=== PATIENT | male | born 1960 | race Caucasian/White ===

== ENCOUNTER 2022-11-27 08:23 | Outpatient (OUT) | payer OTHER, SELFPAY ==
[2022-11-27 08:39] LABS: Basophils Absolute Auto 0.1 10^3/uL (0.0-0.1); Basophils Percent Auto 0.8 % (0.2-2.0); Hematocrit 45.8 % (42.0-54.0); Hemoglobin 15.7 g/dL (14.0-18.0); Immature Granulocytes Abs Auto 0.02 10^3/uL (0.00-0.03); Immature Granulocytes Pct Auto 0.3 % (0.0-0.5); Lymphocytes Absolute Auto 1.7 10^3/uL (1.2-3.8); Lymphocytes Percent Auto 24.5 % (20.5-60.0); Mean Corpuscular HGB Conc 34.3 g/dL (29.9-35.2); Mean Corpuscular Hemoglobin 32.7 pg (25.9-34.0); Mean Corpuscular Volume 95.4 fL (80.0-94.0); Mean Platelet Volume 9.8 fL (9.5-13.5); Monocytes Absolute Auto 0.6 10^3/uL (0.3-0.8); Monocytes Percent Auto 7.8 % (1.7-12.0); Neutrophils Absolute Auto 4.7 10^3/uL (1.4-6.5); Neutrophils Percent Auto 66.6 % (43.0-75.0); Platelet Count 189 10^3/uL (150-450); Red Cell Distribution Width 12.7 % (11.0-15.0); White Blood Count 7.1 10^3/uL (4.0-11.0)
[2022-11-27 08:56] LABS: Estimated Average Glucose 154 mg/dL
[2022-11-27 09:06] LABS: Microalbumin Urine Random 10.5 mg/dL (<=30.0)
[2022-11-27 09:09] LABS: Alanine Aminotransferase 100 U/L (16-63); Albumin Globulin Ratio 0.9; Albumin Level 3.8 g/dL (3.4-5.0); Alkaline Phosphatase 100 U/L (46-116); Anion Gap 14.7; Aspartate Amino Transferase 65 U/L (15-37); Bilirubin Total 0.6 mg/dL (0.2-1.0); Calcium 9.5 mg/dL (8.5-10.1); Carbon Dioxide 29.3 mmol/L (21.0-32.0); Chloride 97 mmol/L (98-107); Cholesterol 202 mg/dL (<=200); Estimated GFR (African America >60 (>=60); Estimated GFR (Non-African Ame >60 (>=60); Globulin 4.2 g/dL; Glucose 151 mg/dL (74-106); HDL Cholesterol 51 mg/dL (40-60); Sodium 137 mmol/L (136-145); Triglycerides 181 mg/dL (<=150); VLDL CHOLESTEROL 36.2 mg/dL
[2022-11-27 14:04] LABS: Prostate Specific Antigen Scrn 0.62 ng/mL (<=4.00)
== END 2022-11-27 08:24 | disposition home or self-care (01) ==
LOC: LAB 08:23
PROVIDERS: PCP Internal Medicine; Visit Provider Internal Medicine
DX: Z00.00 Encounter for general adult medical examination without abnormal findings (principal); Z12.5 Encounter for screening for malignant neoplasm of prostate
CPT/HCPCS: 36415; 80053; 80061; 82043; 83036; 85025; G0103

== ENCOUNTER 2023-01-28 12:29 | Emergency (ER) | payer OTHER, SELFPAY ==
[2023-01-28 12:33] VITALS: BP 128/100; PULSE 102; RESP 18; TEMP 37; O2SAT 96; BMI 30.2
--- NOTE | 2023-01-28 13:00 | XR_ITS ---
The [address] [address] Patient Name: VINNY CERON MRN: [id number] date: 1960 Sex: M Assigned Patient Location: ER Current Patient Location: ED.MAIN Accession/Order Number: [id number] Exam Date: 01/28/2023 13:07 Report Date: 01/28/2023 13:53 At the request of: JEREMY LUIS Procedure: XR hip LT 2V w/ pelvis PROCEDURE: XR hip LT 2V w/ pelvis HISTORY: pain COMPARISON: None. FINDINGS: BONES:No fracture, acute abnormality, or significant arthropathy. SOFT TISSUES:No visible soft tissue swelling. EFFUSION:None visible. OTHER: Negative. XR/XR hip LT 2V w/ pelvis IMPRESSION: 1. Minimal degenerative changes. 2. No acute bone abnormality. Electronically authenticated by: LOI COREA Date: 01/28/2023 13:53
--- NOTE | 2023-01-28 13:01 | XR_ITS ---
The [address] [address] Patient Name: VINNY CERON MRN: [id number] date: 1960 Sex: M Assigned Patient Location: ER Current Patient Location: ER Accession/Order Number: [id number] Exam Date: 01/28/2023 13:07 Report Date: 01/28/2023 13:55 At the request of: JEREMY LUIS Procedure: XR lumbar spine 2-3V EXAMINATION: XR lumbar spine 2-3V HISTORY: pain COMPARISON: No relevant comparison available. FINDINGS: BONES: Minimal left convex curvature lumbar spine. No fracture or spondylolisthesis. Moderate degenerative facet arthropathy L4-5, L5-S1. DISC SPACES: No significant disc space narrowing. PARASPINOUS: Negative. No paraspinous abnormality is seen. OTHER: Negative. XR/XR lumbar spine 2-3V IMPRESSION: 1. No appreciable acute abnormality. 2. Moderate degenerative facet arthropathy of lower lumbar spine. Electronically authenticated by: LOI COREA Date: 01/28/2023 13:55
--- NOTE | 2023-01-28 13:41 | ED.BACK1 ---
HPI - Back Pain/Injury General Chief Complaint: Extremity Injury, Lower Stated Complaint: LOWER EXTREMITY PAIN Time Seen by Provider: 01/28/23 12:40 Source: patient Mode of arrival: walk-in History of Present Illness HPI Narrative: this patient's here complaining of low back pain left hip pain. He says the radiate the pain radiates through his buttock down the sciatic area below his knee all the way into his foot. He has bilateral peripheral neuropathy due to diabetes but he says his pain is getting the point where it's excruciating. He's had it for three weeks. He scheduled to see his primary care doctor tomorrow. He's not had CT/MRI or previous x-rays of his back. He's not had surgery. He does not have a bowel or bladder incontinence or dysfunction. He is not running a fever. There is not been a trauma or injury. He says when he goes to work at the end of the shift he is actually feeling a little bit better. Today says the pain is a fifteen he said he just couldn't even get out of bed. He has no ALLERGIES to medication is not on any NSAIDs or analgesics at this time. He has no history of kidney stones. He has no flank pain. Related Data Allergies Allergy/AdvReac Type Severity Reaction Status Date / Time No Known Drug Allergies Allergy Verified 01/28/23 12:33 [facility] Social History Smoking status: Current every day smoker Exam Narrative Exam Narrative: await lying on his back has discomfort when he moves about. He is very stoic. Vital signs are noted. In prone position deep tendon reflexes were checked and they're symmetrical at his patella and Achilles. He has strong strength bilateral extensor hallucis longus. He has positive ipsilateral straight leg raising test on the left negative contralateral findings. Neurovascular examination lower extremity is normal with no evidence of vascular insufficiency. There is no evidence of deep vein thrombosis or phlebitis or edema. Breast examination chest had upper torso or all normal. Constitutional Vital Signs, click to edit/add: Last Vital Signs Temp 98.6 F 01/28/23 12:33 Pulse 102 H 01/28/23 12:33 Resp 18 01/28/23 12:33 BP 128/100 H 01/28/23 12:33 Pulse Ox 96 01/28/23 12:33 O2 Del Method Room Air 01/28/23 12:33 Course Vital Signs Vital signs: Vital Signs Temperature 98.6 F 01/28/23 12:33 Pulse Rate 102 H 01/28/23 12:33 Respiratory Rate 18 01/28/23 12:33 Blood Pressure 128/100 H 01/28/23 12:33 Pulse Oximetry 96 01/28/23 12:33 Oxygen Delivery Method Room Air 01/28/23 12:33 Temperature 98.6 F 01/28/23 12:33 Pulse Rate 102 H 01/28/23 12:33 Respiratory Rate 18 01/28/23 12:33 Blood Pressure 128/100 H 01/28/23 12:33 Pulse Oximetry 96 01/28/23 12:33 Oxygen Delivery Method Room Air 01/28/23 12:33 MDM - Back Pain/Injury MDM Narrative Medical decision making narrative: conventional x-rays been done LS-spine and left hip are essentially negative for any acute abnormality or fracture. His symptoms are highly suggestive of lumbar radiculopathy with no cauda equinus syndrome. I spoke with his primary care doctor who will see him tomorrow. We'll administer analgesics and start him on steroids. Discharge Plan Discharge Chief Complaint: Extremity Injury, Lower Clinical Impression: Acute left lumbar radiculopathy Patient Disposition: Home, Self-Care Time of Disposition Decision: 13:44 Additional Instructions: Robaxin/Percocet/prednisone Stand Alone Forms: Portal Instructions Referrals: Samuel Zhao DO [Primary Care Provider] - 1 week
[2023-01-28] MEDS: HYDROMORPHONE HCL 2 MG/ML VIAL IM (13:50)
[2023-01-28] MEDS: ORPHENADRINE 60 MG/ 2 ML VIAL IM (13:51)
[2023-01-28 14:19] VITALS: BP 118/79; PULSE 100; RESP 14; O2SAT 94
== END 2023-01-28 14:21 | disposition home or self-care (01) ==
PROVIDERS: Emergency Provider Emergency Medicine Emergency Medical Services; PCP Internal Medicine
DX: M54.16 Radiculopathy, lumbar region (principal); F17.210 Nicotine dependence, cigarettes, uncomplicated
CPT/HCPCS: 72100; 73502; 96372; 99284; J1170

== ENCOUNTER 2023-02-06 08:43 | Outpatient (OUT) | payer OTHER, SELFPAY ==
--- NOTE | 2023-02-06 08:46 | MR_ITS ---
[address] [address] Patient Name: VINNY CERON MRN: [id number] date: 1960 Sex: M Assigned Patient Location: MRI Current Patient Location: ED.MAIN Accession/Order Number: [id number] Exam Date: 02/06/2023 08:58 Report Date: 02/06/2023 11:09 At the request of: NESHA VALDEZ Procedure: MR lumbar spine wo con EXAM: MR lumbar spine wo con CLINICAL INDICATION: Acute Left Sided Low Back Pain With Left Sided Sciatica COMPARISON: Lumbar spine radiographs 01/28/2023. MRI lumbar spine 03/21/2022. TECHNIQUE/PROTOCOL: Noncontrast lumbar spine MR protocol (Sagittal T1, T2, STIR and axial T1, T2 sequences). FINDINGS: Segmentation: Normal. Conus: Terminates at L1. Spinal Cord and Cauda Equina: Normal. Pedicles: Congenitally shortened. Alignment: Normal. Marrow Signal: Focal hyperintense STIR marrow edema in the left L4 and L5 pedicles with trace surrounding soft tissue edema. Vertebral Body Heights: Maintained. Sacroiliac Joints: Grossly normal given only partially visualized. Paraspinal Soft Tissues: Normal. Retroperitoneal Soft Tissues: No acute abnormalities. Spondylotic Changes: Multilevel spondylotic changes include varying degrees of disc desiccation, osteophytic ridging, and facet/ligamentum flavum hypertrophy. These have not substantially progressed since 03/21/2022. T12-L1: No disc bulge or herniation. No high-grade spinal canal or foraminal narrowing. L1-L2: No disc bulge or herniation. No high-grade spinal canal or foraminal narrowing. L2-L3: Slight disc bulge minimally indents the ventral thecal sac. No high-grade spinal canal or foraminal narrowing. Mild bilateral facet/ligamentum flavum hypertrophy. L3-L4: Disc bulge indents the ventral thecal sac. This in conjunction with the congenitally shortened pedicles and mild bilateral facet/ligamentum flavum hypertrophy overall results in mild spinal canal narrowing. Mild bilateral foraminal narrowing. L4-L5: Disc bulge indents the ventral thecal sac. This in conjunction with the congenitally shortened pedicles and moderate bilateral facet/ligamentum flavum hypertrophy overall results in moderate spinal canal narrowing. Mild bilateral foraminal narrowing. L5-S1: Slight disc bulge does not indent the ventral thecal sac. Circumferential epidural lipomatosis contributes to moderate spinal canal narrowing. Mild bilateral foraminal narrowing. Mild bilateral facet/ligamentum flavum hypertrophy. Small right facet joint effusion. MR/MR lumbar spine wo con IMPRESSION: 1. Focal marrow edema in the left L4 and L5 pedicles. Trace surrounding soft tissue edema. This could reflect active arthritis/arthropathy and can be a pain generator. 2. Multilevel spondylotic changes are superimposed on congenitally shortened pedicles. No high-grade spinal canal or foraminal narrowing at any lumbar level. 3. Spinal canal narrowing is at most moderate at L4-L5 and L5-S1. At L5-S1, this is primarily contributed to by epidural lipomatosis. Report was submitted to the clinical operation support team for expedited review by the provider. Electronically authenticated by: LUCIE WOODWARD Date: 02/06/2023 11:09
== END 2023-02-06 08:44 | disposition home or self-care (01) ==
LOC: MRI 08:43
PROVIDERS: PCP Internal Medicine; Visit Provider Internal Medicine
DX: M54.42 Lumbago with sciatica, left side (principal)
CPT/HCPCS: 72148

== ENCOUNTER 2023-03-26 12:29 | Outpatient (OUT) | payer OTHER, SELFPAY ==
--- OUTSIDE RECORDS SUMMARY | 2023-03-26 12:34 | XMS_ITS | CCD ---
Author Name Unknown Address [address] [place] [address] Organization [facility] Care Team Providers Care Antenna Engineer Name Role Phone Samuel Zhao Unavailable PAVEL, DR JEFFRIES Primary Care Unavailable REAL, CAPRICE Mendez Admitting Unavailable REAL, CAPRICE Mendez Attending Unavailable REAL, CAPRICE Mendez Consulting Unavailable NEFCY, CAPRICE Consulting Unavailable PAVEL, DR JEFFRIES Primary Care Unavailable BALL, DR JEFFRIES Admitting Unavailable BALL, DR JEFFRIES Attending Unavailable BALL, DR JEFFRIES Consulting Unavailable MINESH, DR VINNY Gonzalez Consulting Unavailable BALL, DR JEFFRIES Primary Care Unavailable BALL, DR JEFFRIES Admitting Unavailable BALL, DR JEFFRIES Attending Unavailable BALL, DR JEFFRIES Consulting Unavailable MISC, DR HEALY Admitting Unavailable MISC, DR HEALY Attending Unavailable WEST, DR VINNY Gonzalez Consulting Unavailable BALL, DR JEFFRIES Primary Care Unavailable MISC, DR HEALY Consulting Unavailable BALL, DR JEFFRIES Admitting Unavailable BALL, DR JEFFRIES Attending Unavailable BALL, DR JEFFRIES Consulting Unavailable BALL, DR JEFFRIES Primary Care Unavailable BALL, DR JEFFRIES Primary Care Unavailable BALL, DR JEFFRIES Admitting Unavailable BALL, DR JEFFRIES Attending Unavailable BALL, DR JEFFRIES Consulting Unavailable WEST, DR VINNY Gonzalez Consulting Unavailable BALL, DR JEFFRIES Admitting Unavailable BALL, DR JEFFRIES Attending Unavailable BALL, DR JEFFRIES Consulting Unavailable BALL, DR JEFFRIES Primary Care Unavailable Allergies Allergy Classification Reported Allergen(s) Allergy Type Date of Onset Reaction(s) Facility (20 sources) met[facility] Drug Allergy diarrhea [email or web address] Other Medications Current Medications Medication Drug Class(es) Dates Sig (Normalized) Sig (Original) acetaminophen 325 mg / oxyCODONE hydrochloride 5 mg oral tablet (20 sources) Opioid Agonist Start: 03-11-2023 take 1 tablet by mouth every six hours oxyCODONE-Acetami nophen 5-325 MG 1 tablet as needed Orally every 6 hrs for 7 days p/u 03/11, start 03/12Mar, Active Start: 01-31-2023 take 1 tablet by alphonso th every six hours oxyCODONE-Acetaminophen 5-325 MG 1 table t as needed Orally every 6 hrs for 7 days Mar, Active [id number] actuat albuterol 0.09 mg/actuat metered dose inhaler (20 sources) beta2-Adrenergic Agonist take 2 puff(s) by inhalation every four hours as needed for cough Albuterol Sulfate HFA 108 (90 Base) MCG/ACT 2 puffs Inhalation every 4 hrs as needed for cough, SOB Active take 2 puff(s) by in halation every four hours as needed for cough Albuterol Sulfate HFA 108 (90 Base) MCG/ACT 2 puffs Inhalation every 4 hrs as needed for cough, SOB Active take 2 puff(s) by in halation every four hours as needed for cough Albuterol Sulfate HFA 108 (90 Base) MCG/ACT 2 puffs Inhalation every 4 hrs as needed for cough, SOB Active take 1 puff(s) by in halation every four hours as needed Albuterol Sulfate HFA 108 (90 Base) MCG/ACT 1 puff as needed Inhalation every 4 hrs Active amLODIPine 5 mg oral tablet (20 sources) Dihydropyridine Calcium Channel Tony Start: 03-21-2022 take 1 tablet by mouth every twenty-four hours amLODIPine Besylate 5 MG 1 tablet Orally Once a day Mar, Active atorvastatin 10 mg oral tablet (20 sources) HMG-CoA Reductase Inhibitor take 1 tablet by mouth every twenty-four hours Atorvastatin Calcium 10 MG 1 tablet Orally Once a day Active bisoprolol fumarate 5 mg / hydroCHLOROthiazide 6.25 mg oral tablet (16 sources) Thiazide Diuretic, beta-Adrenergic Tony Start: 06-26-2022 take 1 tablet by mouth every twenty-four hours Bisoprolol-hydro CHLOROthiazide 5-6.25 MG 1 tablet Orally Once a day for 30 days Jun, Active glimepiride 2 mg oral tablet (20 sources) Sulfonylurea take 1 tablet by mouth once daily Glimepiride 2 mg 1 tablet Orally Once a day, taken 30 minutes prior to bkfsts Active losartan potassium 50 mg oral tablet (20 sources) Angiotensin 2 Receptor Tony take 1 tablet by mouth every twenty-four hours Losartan Potassium 50 MG 1 tablet Orally Once a day Active nabumetone 750 mg oral tablet (8 sources) Nonsteroidal Anti-inflammatory Drug take 750 mg by mouth three times daily Nabumetone 750 MG as directed Orally three times a day Active omeprazole 20 mg delayed release oral capsule (20 sources) Proton Pump Inhibitor Start: 03-21-2022 take 1 capsule by mouth once daily Omeprazole 20 MG 1 Capsule Orally Once a day, taken on empty stomach 30 minutes prior to bkfst Mar, Active predniSONE 20 mg oral tablet (9 sources) predniSONE 20 MG 1 tablets Orally three times a day for 3 days, two times a day for 3 days, 1 a day for 3 days for 9 days Active SITagliptin 50 mg oral tablet (20 sources) Dipeptidyl Peptidase 4 Inhibitor take 1 tablet by mouth every twenty-four hours Januvia 50 MG 1 tablet Orally Once a day Active tiZANidine 4 mg oral tablet (7 sources) Central alpha-2 Adrenergic Agonist Start: 02-05-2023 tiZANidine HCl 4 MG 1/2 - 1 Orally Three times a day as needed for back pain Feb, Active triamcinolone acetonide 0.001 mg/mg topical ointment (16 sources) Corticosteroid Triamcinolone Acetonide 0.1 % 1 application Externally Twice a day for 30 days Active 30 actuat umeclidinium 0.0625 mg/actuat / vilanterol 0.025 mg/actuat dry powder inhaler (20 sources) Anticholinergic, beta2-Adrenergic Agonist take 1 puff(s) by inhalation once daily Anoro Ellipta 62.5-25 MCG/ACT 1 puff Inhalation Once a day Active take 1 puff(s) by inhalation onc e daily Anoro Ellipta 62.5-25 MCG/ACT 1 puff Inhalation Once a day Active Completed/Discontinued Medications Medication Drug Class(es) Dates Sig (Normalized) Sig (Original) amoxicillin 875 mg oral tablet (20 sources) Penicillin-class Antibacterial Start: 07-15-2014 take 1 tablet by mouth every twelve hours Amoxicillin 875 MG 1 tablet Orally Twice a day July, Not-Taking/PRN benazepril hydrochloride 5 mg / hydroCHLOROthiazide 6.25 mg oral tablet (20 sources) Thiazide Diuretic, Angiotensin Converting Enzyme Inhibitor take 1 tablet by mouth every twenty-four hours Benazepril-hydro CHLOROthiazide 5-6.25 MG 1 tablet Orally Once a day Not-Taking/PRN take 1 tablet by alphonso th once daily Benazepril-hydroCHLOROthiazide 5-6.25 MG 1 tablet Orally Once a day Not-Taking Problems Active Problems Problem Classification Problem Date Documented Date Episodic/Chronic Chronic obstructive pulmonary disease and bronchiectasis (20 sources) Simple chronic bronchitis; Translations: [Simple chronic bronchitis] Chronic Diabetes mellitus with complications (20 sources) Polyneuropathy due to type 2 diabetes mellitus; Translations: [Type 2 diabetes mellitus with diabetic polyneuropathy] Onset: 08-09-2021 Chronic Disorders of lipid metabolism (20 sources) Pure hypercholesterolemia; Translations: [Familial hypercholesterolemia] Chronic Esophageal disorders (11 sources) Gastro-esophageal reflux disease with esophagitis; Translations: [Gastroesophageal reflux disease with esophagitis without hemorrhage] Chronic Essential hypertension (20 sources) Essential hypertension; Translations: [Essential (primary) hypertension] Onset: 03-21-2022 Chronic Gout and other crystal arthropathies (20 sources) Primary gout; Translations: [Idiopathic gout, right ankle and foot] Chronic Hyperplasia of prostate (20 sources) Lower urinary tract symptoms due to benign prostatic hypertrophy; Translations: [Benign prostatic hyperplasia with lower urinary tract symptoms] Chronic Other and unspecified benign neoplasm (20 sources) Benign neoplasm of colon; Translations: [Benign neoplasm of transverse colon] Episodic Other connective tissue disease (8 sources) Plantar fasciitis of right foot; Translations: [Plantar fascial fibromatosis] Episodic Other connective tissue disease (5 sources) Pain in right foot; Translations: [PAIN IN RIGHT FOOT] Onset: 06-27-2022 Episodic Other liver diseases (10 sources) Steatosis of liver; Translations: [Fatty (change of) liver, not elsewhere classified] Chronic Other liver diseases (1 source) Fatty (change of) liver, not elsewhere classified Chronic Other nervous system disorders (20 sources) Common peroneal nerve lesion; Translations: [Lesion of lateral popliteal nerve, right lower limb] Chronic Other nutritional; endocrine; and metabolic disorders (20 sources) Overweight; Translations: [Overweight] Episodic Other nutritional; endocrine; and metabolic disorders (1 source) Overweight Episodic Other screening for suspected conditions (not mental disorders or infectious disease) (20 sources) Prostate specific antigen measurement; Translations: [Encounter for screening for malignant neoplasm of prostate] Onset: 12-04-2021 Episodic Other skin disorders (8 sources) Mass of neck; Translations: [Localized swelling, mass and lump, neck] Episodic Other skin disorders (1 source) Localized swelling, mass and lump, right lower limb Episodic Other skin disorders (1 source) Dyshidrosis [pompholyx] Episodic Residual codes; unclassified (8 sources) Immunization not carried out because of patient refusal; Translations: [Vaccination declined] Episodic Spondylosis; intervertebral disc disorders; other back problems (20 sources) Cervical spondylosis; Translations: [Spondylosis without myelopathy or radiculopathy, cervical region] Onset: 03-22-2022 Chronic Spondylosis; intervertebral disc disorders; other back problems (20 sources) Neck pain; Translations: [Cervicalgia] Episodic Substance-related disorders (20 sources) Tobacco user; Translations: [Nicotine dependence, cigarettes, uncomplicated] Onset: 12-01-2021 Chronic Past or Other Problems Problem Classification Problem Date Documented Da te Episodic/Chronic Esophageal disorders (17 sources) Esophageal disorders; Translations: [Gastroesophageal reflux disease with esophagitis without hemorrhage] Other nervous system disorders (1 source) Paresthesia of skin; Translations: [PARESTHESIA OF SKIN] Onset: 03-22-2022 Episodic Unclassified (20 sources) Elevated transaminase level; Translations: [Elevated transaminase level] Unclassified (1 source) Elevated transaminase level R74.01 Results Test Name Value Interpretation Reference Range Facility XR ANKLE RT MIN 3 VIEWSon XR ANKLE RT MIN 3 VIEWS EXAM: XR ANKLE RT MIN 3 VIEWS HISTORY: Pain of right ankle joint COMPARISON: 06/27/2022 TECHNIQUE: 3 views of the right ankle were obtained. FINDINGS: There is no evidence of an acute fracture or dislocation. A small remote chip fracture seen along the posterior aspect of the distal tibia. The mortise is intact. No osteochondral injury is identified. The subtalar joints are unremarkable. Mild soft tissue swelling medially is noted. IMPRESSION: No acute fracture or dislocation. The joint spaces are intact. A small remote chip fracture is noted posterior to the distal tibia. The osseous structures are unchanged. Mild soft tissue swelling medially is noted. Electronically authenticated by: CAPRICE SHORE Date: 2022-07-18 18:48 Normal [facility] GLYCOHEMOGLOBIN A1Con 2022 ADA RECOMMENDATION SEE BELOW Normal [facility] Comment on above: Result Comment: ADA RECOMMENDED LIMIT 4.0 - 6.0 ADA THERAPEUTIC TARGET < 7.0 ACTION SUGGESTED > 7.0 Performed By: #### C MP, LIPID, TSH #### [facility] [address] [address] [address] Gerardo Larose Glucose [Mass/Vol] 143 mg/dL Normal [facility] Comment on above: Performed By: #### C MP, LIPID, TSH #### [facility] [address] [place], [place] [address] Dr. Gerardo Larose HbA1c (Bld) [Mass fraction] 6.6 % Critically high 4.5-6.2 [facility] Comment on above: Performed By: #### C MP, LIPID, TSH #### [facility] [address] [address] [address] Gerardo Larose MRI LSPINE WO CONon 03-21-19 MRI LSPINE WO CON EXAMINATION: MRI LSPINE WO CON HISTORY: Paresthesia COMPARISON: No relevant comparison available. TECHNIQUE: A variety of imaging planes and parameters were utilized for visualization of suspected pathology. FINDINGS: For the purposes of numbering, sagittal T2 image # 8 extends from the T11 vertebral body superiorly to the S3 level inferiorly. PARASPINAL AREA: Normal with no visible mass. BONES: Normal alignment with no acute fracture or spondylolisthesis. No bone edema. Mild heterogeneous marrow signal is likely age-related change. CORD/CAUDA EQUINA: Normal caliber, contour, and signal intensity. DISC LEVELS: 12-L1: No significant disc/facet abnormality, spinal stenosis, or foraminal stenosis. L1-L2: No significant disc/facet abnormality, spinal stenosis, or foraminal stenosis. L2-L3: Early degenerative disc disease is present without focal protrusion or neural impingement. L3-L4: Early degenerative disc disease is present without focal protrusion or neural impingement. L4-L5: Early degenerative disc disease is present without focal protrusion or neural impingement. L5-S1: No significant disc/facet abnormality, spinal stenosis, or foraminal stenosis. IMPRESSION: Mild discogenic changes. No significant disc bulge or herniation. No central or foraminal stenosis Electronically authenticated by: VINNY EDGE Date: 2022-03-21 16:49 Normal [facility] CT LUNG CANCER SCREENINGon 1 CT LUNG CANCER SCREENING EXAMINATION: CT LUNG CANCER SCREENING HISTORY: Tobacco dependence caused by cigarettes COMPARISON: 11/30/2020 TECHNIQUE: Axial, Coronal, and Sagittal images were created without the administration of IV contrast material. Dose reduction techniques were achieved by using automated exposure control and/or adjustment of mA and/or kV according to patient size and/or use of iterative reconstruction technique. FINDINGS: LUNGS: Calcified tracheobronchial tree. Mild peribronchial thickening. Scattered bilateral punctate solid calcified and noncalcified pulmonary nodules the largest noncalcified nodule measures up to 3 mm. PLEURA: No mass, effusion, or pneumothorax. VASCULATURE: No abnormality. FELICIA: No mass or pathologic adenopathy. MEDIASTINUM: No mass or pathologic adenopathy. CARDIAC: No enlargement or pericardial effusion. Mild coronary atherosclerosis AORTA: No aortic aneurysm. Moderate atherosclerosis CHEST WALL: No mass or axillary adenopathy BONES: No bone lesion or fracture. Mild to moderate degenerative change LIMITED ABDOMEN: No suspicious findings. Limited images of the upper abdomen. OTHER: Negative. IMPRESSION: LUNG SCREENING: Lung-RADS Category 2- Benign Appearance or Behavior. Nodules with a very low likelihood of becoming a clinically active cancer due to size or lack of growth. 2. Continue annual screening with LDCT in 12 months. Electronically authenticated by: VINNY EDGE Date: 2021-12-04 07:24 Normal [facility] CBC AUTO DIFFon 12-01-2021 BASO # 0.1 103/ul Normal 0.0-0.1 [facility] Comment on above: Performed By: #### C MP, LIPID, TSH #### [facility] [address] [place] [address] Dr. Gerardo Larose Basophils/100 WBC (Bld) 0.9 % Normal 0.2-2.0 [facility] Comment on above: Performed By: #### C MP, LIPID, TSH #### [facility] [address] [address] [address] Gerardo Larose EO # 0.2 103/ul Normal 0.0-0.7 [facility] Comment on above: Performed By: #### C MP, LIPID, TSH #### [facility] [address] [address] [address] Gerardo Larose Eosinophils/100 WBC (Bld) 2.5 % Normal 0.9-7.0 [facility] Comment on above: Performed By: #### C MP, LIPID, TSH #### [facility] [address] [place] [address] Dr. Gerardo Larose Erythrocyte distribution width (RBC) [Ratio] 13.7 % Normal 11.0-15.0 [facility] Comment on above: Performed By: #### C MP, LIPID, TSH #### [facility] [address] [place] [address] Dr. Gerardo Larose Hematocrit (Bld) [Volume fraction] 46.3 % Normal 42.0-54.0 [facility] Comment on above: Performed By: #### C MP, LIPID, TSH #### [facility] [address] [place] [address] Dr. Gerardo Larose Hemoglobin (Bld) [Mass/Vol] 15.7 g/dL Normal 14.0-18.0 [facility] Comment on above: Performed By: #### C MP, LIPID, TSH #### [facility] [address] [place] [address] Dr. Gerardo Larose IG # 0.03 10e3/ul Normal 0.00-0.03 [facility] Comment on above: Performed By: #### C MP, LIPID, TSH #### [facility] [address] [place] [address] Dr. Gerardo Larose IG % 0.4 % Normal 0.0-0.5 [facility] Comment on above: Performed By: #### C MP, LIPID, TSH #### [facility] [address] [place] [address] Dr. Gerardo Larose LYMPH # 2.1 103/ul Normal 1.2-3.8 [facility] Comment on above: Performed By: #### C MP, LIPID, TSH #### [facility] [address] [place] [address] Dr. Gerardo Larose Lymphocytes/100 WBC (Bld) 31.2 % Normal 20.5-60.0 [facility] Comment on above: Performed By: #### C MP, LIPID, TSH #### [facility] [address] [place] [address] Dr. Gerardo Larose MANUAL DIFF REQ NO Normal [facility] Comment on above: Performed By: #### C MP, LIPID, TSH #### [facility] [address] [place] [address] Dr. Gerardo Larose MCH (RBC) [Entitic mass] 31.3 pg Normal 25.9-34.0 [facility] Comment on above: Performed By: #### C MP, LIPID, TSH #### [facility] [address] [place] [address] Dr. Gerardo Larose MCHC (RBC) [Mass/Vol] 33.9 g/dL Normal 29.9-35.2 [facility] Comment on above: Performed By: #### C MP, LIPID, TSH #### [facility] [address] [place] [address] Dr. Gerarod Larose MCV (RBC) [Entitic vol] 92.4 fL Normal 80.0-94.0 [facility] Comment on above: Performed By: #### C MP, LIPID, TSH #### [facility] [address] [place] [address] Dr. Gerardo Larose MONO # 0.5 103/ul Normal 0.3-0.8 [facility] Comment on above: Performed By: #### C MP, LIPID, TSH #### [facility] [address] [place] [address] Dr. Gerardo Larose Monocytes/100 WBC (Bld) 7.8 % Normal 1.7-12.0 [facility] Comment on above: Performed By: #### C MP, LIPID, TSH #### [facility] [address] [place] [address] Dr. Gerardo Larose NEUT # 3.8 103/ul Normal 1.4-6.5 [facility] Comment on above: Performed By: #### C MP, LIPID, TSH #### [facility] [address] [place] [address] Dr. Gerardo Larose Neutrophils/100 WBC (Bld) 57.2 % Normal 43.0-75.0 [facility] Comment on above: Performed By: #### C MP, LIPID, TSH #### [facility] [address] [address] [address] Gerardo Larose Platelet mean volume (Bld) [Entitic vol] 10.2 fL Normal 9.5-13.5 [facility] Comment on above: Performed By: #### C MP, LIPID, TSH #### [facility] [address] [address] [address] Gerardo Larose PLT 190 103/ul Normal 150-450 [facility] Comment on above: Performed By: #### C MP, LIPID, TSH #### [facility] [address] [address] [address] Gerardo Larose RBC 5.01 106/ul Normal 4.70-6.10 [facility] Comment on above: Performed By: #### C MP, LIPID, TSH #### [facility] [address] [place] [address] Dr. Gerardo Larose WBC 6.7 103/ul Normal 4.0-11.0 [facility] Comment on above: Performed By: #### C MP, LIPID, TSH #### [facility] [address] [place] [address] Dr. Gerardo Larose GLYCOHEMOGLOBIN A1Con 2021 ADA RECOMMENDATION SEE BELOW Normal [facility] Comment on above: Result Comment: ADA RECOMMENDED LIMIT 4.0 - 6.0 ADA THERAPEUTIC TARGET < 7.0 ACTION SUGGESTED > 7.0 Performed By: #### C MP, LIPID, TSH #### [facility] [address] [place] [address] Dr. Gerardo Larose Glucose [Mass/Vol] 140 mg/dL Normal [facility] Comment on above: Performed By: #### C MP, LIPID, TSH #### [facility] [address] [place] [address] Dr. Gerardo Larose HbA1c (Bld) [Mass fraction] 6.5 % Critically high 4.5-6.2 [facility] Comment on above: Performed By: #### C MP, LIPID, TSH #### [facility] [address] [place] [address] Dr. Gerardo Larose LIPID PROFILEon 12-01-2021 CHOL-HDL RATIO NORM SEE BELOW Normal [facility] Comment on above: Result Comment: 3.3 - 4.4 LOW RISK 4.4 - 7.1 AVERAGE RISK 7.1 - 11.0 MODERATE RISK >11.0 HIGH RISK Performed By: #### C MP, LIPID, TSH #### [facility] [address] [address] [address] Gerardo Larose Cholesterol [Mass/Vol] 202 mg/dL Critically high <=200 [facility] Comment on above: Performed By: #### C MP, LIPID, TSH #### [facility] [address] [address] [address] Gerardo Larose Cholesterol in HDL [Mass/Vol] 58 mg/dL Normal 40-60 [facility] Comment on above: Performed By: #### C MP, LIPID, TSH #### [facility] [address] [address] [address] Gerardo Larose Cholesterol in LDL [Mass/Vol] 104.2 mg/dL Normal [facility] Comment on above: Performed By: #### C MP, LIPID, TSH #### [facility] [address] [address] [address] Gerardo Larose Cholesterol.total/Cho lesterol in HDL [Mass ratio] 3.5 {ratio} Normal [facility] Comment on above: Performed By: #### C MP, LIPID, TSH #### [facility] [address] [address] [address] Gerardo Larose HDL NORMAL > or = 60 mg/dl - LO W CARDIOVASCULAR RISK <40 mg/dl - HIGH CARDIOVASCULAR RISK Normal [facility] Comment on above: Performed By: #### C MP, LIPID, TSH #### [facility] [address] [address] [address] Gerardo Larose LDL CALC NORMAL SEE BELOW Normal [facility] Comment on above: Result Comment: <100 mg/dl OPTIMAL 100 - 129 mg/dl NEAR OR ABOVE OPTIMAL 130 - 159 mg/dl BORDERLINE HIGH 160 - 189 mg/dl HIGH >190 mg/dl VERY HIGH Performed By: #### C MP, LIPID, TSH #### [facility] [address] [address] [address] Gerardo Larose Triglyceride [Mass/Vol] 199 mg/dL Critically high <=150 [facility] Comment on above: Performed By: #### C MP, LIPID, TSH #### [facility] [address] [address] [address] Gerardo Larose VLDL CALC 39.8 mg/dL Normal [facility] Comment on above: Performed By: #### C MP, LIPID, TSH #### [facility] [address] [address] [address] Gerardo Larose MICROALBUMIN, RAND URon 11-04 mALB 28.7 mg/L Normal <=30.0 [facility] Comment on above: Performed By: #### C MP, LIPID, TSH #### [facility] [address] [place] [address] Dr. Gerardo Larose PROF 14(COMP METB)on 022 Albumin [Mass/Vol] 3.7 g/dL Normal 3.4-5.0 [facility] Comment on above: Performed By: #### C MP, LIPID, TSH #### [facility] [address] [address] [address] Gerardo Larose Albumin/Globulin [Mass ratio] 0.9 {ratio} Normal [facility] Comment on above: Performed By: #### C MP, LIPID, TSH #### [facility] [address] [address] [address] Gerardo Larose ALP [Catalytic activity/Vol] 84 U/L Normal 46-116 [facility] Comment on above: Performed By: #### C MP, LIPID, TSH #### [facility] [address] [address] [address] Gerardo Larose ALT [Catalytic activity/Vol] 45 U/L Normal 16-63 [facility] Comment on above: Performed By: #### C MP, LIPID, TSH #### [facility] [address] [place] [address] Dr. Gerardo Larose Anion gap [Moles/Vol] 10.8 mmol/L Normal [facility] Comment on above: Performed By: #### C MP, LIPID, TSH #### [facility] [address] [address] [address] Gerardo Larose AST [Catalytic activity/Vol] 26 U/L Normal 15-37 [facility] Comment on above: Performed By: #### C MP, LIPID, TSH #### [facility] [address] [address] [address] Gerardo Larose Bilirubin [Mass/Vol] 0.6 mg/dL Normal 0.2-1.0 [facility] Comment on above: Performed By: #### C MP, LIPID, TSH #### [facility] [address] [place] [address] Dr. Gerardo Larose Calcium [Mass/Vol] 9.4 mg/dL Normal 8.5-10.1 [facility] Comment on above: Performed By: #### C MP, LIPID, TSH #### [facility] [address] [place] [address] Dr. Gerardo Larose Chloride [Moles/Vol] 100 mmol/L Normal 98-107 [facility] Comment on above: Performed By: #### C MP, LIPID, TSH #### [facility] [address] [place] [address] Dr. Gerardo Larose CO2 [Moles/Vol] 28.9 mmol/L Normal 21.0-32.0 [facility] Comment on above: Performed By: #### C MP, LIPID, TSH #### [facility] [address] [place] [address] Dr. Gerardo Larose Creatinine [Mass/Vol] 0.95 mg/dL Normal 0.70-1.30 [facility] Comment on above: Performed By: #### C MP, LIPID, TSH #### [facility] [address] [place] [address] Dr. Gerardo Larose EGFR-AF FIJIAN >60 Normal >=60 [facility] Comment on above: Performed By: #### C MP, LIPID, TSH #### [facility] [address] [place] [address] Dr. Gerardo Larose EGFR-NON AF FIJIAN >60 Normal >=60 [facility] Comment on above: Performed By: #### C MP, LIPID, TSH #### [facility] [address] [address] [address] Gerardo Larose Globulin (S) [Mass/Vol] 3.9 g/dL Normal [facility] Comment on above: Performed By: #### C MP, LIPID, TSH #### [facility] [address] [address] [address] Gerardo Larose Glucose [Mass/Vol] 128 mg/dL Critically high 74-106 [facility] Comment on above: Performed By: #### C MP, LIPID, TSH #### [facility] [address] [place] [address] Dr. Gerardo Larose Potassium [Moles/Vol] 3.7 mmol/L Normal 3.5-5.1 [facility] Comment on above: Performed By: #### C MP, LIPID, TSH #### [facility] [address] [place] [address] Dr. Gerardo Larose Protein [Mass/Vol] 7.6 g/dL Normal 6.4-8.2 [facility] Comment on above: Performed By: #### C MP, LIPID, TSH #### [facility] [address] [place] [address] Dr. Gerardo Larose Sodium [Moles/Vol] 136 mmol/L Normal 136-145 [facility] Comment on above: Performed By: #### C MP, LIPID, TSH #### [facility] [address] [place] [address] Dr. Gerardo Larose Urea nitrogen [Mass/Vol] 15.0 mg/dL Normal 7.0-18.0 [facility] Comment on above: Performed By: #### C MP, LIPID, TSH #### [facility] [address] [place] [address] Dr. Gerardo Larose Urea nitrogen/Creatinine [Mass ratio] 15.8 mg/mg Normal [facility] Comment on above: Performed By: #### C MP, LIPID, TSH #### [facility] [address] [place] [address] Dr. Gerardo Larose TSHon 12-01-2021 TSH 1.388 uIU/mL Normal 0.358-3.740 [facility] Comment on above: Performed By: #### C MP, LIPID, TSH #### [facility] [address] [address] [address] Gerardo Larose VITAMIN B12on 12-01-2021 Cobalamin (Vitamin B12) [Mass/Vol] 382.0 pg/mL Normal 193.0-986.0 [facility] Comment on above: Performed By: #### V ITB12, PSASC #### [facility] [address] [address] [address] Gerardo Larose GLYCOHEMOGLOBIN A1Con 2021 ADA RECOMMENDATION SEE BELOW Normal [facility] Comment on above: Result Comment: ADA RECOMMENDED LIMIT 4.0 - 6.0 ADA THERAPEUTIC TARGET < 7.0 ACTION SUGGESTED > 7.0 Performed By: #### C MP, LIPID, TSH #### [facility] [address] [address] [address] Gerardo Larose Glucose [Mass/Vol] 192 mg/dL Normal [facility] Comment on above: Performed By: #### C EMILIO LIPID, TSH #### [facility] [address] [address] [address] Gerardo Larose HbA1c (Bld) [Mass fraction] 8.3 % Critically high 4.5-6.2 [facility] Comment on above: Performed By: #### C EMILIO, LIPID, TSH #### [facility] [address] [address] [address] Gerardo Larose IntraOperative Documentson 0 06-24-2020 IntraOperative Documents [id number] 0CD:127 Normal [facility] Coding Summary.on 06-21-2020 Coding Summary. CD:[id number] Gh 0bWw+PGhlYWQ+MY1YWZMqM 76dgFGanX7JB0yUXR5EWWF VMJZRUA9PGG6zrMH2IRbsH 2VybiAv XxzqdOEqNS62MXo0LHZ1eR ysILmtqX8ymQZlL6y5GiVd KS24tI60GFqzMPMdRwJ3Bg ZpbjsgbWFy X8riSqEslYZyZke+PHRhYm xlIHdpZHRoPScxMDAlJyBz wLffDL4pSb6dMSXbEAQsnP xhcHNlOiBj c0icRCNqEWvyIJ5ebDawT7 IcqHP5IMSsk5i4Sk44kHZ+ VMEzMBX3sYruFPald624Ji Khk8rrYTX8 lVXkLTaxHOD5K91xn5A1IX HxOIRyHCH8zMA2wK5khCpa iwskX1AziNBmWqU9SID7dX BcuQ9lwYwb uunktH3eGis+C16TMM9KQU KIBM7IRiy5V1KnBqjjoYA+ XE15MUIvQN01yTVygYAxb8 ssqZr7MtFt RKMvTLR7vXktIBysq2TtAQ IdL95ntJCpt1P4DGYapZsm cACdTmUkyDM3uF3aCZbdgm evg7bpfprx Pwuvl7rfuy81iA60R21uFJ iiMXHtQAL1IKRgEJTjuLdk up8azF9tUh5+XIwkl3nus4 etsJw5CsDg FSCngnSyyIrdUCI5p1EeEd 36Y7GndVccx0SoTql4to83 lWBos1Y9tNM0BRjtEAPzpA 0vTZezJdI5 XHZvKhUjtJ53eZNrHUubGf 3axRyzcLnaVI1eKIDhiaqq OXOyyR8xZMLywBSziSoaAJ 4wNTBpbjtm c705YkNgZMO2BKOgzMVjJ9 JpmQ5gIcPbECBnGKWsK1Rm gBXoJXkdB343YJptWnS1NX OkdxRaO4Wb CDOejShcBaO4o4Z6Qm0Sm3 AdgpqvUHJ0UGcwDLZ9XuAg AiHuUfG1N5FcPhy8QKNzvE orOE3pC4Bl EXChcaeogjztgTJ9QGLiRO BfzK65cDElDRztSp2ms3Z0 x839BYJvCQKhnC48At4xyS ogMTBwdCBU bL9ymbqdd5pkruewOlMhVO TwZIw7AUr6GKVnsHshTcNt GHQ2LwE3AJJ2lGMzbP5jhE vugquioP9j Oyc+Y27mfI1mFNJ0WYU0qs ytURYfxdNcPD74NL86K2Yl PjwvdGFibGU+PGRpdiBzdH lxHS2vRwKo s1dvw2UmHUidI6XkVHSyTK rtStf1NPTyVXW1dHO6wF4b IORkPFzjq5J8jTT2H2Wsgt Juis8at0ir HYXrJUliM93oeYVlp0A5DL LujIM0LGBjyFuwKsTkqN71 Oyc+IMRewCjta8OiWbczu5 qnm7xilOm9 YdOyHOWlbnApuJkfRZZ1m8 YfGc18G62bUNmyRDJoMZHr VPCuUNKkkGqlen2ocI6jOo 8+PGNvbCB3 yCU1cR8xYRHhQfG3RPlmE2 86PmFyjGOoHsqdl3wlg7ng rAo4ByOnPYMebkJraChdOG S8p9LfJe40 J58tFYysPJAqCJPmRLApMS XvwMjert5yhO6eEw0+PC9j o8kfbq87qQ00vMG+PHRkIH W2eXnePFpv NZMtlY9wYSjjAcA5GMGkPr CaeK32uFNqCRmyZo5mrGtk wMwrQF1aRERnasaqw861Mf Svu0ptESGd eUIqNWqdEDN0J51qg1Z2AC ErFKDiQCS7qSN4zV9axDnv bjogbGVmdDsgdmVydGljYW qjRPgiH274 IHRvcDsnPlBhdGllbnQgTm MpUXw8C6VkWzk6JNNnqLji FH9ciIIxRCzmNj7iuQucbU yqUJ1yFNAf uffck341XzFtx3dkOPEmbW EhRNsaVLS7R99bs9T6ORGi TRBqDTN0gKF8lD5jgWzvvc ogbGVmdDsg yqYxpNwmKDbaXYuuG218LE RvcDsnPkJpcnRoIERhdGU6 OA76VU90rWJwa7B8dOS7D1 BhZGRpbmct gffkfEO7MLHmAAWdjT01Zs 4gvHvcZo0zBBRpZNS4BNCc zLUiJ7NvhR0tVoEcQKYeUY SkX5VrjDLa ZTqeX908QYtgKtZ2JFZnks ZpC3ScONKklCwgZcS6y5D9 Ni5VA9H0DV96YP78hFGuv2 R6jIV3A6Ws OUWzaodsmqsggJJ5ILHoKT WdmF28Uw1jdQnyWb0dMRQp ZEY3BDHxuKXqA7MakW2wDb AjMDAwMDAw D6BdvJOzTWcrQ213OZfbWo P4UWPojzNrG2KwUPNubHbi LiI3l3T0Gv6OBBa6UT42AN 31lDRyf8Q6 xHI9D3CaSDXwlyvpleakjR E6WWCpGGPzqT80Qq4rtIsv Vg6ySLJtPWE6PBZxvKDtD7 SelX3gZpUy XQFkLJEvI0JovHFfXSjmV7 41CHyrByH6KOSgfjSxD9Fh JVPqjVzaCyP8m0C4At6PDR ZtII15WSN4 iYV3JI83PM39I8MgXgyfyL FibGU+PHRhYmxlIHdpZHRo MLdeRJHoRbMhqPidDC7pKa 9yZGVyLWNv qIwqcEDvHoNpm0xeMRCrYB rmVN8biPbvB6GjsLR4ADUb k3v1Qc47T86lO0FyzTK+PG QzoVG5fZE9 hB8oCmHlFfL0GFtnY198Rk SxjMZfZjqjl0rlh0cgcHd8 ZlT0PWHvnrHnyLcfWDD9o7 OnJc77F98z IHdpZHRoPSIxNSUiIHZhbG uyiy4xiZ9tHz0+PGNvbCB3 nSB8pP1dOkEdVzM7BPxgP7 49InRvcCIv Yclyx8cqe3fghEf1AqKnGE FckpWjpOgzKAT1d0KoWm19 D4VysVuos2NaYfm9hn98cH Nsk7Y2hRC2 Z1OyYPNljowigNGcsFjsCV 2hIUYqzjvrNLHpvS5eUSEx F5i3PpJuVvK7PFcuM0Zyzz A2UOFasGPl GVedTHD2A02jj4T9KGWzRO EmQLE7vEU0eI7pvEbrlcwe bGVmdDsgdmVydGljYWwtYW bsI318GUPm uQdwIKTicI1cAWNugTXcyU jqCU6rBHOwvyvwVqtKTSWZ IMCRKWAIZCSRCR27FI91jC Typ7V5bIX2 H7AhUWJoxgodemavjTY3NH JnZDZipL55cQJqWNyxQs2j a8J1o018CELkFEWpaL59Qe 9udDogMTBw gFZYyW8yxpbci1inqvciOv IaCAUiMNq5ECy9PSMyjOor TnNfUKF5DjQ6YEG1ySIboB 1hbGlnbjog rN3bQhu+DBMpPVOiSVk5JW wvdGQ+ZRPqQUQ2xAjjCHcl XRNczR7mGVKxW0t4TgJpFg H0VNdxJ1Oy OCJwuuicBw02hN7eRdXtUd N2YLtuC9GyssR2RHWjdIJz DCeqHKK6I94il0N3EBMfTG CrUWJ7bME4 fR7irYpisyagcQWerPnfgc PlqAfoPLfgXZjoF674IJTg pQliOjRhNUtnULOsIJ37YM 62iJAeo0Q1 gKZ0T4PrJCQgaluhgywbwC A3HAOwFRFyfS94fBGdUWkt Wf8pv3K3l139MQYdNPIglR 40Np3yfWzq SDHjnAXHpY6hmnwtc2uvak wbZuPqRPPaAVn4QAd1FULb bEkqGuFfJBT1EuC6IOD9fM IhwZ1ijUlc qhhpjK4nVnq+TWFsZTwvdG Q+RCDiUDA9uAigJSksYXYu cC1oUQHiX0e5FmLzIoT8MC zdE8HjJTCr sfaqFl85mL8yHiDbRfT9DV vdA9EvsuL4TDMxiUGyIElq QCI7E62qg2A1XZGgPKSgUM L5kRH1xV8j bGlnbjogbGVmdDsgdmVydG wfLJccGMswN562DOCfjNjl Ae02eRDefXzfegR2B6IbTb wvdHI+PC90 INQiZJ16rERkeKAmt0uyeW z9KkLjPPCvNWP4nLjnWAfn t4FxQTUrB48hqGBac2U0WW NvbGxhcHNl WjFwgDH8hF3dAMftldksp6 bptaciAisvs9quns45zD04 V19cQCnwEHSmXATdMBHkLJ IkaNmoot4c zF1yKj7+CHVwoNG5pDX4lI 8qZyBlJhQ3YTxrO600CfDx vCDsMncua1evm0qmlFk9Lh IwJSIgdmFs pCmwOAC4e5KdTh33G03zML dpZHRoPSIyMCUiIHZhbGln ew8geJ4iBq0+AT2ru8kzwp 08vX94rPO+ MZJtJVA9bGcbKYzyONHdqX 3yULodGoV7QJKnNpVudC60 oMPkVVxgId9iqIpkdClfDL 4wNTBpbjtm x180YoIas5eaPFVkfIAdXQ xpMNX5K35cn2B5MWZlANQr ECR8aJM9sQ8mrVcrvruqgS VmdDsgdmVy fEeeRLdzOIfkM614JXRwxQ bpKsOjqKMlC4ieozFNFD4n OjwvdGQ+CTDjKBU3oCatLK eyPJNmdK6p ULNaS5o6OqOjHvI9VQeaW5 IuqiY1ZQBujFBoBBHrdUXL pN2ezlwpj8oelkfsQvPwLV FpFZe5EHv5 DMFiwRwkZwLmGEI5QcN6PW S2uYSroJ4cmKsgjujchD2m Oyc+RklOOjwvdGQ+PHRkIH D7oWkpSEjw SRWxdU0iGKSgH5g1HzMoXk I7WRtuI7PtyjE8HMKxyDCw EJXqgLRKuU2llbpvg0gryr ogIzAwMDAw MOt0CIh1YTXteDvsZyDhST B5SrY8TAG4iZKbxJ4inXlk aduzfR1eVbr+TVJOOjwvdG Q+PHRkIHN0 cUtlSJchBMNgtH2uORBpJ7 k9ZnGbAfA7WYlqE0VtplF8 MYHjtOLdXTMfsVKNbA7elq hjm0vdhcgh UiNuEMBuEOq6QQx6YFHokW rcBcTdMSX5RsK9YSV6rOSo eY4jcPtusomftX2wOss+UG P3PPF8AJ05 UA63E2ZpTxasdZBzlSU+PH RhYmxlIHdpZHRoPScxMDAl AwRngYshKS4mXw1cMPZhQZ NvbGxhcHNl OiBj (more content not included)... [facility] Postoperative Documentson Postoperative Documents [id number]#1. 00CD:127 [facility] Consenton 06-20-2020 Consent [id number]#1. 00CD:127 [facility] Discharge Instructionson Discharge Instructions [id number]#1. 00CD:127 [facility] IntraOperative Documentson 0 06-20-2020 IntraOperative Documents [id number]#1. 00CD:127 [facility] IntraOperative Documents [id number]#1. 00CD:127 [facility] Main OR Intraoperative Recor don 06-20-2020 Main OR Intraoperative Record IntraOp Document Type FT Summary Primary Physician: Elen MCKINNON MD Finalized Date/Time: 06/20/20 13:22:09 Pt. Name: VINNY BAEZ/Sex: 1960 Male Med Rec #: [id number] Physician: Elen MCKINNON MD Financial #: [id number] Pt. Type: O Room/Bed: / Admit/Disch: 06/15/20 12:37:25 - 06/15/20 23:59:59 Institution: Case Times FT Entry 1 Patient Times In Room 06/15/20 14:13:00 Out Room 06/15/20 14:31:00 Procedure Times Start 06/15/20 14:17:00 Stop 06/15/20 14:27:00 Anesthesia Times Start 06/15/20 14:13:00 Stop 06/15/20 14:31:00 Time at [facility] 06/15/20 14:20:00 Last Modified By: Kriss Swift RN 06/15/20 14:31:31 General Comments: 06/20/20 - chart logged and finalized for charges. Bib Jaramillo, MSN, RN Case Attendance FT Entry 1 Entry 2 Entry 3 Case Attendee Lázaro Owusu CRNA, RN, Evelina De Leon Role Performed Anesthesiologist Group Care Worker - Primary Scrub - Primary Gynaecological Oncologist Time In 06/15/20 14:13:00 06/15/20 14:13:00 06/15/20 14:13:00 Time Out 06/15/20 14:31:00 06/15/20 14:31:00 06/15/20 14:31:00 Procedure COLONOSCOPY(.) COLONOSCOPY(.) COLONOSCOPY(.) Comments supervising Last Modified By: Jeniffer RN, Kriss Swift RN, Kriss Swift RN, Kriss 06/15/20 14:31:32 06/15/20 14:31:32 06/15/20 14:31:32 Entry 4 Entry 5 Case Attendee Clyde Eng MD, Elen Role Performed Staff - Other Surgeon - Primary Time In 06/15/20 14:13:00 06/15/20 14:13:00 Time Out 06/15/20 14:31:00 06/15/20 14:31:00 Procedure COLONOSCOPY(.) COLONOSCOPY(.) Comments help in room Last Modified By: Jeniffer QUIGLEY, Kriss Swift RN, Kriss 06/15/20 14:31:32 06/15/20 14:31:32 Perioperative Protocols FT Pre-Care Text: Implements protective measures prior to operative or invasive procedure, confirms identity before the operative or invasive procedure, verifies operative procedure, surgical site, and laterality Entry 1 Procedure(s) COLONOSCOPY(.) Patient Identity Birthday, ID Band Verified (select at Check, Patient least 2): Participation Consents / H and P Anesthesia Consent, Operative Site N/A Verified HandP, Surgery/Procedure Marking Verified Consent Surgical Site No Laterality Verified n/a Verified Procedure Verified Yes Correct Patient Yes Position Verified Availability Equipment, Medication Prep Dry n/a Verified (If Applicable) PreOp Antibiotic No Time Out Lázaro Owusu CRNA, Given Participants Jeniffer QUIGLEY, PETAR Monterroso MD, Rick Myrick Kirstyn K, Clyde Eng Time Out Complete 06/15/20 14:15:00 Outcomes Met? Yes Last Modified By: Kriss Swift RN 06/15/20 14:26:04 Post-Care Text: The patient is free from signs and symptoms of injury caused by extraneous objects Allergy Information FT Pre-Care Text: Verifies allergies Entry 1 Allergies Reviewed? Yes Allergies Reviewed Self/Patient With Outcomes Met? Yes Last Modified By: Kriss Swift RN 06/15/20 07:25:11 Post-Care Text: The patient received appropriate medication(s) safely administered during the perioperative period Surgical Procedures FT Entry 1 Procedure Description Procedure COLONOSCOPY Modifiers . Surgeon Description COLONOSCOPY with transverse colon polypectomy and biopsy of rectum Primary Procedure Yes Primary Surgeon Elen MCKINNON MD 06/15/20 14:17:00 Stop 06/15/20 14:27:00 Anesthesia Type General Surgical Service Gastroenterology Wound Class 2 - Clean-Contaminated Last Modified By: Kriss Swift RN 06/15/20 14:28:31 General Case Data FT Pre-Care Text: Classifies surgical wound, implements aseptic technique, initiates traffic control Entry 1 Case Information OR ENDO 1 FT Case Level Level 2 Wound Class 2 - Clean-Contaminated Specialty Gastroenterology ASA Class 3 Preop Diagnosis HX OF COLON POLYPS Postop Same As Preop No Postop Diagnosis Transverse colon polyp, Outcomes Met? Yes patchy erythema in the rectum and internal hemorrhoids Last Modified By: Kriss Swift RN 06/15/20 14:28:53 Post-Care Text: The patient is free from signs and symptoms of infection Skin Assessment (Pre Procedure) FT Pre-Care Text: Implements protective measures to prevent skin/ tissue injury due to thermal or mechanical sources Evaluates for signs and symptoms of physical injury to skin and tissue Entry 1 Skin Integrity Intact, [place], Warm, and Skin Abnormality No Dry Outcomes Met? Yes Last Modified By: Kriss Swift RN 06/15/20 07:25:39 Post-Care Text: The patient is free from signs and symptoms of injury caused by extraneous objects Patient Positioning FT Pre-Care Text: Identifies physical alterations that require additional precautions for procedure-specific positioning, verifies presence of prosthetics or corrective devices, positions the patient, evaluates the patient for signs and symptoms of injury as a result of positioning Entry 1 Procedure COLONOSCOPY(.) (more content not included)... Normal [facility] Endoscopic Procedure Report - Otheron 06-15-2020 Endoscopic Procedure Report - Other Patient: VNINY BAEZ Age: 59 years Sex: Male : 1960 Associated Diagnoses: None Author: Elen MCKINNON MD Pre-Procedure Procedure Date 06/15/2020 14:28:00 . Procedure Type: Colonoscopy with removal of tumor(s), polyp(s), or other lesion(s) by cold snare technique. Procedure provider Performed by Elen Mckinnon MD. Current history and physical Documented on chart. Colorectal neoplasm risk assessment Average risk. Informed Consent After discussing the rationale, risks and benefits, and alternatives to this procedure, the patient provided signed consent for the procedure. Pre-procedure diagnosis: History of colon polyps. Medications Anticoagulant/antiplat elet None. ASA Classification: Class II. . Procedure The procedure was performed in the hospital. Rectal exam was performed and was normal with no masses palpated. The patient was positioned in the left lateral decubitus position and a digital rectal exam was performed.. Endoscope type used was an adult-size. The endoscope was lubricated then introduced through the anus. The scope was advanced to the cecum verified by photographing the appendiceal orifice, verified by photographing the ileocecal valve, verified by transillumination, The time to the cecum was 3 minutes, The withdrawal time was 7 minutes. No difficulties encountered during the procedure. The bowel preparation quality was adequate (see polyps greater than or equal to 6 millimeters). The patient tolerated the procedure well. Findings 1. Sessile polyp, 5 mm, in the transverse, removed completely with cold snare 2. Several areas with patchy erythema 5 x 5 mm, in the rectum with normal in between mucosa, biopsies obtained 3. Moderate nonbleeding internal hemorrhoids Images Procedure images: Rectal retroflex Patchy erythema in the rectum Transverse colon polyp Ileocecal valve Appendiceal orifice . Post-Procedure Complications: none. Estimated blood loss: none. Specimens: sent to pathology. Devices/ implants: none left in place. Impression and Plan 1. Sessile polyp, 5 mm, in the transverse, removed completely with cold snare 2. Several areas with patchy erythema 5 x 5 mm, in the rectum with normal in between mucosa, biopsies obtained 3. Moderate nonbleeding internal hemorrhoids Recommendations: Repeat colonoscopy:: In 5 years, Pending pathology results. Follow-up:: Clinic follow-up in 1-2 weeks. Diet:: Resume previous diet. Medication resumption:: Continue current medications. Return to activities:: After 24 hours. Normal [facility] Comment on above: Result Comment: Elec tronically Signed By: Elen MCKINNON MD\.br\Date and Time Signed: 06/15/20 14:30 EDT Other Comment: Ramona bernabe Attachment - attachment storage system not supported [id number] Can be viewed in source systemMissing Attachment - attachment storage system not supported [id number] Can be viewed in source [email or web address] Attachment - attachment storage system not supported [id number] Can be viewed in source [email or web address] Attachment - attachment storage system not supported [id number] Can be viewed in source [email or web address] Attachment - attachment storage system not supported [id number] Can be viewed in source system Inpatient Patient Summaryon 06-15-2020 Inpatient Patient Summary [place] [address] [facility] Clinical Discharge Instructions PERSON INFORMATION Name: VINNY BAEZ PHYSICIANS Admitting Physician: Elen MCKINNON MD Attending Physician: Elen MCKINNON MD PCP: SAMUEL ZHAO DO Discharge Diagnosis: Colon polyp Comment: PATIENT EDUCATION INFORMATION Instructions: Medication Leaflets: Follow up: Type Location Start [facility] Follow Up [facility] 07/12/2020 1:15 PM 07/12/2020 1:30 PM Confirmed MEDICATION LIST Medications to Continue with No Changes Other Medications benazepril 5 Milligram By Mouth every day. bisoprolol-hydrochloro thiazide (bisoprolol-hydrochlor othiazide 5 mg-6.25 mg Tab) 1 Tablets By Mouth every day. omeprazole 20 Milligram By Mouth every day. Comment: Normal [facility] Main OR PACU I Recordon 06-02 Main OR PACU I Record PACU Phase I Docum ent Type FT Summary Primary Physician: Elen MCKINNON MD Finalized Date/Time: 06/15/20 16:40:52 Pt. Name: VINNY BAEZ Mirella/Sex: 1960 Male Med Rec #: [id number] Physician: Elen MCKINNON MD Financial #: [id number] Pt. Type: O Room/Bed: / Admit/Disch: 06/15/20 12:37:25 - Institution: Case Times PACU I FT Pre-Care Text: Identifies barriers to communication and implements measures to provide psychological support Develops individualized plan of care, and ensures continuity of care Maintains patient's dignity and privacy, and maintains patient confidentiality Identifies and reports philosophical, cultural, and spiritual beliefs and values Identifies individual values and wishes concerning care Implements aseptic technique, and administers prescribed antibiotic therapy and immunizing agents as ordered Evaluates postoperative tissue perfusion Implements thermoregulation measures, and monitors body temperature Evaluates postoperative respiratory status Evaluates postoperative cardiac status Evaluates postoperative neurological status Assesses pain control, collaborated in initiating patient-controlled analgesia and implements alternative methods of pain control Verifies allergies, administers prescribed medications and solutions, evaluates response to medications Entry 1 In PACU I 06/15/20 14:31:00 Discharge from PACU 06/15/20 15:01:00 I Outcomes Met? Yes Last Modified By: Shayy QUIGLEY, Radha Mancuso 06/15/20 16:40:18 Post-Care Text: The patient demonstrates knowledge of the expected response to the operative or invasive procedure The patient's care is consistent with the individualized perioperative plan of care The patient's right to privacy is maintained The patient's value system, lifestyle, ethnicity, and culture are considered, respected, and incorporated into the perioperative plan of care The patient participates in decisions affecting his or her perioperative plan of care The patient is free from signs and symptoms of infection The patient has wound/tissue perfusion consistent with or improved from baseline levels established preoperatively The patient is at or returning to normothermia at the conclusion of the immediate postoperative period The patient's respiratory function is consistent with or improved from baseline levels established preoperatively The patient's cardiovascular status is consistent with or improved from baseline levels established preoperatively The patient's cardiovascular status is consistent with or improved from baseline levels established preoperatively The patient demonstrates and/or reports adequate pain control throughout the perioperative period The patient received appropriate medication(s), safely administered during the perioperative period Acuity Level PACU I FT Entry 1 Start Time 06/15/20 14:31:00 Stop Time 06/15/20 15:01:00 Acuity Level Acuity Level I Last Modified By: Radha Lucas RN 06/15/20 16:40:50 Finalized By: Radha Lucas RN Document Signatures Signed By: Radha Lucas RN 06/15/20 16:40 Normal [facility] Main OR Preoperative Recordo n 06-15-2020 Main OR Preoperative Record Holding Area Document Type FT Summary Primary Physician: Elen MCKINNON MD Finalized Date/Time: 06/15/20 13:00:04 Pt. Name: VINNY BAEZ Edgardo Light/Sex: 1960 Male Med Rec #: [id number] Physician: Elen MCKINNON MD Financial #: [id number] Pt. Type: O Room/Bed: / Admit/Disch: 06/15/20 12:37:25 - Institution: Case Times Holding FT Pre-Care Text: Verifies consent for planned procedure, identifies individual values and wishes concerning care, includes family members in perioperative teaching Secures patient's records' belongings, and valuables, maintains patient's dignity and privacy, and maintains patient confidentiality Entry 1 In Holding 06/15/20 12:55:00 Outcomes Met? Yes Last Modified By: Yenny Milner RN 06/15/20 12:55:38 Post-Care Text: The patient participates in decisions affecting his or her perioperative plan of care The patient's right to privacy is maintained Surgery Checklist FT Entry 1 Patient Birthday, ID Band Procedure History and Physical, Identification: Check, Patient Verification: Surgical Consent, With Participation Patient NPO after Midnight: No Date/Time: 06/15/20 09:00:00 Personal Items: Glasses, Jewelry Personal Items watch and ring Comment: Limitations: none Complaints of Pain: No Operative Site n/a Marking: Does Patient Smoke Yes If Yes to Smoking. 1 ppd Cigars or Cigarettes. How much per day? Patient states Yes Comment - Adult postop adult Supervision supervision available Case Cancelled in No Holding Area see comments below for reason Last Modified By: Yenny Milner RN 06/15/20 13:00:02 General Comments: Patient finished prep 9am and nothing to eat or drink afterwards.---HB RN Finalized By: Yenny Milner RN Document Signatures Signed By: Yenny Milner RN 06/15/20 13:00 Normal [facility] Monitor Recordon 06-15-2020 Monitor Record [id number]:127 Normal [facility] Outpatient Surgery Discharge Instructionon 06-15-2020 Outpatient Surgery Discharge Instruction [place] [address] Patient Discharge Instructions PERSON INFORMATION Name: VINNY BAEZ Date of : 1960 Current Date: 06/15/2020 14:31:41 PHYSICIANS Admitting Physician: PETAR MARTINEZ, [facility] Discharge Diagnosis: Colon polyp VINNY BAEZ has been given the following list of follow-up instructions, prescriptions, and patient education materials: PATIENT FOLLOW-UP INFORMATION Diet: Regular Discharge Activity: Resume normal activities in 24 hours Discharge Restrictions: No driving for 24 hrs, Do not operate machinery or tools, Do not make important decisions for 24 hours IF UNABLE TO CONTACT YOUR PHYSICIAN AND YOU FEEL IT IS AN EMERGENCY, GO TO THE NEAREST EMERGENCY ROOM OR CALL 911 IJIE DAVID L, have received the attached patient education materials/instructions and have verbalized understanding: May we do a follow up call? Yes No I was present when discharge instructions were given Patient Signature Date Clinican/Nurse Signature ___ Date Follow up: Type Location Start [facility] Follow Up [facility] 07/12/2020 1:15 PM 07/12/2020 1:30 PM Confirmed Pharmacy Information: [facility] You may receive a survey from [employer] asking you to rate your care experience. Your feedback is important and will help us understand what we do well and how we can improve the quality of care we provide to you, your loved ones and our community. It?s an honor to serve you. Thank you for choosing [facility] HERE ARE THE MEDICATION CHANGES THAT OCCURRED DURING YOUR HOSPITAL STAY Medications to Continue with No Changes Other Medications benazepril 5 Milligram By Mouth every day. bisoprolol-hydrochloro thiazide (bisoprolol-hydrochlor othiazide 5 mg-6.25 mg Tab) 1 Tablets By Mouth every day. omeprazole 20 Milligram By Mouth every day. PATIENT EDUCATION INFORMATION Instructions: [facility] Patient Education - Texton 0 06-15-2020 Patient Education - Text [facility] Progress Note-Physicianon Progress Note-Physician Patient: VINNY BAEZ Age: 59 years Sex: Male : 1960 Associated Diagnoses: None Author: Pierre Nazario Jr., DO Postoperative Information Post Operative Note: Post Anesthesia Care Unit. Anesthetic utilized: General. Health Status Allergies: Allergic Reactions (Selected) No Known Allergies Problem list: No problem items selected or recorded. Physical Examination Vital Signs 06/15/2020 14:55 EDT Heart Rate Monitored 105 bpm HI Respiratory Rate Monitored 20 br/min Systolic Blood Pressure 169 mmHg HI Diastolic Blood Pressure 100 mmHg HI SpO2 96 % 06/15/2020 14:45 EDT Heart Rate Monitored 106 bpm HI Respiratory Rate Monitored 18 br/min Systolic Blood Pressure 161 mmHg HI Diastolic Blood Pressure 90 mmHg SpO2 96 % 06/15/2020 14:40 EDT Heart Rate Monitored 112 bpm HI Respiratory Rate Monitored 20 br/min Systolic Blood Pressure 143 mmHg HI Diastolic Blood Pressure 83 mmHg SpO2 94 % 06/15/2020 14:35 EDT Heart Rate Monitored 113 bpm HI Respiratory Rate Monitored 12 br/min Systolic Blood Pressure 139 mmHg Diastolic Blood Pressure 79 mmHg SpO2 96 % 06/15/2020 14:31 EDT Temperature Temporal Artery 36.7 DegC Heart Rate Monitored 118 bpm HI Respiratory Rate Monitored 14 br/min Systolic Blood Pressure 141 mmHg HI Diastolic Blood Pressure 84 mmHg Blood Pressure Location Left arm SpO2 96 % Pain assessment: Controlled. General: Alert and oriented, No acute distress, No nausea. Adequate hydration.. Respiratory: Adequate air exchange.. Cardiovascular: stable. Neurologic: Normal sensory. Review / Management Condition: Stable. Assessment Anesthetic outcome No anesthetic complications noted. Plan Transfer/ Discharge: Condition stable. Normal [facility] Comment on above: Result Comment: Elec tronically Signed By: Pierre Nazario Jr., DO\.br\Date and Time Signed: 06/15/20 16:20 EDT Progress Note-Physician Patient: VINNY BAEZ Age: 59 years Sex: Male : 1960 Associated Diagnoses: None Author: Pierre Nazario Jr., DO Preoperative Information Anesthesia history: Patient History: No prior problems.. Re-eval prior to induction: Inital eval reviewed: No significant interval change. Anesthesia results Review of Systems Constitutional: Negative except as documented in history of present illness. Cardiovascular: Negative except as documented in history of present illness. Respiratory: Negative. Health Status Allergies: Allergic Reactions (Selected) No Known Allergies, Allergies (1) Active Reaction No Known Allergies None Documented Current medications: (Selected) Prescriptions Prescribed Plenvu oral powder for reconstitution: See Instructions, 1 EA, Refill(s) 0, per phys instructions, [facility], 172.7, cm, 05/23/20 14:06:00 EDT, Height/Length Dosing, 89.2, kg, 05/23/20 14:06:00 EDT, Weight Dosing Documented Medications Documented benazepril: 5 mg, Oral, Daily, Refills(s) 0, High blood pressure bisoprolol-hydrochloro thiazide 5 mg-6.25 mg Tab: 1 tab(s), Oral, Daily, Refill(s) 0, High blood pressure omeprazole: 20 mg, Oral, Daily, Refills(s) 0, Control of stomach acid Histories Past Medical History: No active or resolved past medical history items have been selected or recorded. Family History: Diabetes mellitus type 1 Father Procedure history: Colonoscopy ([id number]). EGD (esophagogastroduodeno scopy) gastric outlet reduction ([id number]). Social History Social & Psychosocial Habits Tobacco 05/23/2020 Tobacco Use: 10 or more cigarettes (1/ . Physical Examination Respiratory: Lungs are clear to auscultation. Cardiovascular: Regular rhythm. Plan [place] [employer] Anesthesiologists (ASA) physical status classification: Class III. Anesthetic Preoperative Plan Anesthesia: General. . Anesthetic plan, risks, benefits, and alternatives discussed with the patient and/or family. Patient verbalized understanding. Normal [facility] Comment on above: Result Comment: Elec tronically Signed By: Pierre Nazario Jr., DO\.braulio\Date and Time Signed: 06/15/20 11:57 EDT Coding Summary.on 06-10-2020 Coding Summary. CODING DATE: 06/10/2020 FINAL [facility] STATUS: Home (Routine DC) PAYOR: Commercial Insurance ADMIT DX: REASON FOR VISIT DX: Z01.812 Encounter for preprocedural laboratory examination FINAL DX: PRINCIPAL: Z01.812 Encounter for preprocedural laboratory examination SECONDARY: Z20.822 Contact with and (suspected) exposure to COVID19 Z86.010 Personal history of colonic polyps PYMT PROC APC STAT DESCRIPTION DOCTOR NAME DATE NOTE: The code number assigned matches the documented diagnosis and / or procedure in the patient's chart. However, the narrative phrase printed from the coding software may appear abbreviated, or result in slightly different terminology. Coded By: Cherri Nix CphT Date Saved: 06/10/2020 08:48 am Normal [facility] COVID-19 (MC)on 06-09-2020 SARS-CoV-2 (COVID-19) RNA ROLANDO+probe Ql (Unsp spec) Not detected Normal Not Detected [facility] Comment on above: Result Comment: This test result should be correlated with clinical presentations and medical history by a healthcare provider to determine its clinical significance. This assay was performed by a reverse transcriptase real-time polymerase chain reaction (rt PCR) method on the [employer] system. This test has been authorized only for the detection of nucleic acid from SARS-CoV-2, not for any other viruses or pathogens. This test has not been FDA cleared or approved. This test has been authorized by FDA under an Emergency Use Authorization (EUA). This test is only authorized for the duration of time the declaration on that circumstances exist justifying the authorization emergency use of in vitro diagnostic tests for detection and/or diagnosis of COVID-19 infection under section 564 (b) (1) of the Act, 21 U.S.C. 360 bbb-3 (b) (1), unless authorization is terminated or revoked sooner. 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 NO Normal [facility] Comment on above: Performed By: #### 2 [id number] ####[address] [address] ICU NO Normal [facility] Comment on above: Performed By: #### 2 [id number] ####[facility] [address] [place] [address] ? NO Normal [facility] Comment on above: Performed By: #### 2 [id number] ####[facility] [address] [place] [address] [facility] NO Normal [facility] Comment on above: Performed By: #### 2 [id number] ####[facility] [address] [place] [address] Symptomatic as defined by CDC NO Normal [facility] Comment on above: Performed By: #### 2 [id number] ####[facility] [address] [place] [address] Consent for Procedure/Surger yon 05-24-2020 Consent for Procedure/Surgery [id number] 0CD:127 Normal [facility] Gastroenterology Office/Clin ic Noteon 05-24-2020 Gastroenterology Office/Clinic Note CD:[id number] HA40iTmyaaLvo2khtl7gFT 9yNgTfmcOrEIftMv8pf5ua PW31uv6iRiHtMc7+CjwhRE 9DVFlQRSBo bY0gRFWSIqjGQtExME7rFl RQQe6ZNJWhYRrRBTnwCG1i HTJ7hfvxtZ5aMJ9nFPArnB NuNc3xo9p7 XvmvSn6lAg1AUe81uLKlzW QaUQXJQ6jasE3pYW3ftNHh Z2UuFSBaTk7AEOy9gSlfrI 8vxiH1Shy6 xNL1Rr41c7lslvIba2JpNk G4QGccnGv9lOpbWYmycD8t CkZkVMKWdC3ypInnGW3lbL 1lbnRhdGlv biI+MxjoLMIiRkq9sFBjAU 65B7WpxNetIwg3fHS4PAUl wZXpUHSarVi5GZZRJSUTBG NvbXBhdGli lQDfVHTmjgHlryI5YobUJL DgMkWrZuu1O7wlRRV+Cjxi w6F6Jwn9RIs8TFD7hBtwXO Tyf379LSOd cBrilIqxrOKqx05qFSXxsX UkScYeu411QUDaypV5GApg iEljKgp0iZYirKCgt5rzkL p5VdStOCFu BwcHEZBnoBean9BbXmuXFR ewc9wvgoVayModHZQ2x9Jt PYqbYWTiEIC4ByNmEU1+Cg kJPGNvbCB2 REdbM934TjPlcUIbb1nvmB d4GrD4SDQiIz9ZQNzcV91g A9IryCC+Xiw1nMAhIIc+Cg kJPHRyPgoJ BUf3oBXxm8I2aUR7KvKznj Mga9c1RInkZBA3OdZ5FPC5 fVEutO1mzHqzozbpcI4kRq I+CgkJCTxk iAKaU2brv0A4LqPas5IxgY ccjzToWVBfDmMfi8dlZuza CODguN0oXWQ2TeUgAPIavQ WuLQUkJZ8g hqUxxZJgLHDyIoHxS2Oez6 3jr0YwKGRCS5eWHaYzLGA7 RY7mKaBsGN1vKlpkLAVuG5 EjLPX3ZHEj HJnaJy4pSLDdKRL7VoLzLO SiVPU7RWHbr0A0zOO3EuUo CSGqwtj5RADutOnuIgaouY FuIGNsYXNz WZHdSKQtG8Qyz76orCWabB U7Bu16k6KghoCgbVqlIC4z Mm2bhX53NLzmtGT1LIKajQ T2SFOhhWQy ADNrj4EiyVgwjdcgyW4pAM SnyE9nZnZ+O8wuZIIiJ50j rLvetT07LX7pxZJjIwrvw1 Cqzx8OHTcX VJTpvhPqyQQlqz2eNXZncL Wva929AO29GzWlQZsqn951 GN95wQzdJR8cTVSHS0UGAC 9NRUFTIiBk SRfpRCHvcxHeZ7Y1bCvlSI AUF6V1RrX5SD6XBjFxJJKW I8EhAjKeKi4VC0RSHRqOMz H8UoJbWHed PSJfZTlmOWVkYzMtYzZmZi 69JhB8FXanSBAzXND4Cqk9 AWA1KHnqEx8GEFbXKYOmpi NkoZYafy0n PTGwnQLjv633QJ85tIUpfB AnYKIiqY23UHSjDPEyEZD3 L46kgMMbjHS6uTL8UuYNZM NBUkVfTUVB DkYgSPN6NW84oWE4hNR1Ex G3Ajp6ZfLiJtNhVKbrUIBg RsLeVVM3LNQxYBNjVK43IO XiEYc8NdZq XkNkEoD3LIuuGUnqPpT0oS hptgizRL2aXPqnQS1yH4Lo A4VuJV50YMExn09eQmG4jo Ini3pcmqGn WMMfdBc7G8Hpee3KHMpRGE 9kaXY+QklZQMsjFGh7GmrL PTdEMWWrphVrwJMcpv6pPF PiNBQ2qR4f IGRkcmVmcmVzaGFibGUgZG BpepMhjpNxkrNlnLP0zRBn IXXzcT80NQHpPEXlPON6e1 VjdGlvbmNv KDL8XtzZDC3DTBJlYSM2DC IhXOotMZFwCXNiKQP1YLMi LeNcHv00DPH4VNu5ZpXoTe GfW3L7Hda6 LeNvYuLppDklGN0cfOGrVZ whKvbiXTB4RuK+CLCwYV7h N0nux8Q1ZyFij3NvqRhlrq Ztm0VbBEdl ZoxuuSGnQAI8iVzpKZBvq8 51BWbbvEjvnZfpVj8sJNvn iTS8kF8uTKAfiaF0zI4sTi U2dwCzddxu qyB3Lf6IAIalQ7LuYoG2Z2 NwYW4+IM7unGVdCfkVAVeZ FOKsvuYreTYmjf3mRSEetV Xhd394IQ76 FcJfHXufk519CW41vZgoKX 4lERKNN8FJKG7PGHMKWgYa RXshCJBverCnZ5Q4uIjyBR JBODVEREFE XJ41BfelWFTASPUaOXNWRv 64NFAKZyR6UgfBPBVxIAvv PSJfMWEyYjQyNTQtNzcwZS 35JNeoWNC5 MzgtMGMyMGJhMmZmNzJmIj 4HMLzVDSHrxjRkvVWquf8i NYLsuXLew802JH28aDLtsB ErZTVqwA13 NQWqZRXtHPO5TrZsZsisWU EybxmktYdvSK3zrM5iJQPg N3u5TqRhREfdy637OJ00pP tnCN7qGNGD K7SUWK9ZGVONIlIyMAzqtd PrjZquHK4cLaFcBC5nB3A7 ATT8ZYDjDYuvIwRrBBf0CW 04ZGQyLTMy ZjNrXKIzSSvvOOMgbZ7nrn K0KYK3PrI8sfYvrWVOt1A2 zNFtxCH1bM7aHf97H6Nefo 4KCgkJCTxk lDLvC6iod3L8LyEkXX5nP0 7wkNRwxDy9ON4kPEKbVB1w leYsfTYjXMRdZrP2ehKxl3 G5oO1gd7I0 iHI7EmDihZ8ecBwssYIcWA H5A92feEWwlHH9iOM6TzXV WRUFMaLrOLCQQiWbSRC3OB 94aXS1yHO9 HvDtvIH3Pv18JHZlOaNrUv 52HsOoLFHzVZYfRVozUs5z ZMXmTMK4RjAuSlgnFLtppD 5zOmRkPSJE pT0bjTreGD7gaN3alsUssM lvbiI+IZ0qoPY+CgoJCQk8 QKi0DGRqNEIqDJXnQTNcih NvbnRlbnRp rWBfJYYhpcAnw9VhDppiSn JjZToqdD8inF6ulYceH8L6 tTovAFY2h9RuhbossAVmTS RkOmNvbnRl naY8qSFgFXEDYASFJESOM3 3TCPPtPZNuIaAtyEy0aVfd KDBxYOfcHSGgQaq7XeLtYx HeB1HgTR55 FOPsLRwtP6AfYMA6PEt1Yg HmZnJkVqO8nErnhbfzGH9h AJltDT3xE5WeW2DpMB97GP Jzt89gCmvN ONd1TMb8IYB4dMpkEBRiPY NsgS26DIWklMWmaI99BHAi HJYwnge6PJElyTxgWl3uOR VyOiAwcHQg jefiKHQhAZObFRRiTmW1MI s0LECgrUbcSdFeJIX1HgIs d0dhjnlokohwHFHpVBKuAN ApWvU1HTd2 LWluZGVudDogMGluOyBmb2 12GQE2fGfsNbVvk9GcSRb1 PPDozqJnh5AfQ8d8KkJon9 MsSQv1IXFl dAQhVOVce4UwbEkwukfmdw 4wVIudVsgXMUi8GHj4KyfO SKg9OQy9RuVqlFKldCHsVH K8WIW3PEZj BD6lMSKaDCnvZJfsqaLgwt BfMZ94muL3t7KwiPElr3Km JLS8OQymBHYpF07nr96pyo VjYWxsLjwv LIf9OnzRHWe7D1Xpmp9TDK jVGW7plQG+CgkJCTwvZGl2 PgoKCQkJPGRpdiBjbGFzcz 0iZGRlbXJj d770GT68sQJyzWKsLVAneI 10YNMqZFHaEZF9YiGySnwd KYPwgswalMcaQU9saX8yTM NoJ6j3HdCp YJcwd398GT31jEivPG0oTJ INU5OREA7UVRCJZrZwEIun ihPhoEzqBX2eZvHqWW8fTx YxMjcyYjRk XAA2ZYqiLZM8PX07UtRfFE Q6OqYoEKQzLAY4KPGaeW8h lxS2HTF0LuA7xmSkuPTRw3 O4yBHshMC8 mA1qIk04V4Mmvq0ERtmPIP bucTVgY6wmg1E3GiDrEP0x N57hoJGgfDx9DH5oXHHjPL 1vdmFibGUi LBBgQrG6hmVoc8Z1dL6ti3 M6qBQ8EaYruE5hsIfsvSAq YRA3Z37ohYYkiVD9dAY4Vy BBVENBUkVf CPQIPyDzTKU5VF29hNZ0rU Z4KdZirYL9Fy33LSNoKkIo ML5bCjRyLUXyXYYkDuC4Ee 0cCUM1WDMq UOEuDOEqUJkljT2pRsWsBF CTwE4fwJqtQC0xqX6rboNw dGlvbiI+KA0dcBT+CgoJCQ n6WIz4BPHp YXNzPSJkZGVtcmNvbnRlbn NlsAFsGGKwufDvq6HvCgdd YpLfCKuhmX4myG9eoRunN1 D0fGktWNY5 l3SqpxzveYHxMWHzSaQido HiwiH0wZEiCIWXEEGCVAZB S66UGAPcCVVwXnZolUo6qU lkPSIiIGlk CUYuQDVzUPVuO2TmAEIyDE 27ZRJkGCIcKNGaKxytRrw7 NME3Yiw8OiP9fJqfqkzyTP 8wBAlfMW1i P9XtY9TjCG61BGTvo12dCt xnFAn2BarAFJxWOHUnwuNc qBEbhc8qZYMguPUbm039VP 50aXRlbSBk MNEiiF73MLGaSVLxSPN7Yi SnKfaqBSMgzxcvlBeqWC1m kG7dZYFzB2z3YvEvHYfly0 90YM33gRjk PE7bWOZYY8PWKM1IICCVPi MnAAfmwqHutIalYX6fIbAi YR6vMuRqZLtlHOycYCI2Ji JyGMr5SV2k PpGvIJc0BuEhBnEhNNStYG FrlM1purJ5HSJ7CgF2mvYb kORRo4F8zXUqdHO6pK4qWd 93J5Pukm2T AgvFCHhibGXiV4ibo0A6Ds PwBR9zA85nwYIhoZd5MA9t BUDmUZ1nijQobOHhHYWfDx B7jgFxz9D2 pT9wk8D9mGD5YnPejE4uqZ wqqOIlUFD7M94dfURfmFH1 mGV9QpMVGTISBcHgRRLMBh SmHYH7YD66 tJN8bXN2IoJdwHT5Pp7jUA m2AMLsIo9cGkG2VIPmApOj ENImCs0pSzDqKmF8XFA2Gr XlSMjmgC0v O (more content not included)... Normal [facility] Comment on above: Result Comment: Elec tronically Signed By: Elen MCKINNON MD\.br\Date and Time Signed: 05/24/20 12:53 EDT\.br\Electronically Co-Signed By: Alysa Ashley\.br\Date and Time Co-Signed: 05/23/20 16:37 EDT\.br\Electronically Co-Signed By: Elen MCKINNON MD\.br\Date and Time Co-Signed: 07/08/20 10:25 EDT\.br\Electronically Co-Signed By: Mami Leonard Physician Orderon 05-24-2020 Physician Order [id number] 0CD:127 Normal [facility] Physician Order [id number] CD:127 Normal [facility] Ambulatory Clinical Summaryo n 05-23-2020 Ambulatory Clinical Summary {[id number]- 2g-a6-g5-52-fq-s6-b7-1 8-4c}CD:[id number] Normal [facility] Patient Educationon 05-24-19 Patient Education Oncology Colon Polyps Polyps are tissue growths inside the body. Polyps can grow in many places, including the large intestine (colon). A polyp may be a round bump or a mushroom-shaped growth. You could have one polyp or several. Most colon polyps are noncancerous (benign). However, some colon polyps can become cancerous over time. Finding and removing the polyps early can help prevent this. What are the causes? The exact cause of colon polyps is not known. What increases the risk? You are more likely to develop this condition if you: ? Have a family history of colon cancer or colon polyps. ? Are older than 50 or older than 45 if you are . ? Have inflammatory bowel disease, such as ulcerative colitis or Crohn's disease. ? Have certain hereditary conditions, such as: ? Familial adenomatous polyposis. ? Perkins syndrome. ? Turcot syndrome. ? Peutz?Jeghers syndrome. ? Are overweight. ? Smoke cigarettes. ? Do not get enough exercise. ? Drink too much alcohol. ? Eat a diet that is high in fat and red meat and low in fiber. ? Had childhood cancer that was treated with abdominal radiation. What are the signs or symptoms? Most polyps do not cause symptoms. If you have symptoms, they may include: ? Blood coming from your rectum when having a bowel movement. ? Blood in your stool. The stool may look dark red or black. ? Abdominal pain. ? A change in bowel habits, such as constipation or diarrhea. How is this diagnosed? This condition is diagnosed with a colonoscopy. This is a procedure in which a lighted, flexible scope is inserted into the anus and then passed into the colon to examine the area. Polyps are sometimes found when a colonoscopy is done as part of routine cancer screening tests. How is this treated? Treatment for this condition involves removing any polyps that are found. Most polyps can be removed during a colonoscopy. Those polyps will then be tested for cancer. Additional treatment may be needed depending on the results of testing. Follow these instructions at home: Lifestyle ? Maintain a healthy weight, or lose weight if recommended by your health care provider. ? Exercise every day or as told by your health care provider. ? Do not use any products that contain nicotine or tobacco, such as cigarettes and e-cigarettes. If you need help quitting, ask your health care provider. ? If you drink alcohol, limit how much you have: ? 0?1 drink a day for women. ? 0?2 drinks a day for men. ? Be aware of how much alcohol is in your drink. In the [place] one drink equals one 12 oz bottle of beer (355 mL), one 5 oz glass of wine (148 mL), or one 1? oz shot of hard liquor (44 mL). Eating and drinking ? Eat foods that are high in fiber, such as fruits, vegetables, and whole grains. ? Eat foods that are high in calcium and vitamin D, such as milk, cheese, yogurt, eggs, liver, fish, and broccoli. ? Limit foods that are high in fat, such as fried foods and desserts. ? Limit the amount of red meat and processed meat you eat, such as hot dogs, sausage, ruby, and lunch meats. General instructions ? Keep all follow-up visits as told by your health care provider. This is important. ? This includes having regularly scheduled colonoscopies. ? Talk to your health care provider about when you need a colonoscopy. Contact a health care provider if: ? You have new or worsening bleeding during a bowel movement. ? You have new or increased blood in your stool. ? You have a change in bowel habits. ? You lose weight for no known reason. Summary ? Polyps are tissue growths inside the body. Polyps can grow in many places, including the colon. ? Most colon polyps are noncancerous (benign), but some can become cancerous over time. ? This condition is diagnosed with a colonoscopy. ? Treatment for this condition involves removing any polyps that are found. Most polyps can be removed during a colonoscopy. This information is not intended to replace advice given to you by your health care provider. Make sure you discuss any questions you have with your health care provider. Document Released: 11/14/2004 Document Revised: 06/05/2018 Document Reviewed: 06/05/2018 [employer] Patient Education ? 2019 [employer] [facility] Historical Records Officeon 05-20-2020 Historical Records Office [id number] 0CD:127 [facility] Patient Letter FTon 2020 Patient Letter [facility] April 05, 2020 VINNY BAEZ [address] [place] [address] VINNY BAEZ 1960 Dear Vinny, This is a reminder that you are due for an appointment with Dr. Mckinnon or Dr. Molina. Please call [facility] at [phone] to schedule an appointment at your earliest convenience. Thank you, [facility] Vital Signs Date Time Vital Sign Value Performing Clinician Facility 03-11-2023 11:00-0500 Body height 179.07 cm [facility] Other [email or web address] Other 03-11-2023 11:00-0500 Body mass index (BMI) [Ratio] 27.86 kg/m2 [facility] Other [email or web address] Other 03-11-2023 11:00-0500 Body weight 89.36 kg [facility] Other [email or web address] Other 03-11-2023 11:00-0500 Diastolic blood pressure 88 mm[Hg] Samuel Ball Other [email or web address] Other 03-11-2023 11:00-0500 Respiratory rate 12 /min Samuel Ball Other [email or web address] Other 03-11-2023 11:00-0500 Systolic blood pressure 169 mm[Hg] Samuel Ball Other [email or web address] Other 02-19-2023 09:30-0500 Body height 179.07 cm Samuel Ball Other [email or web address] Other 02-19-2023 09:30-0500 Body mass index (BMI) [Ratio] 27.84 kg/m2 Samuel Ball Other [email or web address] Other 02-19-2023 09:30-0500 Body weight 89.27 kg Samuel Ball Other [email or web address] Other 02-19-2023 09:30-0500 Diastolic blood pressure 82 mm[Hg] Samuel Ball Other [email or web address] Other 02-19-2023 09:30-0500 Respiratory rate 12 /min Samuel Ball Other [email or web address] Other 02-19-2023 09:30-0500 Systolic blood pressure 176 mm[Hg] Samuel Ball Other [email or web address] Other 02-06-2023 11:15-0500 Body height 179.07 cm Samuel Ball Other [email or web address] Other 02-06-2023 11:15-0500 Body mass index (BMI) [Ratio] 23.22 kg/m2 Samuel Ball Other [email or web address] Other 02-06-2023 11:15-0500 Body weight 74.48 kg Samuel Ball Other [email or web address] Other 02-06-2023 11:15-0500 Diastolic blood pressure 67 mm[Hg] Samuel Ball Other [email or web address] Other 02-06-2023 11:15-0500 Respiratory rate 12 /min Samuel Ball Other [email or web address] Other 02-06-2023 11:15-0500 Systolic blood pressure 145 mm[Hg] Samuel Ball Other [employer] Other 01-29-2023 08:45-0500 Body height 179.07 cm Samuel Ball Other [email or web address] Other 01-29-2023 08:45-0500 Body mass index (BMI) [Ratio] 27.27 kg/m2 Samuel Ball Other [email or web address] Other 01-29-2023 08:45-0500 Body weight 87.45 kg Samuel Ball Other [employer] Other 01-29-2023 08:45-0500 Diastolic blood pressure 79 mm[Hg] Samuel Ball Other [employer] Other 01-29-2023 08:45-0500 Respiratory rate 12 /min Samuel Ball Other [employer] Other 01-29-2023 08:45-0500 Systolic blood pressure 120 mm[Hg] Samuel Ball Other [employer] Other 11-19-2022 09:30-0400 Body height 179.07 cm Samuel Ball Other [employer] Other 11-19-2022 09:30-0400 Body mass index (BMI) [Ratio] 27.58 kg/m2 Samuel Ball Other [employer] Other 11-19-2022 09:30-0400 Body weight 88.45 kg Samuel Ball Other [employer] Other 11-19-2022 09:30-0400 Diastolic blood pressure 88 mm[Hg] Samuel Ball Other [employer] Other 11-19-2022 09:30-0400 Respiratory rate 12 /min Samuel Ball Other [employer] Other 11-19-2022 09:30-0400 Systolic blood pressure 139 mm[Hg] Samuel Ball Other [employer] Other 06-26-2022 16:30-0400 Body height 179.07 cm Samuel Ball Other [employer] Other 06-26-2022 16:30-0400 Body mass index (BMI) [Ratio] 28.12 kg/m2 Samuel Ball Other [email or web address] Other 06-26-2022 16:30-0400 Body weight 90.18 kg Samuel Ball Other [email or web address] Other 06-26-2022 16:30-0400 Diastolic blood pressure 126 mm[Hg] Samuel Ball Other [email or web address] Other 06-26-2022 16:30-0400 Respiratory rate 12 /min Samuel Ball Other [email or web address] Other 06-26-2022 16:30-0400 Systolic blood pressure 210 mm[Hg] Samuel Ball Other [email or web address] Other 03-21-2022 12:00-0500 Body height 179.07 cm Samuel Ball Other [email or web address] Other 03-21-2022 12:00-0500 Body mass index (BMI) [Ratio] 28.2 kg/m2 Samuel Ball Other [email or web address] Other 03-21-2022 12:00-0500 Body weight 90.45 kg Samuel Ball Other [email or web address] Other 03-21-2022 12:00-0500 Diastolic blood pressure 90 mm[Hg] Samuel Ball Other [email or web address] Other 03-21-2022 12:00-0500 Respiratory rate 12 /min Samuel Ball Other [email or web address] Other 03-21-2022 12:00-0500 Systolic blood pressure 140 mm[Hg] Samuel Ball Other [email or web address] Other Encounters Encounter Date Encounter Type Care Provider Facility Start: 03-11-2023 End: 03-11-2023 ambulatory Samuel Ball Other [email or web address] Other Start: 03-11-2023 Office outpatient vi sit 15 minutes Samuel Ball [facility] Start: 03-05-2023 End: 03-05-2023 ambulatory Samuel Ball Other [email or web address] Other Start: 03-05-2023 Telephone encounter Samuel Ball [facility] Start: 02-26-2023 End: 02-26-2023 ambulatory Samuel Ball Other [email or web address] Other Start: 02-26-2023 Telephone encounter Samuel Ball [facility] Start: 02-19-2023 End: 02-19-2023 ambulatory Samuel Ball Other [email or web address] Other Start: 02-19-2023 Office outpatient vi sit 15 minutes Samuel Ball [facility] Start: 02-18-2023 End: 02-18-2023 ambulatory Samuel Ball Other [email or web address] Other Start: 02-18-2023 Telephone encounter Samuel Ball [facility] Start: 02-06-2023 End: 02-06-2023 ambulatory Samuel Ball Other [email or web address] Other Start: 02-06-2023 Office outpatient vi sit 15 minutes Samuel Ball [facility] Start: 02-05-2023 End: 02-05-2023 ambulatory Samuel Ball Other [email or web address] Other Start: 02-05-2023 Telephone encounter Samuel Ball [facility] Start: 01-31-2023 End: 01-31-2023 ambulatory Samuel Ball Other [email or web address] Other Start: 01-31-2023 Telephone encounter Samuel Ball [facility] Start: 01-29-2023 End: 01-29-2023 ambulatory Samuel Ball Other [email or web address] Other Start: 01-29-2023 Office outpatient vi sit 15 minutes Samuel Ball [facility] Start: 11-28-2022 End: 11-28-2022 ambulatory Samuel Ball Other [email or web address] Other Start: 11-28-2022 Encounter for genera l adult medical examination without abnormal findings Samuel Ball [facility] Start: 11-28-2022 Telephone encounter Samuel Ball [facility] Start: 11-27-2022 End: 11-27-2022 ambulatory Samuel Ball Other [email or web address] Other Start: 11-27-2022 Telephone encounter Samuel Ball [facility] Start: 11-22-2022 End: 11-22-2022 ambulatory Samuel Ball Other [email or web address] Other Start: 11-22-2022 Telephone encounter Samuel Zhao [facility] Start: 11-19-2022 End: 11-19-2022 ambulatory Samuel Zhao Other [email or web address] Other Start: 11-19-2022 Encounter for genera l adult medical examination without abnormal findings Samuel Zhao [facility] Start: 11-19-2022 Periodic preventive med est patient 40-64yrs Samuel Zhao [facility] Start: 08-03-2022 End: 08-03-2022 ambulatory Samuel Zhao Other [email or web address] Other Start: 08-03-2022 Telephone encounter Samuel Zhao [facility] Start: 07-18-2022 End: 07-19-[address] SAMUEL ZHAO Facility:[facility] Start: 06-28-2022 End: 06-28-2022 ambulatory Samuel Pavel Other [email or web address] Other Start: 06-28-2022 Telephone encounter Samuel Zhao [facility] Start: 06-27-2022 End: 06-28-[address] SAMUEL ZHAO Facility:[facility] Start: 06-26-2022 End: 06-26-2022 ambulatory Samuel Zhao Other [email or web address] Other Start: 06-26-2022 Office outpatient vi sit 25 minutes Samuel Zhao [facility] Start: 05-22-2022 End: 05-22-2022 ambulatory Samuel Zhao Other [email or web address] Other Start: 05-22-2022 Telephone encounter Samuel Zhao [facility] Start: 05-15-2022 End: 05-15-2022 ambulatory Samuel Pavel Other [email or web address] Other Start: 05-15-2022 Telephone encounter Samuel Ball [facility] Start: 04-12-2022 End: 04-12-2022 ambulatory Samuel Pavel Other [email or web address] Other Start: 04-12-2022 Telephone encounter Samuel [facility] Start: 04-05-2022 End: 04-05-2022 ambulatory Samuel Zhao Other [email or web address] Other Start: 04-05-2022 Telephone encounter Samuel Zhao [facility] Start: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
--- NOTE | 2023-03-26 12:37 | XR_ITS ---
The [address] [address] Patient Name: VINNY CERON MRN: [id number] date: 1960 Sex: M Assigned Patient Location: LAB Current Patient Location: LAB Accession/Order Number: [id number] Exam Date: 03/26/2023 13:00 Report Date: 03/26/2023 13:33 At the request of: ERASMO REYNOLDS Procedure: XR lumbar spine 6V w bending EXAMINATION: XR lumbar spine 6V w bending HISTORY: Spinal Stenosis Of Lumbar Region With Neurogenic Claudicatio COMPARISON: 01/28/2023 FINDINGS: BONES: Normal alignment with no acute fracture or spondylolisthesis. Mild to moderate degenerative spondylosis and facet osteoarthropathy . No transient spondylolisthesis with flexion or extension DISC SPACES: Normal. No significant disc height narrowing, subluxation, or endplate abnormality. PARASPINOUS: Negative. No paraspinous abnormality is seen. OTHER: Vascular calcification XR/XR lumbar spine 6V w bending IMPRESSION: Stable degenerative changes with no dynamic instability Electronically authenticated by: VINNY EDGE Date: 03/26/2023 13:33
== END 2023-03-26 12:30 | disposition home or self-care (01) ==
LOC: LAB 12:30
PROVIDERS: PCP Internal Medicine; Visit Provider Nurse Practitioner Family
DX: M48.062 Spinal stenosis, lumbar region with neurogenic claudication (principal)
CPT/HCPCS: 72114

== ENCOUNTER 2023-04-01 11:05 | Outpatient (OUT) | payer OTHER, SELFPAY ==
--- OUTSIDE RECORDS SUMMARY | 2023-04-01 11:09 | XMS_ITS | CCD ---
Author Name Unknown Address [address] [facility] [address] [place] [address] Organization [facility] Care Team Providers Care Interior Design Professor Name Role Phone Samuel Zhao Unavailable PAVEL, DR JEFFRIES Primary Care Unavailable REAL, CAPRICE Mendez Admitting Unavailable REAL, CAPRICE Mendez Attending Unavailable REAL, CAPRICE Mendez Consulting Unavailable NEFCY, CAPRICE Consulting Unavailable PAVEL, DR JEFRFIES Primary Care Unavailable PAVEL, DR JEFFRIES Admitting Unavailable BALL, DR JEFFRIES Attending Unavailable BALL, DR JEFFRIES Consulting Unavailable MINESH, DR VINNY Gonzalez Consulting Unavailable PAVEL, DR JEFFRIES Primary Care Unavailable PAVEL, DR JEFFRIES Admitting Unavailable BALL, DR JEFFRIES Attending Unavailable BALL, DR JEFFRIES Consulting Unavailable MISC, DR HEALY Admitting Unavailable MISC, DR HEALY Attending Unavailable WEST, DR VINNY Gonzalez Consulting Unavailable PAVEL, DR JEFFRIES Primary Care Unavailable MISC, DR HEALY Consulting Unavailable PAVEL, DR JEFFRIES Admitting Unavailable BALL, DR JEFFRIES Attending Unavailable BALL, DR JEFFRIES Consulting Unavailable PAVEL, DR JEFFRIES Primary Care Unavailable PAVEL, DR JEFFRIES Primary Care Unavailable PAVEL, DR JEFFRIES Admitting Unavailable BALL, DR JEFFRIES Attending Unavailable BALL, DR JEFFRIES Consulting Unavailable MINESH, DR VINNY Gonzalez Consulting Unavailable PAVEL, DR JEFFRIES Admitting Unavailable PAVEL, DR JEFFRIES Attending Unavailable BALL, DR JEFFRIES Consulting Unavailable PAVEL, DR JEFFRIES Primary Care Unavailable Roseline Ghosh Unavailable Allergies Allergy Classification Reported Allergen(s) Allergy Type Date of Onset Reaction(s) Facility (20 sources) metFORMIN Drug Allergy diarrhea Layar Other Medications Current Medications Medication Drug Class(es) Dates Sig (Normalized) Sig (Original) acetaminophen 325 mg / oxyCODONE hydrochloride 5 mg oral tablet (20 sources) Opioid Agonist Start: 01-31-2023 take 1 tablet by mouth every six hours oxyCODONE-Acetami nophen 5-325 MG 1 tablet as needed Orally every 6 hrs for 7 days p/u 03/11, start 03/12Mar, Active [id number] actuat albuterol 0.09 mg/actuat metered dose [...] mg oral tablet (20 sources) Thiazide Diuretic, beta-Adrenergic Tony Start: 06-26-2022 take 1 tablet by mouth every twenty-four hours Bisoprolol-hydr oCHLOROthiazide 5-6.25 MG 1 tablet Orally Once a [...] minutes prior to bkfst Mar, Active predniSONE 10 mg oral tablet (17 sources) Start: 03-26-2023 predniSONE 10 MG Take 3 tablets by mouth for 3 days then 2 tablets by mouth for 3 days then 1 tablet by mouth for 3 days Orally Once a day for 9 Mar, Active predniSONE 20 MG 1 tablets Orally three times a day for 3 days, two times a day for 3 days, 1 a day for 3 days for 9 days Not-Taking/PRN SITagliptin 50 mg oral tablet (20 sources) Dipeptidyl Peptidase 4 Inhibitor take 1 tablet by mouth every twenty-four hours Januvia 50 MG 1 tablet Orally Once a day Active 30 actuat umeclidinium 0.0625 mg/actuat / [...] 1 tablet Orally Once a day Not-Taking tiZANidine 4 mg oral tablet (11 sources) Central alpha-2 Adrenergic Agonist Start: 02-05-2023 tiZANidine HCl 4 MG 1/2 - 1 Orally Three times a day as needed for back pain Feb, Not-Taking/PRN triamcinolone acetonide 0.001 mg/mg topical ointment (20 sources) Corticosteroid Triamcinolone Acetonide 0.1 % 1 application Externally Twice a day for 30 days Not-Taking/PRN Problems Active Problems Problem Classification Problem Date [...] hypercholesterolemia; Translations: [Familial hypercholesterolemia] Chronic Esophageal disorders (15 sources) Gastro-esophageal reflux disease with esophagitis; Translations: [...] FOOT] Onset: 06-27-2022 Episodic Other liver diseases (14 sources) Steatosis of liver; Translations: [Fatty (change [...] by: CAPRICE SHORE Date: 2022-07-18 18:48 Normal [facility] GLYCOHEMOGLOBIN A1Con 2022 ADA RECOMMENDATION SEE BELOW Normal [facility] Comment on above: Result Comment: ADA RECOMMENDED LIMIT 4.0 - 6.0 ADA THERAPEUTIC TARGET < 7.0 ACTION SUGGESTED > 7.0 Performed By: #### C MP, LIPID, TSH #### [facility] [address] [place] [address] Dr. Gerardo Larose Glucose [Mass/Vol] 143 mg/dL Normal The [facility] Comment on above: Performed By: #### C MP, LIPID, TSH #### [facility] [address] [address] [address] Gerardo Larose HbA1c (Bld) [Mass fraction] 6.6 % Critically high 4.5-6.2 [facility] Comment on above: Performed By: #### C MP, LIPID, TSH #### [facility] [address] [place] [address] Dr. Gerardo Larose MRI LSPINE WO CONon 03-21-19 23 MRI LSPINE WO CON EXAMINATION: MRI LSPINE [...] by: VINNY EDGE Date: 2022-03-21 16:49 Normal [facility] CT LUNG CANCER SCREENINGon 1 CT [...] by: VINNY EDGE Date: 2021-12-04 07:24 Normal [facility] CBC AUTO DIFFon 12-01-2021 BASO # 0.1 103/ul Normal 0.0-0.1 [facility] Comment on above: Performed By: #### C MP, LIPID, TSH #### [facility] [address] [place] [address] Dr. Gerardo Larose Basophils/100 WBC (Bld) 0.9 % Normal 0.2-2.0 [facility] Comment on above: Performed By: #### C MP, LIPID, TSH #### [facility] [address] [place] [address] Dr. Gerardo Larose EO # 0.2 103/ul Normal 0.0-0.7 [facility] Comment on above: Performed By: #### C MP, LIPID, TSH #### [facility] [address] [place] [address] Dr. Gerardo Larose Eosinophils/100 WBC (Bld) 2.5 % Normal 0.9-7.0 [facility] Comment on above: Performed By: #### C MP, LIPID, TSH #### [facility] [address] [place] [address] Dr. Gerardo Larose Erythrocyte distribution width (RBC) [Ratio] 13.7 % Normal 11.0-15.0 [facility] Comment on above: Performed By: #### C MP, LIPID, TSH #### [facility] [address] [place] [address] Dr. Gerardo Larose Hematocrit (Bld) [Volume fraction] 46.3 % Normal 42.0-54.0 [facility] Comment on above: Performed By: #### C MP, LIPID, TSH #### [facility] [address] [place] [address] Dr. Gerardo Larose Hemoglobin (Bld) [Mass/Vol] 15.7 g/dL Normal 14.0-18.0 [facility] Comment on above: Performed By: #### C MP, LIPID, TSH #### [facility] [address] [place] [address] Dr. Gerardo Larose IG # 0.03 10e3/ul Normal 0.00-0.03 [facility] Comment on above: Performed By: #### C MP, LIPID, TSH #### [facility] [address] [place] [address] Dr. Gerardo Larose IG % 0.4 % Normal 0.0-0.5 [facility] Comment on above: Performed By: #### C MP, LIPID, TSH #### [facility] [address] [place] [address] Dr. Gerardo Larose LYMPH # 2.1 103/ul Normal 1.2-3.8 [facility] Comment on above: Performed By: #### C MP, LIPID, TSH #### [facility] [address] [place] [address] Dr. Gerardo Larose Lymphocytes/100 WBC (Bld) 31.2 % Normal 20.5-60.0 [facility] Comment on above: Performed By: #### C MP, LIPID, TSH #### [facility] [address] [place] [address] Dr. Gerardo Larose MANUAL DIFF REQ NO Normal [facility] Comment on above: Performed By: #### C MP, LIPID, TSH #### [facility] [address] [place] [address] Dr. Gerardo Larose MCH (RBC) [Entitic mass] 31.3 pg Normal 25.9-34.0 [facility] Comment on above: Performed By: #### C MP, LIPID, TSH #### [facility] [address] [place] [address] Dr. Gerardo Larose MCHC (RBC) [Mass/Vol] 33.9 g/dL Normal 29.9-35.2 [facility] Comment on above: Performed By: #### C MP, LIPID, TSH #### [facility] [address] [place] [address] Dr. Gerardo Larose MCV (RBC) [Entitic vol] 92.4 fL Normal 80.0-94.0 [facility] Comment on above: Performed By: #### C MP, LIPID, TSH #### [facility] [address] [place] [address] Dr. Gerardo Larose MONO # 0.5 103/ul Normal 0.3-0.8 [facility] Comment on above: Performed By: #### C MP, LIPID, TSH #### [facility] [address] [place] [address] Dr. Gerardo Larose Monocytes/100 WBC (Bld) 7.8 % Normal 1.7-12.0 [facility] Comment on above: Performed By: #### C MP, LIPID, TSH #### [facility] [address] [place] [address] Dr. Gerardo Larose NEUT # 3.8 103/ul Normal 1.4-6.5 [facility] Comment on above: Performed By: #### C MP, LIPID, TSH #### [facility] [address] [place] [address] Dr. Gerardo Larose Neutrophils/100 WBC (Bld) 57.2 % Normal 43.0-75.0 [facility] Comment on above: Performed By: #### C MP, LIPID, TSH #### [facility] [address] [address] [address] Gerardo Larose Platelet mean volume (Bld) [Entitic vol] 10.2 fL Normal 9.5-13.5 [facility] Comment on above: Performed By: #### C MP, LIPID, TSH #### [facility] [address] [address] [address] Gerardo Larose PLT 190 103/ul Normal 150-450 [facility] Comment on above: Performed By: #### C MP, LIPID, TSH #### [facility] [address] [address] [address] Gerardo Larose RBC 5.01 106/ul Normal 4.70-6.10 [facility] Comment on above: Performed By: #### C MP, LIPID, TSH #### [facility] [address] [address] [address] Gerardo Larose WBC 6.7 103/ul Normal 4.0-11.0 [facility] Comment on above: Performed By: #### C MP, LIPID, TSH #### [facility] [address] [address] [address] Gerardo Larose GLYCOHEMOGLOBIN A1Con 2021 ADA RECOMMENDATION SEE BELOW Normal [facility] Comment on above: Result Comment: ADA RECOMMENDED LIMIT 4.0 - 6.0 ADA THERAPEUTIC TARGET < 7.0 ACTION SUGGESTED > 7.0 Performed By: #### C MP, LIPID, TSH #### [facility] [address] [place] [address] Dr. Gerardo Larose Glucose [Mass/Vol] 140 mg/dL Normal [facility] Comment on above: Performed By: #### C MP, LIPID, TSH #### [facility] [address] [address] [address] Gerardo Larose HbA1c (Bld) [Mass fraction] 6.5 % Critically high 4.5-6.2 [facility] Comment on above: Performed By: #### C MP, LIPID, TSH #### [facility] [address] [address] [address] Gerardo Larose LIPID PROFILEon 12-01-2021 CHOL-HDL RATIO NORM SEE BELOW Normal [facility] Comment on above: Result Comment: 3.3 - 4.4 LOW RISK 4.4 - 7.1 AVERAGE RISK 7.1 - 11.0 MODERATE RISK >11.0 HIGH RISK Performed By: #### C MP, LIPID, TSH #### [facility] [address] [address] [address] Gerardo Larose Cholesterol [Mass/Vol] 202 mg/dL Critically high <=200 [facility] Comment on above: Performed By: #### C MP, LIPID, TSH #### [facility] [address] [address] [address] Gerardo Larose Cholesterol in HDL [Mass/Vol] 58 mg/dL Normal 40-60 [facility] Comment on above: Performed By: #### C MP, LIPID, TSH #### [facility] [address] [address] [address] Gerardo Larose Cholesterol in LDL [Mass/Vol] 104.2 mg/dL Normal [facility] Comment on above: Performed By: #### C MP, LIPID, TSH #### [facility] [address] [address] [address] Gerardo Larose Cholesterol.total/Cho lesterol in HDL [Mass ratio] 3.5 {ratio} Normal [facility] Comment on above: Performed By: #### C MP, LIPID, TSH #### [facility] [address] [address] [address] Gerardo Larose HDL NORMAL > or = 60 mg/dl - LO W CARDIOVASCULAR RISK <40 mg/dl - HIGH CARDIOVASCULAR RISK Normal [facility] Comment on above: Performed By: #### C MP, LIPID, TSH #### [facility] [address] [address] [address] Gerardo Larose LDL CALC NORMAL SEE BELOW Normal [facility] Comment on above: Result Comment: <100 mg/dl OPTIMAL 100 - 129 mg/dl NEAR OR ABOVE OPTIMAL 130 - 159 mg/dl BORDERLINE HIGH 160 - 189 mg/dl HIGH >190 mg/dl VERY HIGH Performed By: #### C MP, LIPID, TSH #### [facility] [address] [place] [address] Dr. Gerardo Larose Triglyceride [Mass/Vol] 199 mg/dL Critically high <=150 [facility] Comment on above: Performed By: #### C MP, LIPID, TSH #### [facility] [address] [place] [address] Dr. Gerardo Larose VLDL CALC 39.8 mg/dL Normal [facility] Comment on above: Performed By: #### C MP, LIPID, TSH #### [facility] [address] [place] [address] Dr. Gerardo Larose MICROALBUMIN, RAND URon 11-04 mALB 28.7 mg/L Normal <=30.0 [facility] Comment on above: Performed By: #### C MP, LIPID, TSH #### [facility] [address] [place] [address] Dr. Gerardo Larose PROF 14(COMP METB)on 022 Albumin [Mass/Vol] 3.7 g/dL Normal 3.4-5.0 [facility] Comment on above: Performed By: #### C MP, LIPID, TSH #### [facility] [address] [place] [address] Dr. Gerardo Larose Albumin/Globulin [Mass ratio] 0.9 {ratio} Normal [facility] Comment on above: Performed By: #### C MP, LIPID, TSH #### [facility] [address] [place] [address] Dr. Gerardo Larose ALP [Catalytic activity/Vol] 84 U/L Normal 46-116 [facility] Comment on above: Performed By: #### C MP, LIPID, TSH #### [facility] [address] [place] [address] Dr. Gerardo Larose ALT [Catalytic activity/Vol] 45 U/L Normal 16-63 [facility] Comment on above: Performed By: #### C MP, LIPID, TSH #### [facility] [address] [address] [address] Gerardo Larose Anion gap [Moles/Vol] 10.8 mmol/L Normal [facility] Comment on above: Performed By: #### C MP, LIPID, TSH #### [facility] [address] [place] [address] Dr. Gerardo Larose AST [Catalytic activity/Vol] 26 U/L Normal 15-37 [facility] Comment on above: Performed By: #### C MP, LIPID, TSH #### [facility] [address] [place] [address] Dr. Gerardo Larose Bilirubin [Mass/Vol] 0.6 mg/dL Normal 0.2-1.0 [facility] Comment on above: Performed By: #### C MP, LIPID, TSH #### [facility] [address] [place] [address] Dr. Gerardo Larose Calcium [Mass/Vol] 9.4 mg/dL Normal 8.5-10.1 [facility] Comment on above: Performed By: #### C MP, LIPID, TSH #### [facility] [address] [place] [address] Dr. Gerardo Larose Chloride [Moles/Vol] 100 mmol/L Normal 98-107 [facility] Comment on above: Performed By: #### C MP, LIPID, TSH #### [facility] [address] [place] [address] Dr. Gerardo Larose CO2 [Moles/Vol] 28.9 mmol/L Normal 21.0-32.0 [facility] Comment on above: Performed By: #### C MP, LIPID, TSH #### [facility] [address] [place] [address] Dr. Gerardo Larose Creatinine [Mass/Vol] 0.95 mg/dL Normal 0.70-1.30 [facility] Comment on above: Performed By: #### C MP, LIPID, TSH #### [facility] [address] [place] [address] Dr. Gerardo Larose EGFR-AF PRYDEINIG >60 Normal >=60 [facility] Comment on above: Performed By: #### C MP, LIPID, TSH #### [facility] [address] [address] [address] Gerardo Larose EGFR-NON AF PRYDEINIG >60 Normal >=60 [facility] Comment on above: Performed By: #### C MP, LIPID, TSH #### [facility] [address] [address] [address] Gerardo Larose Globulin (S) [Mass/Vol] 3.9 g/dL Normal [facility] Comment on above: Performed By: #### C MP, LIPID, TSH #### [facility] [address] [address] [address] Gerardo Larose Glucose [Mass/Vol] 128 mg/dL Critically high 74-106 [facility] Comment on above: Performed By: #### C MP, LIPID, TSH #### [facility] [address] [place] [address] Dr. Gerardo Larose Potassium [Moles/Vol] 3.7 mmol/L Normal 3.5-5.1 [facility] Comment on above: Performed By: #### C MP, LIPID, TSH #### [facility] [address] [address] [address] Gerardo Larose Protein [Mass/Vol] 7.6 g/dL Normal 6.4-8.2 [facility] Comment on above: Performed By: #### C MP, LIPID, TSH #### [facility] [address] [place] [address] Dr. Gerardo Larose Sodium [Moles/Vol] 136 mmol/L Normal 136-145 [facility] Comment on above: Performed By: #### C MP, LIPID, TSH #### [facility] [address] [place] [address] Dr. Gerardo Larose Urea nitrogen [Mass/Vol] 15.0 mg/dL Normal 7.0-18.0 [facility] Comment on above: Performed By: #### C MP, LIPID, TSH #### [facility] [address] [place] [address] Dr. Gerardo Larose Urea nitrogen/Creatinine [Mass ratio] 15.8 mg/mg Normal [facility] Comment on above: Performed By: #### C MP, LIPID, TSH #### [facility] [address] [address] [address] Gerardo Larose TSHon 12-01-2021 TSH 1.388 uIU/mL Normal 0.358-3.740 [facility] Comment on above: Performed By: #### C MP, LIPID, TSH #### [facility] [address] [address] [address] Gerardo Larose VITAMIN B12on 12-01-2021 Cobalamin (Vitamin B12) [Mass/Vol] 382.0 pg/mL Normal 193.0-986.0 [facility] Comment on above: Performed By: #### V ITB12, PSASC #### [facility] [address] [address] [address] Gerardo Larose GLYCOHEMOGLOBIN A1Con 2021 ADA RECOMMENDATION SEE BELOW Normal [facility] Comment on above: Result Comment: ADA RECOMMENDED LIMIT 4.0 - 6.0 ADA THERAPEUTIC TARGET < 7.0 ACTION SUGGESTED > 7.0 Performed By: #### C MP, LIPID, TSH #### [facility] [address] [address] [address] Gerardo Larose Glucose [Mass/Vol] 192 mg/dL Normal [facility] Comment on above: Performed By: #### C MP, LIPID, TSH #### [facility] [address] [address] [address] Gerardo Larose HbA1c (Bld) [Mass fraction] 8.3 % Critically high 4.5-6.2 [facility] Comment on above: Performed By: #### C MP, LIPID, TSH #### [facility] [address] [address] [address] Gerardo Larose IntraOperative Documentson 0 06-24-2020 [employer] Documents [id number] 0CD:127 Normal [facility] Coding Summary.on 06-21-2020 Coding Summary. CD:[id number] Gh 0bWw+PGhlYWQ+KD7AXPQhH 14xcTEyfZ8UZ2dUZX6TEMQ QBLAXVO7DED5ttVE5CTkvM 2VybiAv CmfwvTDeVE40IBh7SYO7uA iiDLdksP5asDTqJ8t0ImXt PU04nS68TIgtFYIeCuN9Vx ZpbjsgbWFy G2oiJhYnsMBuVpq+PHRhYm xlIHdpZHRoPScxMDAlJyBz mLbdHN6pOr6fGGThOILuiP xhcHNlOiBj n0xdJHVaNKloEW6tnQkzZ7 UirOE4PGLbn0x3An16wND+ PPBqCFG5cUzjVGvbz351Kw Rtr6hbOMV1 wLUsSNcrFYW6H11qf4V5CW EvKYTsMBV8hFY0yN3pfZwt rqjgX1YedJRvFbO5JZM1gU WalO3dnIaq rehlzD8hUlp+O79OBK6IRS LLLI1SPmq4M4FlYfqtaFZ+ FB11YHDpQY86iAAjqLDqp8 casAa9AnTb PFTbRWD7iQiaEXktg9CkZR ZeQ51qnVYrj1L7YREkoTxn yGPxYlHglPZ9iS0vQQnifa cql1mcvpee Zhfmf7ophq21iZ54U06uSH fcGSJkTUR4ZUImDUYpwUvs zh5skW2rGu9+SCpmx4onm1 bnrFd1YlDm YAIhwdPowUiwCXT3o1FxMr 35I2GneZboy5SlDww6pf95 lVGjf8F1uLW5FWspZTNwmH 1dEAnmOgX1 LZAkWzYlvV01vZKpBPveHe 7ijCendRssYP3vLKPdnbvm FXMlhO5xIBHocWZcxLsqJM 4wNTBpbjtm u189KqXsPMN0PQJjbEEdB8 MdkB8vSoThXWCmQMHxB3Dx pBNsFIrvS459KMcsFmX1IZ KvbqYqR4Ul ZYSbrRfiGgG7i3N7Ab3Jy9 DxfjwuQIK5TKtsAZA9ViTj VcYnFqQ8G9AgXct3AWUdhR tfFY4aZ9Sk WPPeiohiootssAJ6HVYfOX NvbS26aUGzXCxyUl6nq6C5 b299LSFqFOXbqD45Ob6vbN ogMTBwdCBU lI7tnvmdb7mqrsgbWsMcRD BjPDq3ZUt8JJHfqGxgLiOo XVN9WiX9RNZ4zPIhaA4voO eannfrkJ5p Oyc+F25qnI1bNHA4OTL5kq riYIMeaeZfIX52ST03T5Rz PjwvdGFibGU+PGRpdiBzdH bjEL8aQkTn v4oyy8LxEFigA3TnKWXdYD cxWtv9AKZhFVA9qWR2mK6k OOSqNQkzm7O3oBD2Z7Bzru Orgp8py3hh WZRgSOmqF73nvQWwy6B0NA SufVW3FYHzpNzbUcNujH19 Oyc+DVHucWuch4TjHpbvi8 emx2ytnJh7 WjWtTNJhxfBhkYfcSFG1p2 HeUk50D82lTFppWPYoPIRn BNWhZFQnePgwgu7rcD6lPk 8+PGNvbCB3 eKA1kA6cJFUdSlH0IHmaH1 80IsIvbTTyDkgfa2uzk3do wTh6DjTxBSTcdbTywRvqIL X9v7SyUr35 V70pZLknQXHwUIJeXAGnQG FdeQsccc5yqJ0kWd6+PC9j f2ppuf56yT36wNY+PHRkIH H8rUzhFCza BOCdqW0rGVkzFuQ6MFTfUj XfrD58fEIrKMcyKv6dpUqc iTraKZ1hBGRvjpswh166Ft Rma1qtWYDw lFMoYUxhCGH9U13wa9Z0TH RsFRFdUME2dHX4lB8rnQiq bjogbGVmdDsgdmVydGljYW rlVZjtX366 IHRvcDsnPlBhdGllbnQgTm TaCZg7R4TxWal5MSJqyXwe SV9tsTEqKUwvGp7ayXanpQ hlFY8sFDXz xzyxn726TzMxu0wdDXEpbB ZtVKgvMRO9X78ok7N5DQEu PHKlJAJ6bND0yJ5vwUivbg ogbGVmdDsg wgSzwEgnGMniDKodV567ZS RvcDsnPkJpcnRoIERhdGU6 CN89LX82lCUdh0F0kAQ0S3 BhZGRpbmct rxsgaFW3TRQfWJCguG24Um 9hmRajBo8lHBBbCFW3IQNj lZPuM3FqmI9dPvNhTZSaTR YhV0WefFTw SRljM023KSctWfW6JFUqwa KlW5BgJZSasHnhHqA8v3W6 Qi3MC7U8FP18UZ68oDAid3 O4aSU7G5Qw VZHebhksscbgiLR1NOKtZO VfeY90Rn5usBdvCq9vXBHl DTS2MXTlxDBeG3NahG3tWq AjMDAwMDAw K2IzoGQhWVeeD306HEhrNy M2TUTkzeHaZ0DlYJBktQbt EhC8f8P3Bj4FOSs9CL23IL 94wHOor1U4 zRO9K4ZyURSrehmxwyhuwN I3PENoSRFbzB45Cl5azCwi Vd3jJORrBAT7HMJcpKXpF8 JonT9uCgHk FPRdJHBpS5QagSPdEWdzK3 40CJvoRsI6LAGjnqFfK9Wo RCSmlDpgWlL3e8Q2Dp8SYJ VuDW28VTW2 tEH7QP35YJ71L9CcAxugiK FibGU+PHRhYmxlIHdpZHRo ZFldUFUtLgEstEdtTC9oUg 9yZGVyLWNv dXdxfISbIfMbc1umDEFpJM qhQP0hyEkuQ0YizFQ2VXYi i6l6Ja17K62cZ6RrbMI+PG LjnBH6qYZ1 nC8sToIrAsZ1CEosW157Ro VbwLLkHgptd5vht4ofhDf8 GyF4BIYlahDtiYoxWET4d6 IpIp49L95f IHdpZHRoPSIxNSUiIHZhbG mzlw1bxU4eCi1+PGNvbCB3 xVQ5rW0uFfEuXsD0EIzjG1 49InRvcCIv Ountv9rgu6jbfBu5JtAeIU WuufNodVezAAE5r0UuNt84 H9LmmXdkp5PpNgr4uf31eN Gvk2C9kHJ5 P2CbWSMbtujdyDAhtAleXE 0pQPLxywsuJWYxrX6uLPEg P0u9ZiPcMfA4ZMqpD6Xmmx T6KMLdxXOw RLrlTWE0D86te2R3UENhSV XqCUH4aLN1aH0diVzidosi bGVmdDsgdmVydGljYWwtYW upC602QUQi mVwyZAWsbB1sDAScbEJtzD cnRZ8rQFVzgokuMniXOAJF BXNWTPOBPGQURK56BS69uW Czi2D2eUJ1 S2RoGRZpjqkhpbokfLR4DT TdXBQntN31dLAmMQggJx4z h2S7r217UBLdOWIumK22Yk 9udDogMTBw aCMOmD5xeemve8vqyywiNy NpGFZmQLy4LFg4OVJmfDkj DqYoIDC5WwV0TDR4hAKasN 1hbGlnbjog rR8sImr+ASWpRHAvURm1MB wvdGQ+IYPiBNY4cLmcGFqp CQTxvV2qOYOlE6h5ViFuRr Y8QJprT8Uy CEKcreriEc79oO6lZpIbVn Z2TMlqV8YaxvS8CJJxgCUj HHesQXN4Z78yk1S9VCGcST RuTPS8dTE7 uI3bsQpthqajfHIldAsnzn ZwxSloNWfhJXcgF046GQMe dLwtNpEoWCpfCVFuIT65XN 72cAKpc6I0 sKJ6L9BoIPGcachammbyoR H2WEKyEQLkfI65hFGcNFtg Cu5vf8F5j859EGSvVDAmaA 52Ll6ebWdw JCDpiYTAzP5hltjnj5fmoz clBrOgBDYxXIc5LGg8BLNa tYjdXzLcOFP6NfQ9IIE9dX MxiO3kgOej xnhhfJ5qSez+TWFsZTwvdG Q+LGMxNCJ8iTibCBzoUMQk zF5fNBMsS8m4JwRtStN4OH vaS2SsFXFg cbijDg18uE8sOsFvAhG7NG goD3AsntX8AONlqQPeOPow WKQ5H27kx8V5TQInQPAdJI I9aUJ4oL3h bGlnbjogbGVmdDsgdmVydG jnYTtuNAfnE598MTFcjOug Ox39zEGmyDoichY0C7FzPp wvdHI+PC90 AICcJV78uICilXBfo5ldlK o6ZjUbBEDvEKS1fMbqJHaq t2FaKUZfP02ryAAwt6V3IT NvbGxhcHNl EdWnyMR7zW7hGTjkmjybc9 cyyheaXbslv4ucvu31sY44 N40fGFrtOGHgDIPaPMToKB KclDdnxt3x dR6sHk4+PEYaaXK9oKJ1rU 5pFyLuTcG1JHedU043McCh aEPvHyetu2osm8oqrHx4Vi IwJSIgdmFs zAwcTQM9o5PlKo16I59fNH dpZHRoPSIyMCUiIHZhbGln th9yhM4hQh3+QE8ih9xfup 03sZ10cWU+ FTPqDUJ4oVrzBLfhDDRdnX 0bPDfyMaE9NODeIbPanN21 bQCsMQnzZo9pzOkelToyKM 4wNTBpbjtm t567QeHsi2ddZAZymTJcYE [id number] INN0bCJ9kA0slZlktjzafS VmdDsgdmVy eFwnELnpKKqqO585BVBvdD vwIdUjzUKqN2edanJXXS7z OjwvdGQ+IENoXQU8yKioBD tnEGHsrL4c BIVyY7r7VtNfIbH0WYvhJ5 WnuaL1DBScxVIyJWCqnARL gC5ugfepp4fdafxnKhKhOM UiYOx1NIx5 XEKemKkjEwVgICS3GtP1YV I3cAKdaS4lcAmhygwlsV5z Oyc+RklOOjwvdGQ+PHRkIH Y8pYjwSWzc RHUnsS7eJTGkO6l1SvBjIr H0XQduL3RfbtH2QDOuxEAh NUUvdQWFqU8kegziv6qqmx ogIzAwMDAw TAw7SJp2ZDZtcHmeWsLeZL X1FnF7UVL0zQUnvM3ncByq ushbmR5wYep+TVJOOjwvdG Q+PHRkIHN0 yMatBRbyWKKmvL2iIVInO1 u8XhWcKtV7VOqfK2UituN7 GNYsbZXnJZVbiQNVnZ4jlz lru1frvcim MnLxPSXhLYl4PSs7MIWqhI qoIiSyMEW7LwH7NOJ3bZKd zA6wuXikgqxeyU6xMjo+UG O5UFR0NC28 UH70X7ToRqpwcBLurPI+PH RhYmxlIHdpZHRoPScxMDAl EsSbjQviCB3tZd9rTORgFU NvbGxhcHNl OiBj (more content not included)... Normal [facility] Postoperative Documentson Postoperative Documents [id number]#1. 00CD:127 Normal [facility] Consenton 06-20-2020 Consent [id number]#1. 00CD:127 [facility] Discharge Instructionson Discharge Instructions [id number]#1. 00CD:127 [facility] IntraOperative Documentson 0 06-20-2020 IntraOperative Documents [id number]#1. 00CD:127 [facility] IntraOperative Documents [id number]#1. 00CD:127 [facility] Main OR Intraoperative Recor don 06-20-2020 Main OR Intraoperative Record IntraOp Document Type FT Summary Primary Physician: Elen MCKINNON MD Finalized Date/Time: 06/20/20 13:22:09 Pt. Name: JIEVINNY/Sex: 1960 Male Med Rec #: [id number] Physician: Elen MCKINNON MD Financial #: [id number] Pt. Type: O Room/Bed: / Admit/Disch: 06/15/20 12:37:25 - 06/15/20 23:59:59 Institution: Case Times FT Entry 1 Patient Times In Room 06/15/20 14:13:00 Out Room 06/15/20 14:31:00 Procedure Times Start 06/15/20 14:17:00 Stop 06/15/20 14:27:00 Anesthesia Times Start 06/15/20 14:13:00 Stop 06/15/20 14:31:00 Time at [facility] 06/15/20 14:20:00 Last Modified By: Jeniffer QUIGLEY, Kriss 06/15/20 14:31:31 General Comments: 06/20/20 - chart logged and finalized for charges. Bib Jaramillo, MSN, RN Case Attendance FT Entry 1 Entry 2 Entry 3 Case Attendee Lázaro Owusu CRNA RN, Evelina De Leon Role Performed Anesthesiologist [employer]obile Contract Clerk - Primary Scrub - Primary Type Mapper Time In 06/15/20 14:13:00 06/15/20 14:13:00 06/15/20 [...] Given Participants Jeniffer QUIGLEY, PETAR Monterroso MD, MyrickRick whatley Kirstyn K, Sparks, Micala E Time Out Complete 06/15/20 14:15:00 Outcomes Met? [...] and tissue Entry 1 Skin Integrity Intact, [place], Warm, and Skin Abnormality No Dry Outcomes [...] Procedure COLONOSCOPY(.) (more content not included)... Normal [facility] Endoscopic Procedure Report - Otheron 06-15-2020 Endoscopic Procedure Report - Other Patient: VINNY BAEZ Age: 59 years Sex: [...] Return to activities:: After 24 hours. Normal [facility] Comment on above: Result Comment: Elec tronically Signed By: Elen MCKINNON MD\.br\Date and Time Signed: 06/15/20 14:30 EDT Other Comment: Ramona bernabe Attachment - attachment storage system not supported [id number] Can be viewed in source systemMissing Attachment - attachment storage system not supported [id number] Can be viewed in source systemMissEyegroove Attachment - attachment storage system not supported [id number] Can be viewed in source systemMissEyegroove Attachment - attachment storage system not supported [id number] Can be viewed in source systemMissEyegroove Attachment - attachment storage system not supported [id number] Can be viewed in source system Inpatient Patient Summaryon 06-15-2020 Inpatient Patient Summary [place] [id number] [facility] Clinical Discharge Instructions PERSON INFORMATION Name: VINNY BAEZ PHYSICIANS Admitting Physician: Elen MCKINNON MD Attending Physician: Elen MCKINNON MD PCP: SAMUEL ZHAO DO Discharge Diagnosis: Colon polyp Comment: PATIENT EDUCATION INFORMATION Instructions: Medication Leaflets: Follow up: Type Location Start [facility] Follow Up [facility] 07/12/2020 1:15 PM 07/12/2020 1:30 PM Confirmed MEDICATION LIST Medications to Continue with No Changes Other Medications benazepril 5 Milligram By Mouth every day. bisoprolol-hydrochloro thiazide (bisoprolol-hydrochlor othiazide 5 mg-6.25 mg Tab) 1 Tablets By Mouth every day. omeprazole 20 Milligram By Mouth every day. Comment: Normal [facility] Main OR PACU I Recordon 06-02 Main OR PACU I Record PACU Phase I Docum ent Type FT Summary Primary Physician: Elen MCKINNON MD Finalized Date/Time: 06/15/20 16:40:52 Pt. Name: VINNY BAEZ Edgardo Vu/Sex: 1960 Male Med Rec #: [id number] Physician: Elen MCKINNON MD Financial #: [id number] Pt. Type: O Room/Bed: / Admit/Disch: 06/15/20 [...] I Outcomes Met? Yes Last Modified By: Radha Lucas RN 06/15/20 16:40:18 Post-Care Text: The patient demonstrates [...] By: Radha Lucas RN 06/15/20 16:40 Normal [facility] Main OR Preoperative Recordo n 06-15-2020 Main OR Preoperative Record Holding Area Document Type FT Summary Primary Physician: Elen MCKINNON MD Finalized Date/Time: 06/15/20 13:00:04 Pt. Name: JIEVINNY/Sex: 1960 Male Med Rec #: [id number] Physician: Elen MCKINNON MD Financial #: [id number] Pt. Type: O Room/Bed: / Admit/Disch: 06/15/20 [...] By: Yenny Milner RN 06/15/20 13:00 Normal [facility] Monitor Recordon 06-15-2020 Monitor Record [id number]#1. 00CD:127 Normal [facility] Outpatient Surgery Discharge Instructionon 06-15-2020 Outpatient Surgery Discharge Instruction [place] [id number] Patient Discharge Instructions PERSON INFORMATION Name: VINNY BAEZ Date of : 1960 Current Date: 06/15/2020 14:31:41 PHYSICIANS Admitting Physician: PETAR MARTINEZ Myrick Discharge Diagnosis: Colon polyp VINNY BAEZ has [...] ___ Date Follow up: Type Location Start [facility] Follow Up [facility] 07/12/2020 1:15 PM 07/12/2020 1:30 PM Confirmed Pharmacy Information: [facility] You may receive a survey from [employer] asking you to rate your care experience. Your feedback is important and will help us understand what we do well and how we can improve the quality of care we provide to you, your loved ones and our community. It?s an honor to serve you. Thank you for choosing [facility] HERE ARE THE MEDICATION CHANGES THAT OCCURRED DURING YOUR HOSPITAL STAY Medications to Continue with No Changes Other Medications benazepril 5 Milligram By Mouth every day. bisoprolol-hydrochloro thiazide (bisoprolol-hydrochlor othiazide 5 mg-6.25 mg Tab) 1 Tablets By Mouth every day. omeprazole 20 Milligram By Mouth every day. PATIENT EDUCATION INFORMATION Instructions: Normal [facility] Patient Education - Texton 0 06-15-2020 Patient Education - Text [facility] Progress Note-Physicianon Progress Note-Physician Patient: VINNY [...] noted. Plan Transfer/ Discharge: Condition stable. Normal [facility] Comment on above: Result Comment: Elec tronically [...] mellitus type 1 Father Procedure history: Colonoscopy (159190914). EGD (esophagogastroduodeno scopy) gastric outlet reduction ([id number]). Social History Social & Psychosocial Habits Tobacco 05/23/2020 Tobacco Use: 10 or more cigarettes (1/ . Physical Examination Respiratory: Lungs are clear to auscultation. Cardiovascular: Regular rhythm. Plan [place] [employer] Anesthesiologists (ASA) physical status classification: Class III. Anesthetic Preoperative Plan Anesthesia: General. . Anesthetic plan, risks, benefits, and alternatives discussed with the patient and/or family. Patient verbalized understanding. [facility] Comment on above: Result Comment: Elec tronically Signed By: Pierre Nazario Jr., DO\.br\Date and Time Signed: 06/15/20 11:57 EDT Coding Summary.on 06-10-2020 Coding Summary. CODING DATE: 06/10/2020 FINAL [facility] STATUS: Home (Routine DC) PAYOR: Commercial Insurance [...] Nix CphT Date Saved: 06/10/2020 08:48 am [facility] COVID-19 (MC)on 06-09-2020 SARS-CoV-2 (COVID-19) RNA ROLANDO+probe Ql (Unsp spec) Not detected Normal Not Detected [facility] Comment on above: Result Comment: This test result should be correlated with clinical presentations and medical history by a healthcare provider to determine its clinical significance. This assay was performed by a reverse transcriptase real-time polymerase chain reaction (rt PCR) method on the [employer] system. This test has been authorized only [...] or revoked sooner. 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 NO Normal [facility] Comment on above: Performed By: #### 2 [id number] ####[facility] [address] [place] [address] ICU NO Normal [facility] Comment on above: Performed By: #### 2 [id number] ####[facility] [address] [place] [address] ? NO Normal [facility] Comment on above: Performed By: #### 2 [id number] ####[facility] [address] [place] [address] [facility] NO Normal [facility] Comment on above: Performed By: #### 2 [id number] ####[facility] [address] [place] [address] Symptomatic as defined by CDC NO Normal [facility] Comment on above: Performed By: #### 2 [id number] ####[facility] [address] [place] [address] Consent for Procedure/Surger yon 05-24-2020 Consent for Procedure/Surgery [id number]#1.0 0CD:127 Normal [facility] Gastroenterology Office/Clin ic Noteon 05-24-2020 Gastroenterology Office/Clinic Note CD:[id number] NU69dCcamuVwo8gjcf1rXX 3hSwWiqeSgDTumJk6zn6bl CU62gu0gXcKhXh4+CjwhRE 9DVFlQRSBo aY5gBAWPPbjUMoGfNR9vOz RFZv4KRSBmWZzVAVocXS1q GNK1jwswrY1aLP6xDAVzeB UyIi3lo3j6 LbzzWm1iYk9ZBk81bWSwvY KwMSRNV6zyuP8iQH2fsOBg E1DgFVTaDk1HJHd7qYpnzX 9hqbB8Mqc7 ySB6Zf42r7mhesEge0RfKb K6GVzxdRg4mYwtEWjlyL0v SiQeDXIRgH4emHovYE8dlH 1lbnRhdGlv biI+CvalZSBhFpp1lROxYK 99M3JfmHrkUjz4xSA0WRIj rDTnXGHzyZz1GALHDLQOPC NvbXBhdGli oONqCKHpueWlmfG8JqbTZW FgIvYwCkt8K0ejCDF+Cjxi s0M8Kxl0VXd5HZA9aAlgII Wgq956KOIq gSniuPkfeSAjl72lRXVphA RkEqXit764JBBldyT8ESxg jDdkVqf7wAMmdMUft2lhwL h3VrRiOGLf ZizNGOSajSxlv9UrYyfKTT asg1xxlyHfvXqcUQN7s5Qm CEgtCUMpKFZ3PjWoKT0+Cg kJPGNvbCB2 UFfbJ580KvGxnBAae6ovnG b7JoO9WSFjFh2TGQqmC32e H5CraWI+Ybo3lDDvICt+Cg kJPHRyPgoJ CEh6rHNtf5S5qBJ0YvPdvc Wsm9c2SIdqCGD6JdW1NFG4 eKOitQ6vsGphaofpfT4fBp I+CgkJCTxk eNYdQ1zao6P5TvNkf1IhkU vionBlARCsCtJcr5lbRnbf XBMxfF8qOYF9TtWhCNTlfP MpLSCaML0i ikZjtOFrDKQhWfOoV0Qoe0 2mz1KgRKFRC5fJPzOcDTV8 CE5kSmGwLE3bIanwJDCyH7 PlFKB7ABIi ZIoePt3nKUIxYHK3PlUnMF EuCAQ2RPGxs7V1qZV2RvQl DSNnxhs5RVCxvPbgJpjzwZ FuIGNsYXNz PVDjPLRyK3Qdq43zcNOfzD H6Nl37t2QzasEdlJkzGA8o Qa1djG93WJqxyLX6EPAvjQ F1REGqrMOb LKKmv7IdaAexvcqkyM4mUM OdeD2aKsU+Y0tpZLGiK04h gNewqD03DB7kzHIrTzjwh8 Nysl9OLNaJ BFWhkmJjmOXmum9iUNFamO Plv559YH29HkOpKSkoe665 XB80mAtiKV8nHYOPG5SCPM 9NRUFTIiBk DNifMNKbowHyI7G7iOazZH XPM6E3YyC6KC0QQkDtCHQO N2MwHhXhPu9HH7PZCQfXXf I3IvFxJRxm PSJfZTlmOWVkYzMtYzZmZi 03WsD7NZqzOPYgOIK8Dec0 KOZ4YIwrLi8FONxRMFGoxd NmdPOllg3e MMBlnRRzw633OQ75jVWgaK BgSWDpeA00JGEkZTOiNVW8 H08rnOUbbKH6wAR2KwAYTX NBUkVfTUVB IwCnNIN9WE99qPL8zZM0Ky D7Gcv5CaFpLqSwEGdfRQOu OmMfLWV9GPTvYVMwSC68WW EpZUz9SqPf HeIqQvR1POtsQGevQcE9nT odntdmUD7gYAowTQ1tF6Ra W0HrJL12WUMea72kYbS3tb Cfc1crhlHu HZHjzVr1J6Qdwh4SBIjYCF 9kaXY+VigVACdmLTj3IwmI LErDJLViigNutTEwij8mBK SwFZJ5uP0p IGRkcmVmcmVzaGFibGUgZG PjijMvvmRhgwChiDP6mALf YMLudG80QQRpTQQsZFE4t5 VjdGlvbmNv OFR2HsjRHF9PNYXnKKY1TR GdHCjyFPGlOFNaRQT1HWDe UhAcOg77JNT9NBb5DuDhWc NcM2L9Djx9 RbKaCwMtbHhlJX2vlDZlVN jiRldcKDR4UbB+GQBwQR8o K7lci4K1ZoSdg0HsaTcpzc Low6JlQCeg RxqojSSiXQX2uQumBTUcn8 46YMqngBrozBmdIm1rAGjy eDF4fU1lJDJpmtT7rP9hLa L9sySrbzzb jzY1Kc3AGGqbW9LuNnH0N6 NwYW4+HZ9gnVGwYnpKOBdH QBWgsjTsyWUwzz9lQYKadY Yad190LF75 NuVbHJnsh225JZ83wSlyNY 1hLVSDD5TDAX8LZOZBYgKv RGggOEZvriTbR6G2cKijXU JBODVEREFE CI95ZmseXFPZSMQqCUYUCj 74HBYBKkH5XctILPYcZYkv PSJfMWEyYjQyNTQtNzcwZS 26ZKeeGSO9 MzgtMGMyMGJhMmZmNzJmIj 2RDFbBRWOzcdHkbHVorz7u HVNtwGYbo677WN86eOOxiI LpRSHtxD43 PNXxEIPgSRV4SbUeXkbeDE SxwlizkRqmKP3dkG7vLWUu L1t2ChJtNYaar214HB37qN kuAM7nYFPD O3JBPK7GVGOEGaIzGLmbdp PnbCdxTE1kQpFwSI2yE4O5 ACR7TVMxKGbtZcOvJVh6TN 04ZGQyLTMy ReZcZEQuKVkhDXEcdQ8vrm U7XOV0SzE6glYwsOGKb1P5 lJOeuXU3hX0vBp97K6Inst 4KCgkJCTxk cTUaY1cgw1O6RqQgCE3bS5 1cyNJylQm5SM4oAPZnOM6x wuNygNIlFCMkCpM5jeXov7 S5mG2iz6H5 gUD8SdBnxP3hmZxyfQPaJS L0U73omNDgwQF5yVY8UoDK AFRVXmRgEYYZKxZdXTK2RX 85hQY9iZL0 CmQntSG0Ke75LBWsDeXdWk 23UjRrNIGdMKRcNEnbPu4t PEDfGPZ1DqYrUzguADdsoP 5zOmRkPSJE iM1rsSjjGJ2arZ4qynZfyU lvbiI+WB1jwCY+CgoJCQk8 COx1QVAsXCCuDJJgRQSkvp NvbnRlbnRp cDVjELLoeuFdy8ShCiaaCz LsBOuofD4xzI4pcPuoV5E5 pKwxYON3s5IxvlukyXYiTA RkOmNvbnRl wdB8oGIwGQDBDMRYPBSLW4 5KMBYyKXNmNzXrgSn5vAsc CLZkKLruXFCaXkq1XwNtGt DqR2ZrAM46 UPIiXXjwT1WsGUL7HTr0Ua BgJaSmOxH5uJktueosDO5t ZMbtOC5lG3TbS9TtFQ61WR Enz32gYgyJ HVn6PNs5ETD3aNklNKZnBY DcxZ98DMJnkUWorW29AUWl THYrjxs5YKRgmNyvUu7wJB VyOiAwcHQg viesZZTgQCJvBLTuVbH9BN k4PGXjmNuuMuSoFRO4YoSw b3owcnqxeqkdNCWxAGXwBP XhOuF4VTf4 LWluZGVudDogMGluOyBmb2 09WGH1iBeeHxEru8LcTYr3 OIBzspKlm4PvE2v2XgAku9 UaJAt8WISh hSFwHPBil7MgtJngigupoo 9zDHytQamSGBz5KHf6LtfH DFx0AXj8XcXnfPBoiTRyAS S1TFB9ATWf IL3hFYKrJLiiKXrtkbTauq PwMB02jnA4e4MvgUWtc4Qs CBH0NTgwKKHrP42za73fju VjYWxsLjwv ZOm8ZhwLVIx0F2Chrj1VFZ iTJP0xiJJ+CgkJCTwvZGl2 PgoKCQkJPGRpdiBjbGFzcz 0iZGRlbXJj c087OJ97aHSujVEfCSLhkK 08LZAkVQXdEVE6YkWeFzmu UXYvbibsgVsqHY3lgD3cIQ EeH0n6ZfHj KZemz915WN85rKptSP2sWS DZD4MBZP8CLBBFZzKiROqv mhSxhCrnAB0kXiFoVV1qVj YxMjcyYjRk ZSZ3RRsfRZX8AO91OiOsHF A0OpSuJBNdYAO5IVSvmY4o edB4PAG6HiZ1dmVkqPQIg0 X9dRVchMY8 sY8vVk09C9Dgcl8YLgsAQL ghyYJtM7ckf0T3VoMbDI9l E05tmXKlyLa6FA4kZGGbEQ 1vdmFibGUi KPBdWnR9zrGyg2X8hU8ur2 Z8mJM0GpZpcO7toRmbjZBz ARD0F12hpHNusOP0fGR5Cm BBVENBUkVf UPIKVjYdHGC7GU89pNQ6wO T0ElEfxQD0Vh81EZLuUnAm RP9dQzHrFUJbRYMmNqL8Qo 0cAKJ7RFLs PZZhAKMlCJnadS9lByFbUW KPpH9sdIarQA7knC5atfQo dGlvbiI+UY8rlMQ+CgoJCQ a9TCs6DRGu YXNzPSJkZGVtcmNvbnRlbn XxdXIaTYLkkqSbs2DyXyuf QxBxNZuprL6sjP4nfZaiL2 J9fJvyHKU8 o7KtvwyuxHBsSAZePnKqhm HpitM4tWWtITNYZQCBWKKP V11WMEWpCJCeJkGbgVf2iP lkPSIiIGlk LSAgCHUsQLLnQ2VkEWHvQY 91WOClCQPsMMXhUyagZbb2 NVA8Ktu0BgZ4gMvplajfHG 4mZTazNX2m N2AtK9DdWS10XVYwv65qPs xcNZs6QlgVMHcFOIAaptYr tVOrie2uTRCetTZnp368ON 50aXRlbSBk SBBmsP78SYJuGDKnNDC4Wa XnNkmiVBIdrpcedOmvBH6v nT0tWAZqW6z1NpGtHMphm8 05VO73aPfn YJ0oOQFTL0OHFI6EXQFETf LaARnfyzZqbLulZF8qCrSq MW0hCaWhUVreTTrqCQC8Qe DnDBb1HH7h XtOjPLa1UlRcWsYrJGLmNB SwhU0bnlH4SQF6MnP2vvPl fZWOt4D5pOYpwNI7uV9hWi 99Q7Jtkr1B DooWFOpkqOPpK4tdk1Q0Zr PnNV2hE22kyHYbtSf5LF2d JCLbDW7ihrAzhRYvEJMdLa G1frZim2E9 pN7io9J2qGG6DhYpzO9pdA lutUPbXIW4Z47qnROdeCO8 jVK0BcZUDLQGBjUbOFIRJt LpWDB6QH90 gVT8wCE4RdOuyVH6Lm3nRA m3RVTtKg5vLfL1NFVjKqXb JMFfKt7dZpBtEhF3AUV8Ne UwLLxuwD3b O (more content not included)... Normal [facility] Comment on above: Result Comment: Elec tronically Signed By: Elen MCKINNON MD\.br\Date and Time Signed: 05/24/20 12:53 EDT\.br\Electronically Co-Signed By: Alysa Ashley\.br\Date and Time Co-Signed: 05/23/20 16:37 EDT\.br\Electronically Co-Signed By: Elen MCKINNON MD\.br\Date and Time Co-Signed: 07/08/20 10:25 EDT\.br\Electronically Co-Signed By: Mami Leonard Physician Orderon 05-24-2020 Physician Order [id number] 0CD:127 Normal [facility] Physician Order [id number] CD:127 Normal [facility] Ambulatory Clinical Summaryo n 05-23-2020 Ambulatory Clinical Summary {[id number]- [id number]-mn-[id number] 8-4c}CD:[id number] Normal [facility] Patient Educationon 05-24-19 21 Patient Education Oncology Colon Polyps Polyps are [...] 11/14/2004 Document Revised: 06/05/2018 Document Reviewed: 06/05/2018 [employer]mess[employer] Patient Education ? 2019 [employer]. [facility] Historical Records Officeon 05-20-2020 Historical Records Office [id number] 0CD:127 [facility] Patient Letter FTon 2020 Patient Letter [facility] April 05, 2020 VINNY BAEZ [address] [place] [address] VINNY BAEZ 1960 Dear Vinny, This is a reminder that you are due for an appointment with Dr. Mckinnon or Dr. Molina. Please call [facility] at [phone] to schedule an appointment at your earliest convenience. Thank you, [facility] Vital Signs Date Time Vital Sign Value Performing Clinician Facility 03-26-2023 11:00-0500 Body height 179.07 cm [facility] 03-26-2023 11:00-0500 Body mass index (BMI) [Ratio] 27.3 kg/m2 [facility] 03-26-2023 11:00-0500 Body weight 87.54 kg [facility] Other 03-11-2023 11:00-0500 Body height 179.07 cm Samuel [facility] Other [facility] Other 03-11-2023 11:00-0500 Body mass index (BMI) [Ratio] 27.86 kg/m2 Samuel [facility] Other [facility] Other 03-11-2023 11:00-0500 Body weight 89.36 kg Samuel Ball Other [facility] Other 03-11-2023 11:00-0500 Diastolic blood pressure 88 mm[Hg] Samuel Ball Other [facility] Other 03-11-2023 11:00-0500 Respiratory rate 12 /min Samuel [facility] Other [facility] Other 03-11-2023 11:00-0500 Systolic blood pressure 169 mm[Hg] Sameul Ball Other [facility] Other 02-19-2023 09:30-0500 Body height 179.07 cm Samuel [facility] Other [facility] Other 02-19-2023 09:30-0500 Body mass index (BMI) [Ratio] 27.84 kg/m2 [facility] Other [facility] Other 02-19-2023 09:30-0500 Body weight 89.27 kg Samuel Ball Other [facility] Other 02-19-2023 09:30-0500 Diastolic blood pressure 82 mm[Hg] Samuel Ball Other [facility] Other 02-19-2023 09:30-0500 Respiratory rate 12 /min Samuel Ball Other [facility] Other 02-19-2023 09:30-0500 Systolic blood pressure 176 mm[Hg] Samuel Ball Other [facility] Other 02-06-2023 11:15-0500 Body height 179.07 cm Samuel Ball Other [facility] Other 02-06-2023 11:15-0500 Body mass index (BMI) [Ratio] 23.22 kg/m2 Samuel Ball Other [facility] Other 02-06-2023 11:15-0500 Body weight 74.48 kg Samuel Ball Other [facility] Other 02-06-2023 11:15-0500 Diastolic blood pressure 67 mm[Hg] Samuel Ball Other [facility] Other 02-06-2023 11:15-0500 Respiratory rate 12 /min Samuel Ball Other [facility] Other 02-06-2023 11:15-0500 Systolic blood pressure 145 mm[Hg] Samule Ball Other [facility] Other 01-29-2023 08:45-0500 Body height 179.07 cm Samuel Ball Other [facility] Other 01-29-2023 08:45-0500 Body mass index (BMI) [Ratio] 27.27 kg/m2 Samuel [facility] Other [facility] Other 01-29-2023 08:45-0500 Body weight 87.45 kg Samuel Ball Other [facility] Other 01-29-2023 08:45-0500 Diastolic blood pressure 79 mm[Hg] Samuel Ball Other [facility] Other 01-29-2023 08:45-0500 Respiratory rate 12 /min Samuel Ball Other [facility] Other 01-29-2023 08:45-0500 Systolic blood pressure 120 mm[Hg] Samuel Ball Other [facility] Other 11-19-2022 09:30-0400 Body height 179.07 cm Samuel Ball Other [facility] Other 11-19-2022 09:30-0400 Body mass index (BMI) [Ratio] 27.58 kg/m2 Samuel Ball Other [facility] 11-19-2022 09:30-0400 Body weight 88.45 kg Samuel Ball Other [facility] 11-19-2022 09:30-0400 Diastolic blood pressure 88 mm[Hg] Samuel Ball Other [facility] 11-19-2022 09:30-0400 Respiratory rate 12 /min Samuel Ball Other [facility] 11-19-2022 09:30-0400 Systolic blood pressure 139 mm[Hg] Samuel Ball Other [facility] 06-26-2022 16:30-0400 Body height 179.07 cm Samuel Ball Other [facility] 06-26-2022 16:30-0400 Body mass index (BMI) [Ratio] 28.12 kg/m2 Samuel Ball Other [facility] 06-26-2022 16:30-0400 Body weight 90.18 kg Samuel Ball Other [facility] Other 06-26-2022 16:30-0400 Diastolic blood pressure 126 mm[Hg] Samuel Ball Other [facility] 06-26-2022 16:30-0400 Respiratory rate 12 /min Samuel Ball Other [facility] Other 06-26-2022 16:30-0400 Systolic blood pressure 210 mm[Hg] Samuel Ball Other [facility] 03-21-2022 12:00-0500 Body height 179.07 cm Samuel Ball Other [facility] 03-21-2022 12:00-0500 Body mass index (BMI) [Ratio] 28.2 kg/m2 Samuel Ball Other [facility] 03-21-2022 12:00-0500 Body weight 90.45 kg Samuel Ball Other [facility] 03-21-2022 12:00-0500 Diastolic blood pressure 90 mm[Hg] Samuel Ball Other [facility] 03-21-2022 12:00-0500 Respiratory rate 12 /min Samuel Ball Other [facility] Other 03-21-2022 12:00-0500 Systolic blood pressure 140 mm[Hg] Samuel Ball Other [facility] Other Encounters Encounter Date Encounter Type Care Provider Facility Start: 03-27-2023 End: 03-27-2023 ambulatory Roseline Ghosh Other [facility] Start: 03-27-2023 Telephone encounter Roseline Ghosh [facility] Clinic Assistant Start: 03-26-2023 End: 03-26-2023 ambulatory Samuel Ball Other [facility] Start: 03-26-2023 Office outpatient ne w 45 minutes Roseline Ghosh [facility] Start: 03-26-2023 Telephone encounter Samuel Ball [facility] Start: 03-25-2023 End: 03-25-2023 ambulatory Samuel Ball Other [facility] Start: 03-25-2023 Telephone encounter Samuel Ball [facility] Start: 03-11-2023 End: 03-11-2023 ambulatory Samuel Ball Other [facility] Start: 03-11-2023 Office outpatient vi sit 15 minutes Samuel Ball [facility] Start: 03-05-2023 End: 03-05-2023 ambulatory Samuel Ball Other [facility] Start: 03-05-2023 Telephone encounter Samuel Ball [facility] Start: 02-26-2023 End: 02-26-2023 ambulatory Samuel Ball Other [facility] Start: 02-26-2023 Telephone encounter Samuel Ball [facility] Start: 02-19-2023 End: 02-19-2023 ambulatory Samuel Ball Other [facility] Start: 02-19-2023 Office outpatient vi sit 15 minutes Samuel Ball [facility] Start: 02-18-2023 End: 02-18-2023 ambulatory Samuel Ball Other [facility] Start: 02-18-2023 Telephone encounter Samuel Ball [facility] Start: 02-06-2023 End: 02-06-2023 ambulatory Samuel Ball Other [facility] Start: 02-06-2023 Office outpatient vi sit 15 minutes Samuel Ball [facility] Start: 02-05-2023 End: 02-05-2023 ambulatory Samuel Ball Other [facility] Other Start: 02-05-2023 Telephone encounter Samuel Ball [facility] Start: 01-31-2023 End: 01-31-2023 ambulatory Samuel Ball Other [facility] Other Start: 01-31-2023 Telephone encounter Samuel Ball [facility] Start: 01-29-2023 End: 01-29-2023 ambulatory Samuel Ball Other [facility] Start: 01-29-2023 Office outpatient vi sit 15 minutes Samuel Ball [facility] Start: 11-28-2022 End: 11-28-2022 ambulatory Samuel Ball Other [facility] Other Start: 11-28-2022 Encounter for genera l adult medical examination without abnormal findings Samuel Ball [facility] Start: 11-28-2022 Telephone encounter Samuel Ball [facility] Start: 11-27-2022 End: 11-27-2022 ambulatory Samuel Ball Other [facility] Start: 11-27-2022 Telephone encounter Samuel Ball [facility] Start: 11-22-2022 End: 11-22-2022 ambulatory Samuel Ball Other [facility] Other Start: 11-22-2022 Telephone encounter Samuel Ball [facility] Start: 11-19-2022 End: 11-19-2022 ambulatory Samuel Ball Other [facility] Other Start: 11-19-2022 Encounter for genera l adult medical examination without abnormal findings Samuel Ball [facility] Start: 11-19-2022 Periodic preventive med est patient 40-64yrs Samuel Ball [facility] Start: 08-03-2022 End: 08-03-2022 ambulatory Samuel Zhao Other [facility] Other Start: 08-03-2022 Telephone encounter Samuel Zhao [facility] Start: 07-18-2022 End: 07-19-[address] SAMUEL ZHAO Facility:H1 Start: 06-28-2022 End: 06-28-2022 ambulatory Samuel Zhao Other [facility] Other Start: 06-28-2022 Telephone encounter Samuel Zhao [facility] Start: 06-27-2022 End: 06-28-[address] SAMUEL ZHAO Facility:[facility]1 Start: 06-26-2022 End: 06-26-2022 ambulatory Samuel Zhao Other [facility] Other Start: 06-26-2022 Office outpatient vi sit 25 minutes Samuel Zhao [facility] Start: 05-22-2022 End: 05-22-2022 ambulatory Samuel Zhao Other [facility] Other Start: 05-22-2022 Telephone encounter Samuel Zhao [facility] Start: 05-15-2022 End: 05-15-2022 ambulatory Samuel Pavel Other [facility] Other Start: 05-15-2022 Telephone encounter Samuel Zhao [facility] Start: 04-12-2022 End: 04-12-2022 ambulatory Samuel Zhao Other [facility] Other Start: 04-12-2022 Telephone encounter Samuel [facility] Start: 04-05-2022 End: 04-05-2022 ambulatory Samuel Ball Other [facility] Other Start: 04-05-2022 Telephone encounter Samuel [facility] Start: 04-04-2022 End: 04-04-2022 ambulatory Samuel [facility] Other [facility] Other Start: 04-04-2022 Telephone encounter Samuel Zhao [facility] Start: 03-21-2022 Office outpatient vi sit 25 minutes Samuel Zhao [facility] Start: 03-21-2022 End: 03-22-[address] HEALY [facility] Other Start: 12-04-2021 Encounter for genera l adult medical examination without abnormal findings DR SAMUEL ZHAO [facility] Start: 12-01-2021 End: 12-02-2021 Encounter for general adult medical examination without abnormal findings DR SAMUEL ZHAO Facility:[facility]1 Start: 12-01-2021 End: 12-02-[address] SAMUEL ZHAO Facility:[facility] Start: 08-09-2021 End: 08-10-[address] SAMUEL ZHAO Facility:[facility]1 Procedures Date Procedure Procedure Detail Performing Clinician Start: 12-01-[address] MORGAN [place] Comment on above: Performed By: #### V ITB12, PSASC #### [facility] [address] [place] [address] Dr. Gerardo Larose Depression screening Clari Zhao Other Payers Date Payer Category Payer Unknown [id number] [id number] [id number] 1960 Unknown [id number] 2.16.84 [id number] 1960 Unknown [id number] 2.16.84 [id number] 1959 Unknown [id number] 2.16.84 [id number] 1959 Unknown [id number] 2.16.84 [id number] 1960 Unknown [id number] 2.16.84 [id number] 1960 Unknown [id number] 2.16.84 [id number] 1960 Private Health Insurance [id number] Social History Date Type Detail Facility Sex Assigned At [facility] Other Medical Equipment Procedure Code Equipment Code Equipment Origin al Text Equipment Identifier Dates one touch basic test strips Start: 07-19-2022 Clinical Notes 06-20-2020 to 03-26-2023 Note Date & Type Note Facility 03-26-2023 Evaluation note Encounter Date Diagnosis Assessment Notes Mar, Facet arthritis of lumbar region (ICD-10 - M47.816) Mar, Left lumbar radiculopathy (ICD-10 - M54.16) Mr Baez is a pleasant 62 yo male who works for the [employer] and states since december he has been having back pain that radiated down into his posterior aspect of the left leg down to ankle.I independently reviewed the MRI of the lumbar spine face to face with patient in which, shows a medial facet at the L5 root likely consist with patients current symptoms. Discussion of conservative therapy in which patient has completed physical and medical modalities to help alleviate their pain complaints. Has been seeing Dr Drew Chiropractor, conservative therapy, this does include but not limited to provider directed home exercise program and activity modification for greater then 12week time, of which is attempted on a daily basis. Activity modification include transition maneuver, dry needeling and traction, avoidance as well as strict upper and lower extremity lift and movement limbs has failed to provide reprieve. This patient has tried [id number] and prescription medications for greater than a 3-month period of time. Patient presents today to discuss their worsening of pain which is affecting their activities of daily living. Will refer to Dr Elizabeth pain management for L5 injection. Will give oral prednisone taper in which I advised patient to monitor blood sugars due to T2DM. Advised of OTC thermacare and lidocaine patches. Will get Xray 6 v Lumbar to rule out hypermobility. Follow up in 8 weeks. Medical decision making shows a new problem to me with further workup planned or suggested with the potential for extensive treatment options that were considered with the most applicable given this patient's situation as noted above. Treatment options considered include a combination of physical therapy approaches, pharmacologic management, and interventional procedures. Those most applicable to the patient were discussed at this time. Risk of complications and/or morbidity and mortality is high given that acute and chronic pain poses a threat to life and bodily function if undertreated, poorly treated or with failure to maintain adequate treatment and timely follow up. Given the serious and fluctuating nature of pain with extensive consideration for whenever pain changes, there always remains the possibility of prolonged functional impairment requiring constant patient reassessment and high-level medical decision making. The amount and complexity of data reviewed is moderate given that patient labs, radiology reports, and other test were obtained, reviewed and summarized as applicable from the physician portal and/or outside medical records. Pertinent positive and negative findings were considered in medical decision-making. OARRS reviewed. Mar, Diabetic peripheral neuropathy (ICD-10 - E11.42) [facility] Other 01-22-2024 Evaluation note* Encounter Date Diagnosis Assessment Notes Treatment Notes Treatment Clinical Notes Mar, Acute left-sided low back pain with left-sided sciatica (ICD-10 - M54.42) [facility] Other 01-08-2024 Evaluation note* Encounter Date Diagnosis Assessment Notes [...] continue exercise to achieve/maintain a normal BMI. Patient is instructed on home BP measurements: - rest for 5 minutes w/o talking- positioned w/ feet on floor and arm supported- average best 2/3 readings w/ goal < 135/85 Instructed to increase Losartan to 100mg qd [facility] Other 01-02-2024 Evaluation note* Encounter Date Diagnosis Assessment Notes Treatment Notes Treatment Clinical Notes Mar, Acute left-sided low back pain with left-sided sciatica (ICD-10 - M54.42) [facility] Other 12-26-2023 Evaluation note* Encounter Date Diagnosis Assessment Notes Treatment Notes Treatment Clinical Notes Feb, Acute left-sided low back pain with left-sided sciatica (ICD-10 - M54.42) [facility] Other 12-19-2023 Evaluation note* Encounter Date Diagnosis [...] Microalbumin, Dilated eye exam and Foot exam [facility] Other 2023 Evaluation note* Encounter Date Diagnosis Assessment Notes Treatment Notes Treatment Clinical Notes Feb, Acute left-sided low back pain with left-sided sciatica (ICD-10 - M54.42) [facility] Other 12-06-2023 Evaluation note* Encounter Date Diagnosis [...] as it will resolve once off steroids [facility] Other 12-05-2023 Evaluation note* Encounter Date Diagnosis Assessment Notes Treatment Notes Treatment Clinical Notes Feb, Acute left-sided low back pain with left-sided sciatica (ICD-10 - M54.42) [facility] Other 11-28-2023 Evaluation note* Encounter Date Diagnosis [...] BS values, which requires no dose adjustments [facility] Other 09-27-2023 Evaluation note* Encounter Date Diagnosis Assessment Notes Treatment Notes Treatment Clinical Notes Nov, Elevated transaminase level (ICD-10 - R74.01) Nov, Wellness examination (ICD-10 - Z00.00) Nov, Fatty liver (ICD-10 - K76.0) [facility] Other 09-21-2023 Evaluation note* Encounter Date Diagnosis Assessment Notes Treatment Notes Treatment Clinical Notes Nov, Cigarette nicotine dependence without complication (ICD-10 - F17.210) LDCT: no suspicious nodules 11/2021, [facility] Other 09-18-2023 Evaluation note* Encounter Date Diagnosis [...] (ICD-10 - Z12.5) Yearly PSA and ARCHANA [facility] Other 06-02-2023 Evaluation note* Encounter Date Diagnosis Assessment Notes Treatment Notes Treatment Clinical Notes Aug, Type 2 diabetes mellitus with hyperglycemia, without long-term current use of insulin (ICD-10 - E11.65) [facility] Other 04-27-2023 NotePROCEDURE: XR ANKLE RT 2V, XR FOOT RT 2V COMPARISON: None. HISTORY: Pain in right foot FINDINGS: BONES:No acute fracture or dislocation. Mild degenerative changes most significant at the first metatarsal phalangeal joint SOFT TISSUES:Negative. No visible soft tissue swelling. EFFUSION:None visible. OTHER: Negative. IMPRESSION: Mild degenerative changes Electronically authenticated by: VINNY EDGE Date: 2022-06-28 07:[facility]04-27-2023 NotePROCEDURE: XR ANKLE RT 2V, XR FOOT RT 2V COMPARISON: None. HISTORY: Pain in right foot FINDINGS: BONES:No acute fracture or dislocation. Mild degenerative changes most significant at the first metatarsal phalangeal joint SOFT TISSUES:Negative. No visible soft tissue swelling. EFFUSION:None visible. OTHER: Negative. IMPRESSION: Mild degenerative changes Electronically authenticated by: VINNY EDGE Date: 2022-06-28 07:[facility]04-25-2023 Evaluation note* Encounter Date Diagnosis Assessment [...] No vesicles or bleeding. Nontender but pruritic [facility] Other 03-21-2023 Evaluation note* Encounter Date Diagnosis Assessment Notes Treatment Notes Treatment Clinical Notes May, Gastroesophageal ref lux disease with esophagitis without hemorrhage (ICD-10 - K21.00) [facility] Other 03-14-2023 Evaluation note* Encounter Date Diagnosis Assessment Notes Treatment Notes Treatment Clinical Notes May, Gastroesophageal ref lux disease with esophagitis without hemorrhage (ICD-10 - K21.00) May, Essential hypertensi on (ICD-10 - I10) May, Type 2 diabetes mellitus with diabetic polyneuropathy, without long-term current use of insulin (ICD-10 - E11.42) May, Elevated cholesterol (ICD-10 - E78.00) [facility] Other 02-09-2023 Evaluation note* Encounter Date Diagnosis Assessment Notes Treatment Notes Treatment Clinical Notes Apr, Type 2 diabetes mellitus with diabetic polyneuropathy, without long-term current use of insulin (ICD-10 - E11.42) [facility] Other 02-02-2023 Evaluation note* Encounter Date Diagnosis Assessment Notes Treatment Notes Treatment Clinical Notes Apr, Gastroesophageal ref lux disease with esophagitis without hemorrhage (ICD-10 - K21.00) [facility] Other 02-01-2023 Evaluation note* Encounter Date Diagnosis Assessment Notes Treatment Notes Treatment Clinical Notes Apr, Gastroesophageal ref lux disease with esophagitis without hemorrhage (ICD-10 - K21.00) [facility] Other 01-18-2023 Evaluation note* Encounter Date Diagnosis [...] Diet and exercise with continued statin therapy. [facility] Other 12-22-2021 NotePatient: VINNY BAEZ Age: 60 years Sex: Male : 1960 Associated Diagnoses: None Author: Mehreen Dodge MA Results Review Original Procedure Date 06/15/2020 Revised repeat colonoscopy interval 5 years Adenomatous polyp(s) present 1 or 2 tubular adenomas less than 10mm Adenocarcinoma present No Serrated lesion(s) present Sessile serrated polyp(s) less than 10mm with no dysplasia Hyperplastic polyp(s) present [facility]04-19-2021 Note [id number]:[id number] Evaluation noteNo InformationNo[facility] Other History general Narrative - Reported* Type [...] History COLONOSCOPY Hospitalization History see surgical hx [facility] Other Hisqmkn general Narrative - Reported* Type Description Date [...] years) 2020 Hospitalization History see surgical hx [facility] Other Reason for referral (narrative)* Reason Referral for ankle/f oot mass. Diagnosis 1 Mass of right ankle (R22.41) Referral Organization [facility] P[facility] dial Referring Provider First Name Samuel Referring Provider Last Name Pavel Referring Provider Specialty Internal Me darell Referred Organization [facility] Referred Provider Caprice Roberts Referred Address [address], [place],[address] Referred Provider Specialty Podiatry - S urgical Chiropody Referral Priority Routine General Notes Patient c/o mass at the junction of his foot/ankle, which has developed over the past 2 months. He has a remote hx of ankle injury. It is not tender, erythematous or associated w/ bruising. Clinical Notes XR negative [facility] Other Summary Purpose Family History No Family History Records FoundNo Family History Records Found Advance Directives No Advanced Directives Records FoundNo Advanced Directives Records Found Reason for Referral Reason evaluate and tr eat Diagnosis 1 Spinal stenosis of l umbar region with neurogenic claudication (M48.062) Referral Organization [facility] [place] Referring Provider First Name Roseline Referring Provider Last Name Davina Referring Provider Specialty Nurse Pract itioner Referred Organization [facility] Referred Provider Park Hallman Referred Address [address], [place],[address] Referred Provider Specialty Pain Medicin e Referral Priority Routine General Notes Kristin King 12:49:27 PM > received today, attached documents, waiting for note to be locked before sending Reason Mr. Baez is being r eferred for low back and left leg pain. Diagnosis 1 Acute left-sided low back pain with left-sided sciatica (M54.42) Referral Organization [facility] Referring Provider First Name Samuel Referring Provider Last Name Pavel Referring Provider Specialty Internal Me dicine Referred Organization [facility] Referred Provider Deric Vega Referred Address [address] [place], [place],[address] Referred Provider Specialty Neurological Surgery Referral Priority [...] and content) DATE CREATED AUTHOR 02/26/2021 Zackary Schuyler [facility] DATE CREATED AUTHOR AUTHOR'S ORGANIZ ATION 07/19/2022 [facility] REASON FOR VISIT (unrecogniz ed section and content) 4 MONTH FOLLOW UPOmeprazoleR efill needs sent to [employer] ShoppeRefillrefillsprescription refillRIGHT ANKLE PROBLEMSXray resultsRefillWELLNESSNo InformationNo InformationLab ResultsSciatic Nerve PainTBH RefillsBack Painextended work releaseRefillback painrefillrefillback painrefillneurosurgery updatereferred by Dr. Zhao low back and left leg painNeurosurgery office note FOR RECORDS PERTAINING TO PATIENTS WHO ARE [...] BE BASED ON THE PRIMARY CLINICAL RECORDS. [employer] provides no warranty or guarantee of the accuracy or completeness of information in this document.
--- NOTE | 2023-04-01 12:42 | P.CN_ITS ---
Consult Note: HPI Data of Consult Patient: new to practice Consult date: 04/01/23 Requesting Physician: Zachery Hallman MD Primary Care Provider: Samuel Zhao DO Consult Narrative Reason for consult: Low back, left leg pain Narrative: 62yom who presents for evaluation. Worsening left low back and radiating left leg pain for past 3 months. Has undergone physical therapy and chiropractic therapy, as well as >6 weeks of provider directed home exercises, in past 3 months, with limited benefit. Imaging reviewed, which shows multilevel facet arthropathy, as well as stenosis at various levels, worst at L4-5 and L5-S1. Has trialed medrol dosepak, with good transient benefit. Trialed percocet, which hel ps some. Otherwise denies adverse med side effects. cc:: CC: Zachery Hallman MD Review of Systems ROS Status of ROS 10 or more systems reviewed and unremark able except as noted in history and below PFSH PFSH Social History Smoking status: Current every day smoker Meds Home Medications and Allergies Home Medications Medication Instructions Recorded Confirmed Type albuterol sulfate 90 mcg/actuation 1 puff inhalation QDAY 01/28/23 01/28/23 History aerosol inhaler amlodipine 5 mg tablet 5 mg PO QDAY 01/28/23 01/28/23 History atorvastatin 10 mg tablet 10 mg PO QDAY 01/28/23 01/28/23 History bisoprolol 5 1 tab PO QDAY 01/28/23 01/28/23 History mg-hydrochlorothiazide 6.25 mg tablet glimepiride 2 mg tablet 2 mg PO QDAY 01/28/23 01/28/23 History losartan 50 mg tablet 50 mg PO QDAY 01/28/23 01/28/23 History omeprazole 20 mg capsule,delayed 20 mg PO QDAY 01/28/23 01/28/23 History release sitagliptin phosphate 50 mg tablet 50 mg PO QDAY 01/28/23 01/28/23 History (Januvia) Allergies Allergy/AdvReac Type Severity Reaction Status Date / Time No Known Drug Allergies Allergy Verified 01/28/23 12:33 Exam Narrative Exam Narrative: Psych-alert and oriented x 3. Attentive and appropriate, constitutionally normal, displays normal mood and affect per situation. There are no obvious deficits in memory, reasoning, or intellect.? Skin-no obvious rashes, bruising, erythema noted to the patient's area of pain.? Extremities- extremities are warm with minimal edema and palpable pulses. Lumbar-tenderness to palpation noted in the lumbar spine and paraspinal musculature. Pain is elicited with flexion, extension, and lateral rotation of the lumbar spine. Range of motion is diminished with these motions. Facet loading maneuvers are positive.? Strength-noted to be unremarkable with the exception of decreased strength rated at 4 out of 5 in left quadriceps femoris, anterior tibialis. Sensory-no notable sensory deficits in the bilateral lower extremities to touch or pinprick in all dermatomal distributions with the exception to decreased sensation to the left L4, 5 dermatomal distribution Sacroiliac - tenderness over left PSIS. Positive thigh thrust on left. Positive Dar's on left. Coordination remains intact.? Gait remains non-antalgic. Assessment and Plan Assessment and Plan (1) Acute left lumbar radiculopathy: (2) Lumbar stenosis with neurogenic claudication: (3) Sacroiliac joint dysfunction of left side: Plan 62yom who presents for evaluation. Failed conservative measures, as noted. Imaging reviewed, as noted. Given symptoms and imaging, prudent to attempt left L4-5, L5-S1 transforaminal epidural steroid injection under fluoroscopic guidance. Given PSIS tenderness and SI symptoms, prudent to attempt left sacroiliac joint injection. He is in agreement. Medications reviewed, no changes. Follow up after procedure.
== END 2023-04-01 11:06 | disposition home or self-care (01) ==
LOC: PM 11:06
PROVIDERS: PCP Internal Medicine; Visit Provider Anesthesiology Pain Medicine
DX: M54.16 Radiculopathy, lumbar region (principal); M48.062 Spinal stenosis, lumbar region with neurogenic claudication; M53.3 Sacrococcygeal disorders, not elsewhere classified
CPT/HCPCS: G0463

== ENCOUNTER 2023-04-08 08:25 | Day surgery (SDC) | payer OTHER, SELFPAY ==
--- OUTSIDE RECORDS SUMMARY | 2023-04-08 08:29 | XMS_ITS | CCD ---
Author Name Unknown Address [address] [place] [address] Organization [facility] Care Team Providers Care Oral Surgery Assistant Name Role Phone Samuel Zhao Unavailable PAVEL, DR JEFFRIES Primary Care Unavailable REAL, CAPIRCE Mendez Admitting Unavailable REAL, CAPRICE Mendez Attending [...] JEFFRIES Primary Care Unavailable Roseline Ghosh Unavailable Heidi MARTINEZ, Diego Snyder Attending Unavailable Allergies Allergy Classification Reported Allergen(s) Allergy Type Date of Onset Reaction(s) Facility (20 sources) metFORMIN Drug Allergy diarrhea [employer] Other Medications Current Medications Medication Drug Class(es) Dates Sig (Normalized) Sig (Original) acetaminophen 325 mg / oxyCODONE hydrochloride 5 mg oral tablet (20 sources) Opioid Agonist Start: 01-31-2023 take 1 tablet by mouth every six hours oxyCODONE-Acetami nophen 5-325 MG 1 tablet as needed Orally every 6 hrs for 7 days p/u 03/11, start 03/12Mar, Active [id number] actuat albuterol 0.09 mg/actuat metered dose [...] CAPRICE SHORE Date: 2022-07-18 18:48 Normal The GLYCOHEMOGLOBIN A1Con 2022 ADA RECOMMENDATION SEE BELOW Normal [facility] Comment on above: Result Comment: ADA RECOMMENDED LIMIT 4.0 - 6.0 ADA THERAPEUTIC TARGET < 7.0 ACTION SUGGESTED > 7.0 Performed By: #### C MP, LIPID, TSH #### Laboratory [address] [place], [place] [address] Dr. Gerardo Larose Glucose [Mass/Vol] 143 mg/dL Normal [facility] Comment on above: Performed By: #### C MP, LIPID, TSH #### Laboratory [address] [place], [place] [address] Dr. Gerardo Larose HbA1c (Bld) [Mass fraction] 6.6 % Critically high 4.5-6.2 [facility] Comment on above: Performed By: #### C MP, LIPID, TSH #### Laboratory [address] [place] [address] [address] Gerardo Larose MRI LSPINE WO CONon [...] by: VINNY EDGE Date: 2022-03-21 16:[address] LUNG CANCER SCREENINGon 1 CT LUNG [...] LDCT in 12 months. Electronically authenticated by: VINYN EDGE Date: 2021-12-04 07:24 Normal The CBC AUTO DIFFon 12-01-2021 BASO # 0.1 103/ul Normal 0.0-0.1 [facility] Comment on above: Performed By: #### C MP, LIPID, TSH #### Laboratory [address] [place] [address] Dr. Gerardo Larose Basophils/100 WBC (Bld) 0.9 % Normal 0.2-2.0 [facility] Comment on above: Performed By: #### C MP, LIPID, TSH #### Laboratory [address] [place] [address] Dr. Gerardo Larose EO # 0.2 103/ul Normal 0.0-0.7 [facility] Comment on above: Performed By: #### C MP, LIPID, TSH #### Laboratory [address] [place] [address] Dr. Gerardo Larose Eosinophils/100 WBC (Bld) 2.5 % Normal 0.9-7.0 The Comment on above: Performed By: #### C MP, LIPID, TSH #### Laboratory [address] [place] [address] Dr. Gerardo Larose Erythrocyte distribution width (RBC) [Ratio] 13.7 % Normal 11.0-15.0 The Comment on above: Performed By: #### C MP, LIPID, TSH #### Laboratory [address] [place] [address] Dr. Gerardo Larose Hematocrit (Bld) [Volume fraction] 46.3 % Normal 42.0-54.0 [facility] Comment on above: Performed By: #### C MP, LIPID, TSH #### Laboratory [address] [place] [address] Dr. Gerardo Larose Hemoglobin (Bld) [Mass/Vol] 15.7 g/dL Normal 14.0-18.0 [facility] Comment on above: Performed By: #### C MP, LIPID, TSH #### Laboratory [address] [place] [address] Dr. Gerardo Larose IG # 0.03 10e3/ul Normal 0.00-0.03 The Comment on above: Performed By: #### C MP, LIPID, TSH #### Laboratory [address] [place] [address] Dr. Gerardo Larose IG % 0.4 % Normal 0.0-0.5 The Comment on above: Performed By: #### C MP, LIPID, TSH #### Laboratory [address] [place] [address] Dr. Gerardo Larose LYMPH # 2.1 103/ul Normal 1.2-3.8 The Comment on above: Performed By: #### C MP, LIPID, TSH #### Laboratory [address] [place] [address] Dr. Gerardo Larose Lymphocytes/100 WBC (Bld) 31.2 % Normal 20.5-60.0 [facility] Comment on above: Performed By: #### C MP, LIPID, TSH #### Laboratory [address] [place] [address] Dr. Gerardo Larose MANUAL DIFF REQ NO Normal [facility] Comment on above: Performed By: #### C MP, LIPID, TSH #### Laboratory [address] [place] [address] Dr. Gerardo Larose MCH (RBC) [Entitic mass] 31.3 pg Normal 25.9-34.0 [facility] Comment on above: Performed By: #### C MP, LIPID, TSH #### Laboratory [address] [place] [address] Dr. Gerardo Larose MCHC (RBC) [Mass/Vol] 33.9 g/dL Normal 29.9-35.2 [facility] Comment on above: Performed By: #### C MP, LIPID, TSH #### Laboratory [address] [place] [address] Dr. Gerardo Larose MCV (RBC) [Entitic vol] 92.4 fL Normal 80.0-94.0 [facility] Comment on above: Performed By: #### C MP, LIPID, TSH #### Laboratory [address] [place] [address] Dr. Gerardo Larose MONO # 0.5 103/ul Normal 0.3-0.8 [facility] Comment on above: Performed By: #### C MP, LIPID, TSH #### Laboratory [address] [place] [address] Dr. Gerardo Larose Monocytes/100 WBC (Bld) 7.8 % Normal 1.7-12.0 The Comment on above: Performed By: #### C MP, LIPID, TSH #### Laboratory [address] [place] [address] Dr. Gerardo Larose NEUT # 3.8 103/ul Normal 1.4-6.5 [facility] Comment on above: Performed By: #### C MP, LIPID, TSH #### Laboratory [address] [place] [address] Dr. Gerardo Larose Neutrophils/100 WBC (Bld) 57.2 % Normal 43.0-75.0 [facility] Comment on above: Performed By: #### C MP, LIPID, TSH #### Laboratory [address] [place] [address] [address] Gerardo Larose Platelet mean volume (Bld) [Entitic vol] 10.2 fL Normal 9.5-13.5 [facility] Comment on above: Performed By: #### C MP, LIPID, TSH #### Laboratory [address] [place] [address] [address] Gerardo Larose PLT 190 103/ul Normal 150-450 The Comment on above: Performed By: #### C MP, LIPID, TSH #### Laboratory [address] [place] [address] Dr. Gerardo Larose RBC 5.01 106/ul Normal 4.70-6.10 The Comment on above: Performed By: #### C MP, LIPID, TSH #### Laboratory [address] [place] [address] [address] Gerardo Larose WBC 6.7 103/ul Normal 4.0-11.0 [facility] Comment on above: Performed By: #### C MP, LIPID, TSH #### Laboratory [address] [place] [address] Dr. Gerardo Larose GLYCOHEMOGLOBIN A1Con 2021 ADA RECOMMENDATION SEE BELOW Normal [facility] Comment on above: Result Comment: ADA RECOMMENDED LIMIT 4.0 - 6.0 ADA THERAPEUTIC TARGET < 7.0 ACTION SUGGESTED > 7.0 Performed By: #### C MP, LIPID, TSH #### Laboratory [address] [place] [address] Dr. Gerardo Larose Glucose [Mass/Vol] 140 mg/dL Normal [facility] Comment on above: Performed By: #### C MP, LIPID, TSH #### Laboratory [address] [place] [address] Dr. Gerardo Larose HbA1c (Bld) [Mass fraction] 6.5 % Critically high 4.5-6.2 [facility] Comment on above: Performed By: #### C MP, LIPID, TSH #### Laboratory [address] [place] [address] [address] Gerardo Larose LIPID PROFILEon 12-01-2021 CHOL-HDL RATIO NORM SEE BELOW Normal [facility] Comment on above: Result Comment: 3.3 - 4.4 LOW RISK 4.4 - 7.1 AVERAGE RISK 7.1 - 11.0 MODERATE RISK >11.0 HIGH RISK Performed By: #### C MP, LIPID, TSH #### Laboratory [address] [place] [address] [address] Gerardo Larose Cholesterol [Mass/Vol] 202 mg/dL Critically high <=200 [facility] Comment on above: Performed By: #### C MP, LIPID, TSH #### Laboratory [address] [place] [address] [address] Gerardo Larose Cholesterol in HDL [Mass/Vol] 58 mg/dL Normal 40-60 [facility] Comment on above: Performed By: #### C MP, LIPID, TSH #### Laboratory [address] [place] [address] [address] Gerardo Larose Cholesterol in LDL [Mass/Vol] 104.2 mg/dL Normal [facility] Comment on above: Performed By: #### C MP, LIPID, TSH #### Laboratory [address] [place] [address] [address] Gerardo Larose Cholesterol.total/Cho lesterol in HDL [Mass ratio] 3.5 {ratio} Normal [facility] Comment on above: Performed By: #### C MP, LIPID, TSH #### Laboratory [address] [place] [address] [address] Gerardo Larose HDL NORMAL > or = 60 mg/dl - LO W CARDIOVASCULAR RISK <40 mg/dl - HIGH CARDIOVASCULAR RISK Normal [facility] Comment on above: Performed By: #### C MP, LIPID, TSH #### Laboratory [address] [place] [address] [address] Gerardo Larose LDL CALC NORMAL SEE BELOW Normal [facility] Comment on above: Result Comment: <100 mg/dl OPTIMAL 100 - 129 mg/dl NEAR OR ABOVE OPTIMAL 130 - 159 mg/dl BORDERLINE HIGH 160 - 189 mg/dl HIGH >190 mg/dl VERY HIGH Performed By: #### C MP, LIPID, TSH #### Laboratory [address] [place] [address] Dr. Gerardo Larose Triglyceride [Mass/Vol] 199 mg/dL Critically high <=150 [facility] Comment on above: Performed By: #### C MP, LIPID, TSH #### Laboratory [address] [place] [address] Dr. Gerardo Larose VLDL CALC 39.8 mg/dL Normal [facility] Comment on above: Performed By: #### C MP, LIPID, TSH #### Laboratory [address] [place] [address] Dr. Gerardo Larose MICROALBUMIN, RAND URon 11-04 mALB 28.7 mg/L Normal <=30.0 [facility] Comment on above: Performed By: #### C MP, LIPID, TSH #### Laboratory [address] [place] [address] Dr. Gerardo Larose PROF 14(COMP METB)on 022 Albumin [Mass/Vol] 3.7 g/dL Normal 3.4-5.0 [facility] Comment on above: Performed By: #### C MP, LIPID, TSH #### Laboratory [address] [place] [address] Dr. Gerardo Larose Albumin/Globulin [Mass ratio] 0.9 {ratio} Normal [facility] Comment on above: Performed By: #### C MP, LIPID, TSH #### Laboratory [address] [place] [address] Dr. Gerardo Larose ALP [Catalytic activity/Vol] 84 U/L Normal 46-116 [facility] Comment on above: Performed By: #### C MP, LIPID, TSH #### Laboratory [address] [place] [address] Dr. Gerardo Larose ALT [Catalytic activity/Vol] 45 U/L Normal 16-63 [facility] Comment on above: Performed By: #### C MP, LIPID, TSH #### Laboratory [address] [place] [address] [address] Gerardo Larose Anion gap [Moles/Vol] 10.8 mmol/L Normal [facility] Comment on above: Performed By: #### C MP, LIPID, TSH #### Laboratory [address] [place] [address] [address] Gerardo Larose AST [Catalytic activity/Vol] 26 U/L Normal 15-37 [facility] Comment on above: Performed By: #### C MP, LIPID, TSH #### Laboratory [address] [place] [address] [address] Gerardo Larose Bilirubin [Mass/Vol] 0.6 mg/dL Normal 0.2-1.0 [facility] Comment on above: Performed By: #### C MP, LIPID, TSH #### Laboratory [address] [place] [address] Dr. Gerardo Larose Calcium [Mass/Vol] 9.4 mg/dL Normal 8.5-10.1 [facility] Comment on above: Performed By: #### C MP, LIPID, TSH #### Laboratory [address] [place] [address] [address] Gerardo Larose Chloride [Moles/Vol] 100 mmol/L Normal 98-107 [facility] Comment on above: Performed By: #### C MP, LIPID, TSH #### Laboratory [address] [place] [address] [address] Gerardo Larose CO2 [Moles/Vol] 28.9 mmol/L Normal 21.0-32.0 [facility] Comment on above: Performed By: #### C MP, LIPID, TSH #### Laboratory [address] [place] [address] [address] Gerardo Larose Creatinine [Mass/Vol] 0.95 mg/dL Normal 0.70-1.30 [facility] Comment on above: Performed By: #### C MP, LIPID, TSH #### Laboratory [address] [place] [address] [address] Gerardo Larose EGFR-AF AUSTRIAN >60 Normal >=60 [facility] Comment on above: Performed By: #### C MP, LIPID, TSH #### Laboratory [address] [place] [address] [address] Gerardo Larose EGFR-NON AF AUSTRIAN >60 Normal >=60 [facility] Comment on above: Performed By: #### C MP, LIPID, TSH #### Laboratory [address] [place] [address] [address] Gerardo Larose Globulin (S) [Mass/Vol] 3.9 g/dL Normal [facility] Comment on above: Performed By: #### C MP, LIPID, TSH #### Laboratory [address] [place] [address] [address] Gerardo Larose Glucose [Mass/Vol] 128 mg/dL Critically high 74-106 [facility] Comment on above: Performed By: #### C MP, LIPID, TSH #### Laboratory [address] [place] [address] Dr. Gerardo Larose Potassium [Moles/Vol] 3.7 mmol/L Normal 3.5-5.1 [facility] Comment on above: Performed By: #### C MP, LIPID, TSH #### Laboratory [address] [place] [address] [address] Gerardo Larose Protein [Mass/Vol] 7.6 g/dL Normal 6.4-8.2 [facility] Comment on above: Performed By: #### C MP, LIPID, TSH #### Laboratory [address] [place] [address] [address] Gerardo Larose Sodium [Moles/Vol] 136 mmol/L Normal 136-145 [facility] Comment on above: Performed By: #### C MP, LIPID, TSH #### Laboratory [address] [place] [address] [address] Gerardo Larose Urea nitrogen [Mass/Vol] 15.0 mg/dL Normal 7.0-18.0 [facility] Comment on above: Performed By: #### C MP, LIPID, TSH #### Laboratory [address] [place] [address] [address] Gerardo Larose Urea nitrogen/Creatinine [Mass ratio] 15.8 mg/mg Normal [facility] Comment on above: Performed By: #### C MP, LIPID, TSH #### Laboratory [address] [place] [address] [address] Gerardo Larose TSHon 12-01-2021 TSH 1.388 uIU/mL Normal 0.358-3.740 [facility] Comment on above: Performed By: #### C MP, LIPID, TSH #### Laboratory [address] [place] [address] [address] Gerardo Larose VITAMIN B12on 12-01-2021 Cobalamin (Vitamin B12) [Mass/Vol] 382.0 pg/mL Normal 193.0-986.0 [facility] Comment on above: Performed By: #### V ITB12, PSASC #### Laboratory [address] [place] [address] [address] Gerardo Larose GLYCOHEMOGLOBIN A1Con 2021 ADA RECOMMENDATION SEE BELOW Normal [facility] Comment on above: Result Comment: ADA RECOMMENDED LIMIT 4.0 - 6.0 ADA THERAPEUTIC TARGET < 7.0 ACTION SUGGESTED > 7.0 Performed By: #### C MP, LIPID, TSH #### Laboratory [address] [place] [address] [address] Gerardo Larose Glucose [Mass/Vol] 192 mg/dL Normal [facility] Comment on above: Performed By: #### C MP, LIPID, TSH #### Laboratory [address] [place] [address] [address] Gerardo Larose HbA1c (Bld) [Mass fraction] 8.3 % Critically high 4.5-6.2 [facility] Comment on above: Performed By: #### C MP, LIPID, TSH #### Laboratory [address] [place] [address] [address] Gerardo Larose IntraOperative Documentson 0 06-24-2020 IntraOperative Documents [id number]#1.0 0CD:127 Normal [facility] Coding Summary.on 06-21-2020 Coding Summary. CD:[id number] Gh 0bWw+PGhlYWQ+FA7BJBSdM 49apCRddM7WB2xVRW7ZKML AIUBLAE6AHU7ujGD6NTaxL 2VybiAv MabqxILuYL74JFf5VYG4yA afUKqjqY7otWTmV9a2DdSs SI44mO39MCyqFQEmWfX5Kn ZpbjsgbWFy Y1rsWgKtgLPaAbi+PHRhYm xlIHdpZHRoPScxMDAlJyBz xKkbYL3mEs0uKFGuDORehW xhcHNlOiBj a6wyYPFjPGznAY8ffRprE5 PgnPG1GUEgq5u0Oe98oTH+ HQMoRFH5mRstLNsbd279Uo Uwz0csLJM6 uWPvIAcoXNE6F62bh8J3OX BoLWMvFEL1aQY0dD4udPmj qdmdF2LrtYRbKeU7CSC4cK FgvI5bbIyj plxzhH9zQhb+C20REN8XHM IMOX5JNma9D6GbQrqdoZQ+ DS60ALViSA57vYSzqWWzf9 ypiRz5IwQd ZJWgNVH8uPolRHgwf2FbEJ BkS33igDHlv8C4ZWMvuUfn cPLuMuYgzCV3pR0lUFyyfr lsh4rcjlqh Ryqpn7kpdo92tI07W17mBF ewZVInXCC8HVIuVPUigAcw bo6tjQ2jHd5+TNuqv3bkz2 fipTo5OtAm YZLoieJtbHeeIJI4x7QdXy 73Q2VovIbyz7InLye6yq64 fSWjd2L4nHM9UUwvUCTwhH 7pNMlaVeX4 QWLyXzDaeN03qQEtIRuyAa 2apPhnlGndAF7lSPSrmegw BUWyzF6vMIJwjODzzHxbGV 4wNTBpbjtm y618GiItTLQ2MRYqdTXqT3 CkqQ0eQgNeGEKzRUXzG7Jb lPLcNQxcY115KAweMcN4WB EkszIqP3He VNSpgDsnFaV4x7J1Tc8Oi4 EowjxjLZG2FVdcGYK1XdHz IfQwGhT7I2RaWlz6NTTnuZ xpUF5oE6Im CZMcgunerccqmUZ9TQYsWG FwiE93xQGqCKmnHa8fy9W8 p156WLFpCDAxjM05Uy4ktH ogMTBwdCBU lD7mmdias6iurdwdYtWhJH GvTEt8GPq4MCKnxWcyZzBk EGC6AjU7NUN6uONefK4fpO gjhezhbO1v Oyc+B30qlO0tIOO7HEQ7gp qkLEXwmmYcVN03QV35K0Lc PjwvdGFibGU+PGRpdiBzdH kaAK3bRcLw m1tyz7BjAHvxG0WoTGCeWV pbZto9TRHbPKN2aVM5jF3f NYOrHEfrr9A4iJU5P1Jovd Uzld8uc7hn NPUzYNjwW96nyHQrf4O4GC NuaSU4NOVfpJnoSqMcoI20 Oyc+DIElvFily4YwYvbrl7 vyx4ixkNa8 AmZnZUAfiqYbvAqvHLP8v7 DlNq41I66jQGisFHOeZCGj TCKwWNQilBvpsy2aqA3iBq 8+PGNvbCB3 pYJ0eH1nCRBaOoK4TYysS0 33CqMqsKIeOofyq2stc4kl zYf6CdKlGRUaceNfdCojGQ Y9v1GbOd99 F65fIGbiZTPtLCGmUSKsYX JvgSizzh9jrT5cUx0+PC9j t7kolt07qN96iMN+PHRkIH L4nPnwYFea TWFgsA0kWXsoFuE1BKObXv AieA24lYXeDTehHo6irMoo ySffSP1aDFPfsrcfc912Li Fda0lcZGWt tHWaXFtvUJJ1M58sp4B4AL BnVUShBNF6cJA3fD1ncTin bjogbGVmdDsgdmVydGljYW quENzeH673 IHRvcDsnPlBhdGllbnQgTm UyXBi1V0WoWrl7DUZduBlw FL1cwOPcLToxQm0lqArneE ldUS9bTGQr wuywn726PeNkh0ubKHSrtE HgPYzaVMQ7V26hk4U2OEVq EUNoPSH5vEH6tA4caQdhcq ogbGVmdDsg fpUjoRjlWJeeKSpbJ866LQ RvcDsnPkJpcnRoIERhdGU6 BZ41TS96sZRhu9K1jVA1X8 BhZGRpbmct fahofTK5HWXfWTXwgW69Tx 2rpBebFd0ePCDhMDB4CDHp nFKxG8YrxU6pRuMfTGBvIM EvS3WxbAUl TAajY792XPfhPiL2DCJulf IfE1QqTSVfmTdhAlA7l9X5 Me2EO6N7TB79XP43jWMhg3 Z8kSJ3B4Bx JVDhfuwbcrfgkEI6LMLyUI KfyM78Pk6ggFesVy4hPDWi BJS0SMQcfRQyZ6IpiZ1iMg AjMDAwMDAw H7IheTYvDYmwC130FDjtCr U5LNTvlrCzF0IoZWFmoVko NpC1t0J3Pc6BNJu0KX65PK 98bORya0R6 zUJ9B8DeHZMnwznaiwsbtC S8OFTgDHDmvW93Pp7nvGxm Zj1eAVGrKLX3BHOsbRZmV4 HslS8nOsGj OVUyHIIeN1NcyWGpKSjtY6 54SSilDvI5DCJzwnQyZ1Ig MJEybSwaXfI6i2Q6Wv6SHD JxDK38YEU2 yRK0QD49DR33Z4NzVnkdsF FibGU+PHRhYmxlIHdpZHRo PUrdYJSuMsYtoIyuDN9dYm 9yZGVyLWNv bLkwwZIkCdWto0yhBPAxQJ rlHA7lwAnoP5NwoJQ5YFQk y2b0Ka99G08xG1JyjNQ+PG VfwQA7jMC1 yR0yTtEbDkC8QLapL481Wb PqeKPcOvvix9zfi2dxxVe0 EoL9JTPbucDwuLeoTCI6z7 UuUd05Y80a IHdpZHRoPSIxNSUiIHZhbG txoa9uvU6xTp4+PGNvbCB3 wUX4wR0fQmKcChI8MPdrF3 49InRvcCIv Ddhwm3jwa4xllFw9PgLeKB DdwyFbiQojHKR5m5IhEd87 T3ApkWphk0JsUjh0vn71xT Ekm2J4bOC5 A8QiRZNdgnxvuGUxhHsoBN 4zERNcshcfCPCtgC9kOEDm D6b9DwIsMlY2EHusC8Njka O9QXJpkICn NVsnAEB9I96ns2A9VZKcLN UdBCL4rBU7zW9zhRptpclc bGVmdDsgdmVydGljYWwtYW opI699LXEq lLjzDFFfwL1aECUijQGfnI maAL4qBBOgrhsjRshNXEMK BEWMGTZQETRZGL95DN59pO Nke6G2pNN5 P5MoUEWahvynjdqusEV3YR HxRRKuoS59wJFsFUlqYy3o n3E2s288MCBrPFUkyG73Bz 9udDogMTBw sGZBeH5qyiouq5aceowlZr GlABGcVNd2HYp1ASHvnGdp XkLwBHD7EyU2CIU4pDOycS 1hbGlnbjog jY0hPeg+OJOmYEIiMEu9KY wvdGQ+JCYtTCX9oXmjCYul CTKgqK1aVUEaM4g6NlQvRs N4RWcmT2Bm IUGrtobiCb01jP2nXjCkMg I1XFfoB0CngbL6UYMedCIf PAfwOYQ5R24ky6L1GZWiUG SjOGB4gOA6 iQ4hyGsepgclaIKggSrseg GojYhcHAkxMOamH362GZNr zTvrWyXlKIyyVNIiYX57KI 42iPZrq9K0 jWI0N6HjAEIbjnjvpqvgoS V2LSZlCJQsiZ91vPFuKHjw Tq7tf6U5t204RVKbOJPcqR 93Xg0pbThf FAOrmFYCkP3gdkrmc3hnxi hwYeEdAPOfEXp0EFl1HKIq bZqhOxKyZKP1QqK9GZJ7qZ ViyG6quPdc jpqcyG2cBti+TWFsZTwvdG Q+QPYtSIN2jLpsCHybPVZd oK8qALXvG2z1RqKiYxC9PR liS6QpUGTc idaoZb32pS1xToDoYfZ0VU oiU9CsmwA9JDLxaVJcLImp VWC2W98qx6E9CNVsTYYiHC X1iNN3kF4w bGlnbjogbGVmdDsgdmVydG xlYLgzXDpcS064JFRasTws Rr02hCOdyMmidnU0U4YfEt wvdHI+PC90 LYYyHO01lUNyoROpg7hljI d0CyWrNYNuTTH0yTsiJPot o2GaEALoL05mpPTzd2S4XU NvbGxhcHNl GuLtsAN1bR6sFOqxqbwbs1 wfqwiyGkkmb1mioq15xF07 A26zRJaiLJOrFGVkALJzHA TbdHklrw2r tU4oFm7+XBAkeRZ4lHI3pA 0cCoRjLfB2UIvoN704VnXy oNOjJfvlz8bdn1wdsOt8Qc IwJSIgdmFs sLnoSME1v8HxSh92S31oZD dpZHRoPSIyMCUiIHZhbGln pm5xfN2vIi6+IC0ix2vfvl 46dT91yDC+ RXXwVDE8eFyoJNkoAUAukP 5tUPsrLbJ0PVRxSwXbuP24 sNKbKGbpXa8ztXcqaSvqJU 4wNTBpbjtm m439VbByx6iwBQGbbSHbND ysOLS7P96uy2E7DINfADFy YFD6eAZ7tI0yiIovncpetW VmdDsgdmVy sDkcWZrvXBwhY598HEZvsS itCcPorZUuV9pwzpIGAH4r OjwvdGQ+PALqFET0aGsdPS lmUAAyrC7j CURiP5s4OmUtXkO9IGlpV6 JklhJ8FKGpvFXlOKIhzMMU cS6uijwvy2akbrxpPpGiFQ SzFHm1GNs9 AQRytEppNcZrQTP7VsG5ZO G4qHSuuZ6jpBjrmlmohC5u Oyc+RklOOjwvdGQ+PHRkIH S0jHdbAFtq QTDajD4aCGAtY0j8NhNdPq N3ZIbeK8ArggW6SIEenKCg MKTheEJOsX9eghtde3zkjy ogIzAwMDAw RVa8VRh1LHAlbNynCaDvXT R8MtZ2JVE2iEJmyM4xxJsv dwvyfI7kTqy+TVJOOjwvdG Q+PHRkIHN0 kVwiDNbqKHHvgH2lQLFlN0 o1LlFaMjK8PPpfV1NxndC9 YTIchZAwIQEwoEHVlR8juc zvu9iewvxl WlEcGQVlHFj7WVv5ZQUvjQ rsOmLlYRA9KzL5EEY9wDCx oC5dlTdrgyhkkQ7jHzr+UG X2TPT7CR39 JE06L7ArBnpdxENfnOJ+PH RhYmxlIHdpZHRoPScxMDAl SwOxjLcuTL7qHw1jOFQfZL NvbGxhcHNl OiBj (more content not included)... [facility] Postoperative Documentson Postoperative Documents [id number]#1. 00CD:127 [facility] Consenton 06-20-2020 Consent [id number]#1. 00CD:127 [facility] Discharge Instructionson Discharge Instructions [id number]#1. 00CD:127 [facility] IntraOperative Documentson 0 06-20-2020 IntraOperative Documents [id number]#1. 00CD:127 [facility] IntraOperative Documents [id number]#1. 00CD:127 [facility] Main OR Intraoperative Recor don 06-20-2020 Main OR Intraoperative Record IntraOp Document Type FT Summary Primary Physician: Elen MCKINNON MD Finalized Date/Time: 06/20/20 13:22:09 Pt. Name: VINNY BAEZ/Sex: 1960 Male Med Rec #: [id number] Physician: Elen MCKINNON MD Financial #: [id number] Pt. Type: O Room/Bed: / Admit/Disch: 06/15/20 [...] RN, Evelina De Leon Role Performed Anesthesiologist Visual Communications Instructor - Primary Scrub - Primary Clicking Machine Operator Time In 06/15/20 14:13:00 06/15/20 14:13:00 06/15/20 14:13:00 Time Out 06/15/20 14:31:00 06/15/20 14:31:00 06/15/20 14:31:00 Procedure COLONOSCOPY(.) COLONOSCOPY(.) COLONOSCOPY(.) Comments supervising Last Modified By: Jeniffer QUIGLEY, Kriss Swift RN, Kriss Swift RN, Kriss [...] PETAR Monterroso MD, Rick Myrick Kirstyn K, Sparks, Micala E Time Out [...] of rectum Primary Procedure Yes Primary Surgeon PETAR MARTINEZ, Elen Start 06/15/20 14:17:00 Stop 06/15/20 14:27:00 Anesthesia Type [...] and tissue Entry 1 Skin Integrity Intact, [place], Warm, and Skin Abnormality No Dry Outcomes [...] Procedure COLONOSCOPY(.) (more content not included)... Normal [facility] Endoscopic Procedure Report - Otheron 06-15-2020 Endoscopic [...] Return to activities:: After 24 hours. Normal [facility] Comment on above: Result Comment: Elec tronically Signed By: Elen MCKINNON MD\.br\Date and Time Signed: 06/15/20 14:30 EDT Other Comment: Ramona bernabe Attachment - attachment storage system not supported [id number] Can be viewed in source systemMissing Attachment - attachment storage system not supported [id number] Can be viewed in source systemMissing Attachment - attachment storage system not supported [id number] Can be viewed in source systemMissing Attachment - attachment storage system not supported [id number] Can be viewed in source systemMissing Attachment - attachment storage system not supported [id number] Can be viewed in source system Inpatient Patient Summaryon 06-15-2020 Inpatient Patient Summary [place] [address] [facility] Clinical Discharge Instructions PERSON INFORMATION Name: VINNY BAEZ [facility]#:[id number] [facility]ANS Admitting Physician: Elen MCKINNON MD Attending Physician: Elen MCKINNON MD PCP: SAMUEL ZHAO DO Discharge Diagnosis: Colon polyp Comment: PATIENT EDUCATION INFORMATION Instructions: Medication Leaflets: Follow up: Type Location Start [facility] Follow Up [facility] 07/12/2020 1:15 PM 07/12/2020 1:30 PM Confirmed MEDICATION LIST Medications to Continue with No Changes Other Medications benazepril 5 Milligram By Mouth every day. bisoprolol-hydrochloro thiazide (bisoprolol-hydrochlor othiazide 5 mg-6.25 mg Tab) 1 Tablets By Mouth every day. omeprazole 20 Milligram By Mouth every day. Comment: Normal [facility] Main OR PACU I Recordon 06-02 Main OR PACU I Record PACU Phase I Docum ent Type FT Summary Primary Physician: Elen MCKINNON MD Finalized Date/Time: 06/15/20 16:40:52 Pt. Name: VINNY BAEZ Edgardo Vu/Sex: 1960 Male Med Rec #: [id number] Physician: Elen MCKINNON MD Financial #: [id number] Pt. Type: O Room/Bed: / Admit/Disch: 06/15/20 [...] By: Radha Lucas RN 06/15/20 16:40 Normal [facility] Main OR Preoperative Recordo n 06-15-2020 Main OR Preoperative Record Holding Area Document Type FT Summary Primary Physician: Elen MCKINNON MD Finalized Date/Time: 06/15/20 13:00:04 Pt. Name: JIEVINNY/Sex: 1960 Male Med Rec #: [id number] Physician: Elen MCKINNON MD Financial #: [id number] Pt. Type: O Room/Bed: / Admit/Disch: 06/15/20 12:37:25 - Institution: Case Times Holding FT Pre-Care Text: Verifies consent for planned procedure, identifies individual values and wishes concerning care, includes family members in perioperative teaching Secures patient's records' belongings, and valuables, maintains patient's dignity and privacy, and maintains patient confidentiality Entry 1 In Holding 06/15/20 12:55:00 Outcomes Met? Yes Last Modified By: Yenny Milnre RN 06/15/20 12:55:38 Post-Care Text: The patient [...] By: Yenny Milner RN 06/15/20 13:00 Normal [facility] Monitor Recordon 06-15-2020 Monitor Record [id number]:127 Normal [facility] Outpatient Surgery Discharge Instructionon 06-15-2020 Outpatient Surgery Discharge Instruction [place] [id number] Patient Discharge Instructions PERSON INFORMATION Name: VINNY BAEZ Date of : 1960 Current Date: 06/15/2020 14:31:41 PHYSICIANS Admitting Physician: PETAR MARTINEZ, [facility] Discharge Diagnosis: Colon polyp VINNY [...] ___ Date Follow up: Type Location Start [facility] Follow Up [facility] 07/12/2020 1:15 PM 07/12/2020 1:30 PM Confirmed Pharmacy Information: [facility] You may receive a survey from [employer] asking you to rate your care experience. Your feedback is important and will help us understand what we do well and how we can improve the quality of care we provide to you, your loved ones and our community. It?s an honor to serve you. Thank you for choosing [facility] HERE ARE THE MEDICATION CHANGES THAT OCCURRED DURING YOUR HOSPITAL STAY Medications to Continue with No Changes Other Medications benazepril 5 Milligram By Mouth every day. bisoprolol-hydrochloro thiazide (bisoprolol-hydrochlor othiazide 5 mg-6.25 mg Tab) 1 Tablets By Mouth every day. omeprazole 20 Milligram By Mouth every day. PATIENT EDUCATION INFORMATION Instructions: Normal [facility] Patient Education - Texton 0 06-15-2020 Patient Education - Text [facility] Progress Note-Physicianon Progress Note-Physician Patient: VINNY [...] noted. Plan Transfer/ Discharge: Condition stable. Normal [facility] Comment on above: Result Comment: Elec [...] mellitus type 1 Father Procedure history: Colonoscopy ([id number]). EGD (esophagogastroduodeno scopy) gastric outlet reduction (3789001966). Social History Social & Psychosocial Habits Tobacco 05/23/2020 Tobacco Use: 10 or more cigarettes (1/ . Physical Examination Respiratory: Lungs are clear to auscultation. Cardiovascular: Regular rhythm. Plan [place] [employer] (ASA) physical status classification: Class III. Anesthetic Preoperative Plan Anesthesia: General. . Anesthetic plan, risks, benefits, and alternatives discussed with the patient and/or family. Patient verbalized understanding. [facility] Comment on above: Result Comment: Elec tronically Signed By: Pierre Nazario Jr., DO\.br\Date and Time Signed: 06/15/20 11:57 EDT Coding Summary.on 06-10-2020 Coding Summary. CODING DATE: 06/10/2020 FINAL [facility] STATUS: Home (Routine DC) PAYOR: Commercial [...] Nix CphT Date Saved: 06/10/2020 08:48 am [facility] COVID-19 ([facility])on 06-09-2020 SARS-CoV-2 (COVID-19) RNA ROLANDO+probe Ql (Unsp spec) Not detected Normal Not Detected [facility] Comment on above: Result Comment: This test result should be correlated with clinical presentations and medical history by a healthcare provider to determine its clinical significance. This assay was performed by a reverse transcriptase real-time polymerase chain reaction (rt PCR) method on the [employer] system. This test has been authorized only [...] or revoked sooner. 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 NO Normal [facility] Comment on above: Performed By: #### 2 [id number] ####[facility] [address] [place] [address] ICU NO Normal [facility] Comment on above: Performed By: #### 2 [id number] ####[facility] [address] [place] [address] ? NO Normal [facility] Comment on above: Performed By: #### 2 [id number] ####[facility] [address] [place] [address] [facility] NO Normal [facility] Comment on above: Performed By: #### 2 [id number] ####[facility] [address] [place] [address] Symptomatic as defined by [facility] NO Normal [facility] Comment on above: Performed By: #### 2 [id number] ####[facility] [address] [place] [address] Consent for Procedure/Surger yon 05-24-2020 Consent for Procedure/Surgery [id number] 0CD:127 Normal [facility] Gastroenterology Office/Clin ic Noteon 05-24-2020 Gastroenterology Office/Clinic Note CD:[id number]:[id number] FM78hHvpimNbq4hzdi8xLO 0gAiQrzyNbEEyyPz9co0py JA99pd9jAcKtNc7+CjwhRE 9DVFlQRSBo aU0vEALTQjnYVjFgWH9rIs FZUc7TVXCmITyHCCavMZ1i PPV5olciiJ0vTS3rWOGrhX VxFr6zt5x0 RcplWe6oZj0ZYf08dNRecK SqVSHST8yzdQ0lID1elZAe C2PhXXSaSs7QCNy5iGedaO 0jkzJ8Ane6 vCT5Xo06h3lrglAby2EoZz D7TRtimFe3jVuaAGbacY3p DcWgDBLOkB3vvYyuAJ5mlO 1lbnRhdGlv biI+HtrdGPYhFdn0dDAzMT 62B0QpqUhkCjg7lEO3IFYy bMLmEHLwcRx8QOVXMORMRY NvbXBhdGli fUHpEAMevmVgtcC9CewGGU YrPgSeVam4H9lmOXF+Cjxi i5S9Cqt0RWc4YHZ7eFxoOY Pet168ULIv wHqckBnmePGet88nVGYkoL CnXfHhu384LHUlqzE2IMnk iUqhMhx6bRUtpSBwq8gkeJ w5YjDcSRUp OjfKGCLxyZaho1DnFpzIUX lvf5icefSerIaeNDJ0g0Cf PUziDECdLRC1YgMhLW0+Cg kJPGNvbCB2 PLorX395CuCqrRKos2mwhN z0YaD5FZYcWj4LWJrcC14p T4GxlFB+Sxu3iKZtKHn+Cg kJPHRyPgoJ FRo6kQFnc4M0fGG3QbZgxc Yzw0s2BGuqRBB4FqK3GHD4 uNBlcI0apErlyvbbmT7hEg I+CgkJCTxk oIHqT4fzb9J4FfFbr6XzeJ tqyeEtJNRhBvVqg3ckHbbu KNGfaP4yYFE1RxLiTPLaxR TyUTNfUN5m asJfsYZzLHGtEqNmM6Pii2 2xs6NjRUDVG9wJGlMdWSM6 YL0gHtNjJW5fHzyhJGHdS8 QmNNE6TECn XAorOs2vLSDfNEV7FzBeAP XjKRA2OFUfs4X8iTU3IlXp KLPukxi5LETaxZyoYarvaX FuIGNsYXNz IFZzKBRcT4Zzs37gwIVupT P5Cv80b6JoidWvtZvpIO5j Uf7nuD36XQeuqXC8XDGfxD X3GTJxjNTm INCdn6LyfSwpyrbexU4qPG QqjJ1dWoZ+E2bnCAFsY33x nFgtxB73UD7dyZYfJxrhz7 Oesw4ZEJbW NOHnjsCrwYUxmf0fPTWrmK Yyj921VU84LsKeOQzpr613 IK09gTeoQA1pTQKID3QSQT 9NRUFTIiBk UVijBSBzjeNiH8K1qXzuZG VKR7D2XwG2GF1LYqMhFXTT Q3BsJsTfJe9AC2TYEOdJQj F5WlKeJHkk PSJfZTlmOWVkYzMtYzZmZi 59YqM0JSvpTVYuAIO1Qez8 EHR5VFkrKa7TGLrZKTJspq EvaWSsbv3g IMGiuDWjj648GT82rOXtxM MtAEVbcF48VAYpSGLoMBD0 O63klFGucTU7jOS3MtJOJV NBUkVfTUVB HgSlMWG4PM50aGJ2gIH3Kr K9Xdc7FwKbMzFeTHckFCAg IuOuMTZ6CYWpADDhFV67GU CdMAo9YvUl MkCjHeU0CWlhLBriVoG3mZ rdvrcgCR2wQUnsMD1uT6Xp R2PsXJ76QUHay35eLjY9ay Dkv5brmpWy HAAgsAg4J5Ssls3PJYpCYS 9kaXY+PoxBEMjfARk4MpvM TIyZCABufwIoiACkse6jJW VhXDC6zK0k IGRkcmVmcmVzaGFibGUgZG UudzGgreZlchXcaEL8mYGv GJXqhU40RCTaTVZcFVK0s5 VjdGlvbmNv OIT7PqeRXK1ROWYmYVT2DF HkVDscHOAfMJXfHFK8JBSw IoQuUh12KMO9SUu6OzEtRa PgO3Y6Fpj1 NwHpGhNklQhuXO7mhAGyHX uqKlycXAJ7QjP+RKRtIF3c K1xat8W0IgEhg3HmrXbxeo Tss4HqNGfj CgykxMGpUPV4zEkxFEBlq9 55EQhymYakaXppAs1nQOju pFG6vW8iQNEdtrM7vQ1fMi R0clTfztib ysL7Qb5AFVixB0YqSlF0Z1 NwYW4+QI5jdQYaYtzRNNlL JTAgapFxiPTasd9mSJIobZ Hdk557TT30 NeJsLIqec676NV76fTytDK 7tGAIYP9TAPR4EJRPKEhYv PPgaRCRhepYlC7P7oTheFD JBODVEREFE TZ56FpsxGEGLGDBjBROYPz 60ONPQUkF0YklWFUIiMMlr PSJfMWEyYjQyNTQtNzcwZS 54SVepZIR9 MzgtMGMyMGJhMmZmNzJmIj 5ECDbEYUDlalOgyCPfcx8t NMIneNDdq665IM32gRKkpI ZaCXVjnM73 RDNiJHFrMIZ6XyIbStmbSZ CsccwsmXwyLR5plH4aSVWc E1n3ZpHuYNiof525CH17bB btSM1iTRZQ Q9YGPW8CNCTHQsAtUPfrhm MclXtxBK7jHyLyLT2hL0H6 KQD1BBPsFEpkAwSaWTt7WT 04ZGQyLTMy PfYmYLZfKAvbOUKfbS2bjs B7HOH8ImP9uuEokXZBv8O9 iSIvmMF9kV2rCh03G0Qlis 4KCgkJCTxk qZJlH0eim6N6SaJbCD3oG1 5znWPkyFh3KF8bPGQjJF2v owHluBQpFROdXoI0ezTcm4 I9fM7rh8Q8 tGY8AqVnoA3qcTmpdSPtID K7K27csXHxcSC9hGW1AeSB NWZZShFkAIRKXnOmVUQ1MQ 89dWF4zLO0 AmKleMS2Ak72WQMkTuWcSd 28GkZdGXWhCWRfJJqeZs8p OBCcZMU2VwQrTliiKLwcbR 5zOmRkPSJE yG7rwHbnDW2zeW9nbkKshM lvbiI+UX1bpJA+CgoJCQk8 YDk7IKZnPXPmWBPxUEWhsc NvbnRlbnRp bIMpKZLrlnAri0HeUvrwFx FdGCvywA1hwV8axEygU0Q0 aKhbZSY3c4DhiochnSQjCT RkOmNvbnRl szP2cAFbEPDEDBGLQEKBV4 4ZHHBiOSBgWtXcrDe6cPlh TGZaZMbzDLRzQhu6EeJyIn KmZ3SkSZ07 XJYyJQflV5SgWYS2BKe0Gu HmHnQsBoH6mLbeqsrmWY0w KTlwFR6uI9DjK6RaFY88RY Jzb13xQjnI ESu5VIj0FUE2yZxsSBMcJK IpeU91BSRdeAJdwQ88DFJj BHWktwx5FTQmdZjjLq0kEE VyOiAwcHQg krezNIBnFYCjWBZoQpH9QC g4PPTqsWijVtZhAVB5VrNj i0swnkzahqcnSNVvDHSyOU MgYqW5QYu6 LWluZGVudDogMGluOyBmb2 19ZMD9pDdgPrZiv2LvKEk9 VVJfsyIqp6UbU5t9VqZsq1 NlNEi4ZQQv fKRkYGLzx0WhaOtlgqswkv 1oBCgsXenSBYw0MZc6WgqE SAw9VSv3QeNifDDuzCDlTV P9SPG6SGXs AC7sEFYpQJwvINrcwxNzsg WbFL47eiF3j8BneXKju3Ws EEK2RHdiBPFeD89zk12saa VjYWxsLjwv NJm7HcoFDTi3F5Yplv2ZWX vGMY1mlVS+CgkJCTwvZGl2 PgoKCQkJPGRpdiBjbGFzcz 0iZGRlbXJj l027YG79sSSvdDGfXIOwqG 60JOFdNLOlFVB6JbOoFwgk KDKbaqgylWvqUM9hkD9eBC SvV5h3KnTb TQaxp244QT78eBafLR0jMQ GYN9AIVA3NGEIHWwUoCRrk swKtwPeaJB4cPqMmWI7nIk YxMjcyYjRk HXL1PVuaIWN1VG83FwJmCL J2AqIuUDWqAPN1WPTidG7p eoF2ZOY4HfM9zrPokFSBi9 P1gIOaaVJ6 pJ8qSg81X7Xivz9HXzcJTI sbaGBwJ2kly3P6KgSdKZ6m V67esNHdfNr0MK1zCDNxDN 1vdmFibGUi ZNPuVjC3nbAre9P8vK2sb7 X1jDJ2CqRutW8bjCyyaAHy RZV9V08gjQBoxLB5kXR4Rl BBVENBUkVf CTRUEcSsWWL8LS53tOQ4vZ A3EjQpiPP9Dy60PRPhOqFi DD8nJnRgDFQlIKFbZiH0Pq 4cMJO0VSNk JVArXHPbVFdhsQ1xAvHgQN ZPmV9ymNsoZO6ypD3ofdWy dGlvbiI+NS3hpLI+CgoJCQ i5FCp7AAHh YXNzPSJkZGVtcmNvbnRlbn NevXZdFVRzexOww8VvVpli OyGoJCgioG7kuJ3thYmwB5 V0jWtyGRT5 y2KloslvhTSnKCXhExYioz NjfbF2lHLuXECHPVIKRTOJ D12DRAFqWXToDgZfmVr6uD lkPSIiIGlk HCMgNFSmXWSqY8IqCDGtPC 85XVRuMAMrWEHwIrezAxe1 EHQ0Mci9WqK0aGtxsyyqDY 6nDOabIW1t Y7QbT6LkBS52KFSlv53nMn faWOk8XkpAYCaPHKHigaMs rFChlh7dMRPjsLNvp695GP 50aXRlbSBk AJAzzJ08AXYdLVPzAPR4Sq UdQmrgEPVzjlwcxFttOF6s sW8tQKLmO9m3OhXsUHisg4 21LF28zJbg TO6vCRWJR4HFYS0OYGZBAo QrMPcvutZsiChuYG3fMeJl XP6oNqZeQWcwGItrWWL6Uy RwBDi5SI3r GnVgUVi8UhEqCtScILBdOQ YhdC3oxjJ4YZU9OuY7mnAq bYFBj7R6gTFewPT6pJ5tUo 18C3Jlid5Y MxoRYNpqjQCuI4nhy9S0Em EcOK6gD77wdFYzmAa3WT1d TWSkXO5dgyUlyZUuWIPsOx L6xpIyx8D0 oK3dq7P7iPT5BuDldO4wmL ksyEMvHDZ2L88yzWZczTC8 zTN2InJSCNJCNpKfRMPCDf GkJJK4OR31 yRS8vSE8ZtVhlZJ9Fa5xCO s2GZCuZz0vRyD6THObSvGs XQOhOp7sJdWgXrR5SWS9Be ErRBpfsI8k O (more content not included)... Normal [facility] Comment on above: Result Comment: Elec tronically Signed By: Elen MCKINNON MD\.br\Date and Time Signed: 05/24/20 12:53 EDT\.br\Electronically Co-Signed By: Alysa Ashley\.br\Date and Time Co-Signed: 05/23/20 16:37 EDT\.br\Electronically Co-Signed By: Elen MCKINNON MD\.br\Date and Time Co-Signed: 07/08/20 10:25 EDT\.br\Electronically Co-Signed By: Mami Leonard Physician Orderon 05-24-2020 Physician Order [id number] 0CD:127 Normal [facility] Physician Order [id number]#[id number] CD:127 Normal [facility] Ambulatory Clinical Summaryo n 05-23-2020 Ambulatory Clinical Summary {[id number]- [id number]-[id number]-at-k6-b7-1 8-4c}CD:[id number] Normal [facility] Patient Educationon 05-24-19 21 Patient Education Oncology [...] 11/14/2004 Document Revised: 06/05/2018 Document Reviewed: 06/05/2018 [employer] Patient Education ? 2019 [employer] [facility] Historical Records Officeon 05-20-2020 Historical Records Office [id number] 0CD:127 [facility] Patient Letter FTMCon 2020 Patient Letter [facility] April 05, 2020 VINNY BAEZ [address] [place] [address] VINNY BAEZ 1960 Dear Vinny, This is a reminder that you are due for an appointment with Dr. Mckinnon or Dr. Molina. Please call [facility] at [phone] to schedule an appointment at your earliest convenience. Thank you, [facility] Vital Signs Date Time Vital Sign Value Performing Clinician Facility 03-26-2023 11:00-0500 Body height 179.07 cm [email or web address] Other [facility] Other 03-26-2023 11:00-0500 Body mass index (BMI) [Ratio] 27.3 kg/m2 [email or web address] Other [facility] Other 03-26-2023 11:00-0500 Body weight 87.54 kg [email or web address] Other [facility] Other 03-11-2023 11:00-0500 Body height 179.07 cm Samuel Ball Other [facility] Other 03-11-2023 11:00-0500 Body mass index (BMI) [Ratio] 27.86 kg/m2 Samuel Ball Other [facility] Other 03-11-2023 11:00-0500 Body weight 89.36 kg Samuel Ball Other [facility] Other 03-11-2023 11:00-0500 Diastolic blood pressure 88 mm[Hg] Samuel Ball Other [facility] Other 03-11-2023 11:00-0500 Respiratory rate 12 /min Samuel Ball Other [facility] Other 03-11-2023 11:00-0500 Systolic blood pressure 169 mm[Hg] Samuel Ball Other [facility] Other 02-19-2023 09:30-0500 Body height 179.07 cm Samuel Ball Other [facility] Other 02-19-2023 09:30-0500 Body mass index (BMI) [Ratio] 27.84 kg/m2 Samuel Ball Other [facility] Other 02-19-2023 09:30-0500 Body weight 89.27 kg Samuel Ball Other [facility] Other 02-19-2023 09:30-0500 Diastolic blood pressure 82 mm[Hg] Samuel Ball Other [facility] Other 02-19-2023 09:30-0500 Respiratory rate 12 /min Samuel Ball Other [facility] Other 02-19-2023 09:30-0500 Systolic blood pressure 176 mm[Hg] Samuel Ball Other [facility] Other 02-06-2023 11:15-0500 Body height 179.07 cm Samuel Ball Other [facility] Other 02-06-2023 11:15-0500 Body mass index (BMI) [Ratio] 23.22 kg/m2 Samuel Ball Other [facility] Other 02-06-2023 11:15-0500 Body weight 74.48 kg Samuel Ball Other [facility] Other 02-06-2023 11:15-0500 Diastolic blood pressure 67 mm[Hg] Samuel Ball Other [facility] Other 02-06-2023 11:15-0500 Respiratory rate 12 /min Samuel Ball Other [facility] Other 02-06-2023 11:15-0500 Systolic blood pressure 145 mm[Hg] Samuel Ball Other [facility] Other 01-29-2023 08:45-0500 Body height 179.07 cm Samuel Ball Other [facility] Other 01-29-2023 08:45-0500 Body mass index (BMI) [Ratio] 27.27 kg/m2 Samuel Ball Other [facility] Other 01-29-2023 08:45-0500 Body weight 87.45 kg Samuel Ball Other [facility] Other 01-29-2023 08:45-0500 Diastolic blood pressure 79 mm[Hg] Samuel Ball Other [facility] Other 01-29-2023 08:45-0500 Respiratory rate 12 /min Samuel Ball Other [facility] Other 01-29-2023 08:45-0500 Systolic blood pressure 120 mm[Hg] Samuel Ball Other [facility] Other 11-19-2022 09:30-0400 Body height 179.07 cm Samuel Ball Other [facility] Other 11-19-2022 09:30-0400 Body mass index (BMI) [Ratio] 27.58 kg/m2 Samuel Ball Other [facility] Other 11-19-2022 09:30-0400 Body weight 88.45 kg Samuel Ball Other [facility] Other 11-19-2022 09:30-0400 Diastolic blood pressure 88 mm[Hg] Samuel Ball Other [facility] Other 11-19-2022 09:30-0400 Respiratory rate 12 /min Samuel Ball Other [facility] Other 11-19-2022 09:30-0400 Systolic blood pressure 139 mm[Hg] Samuel Ball Other [facility] Other 06-26-2022 16:30-0400 Body height 179.07 cm Samuel Ball Other [facility] Other 06-26-2022 16:30-0400 Body mass index (BMI) [Ratio] 28.12 kg/m2 Samuel Ball Other [facility] Other 06-26-2022 16:30-0400 Body weight 90.18 kg Samuel Ball Other [facility] Other 06-26-2022 16:30-0400 Diastolic blood pressure 126 mm[Hg] Samuel Ball Other [facility] Other 06-26-2022 16:30-0400 Respiratory rate 12 /min Samuel Ball Other [facility] Other 06-26-2022 16:30-0400 Systolic blood pressure 210 mm[Hg] Samuel Ball Other [facility] Other 03-21-2022 12:00-0500 Body height 179.07 cm Samuel Ball Other [facility] Other 03-21-2022 12:00-0500 Body mass index (BMI) [Ratio] 28.2 kg/m2 Samuel Ball Other [facility] Other 03-21-2022 12:00-0500 Body weight 90.45 kg Samuel Ball Other [facility] Other 03-21-2022 12:00-0500 Diastolic blood pressure 90 mm[Hg] Samuel Ball Other [facility] Other 03-21-2022 12:00-0500 Respiratory rate 12 /min Samuel Ball Other [facility] Other 03-21-2022 12:00-0500 Systolic blood pressure 140 mm[Hg] Samuel Ball Other [facility] Other Encounters Encounter Date Encounter Type Care Provider Facility Start: 04-01-2023 End: 04-02-2023 ambulatory Diego Gordon MD Facility:[facility] Start: 03-27-2023 End: 03-27-2023 ambulatory Roseline Ghosh Other [facility] Other Start: 03-27-2023 Telephone encounter Roseline Ghosh [facility] Start: 03-26-2023 End: 03-26-2023 ambulatory Samuel Ball Other [facility] Other Start: 03-26-2023 Office outpatient ne w 45 minutes Roseline Ghosh [facility] Start: 03-26-2023 Telephone encounter Samuel Ball [facility] Start: 03-25-2023 End: 03-25-2023 ambulatory Samuel Ball Other [facility] Other Start: 03-25-2023 Telephone encounter Samuel Ball [facility] Start: 03-11-2023 End: 03-11-2023 ambulatory Samuel Ball Other [facility] Other Start: 03-11-2023 Office outpatient vi sit 15 minutes Samuel Ball [facility] Start: 03-05-2023 End: 03-05-2023 ambulatory Samuel Ball Other [facility] Other Start: 03-05-2023 Telephone encounter Samuel Ball [facility] Start: 02-26-2023 End: 02-26-2023 ambulatory Samuel Ball Other [facility] Other Start: 02-26-2023 Telephone encounter Samuel Ball [facility] Start: 02-19-2023 End: 02-19-2023 ambulatory Samuel Ball Other [facility] Other Start: 02-19-2023 Office outpatient vi sit 15 minutes Samuel Ball [facility] Start: 02-18-2023 End: 02-18-2023 ambulatory Samuel Ball Other [facility] Other Start: 02-18-2023 Telephone encounter Samuel Ball [facility] Start: 02-06-2023 End: 02-06-2023 ambulatory Samuel Ball Other [facility] Other Start: 02-06-2023 Office outpatient vi sit 15 minutes Samuel Ball [facility] Start: 02-05-2023 End: 02-05-2023 ambulatory Samuel Ball Other [facility] Other Start: 02-05-2023 Telephone encounter Samuel Ball [facility] Start: 01-31-2023 End: 01-31-2023 ambulatory Samuel Ball Other [facility] Other Start: 01-31-2023 Telephone encounter Samuel Ball [facility] Start: 01-29-2023 End: 01-29-2023 ambulatory Samuel Ball Other [facility] Other Start: 01-29-2023 Office outpatient vi sit 15 minutes Samuel Ball [facility] Start: 11-28-2022 End: 11-28-2022 ambulatory Samuel Ball Other [facility] Other Start: 11-28-2022 Encounter for genera l adult medical examination without abnormal findings Samuel Ball [facility] Start: 11-28-2022 Telephone encounter Samuel Ball [facility] Start: 11-27-2022 End: 11-27-2022 ambulatory Samuel Ball Other [facility] Other Start: 11-27-2022 Telephone encounter Samuel Ball [facility] Start: 11-22-2022 End: 11-22-2022 ambulatory Samuel Ball Other [facility] Other Start: 11-22-2022 Telephone encounter Samuel Ball [facility] Start: 11-19-2022 End: 11-19-2022 ambulatory Samuel Ball Other [facility] Other Start: 11-19-2022 Encounter for genera l adult medical examination without abnormal findings Samuel Zhao [facility] Start: 11-19-2022 Periodic preventive med est patient 40-64yrs Samuel Zhao [facility] Start: 08-03-2022 End: 08-03-2022 ambulatory Samuel Pavel Other [facility] Other Start: 08-03-2022 Telephone encounter Samuel Pavel [facility] Start: 07-18-2022 End: 07-19-[address] SAMUEL ZHAO Facility:[facility] Start: 06-28-2022 End: 06-28-2022 ambulatory Samuel Pavel Other [facility] Other Start: 06-28-2022 Telephone encounter Samuel Pavel [facility] Start: 06-27-2022 End: 06-28-[address] SAMUEL ZHAO Facility:[facility] Start: 06-26-2022 End: 06-26-2022 ambulatory Samuel Zhao Other [facility] Other Start: 06-26-2022 Office outpatient vi sit 25 minutes Samuel Zhao [facility] Start: 05-22-2022 End: 05-22-2022 ambulatory Samuel Pavel Other [facility] Other Start: 05-22-2022 Telephone encounter Samuel Zhao [facility] Start: 05-15-2022 End: 05-15-2022 ambulatory Samuel Pavel Other [facility] Other Start: 05-15-2022 Telephone encounter Samuel Ball [facility] Start: 04-12-2022 End: 04-12-2022 ambulatory Samuel Pavel Other [facility] Other Start: 04-12-2022 Telephone encounter Samuel Ball [facility] Start: 04-05-2022 End: 04-05-2022 ambulatory Samuel Ball Other [facility] Other Start: 04-05-2022 Telephone encounter [facility] Start: 04-04-2022 End: 04-04-2022 ambulatory Samuel Zhao Other [facility] Other Start: 04-04-2022 Telephone encounter Samuel MOORE [facility] Start: 03-21-2022 Office outpatient vi sit 25 minutes Samuel Zhao [facility] Start: 03-21-2022 End: 03-22-[address] HEALY [facility] Other Start: 12-04-2021 Encounter for genera l adult medical examination without abnormal findings DR SAMUEL ZHAO The Start: 12-01-2021 End: 12-02-2021 Encounter for general adult medical examination without abnormal findings DR SAMUEL ZHAO Facility:[facility] Start: 12-01-2021 End: 12-02-[address] SAMUEL ZHAO Facility:[facility] Start: 08-09-2021 End: 08-10-[address] SAMUEL ZHAO Facility:[facility] Procedures Date Procedure Procedure Detail Performing Clinician Start: 12-01-[address] MORGAN [place] Comment on above: Performed By: #### V ITB12, PSASC #### Laboratory [address] [place] [address] Dr. Gerardo Larose Depression screening Clari Zhao Other Payers Date Payer Category Payer Private Health Insurance 1960 Unknown [id number] 2.16.84 [id number] 1960 Unknown [id number] 2.16.84 [id number] 1960 Unknown [id number] 2.16.84 [id number] 1959 Unknown [id number] 2.16.84 [id number] 1959 Unknown [id number] 2.16.84 [id number] 1959 Unknown [id number] 2.16.84 [id number] 1959 Unknown [id number] 2.16.84 [id number] 1959 Unknown [id number] 2.16. [id number] 1960 Private Health Insurance [id number] Social History Date Type Detail Facility Sex Assigned At [facility] Other Medical Equipment Procedure Code Equipment Code [...] 62 yo male who works for the [employer] and states since december he has been [...] to provide reprieve. This patient has tried [id number] and prescription medications for greater than a [...] Mar, Diabetic peripheral neuropathy (ICD-10 - E11.42) [facility] Other 01-22-2024 Evaluation note* Encounter Date Diagnosis Assessment Notes Treatment Notes Treatment Clinical Notes Mar, Acute left-sided low back pain with left-sided sciatica (ICD-10 - M54.42) [facility] Other 01-08-2024 Evaluation note* Encounter Date Diagnosis [...] Instructed to increase Losartan to 100mg qd [facility] Other 01-02-2024 Evaluation note* Encounter Date Diagnosis Assessment Notes Treatment Notes Treatment Clinical Notes Mar, Acute left-sided low back pain with left-sided sciatica (ICD-10 - M54.42) [facility] Other 12-26-2023 Evaluation note* Encounter Date Diagnosis Assessment Notes Treatment Notes Treatment Clinical Notes Feb, Acute left-sided low back pain with left-sided sciatica (ICD-10 - M54.42) [facility] Other 12-19-2023 Evaluation note* Encounter Date Diagnosis [...] Microalbumin, Dilated eye exam and Foot exam [employer] Other 2023 Evaluation note* Encounter Date Diagnosis Assessment Notes Treatment Notes Treatment Clinical Notes Feb, Acute left-sided low back pain with left-sided sciatica (ICD-10 - M54.42) [employer] Other 12-06-2023 Evaluation note* Encounter Date Diagnosis [...] as it will resolve once off steroids [employer] Other 12-05-2023 Evaluation note* Encounter Date Diagnosis Assessment Notes Treatment Notes Treatment Clinical Notes Feb, Acute left-sided low back pain with left-sided sciatica (ICD-10 - M54.42) [employer] Other 11-28-2023 Evaluation note* Encounter Date Diagnosis [...] BS values, which requires no dose adjustments [employer] Other 09-27-2023 Evaluation note* Encounter Date Diagnosis Assessment Notes Treatment Notes Treatment Clinical Notes Nov, Elevated transaminase level (ICD-10 - R74.01) Nov, Wellness examination (ICD-10 - Z00.00) Nov, Fatty liver (ICD-10 - K76.0) [employer] Other 09-21-2023 Evaluation note* Encounter Date Diagnosis Assessment Notes Treatment Notes Treatment Clinical Notes Nov, Cigarette nicotine dependence without complication (ICD-10 - F17.210) LDCT: no suspicious nodules 11/2021, [employer] Other 09-18-2023 Evaluation note* Encounter Date Diagnosis [...] (ICD-10 - Z12.5) Yearly PSA and ARCHANA [employer] Other 06-02-2023 Evaluation note* Encounter Date Diagnosis Assessment Notes Treatment Notes Treatment Clinical Notes Aug, Type 2 diabetes mellitus with hyperglycemia, without long-term current use of insulin (ICD-10 - E11.65) [employer] Other 04-27-2023 NotePROCEDURE: XR ANKLE RT 2V, XR FOOT RT 2V COMPARISON: None. HISTORY: Pain in right foot FINDINGS: BONES:No acute fracture or dislocation. Mild degenerative changes most significant at the first metatarsal phalangeal joint SOFT TISSUES:Negative. No visible soft tissue swelling. EFFUSION:None visible. OTHER: Negative. IMPRESSION: Mild degenerative changes Electronically authenticated by: VINNY EDGE Date: 2022-06-28 07:[facility]04-27-2023 NotePROCEDURE: XR ANKLE RT 2V, XR FOOT RT 2V COMPARISON: None. HISTORY: Pain in right foot FINDINGS: BONES:No acute fracture or dislocation. Mild degenerative changes most significant at the first metatarsal phalangeal joint SOFT TISSUES:Negative. No visible soft tissue swelling. EFFUSION:None visible. OTHER: Negative. IMPRESSION: Mild degenerative changes Electronically authenticated by: VINNY EDGE Date: 2022-06-28 07:[facility]04-25-2023 Evaluation note* Encounter Date Diagnosis Assessment [...] No vesicles or bleeding. Nontender but pruritic [employer] Other 03-21-2023 Evaluation note* Encounter Date Diagnosis Assessment Notes Treatment Notes Treatment Clinical Notes May, Gastroesophageal ref lux disease with esophagitis without hemorrhage (ICD-10 - K21.00) [employer] Other 03-14-2023 Evaluation note* Encounter Date Diagnosis Assessment Notes Treatment Notes Treatment Clinical Notes May, Gastroesophageal ref lux disease with esophagitis without hemorrhage (ICD-10 - K21.00) May, Essential hypertensi on (ICD-10 - I10) May, Type 2 diabetes mellitus with diabetic polyneuropathy, without long-term current use of insulin (ICD-10 - E11.42) May, Elevated cholesterol (ICD-10 - E78.00) [employer] Other 02-09-2023 Evaluation note* Encounter Date Diagnosis Assessment Notes Treatment Notes Treatment Clinical Notes Apr, Type 2 diabetes mellitus with diabetic polyneuropathy, without long-term current use of insulin (ICD-10 - E11.42) [employer] Other 02-02-2023 Evaluation note* Encounter Date Diagnosis Assessment Notes Treatment Notes Treatment Clinical Notes Apr, Gastroesophageal ref lux disease with esophagitis without hemorrhage (ICD-10 - K21.00) [employer] Other 02-01-2023 Evaluation note* Encounter Date Diagnosis Assessment Notes Treatment Notes Treatment Clinical Notes Apr, Gastroesophageal ref lux disease with esophagitis without hemorrhage (ICD-10 - K21.00) [employer] Other 01-18-2023 Evaluation note* Encounter Date Diagnosis [...] to respiratory infections, vascular disease and cancers. 18 Mar, 2022 Elevated cholesterol (ICD-10 - E78.00) Diet and exercise with continued statin therapy. [employer] Other [id number] NotePatient: VINNY BAEZ Age: 60 years Sex: Male : 1960 Associated Diagnoses: None Author: Mehreen Dodge MA Results Review Original Procedure Date 06/15/2020 Revised repeat colonoscopy interval 5 years Adenomatous polyp(s) present 1 or 2 tubular adenomas less than 10mm Adenocarcinoma present No Serrated lesion(s) present Sessile serrated polyp(s) less than 10mm with no dysplasia Hyperplastic polyp(s) present [facility]04-19-2021 Note [id number]:[address] [place] [address] Evaluation noteNo InformationNortDepartment of [facility] [employer] Other History general Narrative - Reported* Type [...] History COLONOSCOPY Hospitalization History see surgical hx [employer] Other History general Narrative - Reported* Type [...] years) 2020 [facility] [employer] Other Reason for referral (narrative)* Reason Referral for ankle/f oot mass. Diagnosis 1 Mass of right ankle (R22.41) Referral Organization [facility] Referring Provider First Name Samuel Referring Provider Last Name Pavel Referring Provider Specialty Internal Me darell Referred Organization Referred Provider Caprice Roberts Referred Address [address] [place], [place],[address] Referred Provider Specialty Podiatry - S urgical Chiropody Referral Priority Routine General Notes Patient c/o mass at the junction of his foot/ankle, which has developed over the past 2 months. He has a remote hx of ankle injury. It is not tender, erythematous or associated w/ bruising. Clinical Notes XR negative [employer] Other Summary Purpose Family History No Family History Records FoundNo Family History Records FoundNo Family History Records Found Advance Directives No Advanced Directives Records FoundNo Advanced Directives Records FoundNo Advanced Directives Records Found Reason for Referral Reason evaluate and tr eat Diagnosis 1 Spinal stenosis of l umbar region with neurogenic claudication (M48.062) Referral Organization [facility]rosurgery Referring Provider First Name Roseline Referring Provider Last Name Davina Referring Provider Specialty Nurse Pract itioner Referred Organization Referred Provider Park Hallman Referred Address [address] [facility] [place] [place] Referred Provider Specialty Pain Medicin e Referral Priority Routine General Notes Kristin King 12:49:27 PM > received today, attached documents, waiting for note to be locked before sending Reason Mr. Baez is being r eferred for low back and left leg pain. Diagnosis 1 Acute left-sided low back pain with left-sided sciatica (M54.42) Referral Organization [facility] Referring Provider First Name Samuel Referring Provider Last Name Pavel Referring Provider Specialty Internal Me dicine Referred Organization [facility] Referred Provider Deric Vega Referred Address [address] [place], [place],[address] Referred Provider Specialty Neurological Surgery Referral Priority [...] content) No Status Records FoundNo Status Records FoundNo Status Records Found INFORMATION SOURCE (unrecogn ized section and content) DATE CREATED AUTHOR 02/26/2021 Zackary Payan [facility] DATE CREATED AUTHOR AUTHOR'S ORGANIZ ATION 07/19/2022 [facility] DATE CREATED AUTHOR AUTHOR'S ORGANIZ ATION 04/04/2023 [facility] REASON FOR VISIT (unrecogniz ed section and [...] BE BASED ON THE PRIMARY CLINICAL RECORDS. [facility] [employer] [facility]. provides no warranty or guarantee of the accuracy or completeness of information in this document.
[2023-04-08 08:44] VITALS: BP 131/70; PULSE 90; RESP 16; TEMP 36.8; O2SAT 96
[2023-04-08 08:51] LABS: Glucometer 383 mg/dL (74-106)
[2023-04-08 09:42] VITALS: BP 144/70; PULSE 84; RESP 18; O2SAT 96
[2023-04-08 09:47] VITALS: BP 150/75; PULSE 86; RESP 18; O2SAT 96
[2023-04-08] MEDS: 0.9 % SODIUM CHLORIDE 10 ML INJ (09:50)
[2023-04-08] MEDS: TRIAMCINOLONE ACETONIDE 40 MG/ML VIAL INJ (09:51)
[2023-04-08] MEDS: BUPIVACAINE HCL 0.25% PF 25 MG/10 ML VIAL INJ (09:51)
[2023-04-08] MEDS: IOHEXOL 240 MG/ML - 10 ML VIAL 12 MG INJ (09:51)
[2023-04-08] MEDS: LIDOCAINE HCL 2% PF 100 MG/5 ML VIAL 3 ML INJ (09:51)
--- NOTE | 2023-04-08 09:51 | P.ON_ITS ---
Date of procedure: 04/08/23 Pre-op diagnosis: Lumbar stenosis with neurogenic claudication Post-op diagnosis: same as pre-op Procedure: Procedure: Left L4-5, L5-S1 transforaminal epidural steroid injection Medications: Bupivacaine 0.25% 3cc, kenalog 40mg The patient was seen and examined in the preoperative holding area.? Informed consent was obtained and placed on the chart.? Patient was brought to the medical procedure unit and placed in the prone position where a timeout was completed verifying the correct patient, procedure site, position, and planned special equipment using sterile aseptic technique.? Under direct fluoroscopic visualization a 25-gauge Quincke tipped spinal needle was advanced to the designated neural foramen where contrast dye was injected to show adequate spread.? The needle was inserted at level left L4-5. There was no evidence of vascular or adverse uptake.? Epidural spread was appreciated.? The above- mentioned injectate was then placed in a 1.5 mL aliquot preceded by negative aspiration.? The needle was removed. The needle was inserted and the procedure repeated at level left L5-S1.? The surgery site was covered.? Patient was taken to the postprocedural recovery area and monitored for an appropriate length of time before found suitable for discharge in the accompaniment of a responsible adult. Anesthesia: Local Surgeon: Diego Gordon Pathology: none sent Condition: stable Disposition: no change
== END 2023-04-08 09:55 | disposition home or self-care (01) ==
PROVIDERS: PCP Internal Medicine; Visit Provider Anesthesiology
DX: M48.062 Spinal stenosis, lumbar region with neurogenic claudication (principal)
CPT/HCPCS: 36415; 64483; 64484; 82948; J0665; J3301; Q9966

== ENCOUNTER 2023-04-22 07:22 | Day surgery (SDC) | payer OTHER, SELFPAY ==
--- OUTSIDE RECORDS SUMMARY | 2023-04-22 07:25 | XMS_ITS | CCD ---
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 Name Role Phone Samuel Zhao Unavailable PAVEL, DR JEFFRIES Primary Care Unavailable REAL, CAPRICE Mendez Admitting Unavailable REAL, CAPRICE Mendez Attending Unavailable REAL, ACPRICE Mendez Consulting Unavailable NEFCY, CAPRICE Consulting Unavailable [...] Facility (20 sources) [facility] Drug Allergy diarrhea [email or web address] Other Medications Current Medications Medication Drug Class(es) Dates Sig (Normalized) Sig (Original) acetaminophen 325 mg / oxyCODONE hydrochloride 5 mg oral tablet (20 sources) Opioid Agonist Start: 01-31-2023 take 1 tablet by mouth every six hours oxyCODONE-Acetami nophen 5-325 MG 1 tablet as needed Orally every 6 hrs for 7 days p/u 03/11, start 03/12Mar, Active [id number] actuat albuterol 0.09 mg/actuat metered dose [...] CAPRICE SHORE Date: 2022-07-18 18:48 Normal [facility] [place] [facility] GLYCOHEMOGLOBIN A1Con 2022 ADA RECOMMENDATION SEE BELOW Normal [facility] Comment on above: Result Comment: ADA RECOMMENDED LIMIT 4.0 - 6.0 ADA THERAPEUTIC TARGET < 7.0 ACTION SUGGESTED > 7.0 Performed By: #### C MP, LIPID, TSH #### [facility] [place] [facility] [address] [place], [place] [address] Dr. Gerardo Larose Glucose [Mass/Vol] 143 mg/dL Normal [facility] Comment on above: Performed By: #### C MP, LIPID, TSH #### [facility] [place] [facility] [address] [place], [place] [address] Dr. Gerardo Larose HbA1c (Bld) [Mass fraction] 6.6 % Critically high 4.5-6.2 [facility] Comment on above: Performed By: #### C MP, LIPID, TSH #### [facility] [place] [facility] [address] [place] [address] [address] Gerardo Larose MRI LSPINE WO CONon [...] VINNY EDGE Date: 2022-03-21 16:49 Normal [facility] [place] [facility] CT LUNG CANCER SCREENINGon 1 CT [...] VINNY EDGE Date: 2021-12-04 07:24 Normal [facility] [place] [facility] CBC AUTO DIFFon 12-01-2021 BASO # 0.1 103/ul Normal 0.0-0.1 [facility] Comment on above: Performed By: #### C MP, LIPID, TSH #### [facility] [place] [facility] [address] [place] [address] Dr. Gerardo Larose Basophils/100 WBC (Bld) 0.9 % Normal 0.2-2.0 [facility] Comment on above: Performed By: #### C MP, LIPID, TSH #### [facility] [place] [facility] [address] [place] [address] Dr. Gerardo Larose EO # 0.2 103/ul Normal 0.0-0.7 [facility] Comment on above: Performed By: #### C MP, LIPID, TSH #### [facility] [place] [facility] [address] [place] [address] Dr. Gerardo Larose Eosinophils/100 WBC (Bld) 2.5 % Normal 0.9-7.0 [facility] [place] [facility] Comment on above: Performed By: #### C MP, LIPID, TSH #### [facility] [place] [facility] [address] [place] [address] Dr. Gerardo Larose Erythrocyte distribution width (RBC) [Ratio] 13.7 % Normal 11.0-15.0 [facility] [place] [facility] Comment on above: Performed By: #### C MP, LIPID, TSH #### [facility] [place] [facility] [address] [place] [address] Dr. Gerardo Larose Hematocrit (Bld) [Volume fraction] 46.3 % Normal 42.0-54.0 [facility] Comment on above: Performed By: #### C MP, LIPID, TSH #### [facility] [place] [facility] [address] [place] [address] Dr. Gerardo Larose Hemoglobin (Bld) [Mass/Vol] 15.7 g/dL Normal 14.0-18.0 [facility] Comment on above: Performed By: #### C MP, LIPID, TSH #### [facility] [place] [facility] [address] [place] [address] Dr. Gerardo Larose IG # 0.03 10e3/ul Normal 0.00-0.03 [facility] [place] [facility] Comment on above: Performed By: #### C MP, LIPID, TSH #### [facility] [place] [facility] [address] [place] [address] Dr. Gerardo Larose IG % 0.4 % Normal 0.0-0.5 [facility] [place] [facility] Comment on above: Performed By: #### C MP, LIPID, TSH #### [facility] [place] [facility] [address] [place] [address] Dr. Gerardo Larose LYMPH # 2.1 103/ul Normal 1.2-3.8 [facility] [place] [facility] Comment on above: Performed By: #### C MP, LIPID, TSH #### [facility] [place] [facility] [address] [place] [address] Dr. Gerardo Larose Lymphocytes/100 WBC (Bld) 31.2 % Normal 20.5-60.0 [facility] Comment on above: Performed By: #### C MP, LIPID, TSH #### [facility] [place] [facility] [address] [place] [address] Dr. Gerardo Larose MANUAL DIFF REQ NO Normal [facility] Comment on above: Performed By: #### C MP, LIPID, TSH #### [facility] [place] [facility] [address] [place] [address] Dr. Gerardo Larose MCH (RBC) [Entitic mass] 31.3 pg Normal 25.9-34.0 [facility] Comment on above: Performed By: #### C MP, LIPID, TSH #### [facility] [place] [facility] [address] [place] [address] Dr. Gerardo Larose MCHC (RBC) [Mass/Vol] 33.9 g/dL Normal 29.9-35.2 [facility] Comment on above: Performed By: #### C MP, LIPID, TSH #### [facility] [place] [facility] [address] [place] [address] Dr. Gerardo Larose MCV (RBC) [Entitic vol] 92.4 fL Normal 80.0-94.0 [facility] Comment on above: Performed By: #### C MP, LIPID, TSH #### [facility] [place] [facility] [address] [place] [address] Dr. Gerardo Larose MONO # 0.5 103/ul Normal 0.3-0.8 [facility] Comment on above: Performed By: #### C MP, LIPID, TSH #### [facility] [place] [facility] [address] [place] [address] Dr. Gerardo Larose Monocytes/100 WBC (Bld) 7.8 % Normal 1.7-12.0 [facility] [place] [facility] Comment on above: Performed By: #### C MP, LIPID, TSH #### [facility] [place] [facility] [address] [place] [address] Dr. Gerardo Larose NEUT # 3.8 103/ul Normal 1.4-6.5 [facility] Comment on above: Performed By: #### C MP, LIPID, TSH #### [facility] [place] [facility] [address] [place] [address] Dr. Gerardo Larose Neutrophils/100 WBC (Bld) 57.2 % Normal 43.0-75.0 [facility] Comment on above: Performed By: #### C MP, LIPID, TSH #### [facility] [place] [facility] [address] [place] [address] [address] Gerardo Larose Platelet mean volume (Bld) [Entitic vol] 10.2 fL Normal 9.5-13.5 [facility] Comment on above: Performed By: #### C MP, LIPID, TSH #### [facility] [place] [facility] [address] [place] [address] [address] Gerardo Larose PLT 190 103/ul Normal 150-450 [facility] [place] [facility] Comment on above: Performed By: #### C MP, LIPID, TSH #### [facility] [place] [facility] [address] [place] [address] Dr. Gerardo Larose RBC 5.01 106/ul Normal 4.70-6.10 [facility] [place] [facility] Comment on above: Performed By: #### C MP, LIPID, TSH #### [facility] [place] [facility] [address] [place] [address] [address] Gerardo Larose WBC 6.7 103/ul Normal 4.0-11.0 [facility] Comment on above: Performed By: #### C MP, LIPID, TSH #### [facility] [place] [facility] [address] [place] [address] Dr. Gerardo Larose GLYCOHEMOGLOBIN A1Con 2021 ADA RECOMMENDATION SEE BELOW Normal [facility] Comment on above: Result Comment: ADA RECOMMENDED LIMIT 4.0 - 6.0 ADA THERAPEUTIC TARGET < 7.0 ACTION SUGGESTED > 7.0 Performed By: #### C MP, LIPID, TSH #### [facility] [place] [facility] [address] [place] [address] Dr. Gerardo Larose Glucose [Mass/Vol] 140 mg/dL Normal [facility] Comment on above: Performed By: #### C MP, LIPID, TSH #### [facility] [place] [facility] [address] [place] [address] Dr. Gerardo Larose HbA1c (Bld) [Mass fraction] 6.5 % Critically high 4.5-6.2 [facility] Comment on above: Performed By: #### C MP, LIPID, TSH #### [facility] [place] [facility] [address] [place] [address] [address] Gerardo Larose LIPID PROFILEon 12-01-2021 CHOL-HDL RATIO NORM SEE BELOW Normal [facility] Comment on above: Result Comment: 3.3 - 4.4 LOW RISK 4.4 - 7.1 AVERAGE RISK 7.1 - 11.0 MODERATE RISK >11.0 HIGH RISK Performed By: #### C MP, LIPID, TSH #### [facility] [place] [facility] [address] [place] [address] [address] Gerardo Larose Cholesterol [Mass/Vol] 202 mg/dL Critically high <=200 [facility] Comment on above: Performed By: #### C MP, LIPID, TSH #### [facility] [place] [facility] [address] [place] [address] [address] Gerardo Larose Cholesterol in HDL [Mass/Vol] 58 mg/dL Normal 40-60 [facility] Comment on above: Performed By: #### C MP, LIPID, TSH #### [facility] [place] [facility] [address] [place] [address] [address] Gerardo Larose Cholesterol in LDL [Mass/Vol] 104.2 mg/dL Normal [facility] Comment on above: Performed By: #### C MP, LIPID, TSH #### [facility] [place] [facility] [address] [place] [address] [address] Gerardo Larose Cholesterol.total/Cho lesterol in HDL [Mass ratio] 3.5 {ratio} Normal [facility] Comment on above: Performed By: #### C MP, LIPID, TSH #### [facility] [place] [facility] [address] [place] [address] [address] Gerardo Larose HDL NORMAL > or = 60 mg/dl - LO W CARDIOVASCULAR RISK <40 mg/dl - HIGH CARDIOVASCULAR RISK Normal [facility] Comment on above: Performed By: #### C MP, LIPID, TSH #### [facility] [place] [facility] [address] [place] [address] [address] Gerardo Larose LDL CALC NORMAL SEE BELOW Normal [facility] Comment on above: Result Comment: <100 mg/dl OPTIMAL 100 - 129 mg/dl NEAR OR ABOVE OPTIMAL 130 - 159 mg/dl BORDERLINE HIGH 160 - 189 mg/dl HIGH >190 mg/dl VERY HIGH Performed By: #### C MP, LIPID, TSH #### [facility] [place] [facility] [address] [place] [address] Dr. Gerardo Larose Triglyceride [Mass/Vol] 199 mg/dL Critically high <=150 [facility] Comment on above: Performed By: #### C MP, LIPID, TSH #### [facility] [place] [facility] [address] [place] [address] Dr. Gerardo Larose VLDL CALC 39.8 mg/dL Normal [facility] Comment on above: Performed By: #### C MP, LIPID, TSH #### [facility] [place] [facility] [address] [place] [address] Dr. Gerardo Larose MICROALBUMIN, RAND URon 11-04 mALB 28.7 mg/L Normal <=30.0 [facility] Comment on above: Performed By: #### C MP, LIPID, TSH #### [facility] [place] [facility] [address] [place] [address] Dr. Gerardo Larose PROF 14(COMP METB)on 022 Albumin [Mass/Vol] 3.7 g/dL Normal 3.4-5.0 [facility] Comment on above: Performed By: #### C MP, LIPID, TSH #### [facility] [place] [facility] [address] [place] [address] Dr. Gerardo Larose Albumin/Globulin [Mass ratio] 0.9 {ratio} Normal [facility] Comment on above: Performed By: #### C MP, LIPID, TSH #### [facility] [place] [facility] [address] [place] [address] Dr. Gerardo Larose ALP [Catalytic activity/Vol] 84 U/L Normal 46-116 [facility] Comment on above: Performed By: #### C MP, LIPID, TSH #### [facility] [place] [facility] [address] [place] [address] Dr. Gerardo Larose ALT [Catalytic activity/Vol] 45 U/L Normal 16-63 [facility] Comment on above: Performed By: #### C MP, LIPID, TSH #### [facility] [place] [facility] [address] [place] [address] [address] Gerardo Larose Anion gap [Moles/Vol] 10.8 mmol/L Normal [facility] Comment on above: Performed By: #### C MP, LIPID, TSH #### [facility] [place] [facility] [address] [place] [address] [address] Gerardo Larose AST [Catalytic activity/Vol] 26 U/L Normal 15-37 [facility] Comment on above: Performed By: #### C MP, LIPID, TSH #### [facility] [place] [facility] [address] [place] [address] [address] Gerardo Larose Bilirubin [Mass/Vol] 0.6 mg/dL Normal 0.2-1.0 [facility] Comment on above: Performed By: #### C MP, LIPID, TSH #### [facility] [place] [facility] [address] [place] [address] Dr. Gerardo Larose Calcium [Mass/Vol] 9.4 mg/dL Normal 8.5-10.1 [facility] Comment on above: Performed By: #### C MP, LIPID, TSH #### [facility] [place] [facility] [address] [place] [address] [address] Gerardo Larose Chloride [Moles/Vol] 100 mmol/L Normal 98-107 [facility] Comment on above: Performed By: #### C MP, LIPID, TSH #### [facility] [place] [facility] [address] [place] [address] [address] Gerardo Larose CO2 [Moles/Vol] 28.9 mmol/L Normal 21.0-32.0 [facility] Comment on above: Performed By: #### C MP, LIPID, TSH #### [facility] [place] [facility] [address] [place] [address] [address] Gerardo Larose Creatinine [Mass/Vol] 0.95 mg/dL Normal 0.70-1.30 [facility] Comment on above: Performed By: #### C MP, LIPID, TSH #### [facility] [place] [facility] [address] [place] [address] [address] Gerardo Larose EGFR-AF NORWEGIAN >60 Normal >=60 [facility] Comment on above: Performed By: #### C MP, LIPID, TSH #### [facility] [place] [facility] [address] [place] [address] [address] Gerardo Larose EGFR-NON AF NORWEGIAN >60 Normal >=60 [facility] Comment on above: Performed By: #### C MP, LIPID, TSH #### [facility] [place] [facility] [address] [place] [address] [address] Gerardo Larose Globulin (S) [Mass/Vol] 3.9 g/dL Normal [facility] Comment on above: Performed By: #### C MP, LIPID, TSH #### [facility] [place] [facility] [address] [place] [address] [address] Gerardo Larose Glucose [Mass/Vol] 128 mg/dL Critically high 74-106 [facility] Comment on above: Performed By: #### C MP, LIPID, TSH #### [facility] [place] [facility] [address] [place] [address] Dr. Gerardo Larose Potassium [Moles/Vol] 3.7 mmol/L Normal 3.5-5.1 [facility] Comment on above: Performed By: #### C MP, LIPID, TSH #### [facility] [place] [facility] [address] [place] [address] [address] Gerardo Larose Protein [Mass/Vol] 7.6 g/dL Normal 6.4-8.2 [facility] Comment on above: Performed By: #### C MP, LIPID, TSH #### [facility] [place] [facility] [address] [place] [address] [address] Gerardo Larose Sodium [Moles/Vol] 136 mmol/L Normal 136-145 [facility] Comment on above: Performed By: #### C MP, LIPID, TSH #### [facility] [place] [facility] [address] [place] [address] [address] Gerardo Larose Urea nitrogen [Mass/Vol] 15.0 mg/dL Normal 7.0-18.0 [facility] Comment on above: Performed By: #### C MP, LIPID, TSH #### [facility] [place] [facility] [address] [place] [address] [address] Gerardo Larose Urea nitrogen/Creatinine [Mass ratio] 15.8 mg/mg Normal [facility] Comment on above: Performed By: #### C MP, LIPID, TSH #### [facility] [place] [facility] [address] [place] [address] [address] Gerardo Larose TSHon 12-01-2021 TSH 1.388 uIU/mL Normal 0.358-3.740 [facility] Comment on above: Performed By: #### C MP, LIPID, TSH #### [facility] [place] [facility] [address] [place] [address] [address] Gerardo Larose VITAMIN B12on 12-01-2021 Cobalamin (Vitamin B12) [Mass/Vol] 382.0 pg/mL Normal 193.0-986.0 [facility] Comment on above: Performed By: #### V ITB12, PSASC #### [facility] [place] [facility] [address] [place] [address] [address] Gerardo Larose GLYCOHEMOGLOBIN A1Con 2021 ADA RECOMMENDATION SEE BELOW Normal [facility] Comment on above: Result Comment: ADA RECOMMENDED LIMIT 4.0 - 6.0 ADA THERAPEUTIC TARGET < 7.0 ACTION SUGGESTED > 7.0 Performed By: #### C MP, LIPID, TSH #### [facility] [place] [facility] [address] [place] [address] [address] Gerardo Larose Glucose [Mass/Vol] 192 mg/dL Normal [facility] Comment on above: Performed By: #### C MP, LIPID, TSH #### [facility] [place] [facility] [address] [place] [address] [address] Gerardo Larose HbA1c (Bld) [Mass fraction] 8.3 % Critically high 4.5-6.2 [facility] Comment on above: Performed By: #### C MP, LIPID, TSH #### [facility] [place] [facility] [address] [place] [address] [address] Gerardo Larose IntraOperative Documentson 0 06-24-2020 Intra[employer] Documents [id number] 0CD:127 Normal [facility] Coding Summary.on 06-21-2020 Coding Summary. CD:[id number] Gh 0bWw+PGhlYWQ+LJ1GGKUpV 81wvBYinH3FV2nLRV7GMJX LWIUTGC3XFL0fvEC2UYmnW 2VybiAv VbkyiLJpUE70BMk2QWW8eF gaUDatnI9taXPnW2i8ZxEl QW82jL62PRoyXYLwRiK6Jv ZpbjsgbWFy R3gnLmVqbKXzHhg+PHRhYm xlIHdpZHRoPScxMDAlJyBz rAvnZZ3xXe5rCWRaCFNqyL xhcHNlOiBj v7roKPXmZFiiZQ3wlNfuB9 DvtUB4RMSyk8p3Kl03vUO+ WVIlUVZ0zXgePVngg133Ib Egc2lgMHM9 mUNdUMxxNFM8H35kb5E1SW LvEVYqJCH2iQC2rE9kuKdw jnilZ4OaaXXsNrJ9ZSI5wC YykX2giAxa jugwpJ1hZmj+X54LOU9ALP JCAN1PRsx9N0WgShymhJI+ MK85SBYgVU20fNOevWLoq6 lxyGz0WyOa XMQvWVH3dRhcIQsej3TrCT LkC47mtAKfi3P8QLQdoHkh hTPmRqAcnPG0jK2rIYztxg kvz4qzqrir Jmmrc6lhqd67rL94P96fAV ekANMdVUU7YMUhTQQtmVvy di9nnJ2fFs8+CVjee3ajl8 sxnRw6RlNd HOTttjTqiIweXTO9j0WuLd 09M7TflFtzt9QqZuq4nw18 tHOpx0M9vZI5BJowYFOflW 3mKFmhGcL3 BQSiCjTclT19rXJcWFvzMx 2srQhdaWwfXG1tBGIgyteu OVFojH9tHGFqrDHxxDupLS 4wNTBpbjtm g577SuPuKXG9MKBclNKtD6 YdjG4dNjRbMINyRRMiH0Jp aVTaQJjsR423AOwcSvC7AP UnxcRbS9Pg HTYokGygAuN1f6C3Sp8Cm9 PtfootROF4EUqqMQH9OlKs BfYbGtG6F8WhPdw7PASxiL hlEC4iF0Qy KWKjymmhmnizbQJ1NRGdIA NivO33gJKlKKhdWw3yt8M5 b667LPNlCDJkpU17Ez0nqP ogMTBwdCBU nC7obifaf2eecfkmCeJyRC NoFSf7JCn5KMCiaUifUjNz KCQ5EyU6FIC6mUEgjG5vvN oqvmsdsX1u Oyc+E10hsH8jYVJ3QSS1gp uyZGYofdDeUS70RB63T3Cu PjwvdGFibGU+PGRpdiBzdH dzBE6oRoUa o5cik3GuPYqfE8GdVYXwTU mxVak9MBXdPPM2aBK3tN6o KRTdDUbng1L4fSG2O8Sfqd Grqp2yf8dx KNLrHHmwZ78xuHJgk8A1CF CndQB7LFOayNbpOpUbzN65 Oyc+VRAzuTowd4WaGgmlf5 hko7mjbFh5 OyUbDCAuitMbsFyiAWW7h8 JiLl10X62pBMlcZCVpXVPp TLQpQCKwfNnmoz1yxI9kVt 8+PGNvbCB3 jRI5dD7oCSZoJvR7UYouS3 99UwMpaDQaFuktc5uzf8ow kBi4NoGaRAGqylVhpWnmJK W6d7EeHj58 F57gKBpiTPLgBAPjWDHcAZ BjcEfpqh8peE1yEz4+PC9j u9eljy74oA64qGB+PHRkIH E0gCuaOYrz CHMlhY4dWObzYqX6KLXjXd AazD99lTOaGDsfBh6emZeq wLabKM0fHTSmqacbr408Ph Ytw4waMDRj lMVyRJokBYW7K27ka6B8HT TzIODzWYP0kPE0cW4ddWhh bjogbGVmdDsgdmVydGljYW uhNIcyP927 IHRvcDsnPlBhdGllbnQgTm SkNYd6A2FuLso2ISUkeNkq AU5vrOSvWIhuCn4wnJnluC rwRD9gBUHa gcvsx084UeSof7hyUWGduR SqXMvhJWE3C32nl9Y4WATf CGKnPIX4xQO5sX8lqOvrhl ogbGVmdDsg jqUpnCzyIIogFQbwL405OS RvcDsnPkJpcnRoIERhdGU6 VI85MF04yCTqp2G0cFW4Q7 BhZGRpbmct jjazhII0PCOcVEBzpC16Ba 9bfXukUw2qRDVoCQG1DDNd bYLgY9AdmT4aYcMrQEOuXX TpD7YfgDQq LPuuO729TTyfMjD6GSUsnp OoE3CzERDdnRkcRfC4s4F3 Uu2LZ5O8WJ41YO38lMEgo4 N5gRM0K3Gt BJGavpwtldsnwNP4HUSgXX KjeR22Xs0otVgmUa8xJQYm HHE4LEBsyLBlF0NvdY6nAq AjMDAwMDAw N4AasKPkREwsY871DVxlAl P5LZBsfhTzK2XbEJYdvDgz BnG0q2T4Aa7ROZs3DX28LY 74sIHtz4P2 jJD8R2TjUPWevlwhauodiP T0WFEtQIYnhE92Rp4ejUpz Kc9rFTOhMSP7AUAwhJBfU0 QbpS7tZxGb KIMbGTOnK3SsgIYuRIgrK5 38NYnoHoA1WIUonbYmG7Ab QJXkcUhtVhU7l9P7Rx5CLN XmOU90YVN9 cBD8EB11XJ52E3VeWxozgB FibGU+PHRhYmxlIHdpZHRo BGibUHPfOuMlmJkhJC9lNe 9yZGVyLWNv nWnriJUjJbGtz4cpSYGpJS nyPC0qpGhmX4FbvBW1JVEe v6b9Du55B19iB1LsbXR+PG QtaDB8hOG2 cJ0iKvTsQeC5QQvkW839Ec NpuJWqDbkjw8hrv9yzaVx5 DhN4RQVxbjIudEfoRCW5p9 UnWp38T66s IHdpZHRoPSIxNSUiIHZhbG hykw7ocH4yGa5+PGNvbCB3 nKH0zE1zWtEaFuU9LCvxK4 49InRvcCIv Eszxb5sqw0vihTx5XgFoRS NxpnKdtGydGAA9r2WyJg51 C1WehJsgq1ClDwf1kl61nM Gmi4U3eCY0 B2OeXMXjpmeatLGjrKejZU 9qHRLicsmjIXDaqS9pDPPe C6j8CvJoXsU5FWhkP2Dbcf G0TSRapMWn YOvnEBW5N37mb1G0DIHkEM ImSQL1uHF6jG7muChmzcqz bGVmdDsgdmVydGljYWwtYW svQ900YUBn rUqnCGDikG3cJIZplZEeuR wnVQ0hIFFvtttrZkyLLPLL HYXXWBONVMUGLJ57CW56pQ Xjn9J3oVI6 C5BoTJTxiubobbdnrDQ1RA RwZPZxnP80kACmYQtbPh9n z6B6j452VGMbRQHqvN39Ac 9udDogMTBw qSNNfU5dwvknd8eobozuWy PuOBYvCHg3VBs2DBZiaYqk DwBvHOK8OdB9XBI2rPFxmJ 1hbGlnbjog tY4xRjf+IXHxHODfVKq6PV wvdGQ+NNAmSDT9kZypEDuq FSWgwG4lYDKxC0i0BfRsTu I7RXntK0Jp TYAtfgzzAx85oB3tXhTnDx Y1QMocJ1SqxpK4YLKheVXg TFzlVRR3C48xj9J6IKJlDQ FkANH4eUA7 dC3vjHgzqxzwmWYprGnneu SpuKlgXZzbOEfvE217YYOn mTehYhIdCGyvTDIjMK94WI 45sWFlq5E9 uWP1H6IgFZUkxfxektobuW B8GPDfEEVxaI71xCPyGWkm Fb0qy5X3g603BBKqBEXxhR 75Gv1qtVba TYJgmPWUmA4mhsmto7emek bwWfCaWNKiBHy2JPa0HVQs iZuhOmRcKUV9RgL8VBL5gD ZveX3afCzc widvjA1fFja+TWFsZTwvdG Q+PHQlZDU9hXhjJJvdZMZk wC8hOKCkP8m8RxEtRgL3YL mcW9IcSQEi jirlIz96zE1eDlOgTzS6VW ftV5WmyoI8PBZnqWYgQIkm PAJ1A99sd0E9IQKaGBVzPV F2hEY3bB0f bGlnbjogbGVmdDsgdmVydG rcHKhhOTtrU028SCCuuEzq Ym32gAWnkGshlcD9X6MbWb wvdHI+PC90 VGRwWE22gUUypCNev0wokB b5DaUbQXTjVDB7zReoPKfh q9HsMBJhX30fkBIox9S3WM NvbGxhcHNl SzCtmGA4oS0fWNidjtrgs6 fxpnwnJbcdy5fmbv34lF46 Q87kITutARGhSWSqPIIbJG IuiAecwg8f gF5uCy2+PYWvkXR2pXZ6iS 0pQsJpHgX3QCdhL431LqXh zWDnShivh0rdr4akwGr0Km IwJSIgdmFs dEjhJFF4p9KzDo99X47rBF dpZHRoPSIyMCUiIHZhbGln ud8yiI7pUr1+YX0xj9ddxc 78iB12rQM+ NCFmJSX8vKslDNuvMUCfsQ 9xBEcoQeT5FLTrLgCwjC20 gAZsSVxfHf3vyEpskXjgHG 4wNTBpbjtm h929UzTpj6qbOFKsoYSuGR uiJZE5W95ku7Y3UMKoFAHl HFC7eZC6nB7bmTthvbsfdF VmdDsgdmVy qUioRWxqRWdiX093AAHemE vjBxWxnYGsJ7rnkyURTW8w OjwvdGQ+TQMdMGT5kOxfIM cpGLDnkD5b REDyE7c8QkWtNhD2TKtfG2 HfsxD5CSReqOOnSXKgrYQB sX9oreyns4jpvuzyGlEyEG HaKYs9ABa3 REVqyCsbXtJkQYG8PiM1OZ B4hRSshM5vpVmldmbbsU5j Oyc+RklOOjwvdGQ+PHRkIH H8qFkyFAtx YJUmvL8oNBJnL6h1ZgBlPu B9YDguC4MsykP6ESMkhRAt HSHbfVDWtW8hpswmx3okug ogIzAwMDAw NPh1TDr4XNJilCxeIqTdGR L3FjJ8MXF9cHGhlB7vwEys zeyiuY0mZas+TVJOOjwvdG Q+PHRkIHN0 rVjfNRajIHSwkI1eVGLbW1 d1XfJkRpD9DGrnY8BmvqL5 PAKlqOAnLRXzaUHNtJ7rdh gxx8wcoyuh OfOkMXRmFWm0RLu4VODlzM msSqSxSRY9VvI8OQW2oLFh mY4scTqjltbvuX8aVhy+UG G9MFZ2FD96 UP13P9JqMexxjBFarTY+PH RhYmxlIHdpZHRoPScxMDAl CsOayJhlJO0cKe6rRZEoOL NvbGxhcHNl OiBj (more content not included)... [facility] Postoperative Documentson Postoperative Documents [id number]#1. 00CD:127 [facility] Consenton 06-20-2020 Consent [id number]#1. 00CD:127 [facility] Discharge Instructionson Discharge Instructions [id number]#1. 00CD:127 [facility] IntraOperative Documentson 0 06-20-2020 IntraOperative Documents [id number]#1. 00CD:127 [facility] IntraOperative Documents [id number]#1. 00CD:127 [facility] Main OR Intraoperative Recor don 06-20-2020 Main OR Intraoperative Record IntraOp Document Type FT Summary Primary Physician: Elen MCKINNON MD Finalized Date/Time: 06/20/20 13:22:09 Pt. Name: VINNY BAEZ/Sex: 1960 Male Med Rec #: [id number] Physician: Elen MCKINNON MD Financial #: [id number] Pt. Type: O Room/Bed: / Admit/Disch: 06/15/20 [...] RN, Evelina De Leon Role Performed Anesthesiologist Bottom Filler - Primary Scrub - Primary Film Process Operator Time In 06/15/20 14:13:00 06/15/20 14:13:00 [...] and tissue Entry 1 Skin Integrity Intact, [place], Warm, and Skin Abnormality No Dry Outcomes [...] Procedure COLONOSCOPY(.) (more content not included)... Normal [facility] Endoscopic Procedure Report - Otheron 06-15-2020 [...] Return to activities:: After 24 hours. Normal [facility] Comment on above: Result Comment: Elec tronically Signed By: Elen MCKINNON MD\.br\Date and Time Signed: 06/15/20 14:30 EDT Other Comment: Ramona bernabe Attachment - attachment storage system not supported [id number] Can be viewed in source systemMissing Attachment - attachment storage system not supported [id number] Can be viewed in source systemMissing Attachment - attachment storage system not supported [id number] Can be viewed in source systemMissing Attachment - attachment storage system not supported [id number] Can be viewed in source systemMissing Attachment - attachment storage system not supported [id number] Can be viewed in source system Inpatient Patient Summaryon 06-15-2020 Inpatient Patient Summary [place] [address] [facility] Clinical Discharge Instructions PERSON INFORMATION Name: VINNY BAEZ [facility]#:[id number] [facility] Admitting Physician: Elen MCKINNON MD Attending Physician: Elen MCKINNON MD PCP: SAMUEL ZHAO DO Discharge Diagnosis: Colon polyp Comment: PATIENT EDUCATION INFORMATION Instructions: Medication Leaflets: Follow [facility] 07/12/2020 1:15 PM 07/12/2020 1:30 PM Confirmed MEDICATION LIST Medications to Continue with No Changes Other Medications benazepril 5 Milligram By Mouth every day. bisoprolol-hydrochloro thiazide (bisoprolol-hydrochlor othiazide 5 mg-6.25 mg Tab) 1 Tablets By Mouth every day. omeprazole 20 Milligram By Mouth every day. Comment: Normal [facility] Main OR PACU I Recordon 06-02 Main OR PACU I Record PACU Phase I Docum ent Type FT Summary Primary Physician: Elen MCKINNON MD Finalized Date/Time: 06/15/20 16:40:52 Pt. Name: VINNY BAEZ Edgardo Vu/Sex: 1960 Male Med Rec #: [id number] Physician: Elen MCKINNON MD Financial #: [id number] Pt. Type: O Room/Bed: / Admit/Disch: 06/15/20 [...] By: Radha Lucas RN 06/15/20 16:40 Normal [facility] Main OR Preoperative Recordo n 06-15-2020 Main OR Preoperative Record Holding Area Document Type FT Summary Primary Physician: Elen MCKINNON MD Finalized Date/Time: 06/15/20 13:00:04 Pt. Name: JIEVINNY/Sex: 1960 Male Med Rec #: [id number] Physician: Elen MCKINNON MD Financial #: [id number] Pt. Type: O Room/Bed: / Admit/Disch: 06/15/20 [...] By: Yenny Milner RN 06/15/20 13:00 Normal [facility] Monitor Recordon 06-15-2020 Monitor Record [id number]:127 Normal [facility] Outpatient Surgery Discharge Instructionon 06-15-2020 Outpatient Surgery Discharge Instruction [place] [id number] Patient Discharge Instructions PERSON INFORMATION Name: VINNY BAEZ Date of : 1960 Current Date: 06/15/2020 14:31:41 PHYSICIANS Admitting Physician: PETAR MARTINEZ, [facility] Discharge Diagnosis: Colon polyp VINNY BAEZ has [...] ___ Date Follow up: Type [facility] 07/12/2020 1:15 PM 07/12/2020 1:30 PM Confirmed Pharmacy Information: [facility] You may receive a survey from [employer] asking you to rate your care experience. Your feedback is important and will help us understand what we do well and how we can improve the quality of care we provide to you, your loved ones and our community. It?s an honor to serve you. Thank you for choosing [facility] HERE ARE THE MEDICATION CHANGES THAT OCCURRED DURING YOUR HOSPITAL STAY Medications to Continue with No Changes Other Medications benazepril 5 Milligram By Mouth every day. bisoprolol-hydrochloro thiazide (bisoprolol-hydrochlor othiazide 5 mg-6.25 mg Tab) 1 Tablets By Mouth every day. omeprazole 20 Milligram By Mouth every day. PATIENT EDUCATION INFORMATION Instructions: Normal [facility] Patient Education - Texton 0 06-15-2020 Patient Education - Text [facility] Progress Note-Physicianon Progress Note-Physician Patient: [...] noted. Plan Transfer/ Discharge: Condition stable. Normal [facility] Comment on above: Result Comment: Elec [...] mellitus type 1 Father Procedure history: Colonoscopy ([id number]). EGD (esophagogastroduodeno scopy) gastric outlet reduction ([id number]). Social History Social & Psychosocial Habits Tobacco 05/23/2020 Tobacco Use: 10 or more cigarettes (1/ . Physical Examination Respiratory: Lungs are clear to auscultation. Cardiovascular: Regular rhythm. Plan [employer] Anesthesiologists (ASA) physical status classification: Class III. Anesthetic Preoperative Plan Anesthesia: General. . Anesthetic plan, risks, benefits, and alternatives discussed with the patient and/or family. Patient verbalized understanding. [facility] Comment on above: Result Comment: Elec tronically Signed By: Pierre Nazario Jr., DO\.br\Date and Time Signed: 06/15/20 11:57 EDT Coding Summary.on 06-10-2020 Coding Summary. CODING DATE: 06/10/2020 FINAL [facility] STATUS: Home (Routine DC) PAYOR: Commercial Insurance [...] Nix CphT Date Saved: 06/10/2020 08:48 am [facility] COVID-[place]on 06-09-2020 SARS-CoV-2 (COVID-19) RNA ROLANDO+probe Ql (Unsp spec) Not detected Normal Not Detected [facility] Comment on above: Result Comment: This test result should be correlated with clinical presentations and medical history by a healthcare provider to determine its clinical significance. This assay was performed by a reverse transcriptase real-time polymerase chain reaction (rt PCR) method on the [employer] system. This test has been authorized only [...] or revoked sooner. 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 NO Normal [facility] Comment on above: Performed By: #### 2 [id number] ####[facility] [address] [place] [address] ICU NO Normal [facility] Comment on above: Performed By: #### 2 [id number] ####[facility] [address] [place] [address] ? NO Normal [facility] Comment on above: Performed By: #### 2 [id number] ####[facility] [address] [place] [address] Resides in a [facility] Setting NO Normal [facility] Comment on above: Performed By: #### 2 [id number] ####[facility] [address] [place] [address] Symptomatic as defined by [facility] NO Normal [facility] Comment on above: Performed By: #### 2 [id number] ####[facility] [address] [place] [address] Consent for Procedure/Surger yon 05-24-2020 Consent for Procedure/Surgery [id number] 0CD:127 Normal [facility] Gastroenterology Office/Clin ic Noteon 05-24-2020 Gastroenterology Office/Clinic Note CD:[id number] JA86yZnypgOuh7smkb1sWM 8fYmQoveMuTOooNe3gd3ad TW07vr7pSyBsVy2+CjwhRE 9DVFlQRSBo xW0sWBROMggXQwXoIP1iEo ZRGt4CFJMqCIkWHQlkWD0b JDF1mynyfK5iME9vZRRjvE CqDi7du2h5 ThsfDv5xDe2QWo24rVFsrR AkEYBIQ1fkxV4cCL5jqOHw T3NnHZGgUj8JVRq4jFyupY 1qunB4Irs3 cPZ7Wd66i8gfcnKko8KtKy V0KFdslBh1gFvrTAungB5l CjLvGIMXfZ0ccTwqIF1ykH 1lbnRhdGlv biI+YibaHJUrJwf8gPKeNJ 44J8IthGpkHlf1sRA6XGUh qZCpGDNelNt6NFZRRETKCF NvbXBhdGli uVQpNYMxhpWhvaX8DwvLDJ FcMsBqJig4P7okZYC+Cjxi n8S8Kzr2ORz6HWN8iZfdPO Eep805VRYt wKsabPibgYHct92kNBArjG IgCzIoj529GBLhsuQ7ZVvm bDnsMvy9aUIcrBDkt2faeF d2OsZbPRWs PwsPHIAusNmge5CdEgdOKH qmo0ihhrFczWymVJC3u1Pq AMbsZWXqHZL5GgWvHJ5+Cg kJPGNvbCB2 IUneW599IgLclNEfj2mraE l3DsL7GTBxFf0MFXwhC86z T6ZpnLP+Oae6jWKtUKa+Cg kJPHRyPgoJ BQi7iMCfw3Q7jUN7MrQnbj Lnc4k0KXrwRAZ6OiB9JOL4 tPSodO4lkNpcasxueP9gGh I+CgkJCTxk dOMoR9ums5C5UgPon1ScdH vltyRuASUoSpOyj8gqPzpu KNApdN1rWFO3IdMaDYNgmV AvIZEhQL3m fdOdyHHjOZMdQoOwR5Vsi9 4my6IyRBGJB7xLXmMxGOI9 QF8pQrSlSB3hJkqqWFItV2 JhESV2KPWu XLapHa1qDMIhINY5EbQvDS XxWHX0QPWaw6Q2kRZ1DlYv DVAsxir0JWEkwJzwAdkhpH FuIGNsYXNz GUQhBVAyR9Ieg55msEOoeT Y8Qi58s6VxsoHrgOwvFA6g Zx8cqU25QNjntEW6UHAwsG V4ILCwmJFa SUDwn4GycVkphatpiT9zKP EikF4iIkJ+Y4ldFDAeM38a rOqgjN64QC0nxSUkMhxxj2 Ynit7BPXoB GLGbabZvfBCrbp7rRJUlyX Def208EP09EjYjOLtdg647 BD76iNlcAY4pKIABE2UBRI 9NRUFTIiBk UVhhBWNwqxWtN8N9vYwrOQ IIT4C3CxX0ME9WQiOaUEDQ Y5UyLbIbKz3OK3TYOEkWTz F7KlItGByr PSJfZTlmOWVkYzMtYzZmZi 58AkT9YMzhDPImWKS4Ltq1 MLN9BYzcBk9VYQwLAKAbzs WxhUCyju4k PQIlvHYdh097JF55lZDuqS UrXRVpqC82ESQjFLPrRVS9 W07ztREqlVM6uZD9WaXVGH NBUkVfTUVB CiNgYFV5WH74qEK0vGH2Da A6Bcp7PtScUgWqWWlkXQTl QrDePDD9HPUfGBSwLD24LV IqXFn0RjPv EbWzVnL7SEdzQFtwXqZ6nU kfhungHC0sSDjiNV4oR6Py W8AsFU05OLZqp87xYjT3nt Fmw5baffTx KUJalAg6O3Zelq9UGNcHIG 9kaXY+BydDQHjpOCq1YgrE VJmEGMLesdRerUChag6kJI XwCFM8dA6o IGRkcmVmcmVzaGFibGUgZG LcsqGbttCpoyHtiXE5eUVs VNWwkL87JMDsPGZsVJM9y4 VjdGlvbmNv OBR4MrlSMB8OOPHeWQZ2FN SgKFprWLFcHCByVHF5EPWw VxSkMe76QOH0SUv4TiMgCg VpO3I8Box6 ZkQjBgEatSfdHD7gzEGyPL lvPqehKAN2WxD+CSVbWD9q X5tcy6Q5NtOnp2DjfSafmb Cmh8BiDOtt FyqtwSZoQPX2fRetAKSpr7 46DPxewKntlNfcRc8lRAdl jMB9aO4gAJByjwS4gK2oVn P1akFpaudq pdN8Fh4KSMpgG8PsCwG4Y8 NwYW4+TF9yqOHvPwxGMZzA BBLlsuWcdTDojs9aSHUfiM Ihv899DC35 AgVjWCfte190VY79yUedGY 9eTMKGT0JTQM0HYESUNrWw OEibPSAwrfWeF9T6zZixMR JBODVEREFE PR13VrvgSIUJDSBcMRXALw 91TKQZOzG0MkfXAIQkUFtj PSJfMWEyYjQyNTQtNzcwZS 86OFwkAFT6 MzgtMGMyMGJhMmZmNzJmIj 0TGPwYCTOyfrYccJVpbo3c BKPxkHExz336VD71fVUwqP KrMBYpfU03 RIWuGXUgXNI3UlBkSsgoGC WrbdmqaUbeRI1ekD5rUFUh Q6s4GvXhNJxic237AA12mS jgGY3mVKUH T4KOMQ0BIIGZNcAkNLijxs SmnVriJS5lChZiEV1pV4S1 WOO9WNBgLInjOqUzPWp9KD 04ZGQyLTMy NeBkATKqOXwyHZQhiI6aoe P3AXN4CoS8apNigXSTp4K3 pQDnpRL0rU5eAo47S7Dugt 4KCgkJCTxk fYFeT6tmn3W0AcLqWE4cT9 1imEPuxWv3CF1tJKSpAB6b uzVmxMGhNUZcCjR5ivZtp9 P2lF9cm1F2 hKA5FxTwnX6kvTqivGNcYT O9N20ybDDkhMP6nNF9IwRJ FQOJZxQsQOGAHmEqPZG7OG 20jTR5jCG8 ZzQwgNY1Lq03EYUgOqOgQt 75ZxBfGCBzAEVgVCyqWf5j LTLpJFA8HuHuJyyiTNpkaT 5zOmRkPSJE cP2kuRzmQV2gdX3wahQwjI lvbiI+AL1ovBM+CgoJCQk8 NNe1SVWmPCKuTRPeHYLpew NvbnRlbnRp aWNgAUTbruUrn7XpPaisBl EbBXzuiL1vrP0epRaaJ5Z1 aHdwQPF8g5MevmsquZOlRK RkOmNvbnRl kfB6bVNgKCCEZZKXCCEVF6 7NHPSnORFfMoJaoRf2sOzl KVIvCEwoZMRxGpn4EtPsBv KdP1VtGP42 HAOiATmjF1XbUVV0LOt2Nk RxZwRrJuL8aXdlkvmsXD1v NNizUC6xY5KoI8XaNV75LP Rhh53qGoaQ LGz4DUt1NJO5jIwpXBPhZR YmqI55TJHqnPGxbM22DMEp SIRmovf0EMTkpZukGv2wAS VyOiAwcHQg orhiQEKrLMFaCDKoJcY8RZ h9CSEeeBfsJgYgEYC3KbSq s3wxyjohenepRIKgWKLhWR KrKaD3WGd5 LWluZGVudDogMGluOyBmb2 54QTT0wGuqErAjs3CeLTe4 VBStkhFce1DlC1a0CmUfn2 IwMUn0RESb uUBeTEExt8XqvZesnevjkq 4hQWyrKmxMESq1UJs7BfpN UWs3RCa0SdPavNKbaMHoOF T7OSX7CDSs UR8fFFRvCYlfTHcpvfYcwo CiLR45qlF8g4OwlMUes8Gd CTR4YViwYVSbH08rv81vxm VjYWxsLjwv TJw9MavHYGx2L9Btpo3RLT xZGY1yxDZ+CgkJCTwvZGl2 PgoKCQkJPGRpdiBjbGFzcz 0iZGRlbXJj t578XB43hKEwgAJqDGMvrX 15XEGyGTZlZTF4LlHoUffs OFVcaolznBagWJ8yiE1hQF FdY8k9UqVn CNtrg854PH38dEidGF8cAX VWO1KCWD5KSDMZVbHoBDwm poSizOvlSF7kFhMnRW7zFv YxMjcyYjRk WZR4JBozQKO6AL29WcEqHW M7BlPbWCAwTRK5EPCggF8e vqJ1NFY9XqR9pnUvvDBKz3 A0hQZboON2 bZ0oBa88T1Ertc3SDxaPKU djuUFpZ2coa1W4EiGvFA2d O16izIYfhGl5US8mPOWcLE 1vdmFibGUi AOAbAaB9gaSaw5O5cM4ff4 J3gTY2ErTdmO9gmRxanEUi RKA3X47avTQfxWW6pCT9Tu BBVENBUkVf GZFPHnPlQEB9YZ12eED7jJ F7UtRjjVA4Ou09YXNhPgNl WC3sJbSkSAUjPTLaDwS8Ns 7uMOJ7LCAl AIFeRSJzQSffdV3yPqJkAC HCpF6ltFueEZ0idC4fncLt dGlvbiI+NW2vuOL+CgoJCQ f8PUj1JSQo YXNzPSJkZGVtcmNvbnRlbn NimEZnFWKmboAgg6BgEfwg KlJtEYcutT3ibW6hsMdnP2 F3lXzyZUU4 l6WzffabnWAcQGJkAfNiho WqkuV6gVAsMCRVCHABTCDT G77TDMBcCVCeLhHwiKn1sF lkPSIiIGlk NBOiIIEsTEBkH8RsWFUeFB 19MZUlCOIbHWOxPknnFme7 MGW7Rkh2QtT4uTjrjbvbSG 5sGFmfNO7t H1MtF5PgUA27TWUbj10rOy cnPJf0UuoCQHzZBSQutcKu eWYqpp8aARLiqKSer768EZ 50aXRlbSBk VJDpgA31ERQdSDIbFTR4Xd AfYfauXVGrarewxKstFQ2f uZ9gXKWfV2r6MdLiXByvz2 42FR32tMjn DE7xXSCCQ1CGEA4PLOANOl GeCPeyasVioUufIK6fZcFd NX2wYxOiTZvgSCpjCSY8Tv OlKTb5LG1g LgOsQGv8ZcBsFqPiZXOeGB AzsY8qhiH0JHJ8TkB4sgBn uSOYr4D4sNJxoJL3yK1cDg 00N4Heuc4V WamUNJbomFSrZ6hkh4C7Cz HwZO5jP63wbXAbrGg7GO8b WPArKK1xryXiyZZoQHPpEg G1bnLut5G9 xJ8nf2O5eJR5GlJdxZ8oaG guvCDoIMO6P87euVSitJE5 fLN3ZuHTDCDPHhUhGIWVLf TiJFP2TW51 gCP3wJM8CdJgpPE3Hu3jDO j5DBSeYe5yDeN7FFTjLgLx BNZaAi8mBpNsDzI2EQM6Aa QdRKayjX3x O (more content not included)... Normal [facility] Comment on above: Result Comment: Elec tronically Signed By: Elen MCKINNON MD\.br\Date and Time Signed: 05/24/20 12:53 EDT\.br\Electronically Co-Signed By: Alysa Ashley\.br\Date and Time Co-Signed: 05/23/20 16:37 EDT\.br\Electronically Co-Signed By: Elen MCKINNON MD\.br\Date and Time Co-Signed: 07/08/20 10:25 EDT\.br\Electronically Co-Signed By: Mami Leonard Physician Orderon 05-24-2020 Physician Order [id number] 0CD:127 Normal [facility] Physician Order [id number] CD:127 Normal [facility] Ambulatory Clinical Summaryo n 05-23-2020 Ambulatory Clinical Summary {[id number] 6r-c7-m5-07-yh-s2-b7-1 8-4c}CD:[id number] Normal [facility] Patient Educationon 05-24-19 21 Patient Education [...] 11/14/2004 Document Revised: 06/05/2018 Document Reviewed: 06/05/2018 [employer] Patient Education ? 2019 [employer]. [facility] Historical Records Officeon 05-20-2020 Historical Records Office [id number] 0CD:127 [facility] Patient Letter FTMCon 2020 Patient Letter [facility] [place] 05, 2020 VINNY BAEZ [address] [place] [address] VINNY BAEZ 1960 Dear Vinny, This is a reminder that you are due for an appointment with Dr. Mckinnon or Dr. Molina. Please call [facility] at [phone] to schedule an appointment at your earliest convenience. Thank you, [facility] Vital Signs Date Time Vital Sign Value Performing Clinician Facility 03-26-2023 11:00-0500 Body height 179.07 cm [facility] Other [email or web address] Other 03-26-2023 11:00-0500 Body mass index (BMI) [Ratio] 27.3 kg/m2 [facility] Other [facility] Other 03-26-2023 11:00-0500 Body weight 87.54 kg [facility] Other [facility] Other 03-11-2023 11:00-0500 Body height 179.07 cm Samuel Ball Other [facility] Other 03-11-2023 11:00-0500 Body mass index (BMI) [Ratio] 27.86 kg/m2 Samuel Ball Other [facility] Other 03-11-2023 11:00-0500 Body weight 89.36 kg Samuel Ball Other [facility] Other 03-11-2023 11:00-0500 Diastolic blood pressure 88 mm[Hg] Samuel Ball Other [facility] Other 03-11-2023 11:00-0500 Respiratory rate 12 /min Samuel Ball Other [facility] Other 03-11-2023 11:00-0500 Systolic blood pressure 169 mm[Hg] Samuel Ball Other [facility] Other 02-19-2023 09:30-0500 Body height 179.07 cm Samuel Ball Other [facility] Other 02-19-2023 09:30-0500 Body mass index (BMI) [Ratio] 27.84 kg/m2 Samuel Ball Other [facility] Other 02-19-2023 09:30-0500 Body weight 89.27 kg Samuel Ball Other [facility] Other 02-19-2023 09:30-0500 Diastolic blood pressure 82 mm[Hg] Samuel Ball Other [facility] Other 02-19-2023 09:30-0500 Respiratory rate 12 /min Samuel Ball Other [facility] Other 02-19-2023 09:30-0500 Systolic blood pressure 176 mm[Hg] Samuel Ball Other [facility] Other 02-06-2023 11:15-0500 Body height 179.07 cm Samuel Ball Other [facility] Other 02-06-2023 11:15-0500 Body mass index (BMI) [Ratio] 23.22 kg/m2 Samuel Ball Other [facility] Other 02-06-2023 11:15-0500 Body weight 74.48 kg Samuel Ball Other [facility] Other 02-06-2023 11:15-0500 Diastolic blood pressure 67 mm[Hg] Samuel Ball Other [facility] Other 02-06-2023 11:15-0500 Respiratory rate 12 /min Samuel Ball Other [facility] Other 02-06-2023 11:15-0500 Systolic blood pressure 145 mm[Hg] Samuel Ball Other [facility] Other 01-29-2023 08:45-0500 Body height 179.07 cm Samuel Ball Other [facility] Other 01-29-2023 08:45-0500 Body mass index (BMI) [Ratio] 27.27 kg/m2 Samuel Ball Other [facility] Other 01-29-2023 08:45-0500 Body weight 87.45 kg Samuel Ball Other [facility] Other 01-29-2023 08:45-0500 Diastolic blood pressure 79 mm[Hg] Samuel Ball Other [facility] Other 01-29-2023 08:45-0500 Respiratory rate 12 /min Samuel Ball Other [facility] Other 01-29-2023 08:45-0500 Systolic blood pressure 120 mm[Hg] Samuel Ball Other [facility] Other 11-19-2022 09:30-0400 Body height 179.07 cm Samuel Ball Other [facility] Other 11-19-2022 09:30-0400 Body mass index (BMI) [Ratio] 27.58 kg/m2 Samuel Ball Other [facility] Other 11-19-2022 09:30-0400 Body weight 88.45 kg Samuel Ball Other [facility] Other 11-19-2022 09:30-0400 Diastolic blood pressure 88 mm[Hg] Samuel Ball Other [facility] Other 11-19-2022 09:30-0400 Respiratory rate 12 /min Samuel Ball Other [facility] Other 11-19-2022 09:30-0400 Systolic blood pressure 139 mm[Hg] Samuel Ball Other [facility] Other 06-26-2022 16:30-0400 Body height 179.07 cm Samuel Ball Other [facility] Other 06-26-2022 16:30-0400 Body mass index (BMI) [Ratio] 28.12 kg/m2 Samuel Ball Other [facility] Other 06-26-2022 16:30-0400 Body weight 90.18 kg Samuel Ball Other [facility] Other 06-26-2022 16:30-0400 Diastolic blood pressure 126 mm[Hg] Samuel Ball Other [facility] Other 06-26-2022 16:30-0400 Respiratory rate 12 /min Samuel Ball Other [facility] Other 06-26-2022 16:30-0400 Systolic blood pressure 210 mm[Hg] Samuel Ball Other [facility] Other 03-21-2022 12:00-0500 Body height 179.07 cm Samuel Ball Other [facility] Other 03-21-2022 12:00-0500 Body mass index (BMI) [Ratio] 28.2 kg/m2 Samuel Ball Other [facility] Other 03-21-2022 12:00-0500 Body weight 90.45 kg Samuel Ball Other [facility] Other 03-21-2022 12:00-0500 Diastolic blood pressure 90 mm[Hg] Samuel Ball Other [facility] Other 03-21-2022 12:00-0500 Respiratory rate 12 /min Samuel Ball Other [facility] Other 03-21-2022 12:00-0500 Systolic blood pressure 140 mm[Hg] Samuel Ball Other [email or web address] Other Encounters Encounter Date Encounter Type Care Provider Facility Start: 04-01-2023 End: 04-02-2023 ambulatory Diego Gordon MD Facility:[facility] Start: 03-27-2023 End: 03-27-2023 ambulatory Roseline Ghosh Other [email or web address] Other Start: 03-27-2023 Telephone encounter Roseline Ghosh [facility] Start: 03-26-2023 End: 03-26-2023 ambulatory Samuel Ball Other [email or web address] Other Start: 03-26-2023 Office outpatient ne w 45 minutes Roseline Ghosh [facility] Start: 03-26-2023 Telephone encounter Samuel Ball [facility] Start: 03-25-2023 End: 03-25-2023 ambulatory Samuel Ball Other [email or web address] Other Start: 03-25-2023 Telephone encounter Samuel Ball [facility] Start: 03-11-2023 End: 03-11-2023 ambulatory Samuel Ball Other [email or web address] Other Start: 03-11-2023 Office outpatient vi sit 15 minutes Samuel Ball [facility] Start: 03-05-2023 End: 03-05-2023 ambulatory Samuel Ball Other [email or web address] Other Start: 03-05-2023 Telephone encounter Samuel Ball [facility] Start: 02-26-2023 End: 02-26-2023 ambulatory Samuel Ball Other [email or web address] Other Start: 02-26-2023 Telephone encounter Samuel Ball [facility] Start: 02-19-2023 End: 02-19-2023 ambulatory Samuel Ball Other [email or web address] Other Start: 02-19-2023 Office outpatient vi sit 15 minutes Samuel Ball [facility] Start: 02-18-2023 End: 02-18-2023 ambulatory Samuel Ball Other [email or web address] Other Start: 02-18-2023 Telephone encounter Samuel Ball [facility] Start: 02-06-2023 End: 02-06-2023 ambulatory Samuel Ball Other [email or web address] Other Start: 02-06-2023 Office outpatient vi sit 15 minutes Samuel Ball [facility] Start: 02-05-2023 End: 02-05-2023 ambulatory Samuel Ball Other [email or web address] Other Start: 02-05-2023 Telephone encounter Samuel Ball [facility] Start: 01-31-2023 End: 01-31-2023 ambulatory Samuel Ball Other [email or web address] Other Start: 01-31-2023 Telephone encounter Samuel Ball [facility] Start: 01-29-2023 End: 01-29-2023 ambulatory Samuel Ball Other [email or web address] Other Start: 01-29-2023 Office outpatient vi sit 15 minutes Samuel Ball [facility] Start: 11-28-2022 End: 11-28-2022 ambulatory Samuel Ball Other [email or web address] Other Start: 11-28-2022 Encounter for genera l adult medical examination without abnormal findings Samuel Ball [facility] Start: 11-28-2022 Telephone encounter Samuel Ball [facility] Start: 11-27-2022 End: 11-27-2022 ambulatory Samuel Ball Other [email or web address] Other Start: 11-27-2022 Telephone encounter Samuel Ball [facility] Start: 11-22-2022 End: 11-22-2022 ambulatory Samuel Ball Other [email or web address] Other Start: 11-22-2022 Telephone encounter Samuel Ball [facility] Start: 11-19-2022 End: 11-19-2022 ambulatory Samuel Ball Other [email or web address] Other Start: 11-19-2022 Encounter for genera l adult medical examination without abnormal findings Samuel Zhao [facility] Start: 11-19-2022 Periodic preventive med est patient 40-64yrs Samuel Zhao [facility] Start: 08-03-2022 End: 08-03-2022 ambulatory Samuel Pavel Other [email or web address] Other Start: 08-03-2022 Telephone encounter Samuel Pavel [facility] Start: 07-18-2022 End: 07-19-[address] SAMUEL ZHAO Facility:[facility] Start: 06-28-2022 End: 06-28-2022 ambulatory Samuel Pavel Other [email or web address] Other Start: 06-28-2022 Telephone encounter Samuel Pavel [facility] Start: 06-27-2022 End: 06-28-[address] SAMUEL ZHAO Facility:[facility] Start: 06-26-2022 End: 06-26-2022 ambulatory Samuel Zhao Other [email or web address] Other Start: 06-26-2022 Office outpatient vi sit 25 minutes Samuel Zhao [facility] Start: 05-22-2022 End: 05-22-2022 ambulatory Samuel Pavel Other [email or web address] Other Start: 05-22-2022 Telephone encounter Samuel Zhao [facility] Start: 05-15-2022 End: 05-15-2022 ambulatory Samuel Pavle Other [email or web address] Other Start: 05-15-2022 Telephone encounter Samuel [facility] Start: 04-12-2022 End: 04-12-2022 ambulatory Samuel Pavel Other [email or web address] Other Start: 04-12-2022 Telephone encounter Samuel [facility] Start: 04-05-2022 End: 04-05-2022 ambulatory Samuel Ball Other [email or web address] Other Start: 04-05-2022 Telephone encounter [facility] Start: 04-04-2022 End: 04-04-2022 ambulatory Samuel Zhao Other [facility] [employer] Other Start: 04-04-2022 Telephone encounter Samuel [facility] Start: 03-21-2022 Office outpatient vi sit 25 minutes Samuel [facility] Start: 03-21-2022 End: 03-22-[address] HEALY [facility] [place] [employer] Other Start: 12-04-2021 Encounter for genera l adult medical examination without abnormal findings DR SAMUEL ZHAO [facility] Start: 12-01-2021 End: 12-02-2021 Encounter for general adult medical examination without abnormal findings DR SAMUEL ZHAO Facility:[facility] Start: 12-01-2021 End: 12-02-[address] SAMUEL ZHAO Facility:[facility] Start: 08-09-2021 End: 08-10-[address] SAMUEL ZHAO Facility:[facility] Procedures Date Procedure Procedure Detail Performing Clinician Start: 12-01-[address] MORGAN [place] Comment on above: Performed By: #### V [email or web address], PSASC #### [facility] [address] [place] [address] Dr. Gerardo Larose Depression screening Clari Zhao Other Payers Date Payer Category Payer Private Health Insurance 1960 Unknown [id number] 2.16.84 [id number] 1960 Unknown [id number] 2.16.84 [id number] 1959 Unknown [id number] 2.16.84 [id number] 1959 Unknown [id number] 2.16.84 [id number] 1959 Unknown [id number] 2.16.84 [id number] 1959 Unknown [id number] 2.16.84 [id number] 1959 Unknown [id number] 2.16.84 [id number] 1959 Unknown [id number] 2.16. [id number] 1960 Private Health Insurance [id number] Social History Date Type Detail Facility Sex Assigned At [email or web address] Other Medical Equipment Procedure Code Equipment Code [...] 62 yo male who works for the [employer] and states since december he has been [...] to provide reprieve. This patient has tried [id number] and prescription medications for greater than a [...] Mar, Diabetic peripheral neuropathy (ICD-10 - E11.42) [email or web address] Other 01-22-2024 Evaluation note* Encounter Date Diagnosis Assessment Notes Treatment Notes Treatment Clinical Notes Mar, Acute left-sided low back pain with left-sided sciatica (ICD-10 - M54.42) [email or web address] Other 01-08-2024 Evaluation note* Encounter Date Diagnosis [...] Instructed to increase Losartan to 100mg qd [email or web address] Other 01-02-2024 Evaluation note* Encounter Date Diagnosis Assessment Notes Treatment Notes Treatment Clinical Notes Mar, Acute left-sided low back pain with left-sided sciatica (ICD-10 - M54.42) [email or web address] Other 12-26-2023 Evaluation note* Encounter Date Diagnosis Assessment Notes Treatment Notes Treatment Clinical Notes Feb, Acute left-sided low back pain with left-sided sciatica (ICD-10 - M54.42) [email or web address] Other 12-19-2023 Evaluation note* Encounter Date Diagnosis [...] Microalbumin, Dilated eye exam and Foot exam [email or web address] Other 2023 Evaluation note* Encounter Date Diagnosis Assessment Notes Treatment Notes Treatment Clinical Notes Feb, Acute left-sided low back pain with left-sided sciatica (ICD-10 - M54.42) [email or web address] Other 12-06-2023 Evaluation note* Encounter Date Diagnosis [...] as it will resolve once off steroids [email or web address] Other 12-05-2023 Evaluation note* Encounter Date Diagnosis Assessment Notes Treatment Notes Treatment Clinical Notes Feb, Acute left-sided low back pain with left-sided sciatica (ICD-10 - M54.42) [email or web address] Other 11-28-2023 Evaluation note* Encounter Date Diagnosis [...] BS values, which requires no dose adjustments [email or web address] Other 09-27-2023 Evaluation note* Encounter Date Diagnosis Assessment Notes Treatment Notes Treatment Clinical Notes Nov, Elevated transaminase level (ICD-10 - R74.01) Nov, Wellness examination (ICD-10 - Z00.00) Nov, Fatty liver (ICD-10 - K76.0) [email or web address] Other 09-21-2023 Evaluation note* Encounter Date Diagnosis Assessment Notes Treatment Notes Treatment Clinical Notes Nov, Cigarette nicotine dependence without complication (ICD-10 - F17.210) LDCT: no suspicious nodules 11/2021, [email or web address] Other 09-18-2023 Evaluation note* Encounter Date Diagnosis [...] (ICD-10 - Z12.5) Yearly PSA and ARCHANA [email or web address] Other 06-02-2023 Evaluation note* Encounter Date Diagnosis Assessment Notes Treatment Notes Treatment Clinical Notes Aug, Type 2 diabetes mellitus with hyperglycemia, without long-term current use of insulin (ICD-10 - E11.65) [email or web address] Other 04-27-2023 NotePROCEDURE: XR ANKLE RT 2V, XR FOOT RT 2V COMPARISON: None. HISTORY: Pain in right foot FINDINGS: BONES:No acute fracture or dislocation. Mild degenerative changes most significant at the first metatarsal phalangeal joint SOFT TISSUES:Negative. No visible soft tissue swelling. EFFUSION:None visible. OTHER: Negative. IMPRESSION: Mild degenerative changes Electronically authenticated by: VINNY EDGE Date: 2022-06-28 07:[facility]04-27-2023 NotePROCEDURE: XR ANKLE RT 2V, XR FOOT RT 2V COMPARISON: None. HISTORY: Pain in right foot FINDINGS: BONES:No acute fracture or dislocation. Mild degenerative changes most significant at the first metatarsal phalangeal joint SOFT TISSUES:Negative. No visible soft tissue swelling. EFFUSION:None visible. OTHER: Negative. IMPRESSION: Mild degenerative changes Electronically authenticated by: VINNY EDGE Date: 2022-06-28 07:[facility]04-25-2023 Evaluation note* Encounter Date Diagnosis Assessment [...] No vesicles or bleeding. Nontender but pruritic [email or web address] Other 03-21-2023 Evaluation note* Encounter Date Diagnosis Assessment Notes Treatment Notes Treatment Clinical Notes May, Gastroesophageal ref lux disease with esophagitis without hemorrhage (ICD-10 - K21.00) [email or web address] Other 03-14-2023 Evaluation note* Encounter Date Diagnosis Assessment Notes Treatment Notes Treatment Clinical Notes May, Gastroesophageal ref lux disease with esophagitis without hemorrhage (ICD-10 - K21.00) May, Essential hypertensi on (ICD-10 - I10) May, Type 2 diabetes mellitus with diabetic polyneuropathy, without long-term current use of insulin (ICD-10 - E11.42) May, Elevated cholesterol (ICD-10 - E78.00) [email or web address] Other 02-09-2023 Evaluation note* Encounter Date Diagnosis Assessment Notes Treatment Notes Treatment Clinical Notes Apr, Type 2 diabetes mellitus with diabetic polyneuropathy, without long-term current use of insulin (ICD-10 - E11.42) [email or web address] Other 02-02-2023 Evaluation note* Encounter Date Diagnosis Assessment Notes Treatment Notes Treatment Clinical Notes Apr, Gastroesophageal ref lux disease with esophagitis without hemorrhage (ICD-10 - K21.00) [email or web address] Other 02-01-2023 Evaluation note* Encounter Date Diagnosis Assessment Notes Treatment Notes Treatment Clinical Notes Apr, Gastroesophageal ref lux disease with esophagitis without hemorrhage (ICD-10 - K21.00) [email or web address] Other 01-18-2023 Evaluation note* Encounter Date Diagnosis [...] Diet and exercise with continued statin therapy. [email or web address] Other [id number] NotePatient: VINNY BAEZ Age: 60 years Sex: Male : 1960 Associated Diagnoses: None Author: Mehreen Dodge MA Results Review Original Procedure Date 06/15/2020 Revised repeat colonoscopy interval 5 years Adenomatous polyp(s) present 1 or 2 tubular adenomas less than 10mm Adenocarcinoma present No Serrated lesion(s) present Sessile serrated polyp(s) less than 10mm with no dysplasia Hyperplastic polyp(s) present [facility]04-19-2021 Note [id number]:[address] [place] [address] Evaluation noteNo InformationNortMer[facility] [employer] Other History general Narrative - Reported* Type [...] History COLONOSCOPY Hospitalization History see surgical hx [email or web address] Other History general Narrative - Reported* Type [...] years) 2020 Hospitalization History see surgical hx [facility] [employer] Other Reason for referral (narrative)* Reason Referral for ankle/f oot mass. Diagnosis 1 Mass of right ankle (R22.41) Referral Organization [facility] Nani dial Referring Provider First Name Samuel Referring Provider Last Name Pavel Referring Provider Specialty Internal Me darell Referred Organization [facility] Referred Provider Caprice Roberts Referred Address [address] [place], [place],[address] Referred Provider Specialty Podiatry - S urgical Chiropody Referral Priority Routine General Notes Patient c/o mass at the junction of his foot/ankle, which has developed over the past 2 months. He has a remote hx of ankle injury. It is not tender, erythematous or associated w/ bruising. Clinical Notes XR negative [email or web address] Other Summary Purpose Family History No Family History Records FoundNo Family History Records FoundNo Family History Records Found Advance Directives No Advanced Directives Records FoundNo Advanced Directives Records FoundNo Advanced Directives Records Found Reason for Referral Reason evaluate and tr eat Diagnosis 1 Spinal stenosis of l umbar region with neurogenic claudication (M48.062) Referral Organization [facility] [place] Referring Provider First Name Roseline Referring Provider Last Name Davina Referring Provider Specialty Nurse Pract itioner Referred Organization [facility] Referred Provider Park Hallman Referred Address [address] [facility] [place],[address] Referred Provider Specialty Pain Medicin e Referral Priority Routine General Notes Kristin King 12:49:27 PM > received today, attached documents, waiting for note to be locked before sending Reason Mr. Baez is being r eferred for low back and left leg pain. Diagnosis 1 Acute left-sided low back pain with left-sided sciatica (M54.42) Referral Organization [facility] Pavel dial Referring Provider First Name Samuel Referring Provider Last Name Pavel Referring Provider Specialty Internal Me dicine Referred Organization [facility] Referred Provider Deric Vega Referred Address [address] [place], [place],[address] Referred Provider Specialty Neurological Surgery Referral Priority [...] DATE CREATED AUTHOR 02/26/2021 Zackary Payan [facility] DATE CREATED AUTHOR AUTHOR'S ORGANIZ ATION 07/19/[address] [facility] DATE CREATED AUTHOR AUTHOR'S ORGANIZ ATION 04/04/2023 [facility] REASON FOR VISIT (unrecogniz ed section and [...] BE BASED ON THE PRIMARY CLINICAL RECORDS. [facility] u[employer] [facility]. provides no warranty or guarantee of the accuracy or completeness of information in this document.
[2023-04-22 07:53] LABS: Glucometer 507 mg/dL (74-106)
[2023-04-22 07:53] LABS: Glucometer 487 mg/dL (74-106)
[2023-04-22 08:08] VITALS: BMI 30.1
[2023-04-22 08:13] LABS: Glucometer 445 mg/dL (74-106)
--- NOTE | 2023-04-22 10:31 | PC.NURSE ---
Informed Dr. Tran of elevated blood sugar Pt to be taken to ER 0802 Pt transported to ER per cart no complaints offered
== END 2023-04-22 08:02 | disposition home or self-care (01) ==
PROVIDERS: PCP Internal Medicine; Visit Provider Anesthesiology
DX: M46.1 Sacroiliitis, not elsewhere classified (principal); Z53.8 Procedure and treatment not carried out for other reasons; R73.9 Hyperglycemia, unspecified
CPT/HCPCS: 36415

== ENCOUNTER 2023-04-22 08:05 | Emergency (ER) | payer OTHER, SELFPAY ==
[2023-04-22 08:08] VITALS: BP 145/88; PULSE 79; RESP 20; TEMP 36.8; O2SAT 94; BMI 30.4
--- NOTE | 2023-04-22 08:09 | ECG_ITS ---
[facility] Test Date: 2023-04-22 Pat Name: VINNY CERON Department: Room: - Gender: Male Emergency Specialist: : 1960 Requested By: NESHA VALDEZ Order Number: [id number] Reading MD: NESHA VALDEZ Measurements Intervals [place] Rate: 78 P: 57 WY: 178 QRS: 11 QRSD: 80 T: 16 QT: 362 QTc: 396 Interpretive Statements 1100 Sinus rhythm 9110 normal ECG No previous ECG available for comparison Electronically Signed On 04-22-2023 23:24:48 EST by NEHSA VALDEZ
--- NOTE | 2023-04-22 08:12 | ED.RECABL1 ---
HPI - Recheck/Abnormal Lab/Rx General Chief Complaint: Recheck/Abnormal Lab/Rx Stated Complaint: HIGH BLOOD SUGAR Time Seen by Provider: 04/22/23 08:08 Source: patient Limitations: no limitations History of Present Illness HPI narrative: 62-year-old male presenting for elevated blood sugar. He has no physical symptoms. He was scheduled to have an outpatient procedure on his back, and injection, this morning but they checked his blood sugar and it was high so they sent him down here. He had some food at 4 AM. No fever vomiting or chest pain. He has been taking his diabetes medication. Related Data Home Medications Medication Instructions Recorded Confirmed albuterol sulfate 90 mcg/actuation 1 puff inhalation QDAY 01/28/23 04/08/23 aerosol inhaler amlodipine 5 mg tablet 5 mg PO QDAY 01/28/23 04/08/23 atorvastatin 10 mg tablet 10 mg PO QDAY 01/28/23 04/08/23 bisoprolol 5 1 tab PO QDAY 01/28/23 01/28/23 mg-hydrochlorothiazide 6.25 mg tablet glimepiride 2 mg tablet 2 mg PO QDAY 01/28/23 04/08/23 losartan 50 mg tablet 50 mg PO QDAY 01/28/23 04/08/23 omeprazole 20 mg capsule,delayed 20 mg PO QDAY 01/28/23 04/08/23 release sitagliptin phosphate 50 mg tablet 50 mg PO QDAY 01/28/23 04/08/23 (Januvia) Allergies Allergy/AdvReac Type Severity Reaction Status Date / Time metformin AdvReac Mild Diarrhea Verified 04/02/23 09:39 Review of Systems ROS Narrative A ten point review of systems is negative except as noted above. [facility] Medical History (Updated 04/22/23 @ 09:51 by Abe Cruz MD) BPH (benign prostatic hyperplasia) ?N40.0 - Benign prostatic hyperplasia without lower urinary tract symptoms (ICD-10) Neuropathy ?G62.9 - Polyneuropathy, unspecified (ICD-10) Low back pain ?M54.50 - Low back pain, unspecified (ICD-10) Diabetes ?E11.9 - Type 2 diabetes mellitus without complications (ICD-10) Smoker ?F17.200 - Nicotine dependence, unspecified, uncomplicated (ICD-10) High cholesterol ?E78.00 - Pure hypercholesterolemia, unspecified (ICD-10) Hypertension ?I10 - Essential (primary) hypertension (ICD-10) Social History Smoking status: Never smoker Exam Narrative Exam Narrative: Nurses note and vital signs reviewed and patient is not hypoxic. General: The patient appears well and in no apparent distress. Patient is resting comfortably on cart. Skin: Warm, dry, no pallor noted. There is no rash noted. Head: Normocephalic, atraumatic Eye: Normal conjunctiva, no drainage Ears, Nose, Mouth, and Throat: oral mucosa is moist. Nares patent. Cardiovascular: Regular Rate and Rhythm Respiratory: Patient is in no distress, no accessory muscle use, lungs are clear to auscultation, no wheezing, rales or rhonchi Back: non-tender GI: Soft and nontender Musculoskeletal: The patient has no evidence of calf tenderness, no pitting edema, symmetrical pulses noted bilaterally Neurological: A&O, normal speech Psychiatric: Cooperative Constitutional Vital Signs, click to edit/add: Last Vital Signs Temp 98.2 F 04/22/23 08:08 Pulse 79 04/22/23 08:08 Resp 20 04/22/23 08:08 BP 145/88 H 04/22/23 08:08 Pulse Ox 94 L 04/22/23 08:08 O2 Del Method Room Air 04/22/23 08:08 Course Vital Signs Vital signs: Vital Signs Temperature 98.2 F 04/22/23 08:08 Pulse Rate 79 04/22/23 08:08 Respiratory Rate 20 04/22/23 08:08 Blood Pressure 145/88 H 04/22/23 08:08 Pulse Oximetry 94 L 04/22/23 08:08 Oxygen Delivery Method Room Air 04/22/23 08:08 Temperature 98.2 F 04/22/23 08:08 Pulse Rate 79 04/22/23 08:08 Respiratory Rate 20 04/22/23 08:08 Blood Pressure 145/88 H 04/22/23 08:08 Pulse Oximetry 94 L 04/22/23 08:08 Oxygen Delivery Method Room Air 04/22/23 08:08 MDM - Recheck/Abnormal Lab/Rx MDM Narrative Medical decision making narrative: Blood sugar was over 500 initially and it has come down significantly with IV fluids. It continues to trend downward and the patient does not feel that he needs any more intervention. He states his doctor tells him that his blood sugar should be below 240. He has no symptoms and is being released. He will be able to check his blood sugar later today at home. Treatment diagnosis and follow-up were discussed with the patient. Differential Diagnosis Differential diagnosis: Likely other (Hyperglycemia) Lab Data Attestation: I reviewed the patient's lab results. Labs: Lab Results 04/22/23 04/22/23 Range/Units 08:23 09:45 WBC 9.9 (4.0-11.0) 10^3/uL RBC 3.94 L (4.70-6.10) 10^6/uL Hgb 12.9 L (14.0-18.0) g/dL Hct 38.0 L (42.0-54.0) % MCV 96.4 H (80.0-94.0) fL MCH 32.7 (25.9-34.0) pg MCHC 33.9 (29.9-35.2) g/dL RDW 13.1 (11.0-15.0) % Plt Count 273 (150-450) 10^3/uL MPV 10.7 (9.5-13.5) fL Neut % (Auto) 70.7 (43.0-75.0) % Lymph % (Auto) 21.7 (20.5-60.0) % [place] % (Auto) 6.5 (1.7-12.0) % Eos % (Auto) 0.1 L (0.9-7.0) % Baso % (Auto) 0.7 (0.2-2.0) % Neut # (Auto) 7.0 H (1.4-6.5) 10^3/uL Lymph # (Auto) 2.2 (1.2-3.8) 10^3/uL [place] # (Auto) 0.6 (0.3-0.8) 10^3/uL Eos # (Auto) 0.0 (0.0-0.7) 10^3/uL Baso # (Auto) 0.1 (0.0-0.1) 10^3/uL Abs Immat Gran (auto) 0.03 (0.00-0.03) 10^3/uL Imm/Tot Granulo (auto) 0.3 (0.0-0.5) % Sodium 134 L (136-145) mmol/L Potassium 4.6 (3.5-5.1) mmol/L Chloride 97 L (98-107) mmol/L Carbon Dioxide 27.7 (21.0-32.0) mmol/L Anion Gap 13.9 BUN 23.0 H (7.0-18.0) mg/dL Creatinine 1.01 (0.70-1.30) mg/dL Est GFR ( Amer) >60 (>=60) Est GFR (Non-Af Amer) >60 (>=60) BUN/Creatinine Ratio 22.8 Glucose 448 H (74-106) mg/dL Calcium 9.5 (8.5-10.1) mg/dL POC Glucose 391 H (74-106) mg/dL ECG Data Attestation: I personally reviewed and interpreted this ECG as follows: (EKG on my interpretation shows sinus rhythm with a rate of 78 and no acute changes.) Discharge Plan Discharge Chief Complaint: Recheck/Abnormal Lab/Rx Clinical Impression: Hyperglycemia Patient Disposition: Home, Self-Care Time of Disposition Decision: 09:51 Condition: Good Mode of Transportation: Private Vehicle Prescriptions / Home Meds: No Action albuterol sulfate 90 mcg/actuation HFA aerosol inhaler 1 puff INHALATION QDAY amlodipine 5 mg tablet 5 mg PO QDAY atorvastatin 10 mg tablet 10 mg PO QDAY bisoprolol-hydrochlorothiazide 5-6.25 mg tablet 1 tab PO QDAY Hold Instructions: Order Change glimepiride 2 mg tablet 2 mg PO QDAY losartan 50 mg tablet 50 mg PO QDAY omeprazole 20 mg capsule,delayed release(DR/EC) 20 mg PO QDAY Januvia 50 mg tablet 50 mg PO QDAY Instructions: Diabetic Hyperglycemia (ED) Stand Alone Forms: Portal Instructions Referrals: Samuel Zhao DO [Primary Care Provider] - 1 week
--- OUTSIDE RECORDS SUMMARY | 2023-04-22 08:16 | XMS_ITS | CCD ---
Author Name Unknown Address [address] [place] [address] Organization [facility] Care Team Providers Care Electronic Sales And Service Technician Name Role Phone Samuel Zhao Unavailable PAVEL, DR EJFFRIES Primary Care Unavailable REAL, CAPRICE Mendez Admitting [...] Facility (20 sources) metFORMIN Drug Allergy diarrhea [facility] Other Medications Current Medications Medication Drug Class(es) Dates Sig (Normalized) Sig (Original) acetaminophen 325 mg / oxyCODONE hydrochloride 5 mg oral tablet (20 sources) Opioid Agonist Start: 01-31-2023 take 1 tablet by mouth every six hours oxyCODONE-Acetami nophen 5-325 MG 1 tablet as needed Orally every 6 hrs for 7 days p/u 03/11, start 03/12Mar, Active [id number] actuat albuterol 0.09 mg/actuat metered dose [...] CAPRICE SHORE Date: 2022-07-18 18:48 Normal [facility] GLYCOHEMOGLOBIN A1Con 2022 ADA RECOMMENDATION SEE BELOW Normal [facility] Comment on above: Result Comment: ADA RECOMMENDED LIMIT 4.0 - 6.0 ADA THERAPEUTIC TARGET < 7.0 ACTION SUGGESTED > 7.0 Performed By: #### C MP, LIPID, TSH #### [facility] [address], [place] [address] Dr. Gerardo Larose Glucose [Mass/Vol] 143 mg/dL Normal [facility] Comment on above: Performed By: #### C MP, LIPID, TSH #### [facility] [address], [place] [address] Dr. Gerardo Larose HbA1c (Bld) [Mass fraction] 6.6 % Critically high 4.5-6.[address] [facility] Comment on above: Performed By: #### C MP, LIPID, TSH #### [facility] [address] [place] [address] [address] Gerardo Larose MRI LSPINE WO CONon [...] VINNY EDGE Date: 2022-03-21 16:49 Normal [facility] CT LUNG CANCER SCREENINGon 1 CT LUNG [...] VINNY EDGE Date: 2021-12-04 07:24 Normal [facility] CBC AUTO DIFFon 12-01-2021 BASO # 0.1 103/ul Normal 0.0-0.[address] [facility] Comment on above: Performed By: #### C MP, LIPID, TSH #### [facility] [address] [place] [address] Dr. Gerardo Larose Basophils/100 WBC (Bld) 0.9 % Normal 0.2-2.[address] [facility] Comment on above: Performed By: #### C MP, LIPID, TSH #### [facility] [address] [place] [address] Dr. Gerardo Larose EO # 0.2 103/ul Normal 0.0-0.[address] [facility] Comment on above: Performed By: #### C MP, LIPID, TSH #### [facility] [address] [place] [address] Dr. Gerardo Larose Eosinophils/100 WBC (Bld) 2.5 % Normal 0.9-7.0 [facility] Comment on above: Performed By: #### C MP, LIPID, TSH #### [facility] [address] [place] [address] Dr. Gerardo Larose Erythrocyte distribution width (RBC) [Ratio] 13.7 % Normal 11.0-15.0 [facility] Comment on above: Performed By: #### C MP, LIPID, TSH #### [facility] [address] [place] [address] Dr. Gerardo Larose Hematocrit (Bld) [Volume fraction] 46.3 % Normal 42.0-54.[address] [facility] Comment on above: Performed By: #### C MP, LIPID, TSH #### [facility] [address] [place] [address] Dr. Gerardo Larose Hemoglobin (Bld) [Mass/Vol] 15.7 g/dL Normal 14.0-18.[address] [facility] Comment on above: Performed By: #### C MP, LIPID, TSH #### [facility] [address] [place] [address] Dr. Gerardo Larose IG # 0.03 10e3/ul Normal 0.00-0.03 [facility] Comment on above: Performed By: #### C MP, LIPID, TSH #### [facility] [address] [place] [address] Dr. Gerardo Larose IG % 0.4 % Normal 0.0-0.5 [facility] Comment on above: Performed By: #### C MP, LIPID, TSH #### [facility] [address] [place] [address] Dr. Gerardo Larose LYMPH # 2.1 103/ul Normal 1.2-3.8 [facility] Comment on above: Performed By: #### C MP, LIPID, TSH #### [facility] [address] [place] [address] Dr. Gerardo Larose Lymphocytes/100 WBC (Bld) 31.2 % Normal 20.5-60.0 [facility] Comment on above: Performed By: #### C MP, LIPID, TSH #### [facility] [address] [place] [address] Dr. Gerardo Larose MANUAL DIFF REQ NO Normal [facility] Comment on above: Performed By: #### C MP, LIPID, TSH #### [facility] [address] [place] [address] Dr. Gerardo Larose MCH (RBC) [Entitic mass] 31.3 pg Normal 25.9-34.[address] [facility] Comment on above: Performed By: #### C MP, LIPID, TSH #### [facility] [address] [place] [address] Dr. Gerardo Larose MCHC (RBC) [Mass/Vol] 33.9 g/dL Normal 29.9-35.[address] [facility] Comment on above: Performed By: #### C MP, LIPID, TSH #### [facility] [address] [place] [address] Dr. Gerardo Larose MCV (RBC) [Entitic vol] 92.4 fL Normal 80.0-94.[address] [facility] Comment on above: Performed By: #### C MP, LIPID, TSH #### [facility] [address] [place] [address] Dr. Gerardo Larose MONO # 0.5 103/ul Normal 0.3-0.[address] [facility] Comment on above: Performed By: #### C MP, LIPID, TSH #### [facility] [address] [place] [address] Dr. Gerardo Larose Monocytes/100 WBC (Bld) 7.8 % Normal 1.7-12.0 [facility] Comment on above: Performed By: #### C MP, LIPID, TSH #### [facility] [address] [place] [address] Dr. Gerardo Larose NEUT # 3.8 103/ul Normal 1.4-6.[address] [facility] Comment on above: Performed By: #### C MP, LIPID, TSH #### [facility] [address] [place] [address] Dr. Gerardo Larose Neutrophils/100 WBC (Bld) 57.2 % Normal 43.0-75.[address] [facility] Comment on above: Performed By: #### C MP, LIPID, TSH #### [facility] [address] [address] [address] Gerardo Larose Platelet mean volume (Bld) [Entitic vol] 10.2 fL Normal 9.5-13.[address] [facility] Comment on above: Performed By: #### C MP, LIPID, TSH #### [facility] [address] [address] [address] Gerardo Larose PLT 190 103/ul Normal 150-450 [facility] Comment on above: Performed By: #### C MP, LIPID, TSH #### [facility] [address] [place] [address] Dr. Gerardo Larose RBC 5.01 106/ul Normal 4.70-6.10 [facility] Comment on above: Performed By: #### C MP, LIPID, TSH #### [facility] [address] [address] [address] Gerardo Larose WBC 6.7 103/ul Normal 4.0-11.[address] [facility] Comment on above: Performed By: #### C MP, LIPID, TSH #### [facility] [address] [place] [address] Dr. Gerardo Larose GLYCOHEMOGLOBIN A1Con 2021 ADA RECOMMENDATION SEE BELOW Normal [facility] Comment on above: Result Comment: ADA RECOMMENDED LIMIT 4.0 - 6.0 ADA THERAPEUTIC TARGET < 7.0 ACTION SUGGESTED > 7.0 Performed By: #### C MP, LIPID, TSH #### [facility] [address] [place] [address] Dr. Gerardo Larose Glucose [Mass/Vol] 140 mg/dL Normal [facility] Comment on above: Performed By: #### C MP, LIPID, TSH #### [facility] [address] [place] [address] Dr. Gerardo Larose HbA1c (Bld) [Mass fraction] 6.5 % Critically high 4.5-6.[address] [facility] Comment on above: Performed By: #### C MP, LIPID, TSH #### [facility] [address] [address] [address] Gerardo Larose LIPID PROFILEon 12-01-2021 CHOL-HDL RATIO NORM SEE BELOW Normal [facility] Comment on above: Result Comment: 3.3 - 4.4 LOW RISK 4.4 - 7.1 AVERAGE RISK 7.1 - 11.0 MODERATE RISK >11.0 HIGH RISK Performed By: #### C MP, LIPID, TSH #### [facility] [address] [address] [address] Gerardo Larose Cholesterol [Mass/Vol] 202 mg/dL Critically high <=[address] [facility] Comment on above: Performed By: #### C MP, LIPID, TSH #### [facility] [address] [address] [address] Gerardo Larose Cholesterol in HDL [Mass/Vol] 58 mg/dL Normal 40-[address] [facility] Comment on above: Performed By: #### C MP, LIPID, TSH #### [facility] [address] [address] [address] Gerardo Larose Cholesterol in LDL [Mass/Vol] 104.2 mg/dL Normal [facility] Comment on above: Performed By: #### C MP, LIPID, TSH #### [facility] [address] [address] [address] Gerardo Larose Cholesterol.total/Cho lesterol in HDL [Mass ratio] 3.5 {ratio} Normal [facility] Comment on above: Performed By: #### C MP, LIPID, TSH #### [facility] [address] [address] [address] Gerardo Larose HDL NORMAL > or = 60 mg/dl - LO W CARDIOVASCULAR RISK <40 mg/dl - HIGH CARDIOVASCULAR RISK Normal [facility] Comment on above: Performed By: #### C MP, LIPID, TSH #### [facility] [address] [address] [address] Gerardo Larose LDL CALC NORMAL SEE BELOW Normal [facility] Comment on above: Result Comment: <100 mg/dl OPTIMAL 100 - 129 mg/dl NEAR OR ABOVE OPTIMAL 130 - 159 mg/dl BORDERLINE HIGH 160 - 189 mg/dl HIGH >190 mg/dl VERY HIGH Performed By: #### C MP, LIPID, TSH #### [facility] [address] [place] [address] Dr. Gerardo Larose Triglyceride [Mass/Vol] 199 mg/dL Critically high <=[address] [facility] Comment on above: Performed By: #### C MP, LIPID, TSH #### [facility] [address] [place] [address] Dr. Gerardo Larose VLDL CALC 39.8 mg/dL Normal [facility] Comment on above: Performed By: #### C MP, LIPID, TSH #### [facility] [address] [place] [address] Dr. Gerardo Larose MICROALBUMIN, RAND URon 11-04 mALB 28.7 mg/L Normal <=30.[address] [facility] Comment on above: Performed By: #### C MP, LIPID, TSH #### [facility] [address] [place] [address] Dr. Gerardo Larose PROF 14(COMP METB)on 022 Albumin [Mass/Vol] 3.7 g/dL Normal 3.4-5.0 [facility] Comment on above: Performed By: #### C MP, LIPID, TSH #### [facility] [address] [place] [address] Dr. Gerardo Larose Albumin/Globulin [Mass ratio] 0.9 {ratio} Normal [facility] Comment on above: Performed By: #### C MP, LIPID, TSH #### [facility] [address] [place] [address] Dr. Gerardo Larose ALP [Catalytic activity/Vol] 84 U/L Normal 46-[address] [facility] Comment on above: Performed By: #### C MP, LIPID, TSH #### [facility] [address] [place] [address] Dr. Gerardo Larose ALT [Catalytic activity/Vol] 45 U/L Normal 16-[address] [facility] Comment on above: Performed By: #### C MP, LIPID, TSH #### [facility] [address] [address] [address] Gerardo Larose Anion gap [Moles/Vol] 10.8 mmol/L Normal [facility] Comment on above: Performed By: #### C MP, LIPID, TSH #### [facility] [address] [address] [address] Gerardo Larose AST [Catalytic activity/Vol] 26 U/L Normal 15-[address] [facility] Comment on above: Performed By: #### C MP, LIPID, TSH #### [facility] [address] [address] [address] Gerardo Larose Bilirubin [Mass/Vol] 0.6 mg/dL Normal 0.2-1.[address] [facility] Comment on above: Performed By: #### C MP, LIPID, TSH #### [facility] [address] [place] [address] Dr. Gerardo Larose Calcium [Mass/Vol] 9.4 mg/dL Normal 8.5-10.1 [facility] Comment on above: Performed By: #### C MP, LIPID, TSH #### [facility] [address] [address] [address] Gerardo Larose Chloride [Moles/Vol] 100 mmol/L Normal 98-[address] [facility] Comment on above: Performed By: #### C MP, LIPID, TSH #### [facility] [address] [address] [address] Gerardo Larose CO2 [Moles/Vol] 28.9 mmol/L Normal 21.0-32.0 [facility] Comment on above: Performed By: #### C MP, LIPID, TSH #### [facility] [address] [address] [address] Gerardo Larose Creatinine [Mass/Vol] 0.95 mg/dL Normal 0.70-1.[address] [facility] Comment on above: Performed By: #### C MP, LIPID, TSH #### [facility] [address] [address] [address] Gerardo Larose EGFR-AF [place] ISLANDER >60 Normal >=60 [facility] Comment on above: Performed By: #### C MP, LIPID, TSH #### [facility] [address] [address] [address] Gerardo Larose EGFR-NON AF [place]ER >60 Normal >=[address] [facility] Comment on above: Performed By: #### C MP, LIPID, TSH #### [facility] [address] [address] [address] Gerardo Larose Globulin (S) [Mass/Vol] 3.9 g/dL Normal [facility] Comment on above: Performed By: #### C MP, LIPID, TSH #### [facility] [address] [address] [address] Gerardo Larose Glucose [Mass/Vol] 128 mg/dL Critically high 74-106 [facility] Comment on above: Performed By: #### C MP, LIPID, TSH #### [facility] [address] [place] [address] Dr. Gerardo Larose Potassium [Moles/Vol] 3.7 mmol/L Normal 3.5-5.[address] [facility] Comment on above: Performed By: #### C MP, LIPID, TSH #### [facility] [address] [address] [address] Gerardo Larose Protein [Mass/Vol] 7.6 g/dL Normal 6.4-8.2 [facility] Comment on above: Performed By: #### C MP, LIPID, TSH #### [facility] [address] [address] [address] Gerardo Larose Sodium [Moles/Vol] 136 mmol/L Normal 136-145 [facility] Comment on above: Performed By: #### C MP, LIPID, TSH #### [facility] [address] [address] [address] Gerardo Larose Urea nitrogen [Mass/Vol] 15.0 mg/dL Normal 7.0-18.[address] [facility] Comment on above: Performed By: #### C MP, LIPID, TSH #### [facility] [address] [address] [address] Gerardo Larose Urea nitrogen/Creatinine [Mass ratio] 15.8 mg/mg Normal [facility] Comment on above: Performed By: #### C MP, LIPID, TSH #### [facility] [address] [address] [address] Gerardo Larose TSHon 12-01-2021 TSH 1.388 uIU/mL Normal 0.358-3.740 [facility] Comment on above: Performed By: #### C MP, LIPID, TSH #### [facility] [address] [address] [address] Gerardo Larose VITAMIN B12on 12-01-2021 Cobalamin (Vitamin B12) [Mass/Vol] 382.0 pg/mL Normal 193.0-986.[address] [facility] Comment on above: Performed By: #### V ITB12, PSASC #### [facility] [address] [address] [address] Gerardo Larose GLYCOHEMOGLOBIN A1Con 2021 ADA RECOMMENDATION SEE BELOW Normal [facility] Comment on above: Result Comment: ADA RECOMMENDED LIMIT 4.0 - 6.0 ADA THERAPEUTIC TARGET < 7.0 ACTION SUGGESTED > 7.0 Performed By: #### C MP, LIPID, TSH #### [facility] [address] [address] [address] Gerardo Larose Glucose [Mass/Vol] 192 mg/dL Normal [facility] Comment on above: Performed By: #### C MP, LIPID, TSH #### [facility] [address] [address] [address] Gerardo Larose HbA1c (Bld) [Mass fraction] 8.3 % Critically high 4.5-6.[address] [facility] Comment on above: Performed By: #### C MP, LIPID, TSH #### [facility] [address] [address] [address] Gerardo Larose IntraOperative Documentson 0 06-24-2020 IntraOperative Documents [id number] 0CD:127 Normal [facility] Coding Summary.on 06-21-2020 Coding Summary. CD:[id number] Gh 0bWw+PGhlYWQ+OI1YYHCvY 32vyIZqfG6LJ5xXCY5QDNG TIXHAAP0RLS1eaTW8GIaoS 2VybiAv IaomhQThPJ20GFc9CYA2dY lgIQwzcT3izJHgE0a2GgRi VJ32yQ87AElgXUIzVzU9El ZpbjsgbWFy N1otEmBtjGElIlh+PHRhYm xlIHdpZHRoPScxMDAlJyBz tSsbXL0zEs3iVZHzETBoaS xhcHNlOiBj r9wlQKAgDKfpIW5auKcqJ0 HdfSQ8WCBzv9x4Nq06nEL+ NWInIGC3kAamESwkw277Tk Wti0deTMH7 rBYvPBmyDXQ4O86kl4M1EU MvIDFoTQV4qGJ3nZ1hjObs vbymU8KcaLGrHaH2AAT6zK FzuQ9diTvb bsynqQ5zAhr+N71CPJ4PKX FAZL4PXdl5E7FsJsvwcXC+ CT68ZTPjWV51tGTbhEZwm6 moqIk4EyAd JHAzKTU3jAzsVNemf8ViJR KdR38swLXpv4J5NEWkgJck xZFbKwCkxDY0oG3pRHmpjq mgs9jqzdqo Risem4iwqu19bV81L85qUT rcASSjTOY0JVUmRBPkqCsa pd0khV3mAf6+TOfuk2rxx1 ikpJw3RwTj OAGrymJdoIzhWFZ9m0YzCl 37J5UbeEybu3GiYqx7da66 rWQih6R5fSW9PVkhRUGzzR 7zOFbcLbQ2 QQOqEiNarG11zRQuJIxcZu 0joTnkbTvjEL6nAPTaxjcp LHSstK7vZNXnbREezJniXI 4wNTBpbjtm i741GcEhEDC1DWKzaIZcV1 XzkF2rSaHeQBPbNIEwR6Yl lRBfVPcgN231PVgoWoT0WB NudrYbG5Nl XWPxtUctTmR6p1P5Qi1Eb4 MdglxqIDR2TUqvTTZ2FlZw DgAuHxX9Y0TnEdr4KFVocW opYX5gU5Ju ALXdicugexfmaZD4SCCpQV RciZ55pPAuAPpkTq7sp1Q5 l316OWJmYFHypR27Iq8pzG ogMTBwdCBU kC7mqxeyc4extoutSdYtNE QpCRu2NRt4KZYedGhiOcUm JNF2BbU6WNA3mZUiyO1hqV cmhlnfsT0s Oyc+W85ycD5kXDX8MVP9zr jbLLAwcgHbKQ44RK75I7Ud PjwvdGFibGU+PGRpdiBzdH upFH0uEmTl s1qfr6SyQAufZ7OvSBAjAS wzYcj4YEWkRDV4sXR4wJ7j JHKmUZrux2X5wCK5X3Ugql Qzvz6qk9lr FKBuCUyvH75utKCyw6J4IN KumVP1TVUajUaqQsQaoB78 Oyc+MLKrpFauz6IuHtcrj9 ivz9sbzXn2 QqSrELZcadEynTbsMSH5x6 GaIe73G81kZKlwTHJzTBFs GKLzRBXbpPogkh8inS6bCr 8+PGNvbCB3 jAP8zU8cVDZdSsL0CMyzT6 46PsIhiWUcTkngj6fdl7id pVb6WrSyNAApggThzFipNV F9u7NaAe36 N03lPZsfFUKkDGUjJUVmVW SpyDvyae1uiU1aVc2+PC9j s4hhzk59eG33eRF+PHRkIH U5sXzcUMwm DNIzuF9aUNsgVpK8TRVcZq NjbD41aCEeWHqzGs4rkMcm tHibBA6gMCUpaytwb891Fd Ayb0lwJUKh sJSkJLcdCWB8F11of0D4HU TqAFMyCGE1yAB2iD3kiUgb bjogbGVmdDsgdmVydGljYW tkTZfsB681 IHRvcDsnPlBhdGllbnQgTm DiBXa8E2LcJjs0UNVslDwd DW6ksXWhSXfqVm5zbUkkhZ ysAR9uJDDc zmbgj771XvQal6ooQQQhxU SbDGycKDM8V34hk6R0VUFf SUYpFBV1uBN4bX6gySgpko ogbGVmdDsg jgTvgAubOSojEJphB880PU RvcDsnPkJpcnRoIERhdGU6 MU00EA23aJKlx8N3lZC8O4 BhZGRpbmct mnkuvLM5RRIlGJNdxR76Mc 3vsDdnNu6lPZSxETN9TLKj kUXhU6DwoR2cLwJfFRWaCD HrQ7EklAMd JNguG224WRtpTqP4VHZnzq PrV5DoZBLhuNnhIcX3v4K3 Rw6PG3I1OT57EY31pVBvr3 L7lKG8D6Tp NLNztagiwfijiBB1WYQwSL WznO33Zf8qvWijVh8aMPXa QDW6IAAwaXQqR3WypR5nNn AjMDAwMDAw N3XdsPTrODzfI860SOjwIb P2SJSpycExR0GaBWBxbOab RqX5t3V0Nv5TUIl9MM11PT 24hGBsr7M3 zHS6W1ZnWEZvvwcrdjvqvA G4EUHwTRNdgU13Rv0tiRqy Is2pTGIqRJH3RBLzkMNsM7 LuvB2tMyKw JSCdXMGmK9IfhRSkNDqrS7 82WEboXzI9BEOlhyZnG5Vg CFVjoGokOpS7z7M0Wr8ZSL UrBA72VRG4 zWB2CC68DN93D1YqVcjnkX FibGU+PHRhYmxlIHdpZHRo PEolHOKiCfTtiBxvMU5dKf 9yZGVyLWNv xAjvnSZmZuJmz6weOFWoIN cbCS6mgAttG6IzzXJ2NANa c1q1Pq11O02jN0HwfLJ+PG HzkOD6ePV2 fK8qHsCyDoP8BDqeH361Ex PhdRTrPjjyl2juq0antRu1 JdH2FAGfyjQcbJrpSJL2l3 HnFu59B06a IHdpZHRoPSIxNSUiIHZhbG vplc5oqK6fDs4+PGNvbCB3 vQE7xD9fMfLkXpN5YJldQ4 49InRvcCIv Uhbsj3fpy4nmyQq9ZlPhET ZflmIelFtsZBX3y9VqUg49 H3ZbtQkcb9CdZnj4as53zP Qfw0V6xBJ9 H0KfVRLfgmydgWZuyCtzYE 6gTYThkrhzGIXmcU7oKGLz F6n1DjCkAnL4HNrxH9Wast W1OVWxyQVg OIcjFLH8A04jb3F6CELvER ZtQNV8yBJ4lE9mfGmhzeea bGVmdDsgdmVydGljYWwtYW lwU478LNKf lNpgXUJunA3jXDInhPAbyK diHR8mNCHznwioDoiNLHYC YISUEDKPDBBXMY89LM06gH Tfi2W7rLQ1 N4VhYCMrytwjiucwcNU2SK ArWIXoyP17pBPcAHnwMr1z c0Z5f765RCRwRZOacH46Bn 9udDogMTBw jBPTwC9zktdda5xsejzaNv MnFZSdHTo9YFx5YSJfmKtg PfVtGMU1BuW0EUJ0zOBdyS 1hbGlnbjog zI4xVah+DEIxMLEeTKj4PF wvdGQ+JURiOTX7bQbaOAya BIKsrB2tWHWoX7n3SvNkPb U8QQncJ3Xd GARbjwlnYr40aM5jKeShGm H8JTloR5HpmiX8AUSqzZEk QKxsIUL9U84ni1I3UYCzBC NaQCB1gMF9 kF7vrQnscvrfhFFokEppbe ClfTbxOPorFSruH257BXEc aWfaIpIjFYclLSMpAR80RW 89jDFiv8F7 wCP1S9LeLSXrsyydrfwwkX F7WCWwHBKjqC83vQFkRRaf Hh7ee1N5u064WAIlFNWxzF 12Pu9qyFii BOMqeYXMgY7kpelto5nxoq wcEpEbAADuQXm7OFn3OJIp vTktPeLeKWO0LoY5WEF6lL GfuH0txZba fgoanF5kXuw+TWFsZTwvdG Q+HQYtNSD7eFowGFwcFGJi vC2iXGMiY4b3ImLsLoN0NA qhY7UdYYUs jtsdKy75vR6zQjDzIpW3HP wbM4ArsdT2PMDrkUUvKVsw ODU1V82lp2Z8AWEtRWJjUT G9fAH0iS2h bGlnbjogbGVmdDsgdmVydG tlXYbzHTggZ398QDLcjOct Fb24uHOfzOkfjwH1R5LhJa wvdHI+PC90 PKIjAK98kZIamOOme0fusI q7OaIaBVWwLQP8lSpvTIls a9OgZDXcJ76paYQde9S4YB NvbGxhcHNl GtTzjLF0rU1qCMvzpjrgs8 mkbufgXmzuf6ppch23iI23 L30qAUwiWUAhTBBvYJLnGS OsiFhswv4j jD5rAw3+TGIsjJK1uSF8eT 6cBlXyCwW1JFsvN395HaBg eLPpJhdup4pqp1hdzOp9Wq IwJSIgdmFs dNraSKQ4z9KcCl47G49sRU dpZHRoPSIyMCUiIHZhbGln og9doU6kJo1+QP6vm5mdvw 07lW37nSL+ QXCvHGH1lGcuLExcICWvoI 9cPUitXoE2UJCtNoVarW15 pPXgJBpnJv9dxYpgpJmzYF 4wNTBpbjtm h147PlRnu8tpFRQkjWTiGB soQFU0C62mu7B5MBUoCVGx ILK8rFH0kL0xwGiukgivwU VmdDsgdmVy qPuqYOegBYidD431FNVqdU ouFjTakZPzK5wputJQAR2y OjwvdGQ+AOJkPYF9oLzmTG ikDIYhoS0f IMSzS0c2YgAjLlH9LNrgT7 IfkzV7SUWgvPDpECCrlEPW tK0fyarzq0mazfizIeUqOP XuOUs7QTg8 PWXtqNseUqGpSAS5CxL5JN L7pJVnqB9uiHcolkrtyY8x Oyc+RklOOjwvdGQ+PHRkIH M7xOqkKMbk GQZziJ3gJIVmM2d5VnNtWb Y0ASzbO6AltzJ2SHOxrWPf SJPusOXFfR1qieuja7fwms ogIzAwMDAw GLm0ERo5LELqdTxcUqZqTS A1AjZ4DCI0kVEltJ7vhZdx bwgsjH8nCpd+TVJOOjwvdG Q+PHRkIHN0 fTdmYPmwYCHhcG7gBARjD8 v0RbBlEyA4NWzfV9YuqbP4 JDTgrAXpPWZzdFZZcP0oqi lzd6jafius BrGbRACqTGv0NQa0UMGepH hzSyZgBHP3ItE0PDV3pUFu gG3jxSfarokkqE1qCrk+UG O5IUV1ZH25 YV77M7IfFcpfrQRucGY+PH RhYmxlIHdpZHRoPScxMDAl CqTvuZnaAO1nYo1ePSZiHL NvbGxhcHNl OiBj (more content not included)... [facility] Postoperative Documentson Postoperative Documents [id number]#1. 00CD:127 [facility] Consenton 06-20-2020 Consent [id number]#1. 00CD:127 [facility] Discharge Instructionson Discharge Instructions [id number]#1. 00CD:127 [facility] IntraOperative Documentson 0 06-20-2020 IntraOperative Documents [id number]#1. 00CD:127 [facility] IntraOperative Documents [id number]#1. 00CD:127 [facility] Main OR Intraoperative Recor don 06-20-2020 Main OR Intraoperative Record IntraOp Document Type FT Summary Primary Physician: Elen MCKINNON MD Finalized Date/Time: 06/20/20 13:22:09 Pt. Name: VINNY BAEZ/Sex: 1960 Male Med Rec #: [id number] Physician: Elen MCKINNON MD Financial #: [id number] Pt. Type: O Room/Bed: / Admit/Disch: 06/15/20 [...] RN, Evelina De Leon Role Performed Anesthesiologist Professor Of Art History - Primary Scrub - Primary Patient Scheduling Manager Time In 06/15/20 14:13:00 06/15/20 14:13:00 06/15/20 [...] and tissue Entry 1 Skin Integrity Intact, [place], Warm, and Skin Abnormality No Dry [...] Procedure COLONOSCOPY(.) (more content not included)... Normal [facility] Endoscopic Procedure Report - Otheron 06-15-2020 [...] Return to activities:: After 24 hours. Normal [facility] Comment on above: Result Comment: Elec tronically Signed By: Elen MCKINNON MD\.br\Date and Time Signed: 06/15/20 14:30 EDT Other Comment: Ramona bernabe Attachment - attachment storage system not supported [id number] Can be viewed in source systemMissing Attachment - attachment storage system not supported [id number] Can be viewed in source systemMissing Attachment - attachment storage system not supported [id number] Can be viewed in source systemMissing Attachment - attachment storage system not supported [id number] Can be viewed in source systemMissing Attachment - attachment storage system not supported [id number] Can be viewed in source system Inpatient Patient Summaryon 06-15-2020 Inpatient Patient Summary [place] [address] [facility] Clinical Discharge Instructions PERSON INFORMATION Name: VINNY BAEZ [facility]#:[id number] PHYSICIANS Admitting Physician: Elen MCKINNON MD Attending Physician: Elen MCKINNON MD PCP: SAMUEL ZHAO DO Discharge Diagnosis: Colon polyp Comment: PATIENT EDUCATION INFORMATION Instructions: Medication Leaflets: Follow up: Type Location Start [facility] Follow Up [facility] 07/12/2020 1:15 PM 07/12/2020 1:30 PM Confirmed MEDICATION LIST Medications to Continue with No Changes Other Medications benazepril 5 Milligram By Mouth every day. bisoprolol-hydrochloro thiazide (bisoprolol-hydrochlor othiazide 5 mg-6.25 mg Tab) 1 Tablets By Mouth every day. omeprazole 20 Milligram By Mouth every day. Comment: Normal [facility] Main OR PACU I Recordon 06-02 Main OR PACU I Record PACU Phase I Docum ent Type FT Summary Primary Physician: Elen MCKINNON MD Finalized Date/Time: 06/15/20 16:40:52 Pt. Name: VINNY BAEZ Edgardo Vu/Sex: 1960 Male Med Rec #: [id number] Physician: Elen MCKINNON MD Financial #: [id number] Pt. Type: O Room/Bed: / Admit/Disch: 06/15/20 [...] By: Radha Lucas RN 06/15/20 16:40 Normal [facility] Main OR Preoperative Recordo n 06-15-2020 Main OR Preoperative Record Holding Area Document Type FT Summary Primary Physician: Elen MCKINNON MD Finalized Date/Time: 06/15/20 13:00:04 Pt. Name: JIEVINNY/Sex: 1960 Male Med Rec #: [id number] Physician: Elen MCKINNON MD Financial #: [id number] Pt. Type: O Room/Bed: / Admit/Disch: 06/15/20 [...] By: Yenny Milner RN 06/15/20 13:00 Normal [facility] Monitor Recordon 06-15-2020 Monitor Record [id number]#1. 00CD:127 Normal [facility] Outpatient Surgery Discharge Instructionon 06-15-2020 Outpatient Surgery Discharge Instruction [place] [id number] Patient Discharge Instructions PERSON INFORMATION Name: VINNY BAEZ Date of : 1960 Current Date: 06/15/2020 14:31:41 PHYSICIANS Admitting Physician: PETAR MARTINEZ, [facility] Discharge Diagnosis: Colon polyp VINNY [...] ___ Date Follow up: Type Location Start [facility] Follow Up [facility] 07/12/2020 1:15 PM 07/12/2020 1:30 PM Confirmed Pharmacy Information: [facility] You may receive a survey from iodine asking you to rate your care experience. Your feedback is important and will help us understand what we do well and how we can improve the quality of care we provide to you, your loved ones and our community. It?s an honor to serve you. Thank you for choosing [facility] HERE ARE THE MEDICATION CHANGES THAT OCCURRED DURING YOUR HOSPITAL STAY Medications to Continue with No Changes Other Medications benazepril 5 Milligram By Mouth every day. bisoprolol-hydrochloro thiazide (bisoprolol-hydrochlor othiazide 5 mg-6.25 mg Tab) 1 Tablets By Mouth every day. omeprazole 20 Milligram By Mouth every day. PATIENT EDUCATION INFORMATION Instructions: Normal [facility] Patient Education - Texton 0 06-15-2020 Patient Education - Text [facility] Progress Note-Physicianon Progress Note-Physician Patient: VINNY BAEZ [...] noted. Plan Transfer/ Discharge: Condition stable. Normal [facility] Comment on above: Result Comment: Elec [...] mellitus type 1 Father Procedure history: Colonoscopy ([id number]). EGD (esophagogastroduodeno scopy) gastric outlet reduction ([id number]). Social History Social & Psychosocial Habits Tobacco 05/23/2020 Tobacco Use: 10 or more cigarettes (1/ . Physical Examination Respiratory: Lungs are clear to auscultation. Cardiovascular: Regular rhythm. Plan [place] [employer]esthesiologists (ASA) physical status classification: Class III. Anesthetic Preoperative Plan Anesthesia: General. . Anesthetic plan, risks, benefits, and alternatives discussed with the patient and/or family. Patient verbalized understanding. [facility] Comment on above: Result Comment: Elec tronically Signed By: Pierre Nazario Jr., DO\.br\Date and Time Signed: 06/15/20 11:57 EDT Coding Summary.on 06-10-2020 Coding Summary. CODING DATE: 06/10/[address] [facility] STATUS: Home (Routine DC) PAYOR: Commercial [...] Nix CphT Date Saved: 06/10/2020 08:48 am [facility] COVID-19 ([facility])on 06-09-2020 SARS-CoV-2 (COVID-19) RNA ROLANDO+probe Ql (Unsp spec) Not detected Normal Not Detected [facility] Comment on above: Result Comment: This test result should be correlated with clinical presentations and medical history by a healthcare provider to determine its clinical significance. This assay was performed by a reverse transcriptase real-time polymerase chain reaction (rt PCR) method on the [employer] system. This test has been authorized only [...] or revoked sooner. 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 NO Normal [facility] Comment on above: Performed By: #### 2 [id number] ####[facility] [address] [place] [address] ICU NO Normal [facility] Comment on above: Performed By: #### 2 [id number] ####[facility] [address] [place] [address] ? NO Normal [facility] Comment on above: Performed By: #### 2 [id number] ####[facility] [address] [place] [address] [facility] NO Normal [facility] Comment on above: Performed By: #### 2 [id number] ####[facility] [address] [place] [address] Symptomatic as defined by [facility] NO Normal [facility] Comment on above: Performed By: #### 2 [id number] ####[facility] [address] [place] [address] Consent for Procedure/Surger yon 05-24-2020 Consent for Procedure/Surgery [id number] 0CD:127 Normal [facility] Gastroenterology Office/Clin ic Noteon 05-24-2020 Gastroenterology Office/Clinic Note CD:[id number] IR35mRzyquRbk4vtsd8sTX 4yZhKyirDaBUktMj7cx2vr QG55cg2lNqTxGl5+CjwhRE 9DVFlQRSBo sH6bYIBOIzpGMnNmSQ6tVc HHGh2ATBJxEGwPSGdmUE8v UEH6ifjtbS3vCZ0lHSNvxG GnNl2ct4a3 RazsJe3cPy6TPi92fDDprV MvOYKNI2ihsF9eTN6xtXTo H7AwHMGkTz7AKZp0fFoxpS 4yqcC9Hms5 sOM1Nm46x9stlcYij4GlVv I7KYfabUq1qGfhUInwxP7c HcYiFHTAoZ1giZawJB7mxQ 1lbnRhdGlv biI+JobeXIIxCit8kUFsOD 16W0AljSllTbo6mWK3HCKj yPQvNIIdkNm8BKLOAEKHKT NvbXBhdGli nKEbDFTpkqVbemT9ZplRBS DhLeLnBtx9G3moPBF+Cjxi q5O4Tpn6GCe7WJJ3tEwhQN Zwg966WCNv sRrgnNkpdPOqn19ePCNkuL BbDwWrq280ZBHcfxJ4EArg uVpeDvx0gJHxgIExv1hqfL n0ZlBuZZFb MzvXHOChsLjch1XcIlrLWK hax8qtvgAxoMkhBTC4m9Dn SQvxIQArYSD3JnOfXZ9+Cg kJPGNvbCB2 TQefS749TwYnnAXrd2kcdG p2UmF1ATHvYd7CSUwcS30j U3AuaPU+Xas3lADrEBw+Cg kJPHRyPgoJ JRh2dFJwt8I5dZS4RmExxj Stv4o8MMcxBAG2BnP5FNV4 hVGrfP9spPvgzutbzQ6bEk I+CgkJCTxk tMOlA4mxp4F0DdGhf4LswB ccqgOwPFUqQtFgq6spVple WQIkdE8bHBY9NrUkGDDzdB GmGUZvFD9h dqIehEYtWZXzTlMkY3Pns6 8si2ZbLSAEQ2uUVbVbTGU5 KK2fFmMdLL6dRaztXVCrH2 JoLNP3MSZv NQymAp8eLCRpTCH9OyJrJJ YrKTW8AGOkv0R6uDJ6PxBp KRAhzap1RXHjmGrdEnthrZ FuIGNsYXNz PXVvVPVdT1Ytd42xvAIenE U5Jv52t7SefuPpcBpeAM6x Pl4ypS35SMtiiEK3VDYtqN X9EZOxkALw NRBwg6WmuVcwabhjvV5xPV XxfD1yUhX+U3emJZRbR82p vXxrhJ87LJ8reUHhJwbwo8 Sqoq6CSTaE MALysrOarNXegz6gZPIpyP Ofo047XA76BsTpUFich497 RX51oLecKB2xFWLTD2PBJA 9NRUFTIiBk IVhnIPHvtvGdV0S0nMsgVG NIX2D9VrH8DW6KMqSdVVNK Z4SrSyPuJo2HD6GANNgCIj A9McRjZLkw PSJfZTlmOWVkYzMtYzZmZi 89MvM4QLocOUTqCQI9Szf3 MKJ7HFkrDc0KSGuATHRfbz BusJEodo5f LMLqlYGlt616JT31nWTlhV NuZSMmvG76WSZrXUYnTXU9 N46ibFFczJT4mIR7LvBJGZ NBUkVfTUVB XuLoMLA3FQ51eTM9zOD4Ha I7Abl5OpQoWkIwRIgyIVOj YpSaEEM7PEXvGUNmCR62NP LoSKy2QlYx CpXaKgX5HSgzBYfmFoF2aS fliguvVH9gUSqeEJ6eO4Mq L4GlWR32VPCyr46mYlS3nn Qku5lrmyKx AYHkcRr8P8Tiwr9QKAmILZ 9kaXY+HqnOUSfoNSo3FzxI WWyDKXBzklMglHRtzg8kIY IzUSQ1mC8p IGRkcmVmcmVzaGFibGUgZG TjenCyddCgtfCwrHT9mRWv NPYitG56DQWiGCUrZHD2s3 VjdGlvbmNv JSF4NfwBVI9MMIXoIVS7PC AgMCiiWBPyFCLmZHO9LSCo MsScFs71ZOJ7QXw9SaRpYi YpO5P2Hre4 IiGgPmBrdBhjMP6rzJXvDW feJksjEUF8UgR+OLHfUM1y W3ent8Q5SbOur7VtvZeexe Iqj4PxMYxr EdzbrZZoKPP4bAdwQKNxl7 22CHwbnCetrCruWm7eINkt pTT7vA6nBAAqbbY5wV3zZg O4vjUjfinl kaT1Yn0AEDszD7TgHlG3F4 NwYW4+EF3aqSBgHitRHIxJ EPYyioRctEYdwp5tSUZhhM Fqw989OJ47 VkZlQOykn679RD98uXdrYA 6yYRQDN2UUAS7WZCKLDrGv MOizTDFhnaHyC4L7wLyvEV JBODVEREFE CS90YlveWOJIJQDoUFJXNq 16LTNLCsM3PrzBVRAuECfg PSJfMWEyYjQyNTQtNzcwZS 90XDgdKGT0 MzgtMGMyMGJhMmZmNzJmIj 5OOErAEDBitaLevJFtue9a DLJqsJRcy800FS74aXJxmH QaFHPavZ90 TEKoSSEeMZI7DzLxRcoxHQ HeulpclDaoKJ3qgF6bNDEn D1l7UtMmYFhhg135MT13pB woEC4yOPHY Y9GHUF4MYPJLRyKpRQgcnf UqbSqjXY0nBjPgKC4cF9A8 SVA7PPVlBBojIrDcHFb5SK 04ZGQyLTMy BfAhWJAhKDfwTPVxzP8qat Z7IJY7FkP7xyAuiSNLg3B0 bIAyyXZ4yG7wWp29D1Wazs 4KCgkJCTxk pOGpC6fim5Z5KqQxJQ9dK5 7tsJAefFg0PR0lQJVfLQ3s neWbnJBvLDYbMnH3zrOfz2 P3oQ9xf1T3 nBM4AcUzxQ5cqRxvxGMcZJ K0L79afTXsoAK3qMI1WkYZ YIYYGaKoNQDEWjLwTYY1IA 97lVU9mWL1 PzYfrOU1Cv43IPJqBfMmNh 90MsXsXOZwKEXdJYroFg5i XRGsCPF9RwEhAlvvWNccfJ 5zOmRkPSJE kF9fxEisZH1xrR8ndhMgqA lvbiI+XM5xxFV+CgoJCQk8 YWl8AJHfXECqXSEuBWFqpr NvbnRlbnRp mKMsXKGoshIcw5TzXdcjKu DbLBgfxT4szC3nnEubE7Y7 xWnkVYX5i6NfdpwliYPoTL RkOmNvbnRl bnQ4gOBoUPLUZAKASZWAT0 8XFRUbVBYjCyQphLr6cKge YLOoGFsbBYWhWfk2IeWcPl FtU8OgQP08 JVCpLHmhV9RzHOD0ZLy5Nl SyGoHvZtA9pPygeofxJO4w BZnaFI9sD1JyE7GnDK79RW Gaw51xHapC SFn9BYu5URR6kXscKCRgOA LpoF28QDEziXDetO73WXUd HBCzywv4WOOchQwhFm6dEF VyOiAwcHQg olowMKGpZSKrKMLySkT9OS f4TAMkmUbtFeKeNKU1PqPp k0eyzomekfvgKLHxTFXgIH NbMxY1HEd4 LWluZGVudDogMGluOyBmb2 87QJZ1bSbfEnAdu7NnQMs9 HHQvwzDby4DdM4w5JoQvo5 YgADs7DOOf vXQgWMTac3YjnDbhaswytz 9oWBijCbyBKAa4OPc7PmcK WWt6CDh7NyTqmBNtsKHgIU X4CNN4LXIw UZ6cFGZgDWloUFzwvpKnrh HhUU28mcE8b2FrfUFog6Ci VTU0UThgFHZbX16ge04zxo VjYWxsLjwv FId9NfwGBMk7V5Jgrh8XFY pFAV5olIY+CgkJCTwvZGl2 PgoKCQkJPGRpdiBjbGFzcz 0iZGRlbXJj b776KE85vXHpqRAzNEGttW 42EPWxUBUfESC4QkErPzfr QGQngrcmwQiqDE7nhK4aLL ZfJ0y4BdUc IVgmu474PN72xTagEZ2pKA DVH2MJEG1MHRHEJzHgYQlh stZokCjbEK4mSiYhIY9uNj YxMjcyYjRk JLA0CEojRVJ8FV10ZwWoYT E2QxSeJRUnUFU0LROpeJ4n qcX9CPY4DlO0wsDwvTTDo0 L7fCEykFO2 vQ8aOg13X4Alsr9HOhpLAM zrjQXhB4flk8G4VfWtXF9f U33qjXCuaVo3AB9sNFVpEC 1vdmFibGUi YSBxAyD7laLvz0U8aL4dr5 D4tHB4EpNvpX6pqChwmHCe OCM4F42iwZZutOS8lWP6Rg BBVENBUkVf PMCEXlVuAMO1ZZ37bWY6lB V2PpYnqWF8Ip73SSHnWaNj TB1sMyDtHZSbKAZbKgU3Km 3cUFG7GGJz XTKmVRBuWHknaN0uJhSnMM PDpF0amZmaXZ7zzW9nfaPk dGlvbiI+SP8ovUA+CgoJCQ n2MMg5XMJd YXNzPSJkZGVtcmNvbnRlbn RgoPTpORIpufAli4BbEczy NzXeCNfdzD8rmK8paFbsE4 G1lGyfXJO9 t5TqmnvyoMEzTJStLpMpzk MrxeZ9sTYeRANWALYKBMWU R59SUHYmFXObPmApyKs6pA lkPSIiIGlk LZZjJIXqGYNlZ0NxDBSeXI 49IUHjVBBiDINlJqlxLqu4 CTX0Hxg7VaX3aLjhmvbqIR 8oZIeyZI2y Z3CaL0XbCN31SFGla34eNx gwSUq4ZabPVTdEFSHtbfAj fDBcaa1uMDYvyJImx279MT 50aXRlbSBk ZSWweJ31SPKtQQVnLBE0Jl CmIdtgJAKbvhxwiOzaUD5k sQ1jTTGmZ6g7EfElPEpyu7 19YE60gWes SW1yWKIKO7MKFA9RHXCSGy RcBLpfwcOovNtcIF6cHrGh XB4eIsDfTIlkOWgyYUV1Kx GgSCg0AF7a QgXvVId8KzRqSsXoTAJvZT CkzL6zrdK1ZCS5RoX2wsKo gYDAc4Z9mVHhvDE4vS5kDw 91D0Yypj8I NcpHHYgszWBmU3rnj5S6Jx AyEF5aF62lwCGjwXf5RA6l GGIkHS1zsxBdkGIvISOhPr A6czDna2C9 kM8bh3I9pMO6OrLxoY3yjL ufeQFaVYJ8R16deKFurNH9 yRJ8FdKHNSRSWyDuJIPPWl QhQTY8QB04 tLR2fHG5AxHtjXS3Uv5xMJ x2KPKsWe7tNoB4XXEiWvUo DLOjUe0qHnTpYrY4CNZ3Wk CrXKgmoF0h O (more content not included)... Normal [facility] Comment on above: Result Comment: Elec tronically Signed By: Elen MCKINNON MD\.br\Date and Time Signed: 05/24/20 12:53 EDT\.br\Electronically Co-Signed By: Alysa Ashley\.br\Date and Time Co-Signed: 05/23/20 16:37 EDT\.br\Electronically Co-Signed By: Elen MCKINNON MD\.br\Date and Time Co-Signed: 07/08/20 10:25 EDT\.br\Electronically Co-Signed By: Mami Leonard Physician Orderon 05-24-2020 Physician Order [id number] 0CD:127 Normal [facility] Physician Order [id number] CD:127 Normal [facility] Ambulatory Clinical Summaryo n 05-23-2020 Ambulatory Clinical Summary {t1-0d-24-27-1h-58-47- 9k-a3-w2-77-ha-i2-b7-1 8-4c}[id number] Normal [facility] Patient Educationon 05-24-19 21 Patient Education [...] 11/14/2004 Document Revised: 06/05/2018 Document Reviewed: 06/05/2018 [employer] Patient Education ? 2019 [employer]. [facility] Historical Records Officeon 05-20-2020 Historical Records Office [id number] 0CD:127 [facility] Patient Letter FTMCon 2020 Patient Letter [facility] April 05, 2020 VINNY BAEZ [address] [place] [address] VINNY BAEZ 1960 Dear Vinny, This is a reminder that you are due for an appointment with Dr. Mckinnon or Dr. Molina. Please call [facility] at [phone] to schedule an appointment at your earliest convenience. Thank you, [facility] Vital Signs Date Time Vital Sign Value Performing Clinician Facility 03-26-2023 11:00-0500 Body height 179.07 cm [facility] Other 03-26-2023 11:00-0500 Body mass index (BMI) [Ratio] 27.3 kg/m2 [facility] Other 03-26-2023 11:00-0500 Body weight 87.54 kg [facility] Other [facility] Other 03-11-2023 11:00-0500 Body height 179.07 cm Samuel Ball Other [facility] Other 03-11-2023 11:00-0500 Body mass index (BMI) [Ratio] 27.86 kg/m2 Samuel [facility] Other [facility] Other 03-11-2023 11:00-0500 Body weight 89.36 kg Samuel Ball Other [facility] Other 03-11-2023 11:00-0500 Diastolic blood pressure 88 mm[Hg] [facility] Other [facility] Other 03-11-2023 11:00-0500 Respiratory rate 12 /min Samuel Ball Other [facility] Other 03-11-2023 11:00-0500 Systolic blood pressure 169 mm[Hg] Samuel Ball Other [facility] Other 02-19-2023 09:30-0500 Body height 179.07 cm Samuel Ball Other [facility] Other 02-19-2023 09:30-0500 Body mass index (BMI) [Ratio] 27.84 kg/m2 Samuel Ball Other [facility] Other 02-19-2023 09:30-0500 Body weight 89.27 kg Samuel Ball Other [facility] Other 02-19-2023 09:30-0500 Diastolic blood pressure 82 mm[Hg] Samuel Ball Other [facility] Other 02-19-2023 09:30-0500 Respiratory rate 12 /min Samuel Ball Other [facility] Other 02-19-2023 09:30-0500 Systolic blood pressure 176 mm[Hg] Samuel Ball Other [facility] Other 02-06-2023 11:15-0500 Body height 179.07 cm Samuel Ball Other [facility] Other 02-06-2023 11:15-0500 Body mass index (BMI) [Ratio] 23.22 kg/m2 Samuel Ball Other [facility] Other 02-06-2023 11:15-0500 Body weight 74.48 kg Samuel Ball Other [facility] Other 02-06-2023 11:15-0500 Diastolic blood pressure 67 mm[Hg] Samuel Ball Other [facility] Other 02-06-2023 11:15-0500 Respiratory rate 12 /min Samuel Ball Other [facility] Other 02-06-2023 11:15-0500 Systolic blood pressure 145 mm[Hg] Samuel Ball Other [facility] Other 01-29-2023 08:45-0500 Body height 179.07 cm Samuel Ball Other [facility] Other 01-29-2023 08:45-0500 Body mass index (BMI) [Ratio] 27.27 kg/m2 Samuel Ball Other [facility] Other 01-29-2023 08:45-0500 Body weight 87.45 kg Samuel Ball Other [facility] Other 01-29-2023 08:45-0500 Diastolic blood pressure 79 mm[Hg] Samuel Ball Other [facility] Other 01-29-2023 08:45-0500 Respiratory rate 12 /min Samuel Ball Other [facility] Other 01-29-2023 08:45-0500 Systolic blood pressure 120 mm[Hg] Samuel Ball Other [facility] Other 11-19-2022 09:30-0400 Body height 179.07 cm Samuel Ball Other [facility] Other 11-19-2022 09:30-0400 Body mass index (BMI) [Ratio] 27.58 kg/m2 Samuel Ball Other [facility] Other 11-19-2022 09:30-0400 Body weight 88.45 kg Samuel Ball Other [facility] Other 11-19-2022 09:30-0400 Diastolic blood pressure 88 mm[Hg] Samuel Ball Other [facility] Other 11-19-2022 09:30-0400 Respiratory rate 12 /min Samuel Ball Other [facility] Other 11-19-2022 09:30-0400 Systolic blood pressure 139 mm[Hg] Samuel Ball Other [facility] Other 06-26-2022 16:30-0400 Body height 179.07 cm Samuel Ball Other [facility] Other 06-26-2022 16:30-0400 Body mass index (BMI) [Ratio] 28.12 kg/m2 Samuel Ball Other [facility] Other 06-26-2022 16:30-0400 Body weight 90.18 kg Samuel Ball Other [facility] Other 06-26-2022 16:30-0400 Diastolic blood pressure 126 mm[Hg] Samuel Ball Other [facility] Other 06-26-2022 16:30-0400 Respiratory rate 12 /min Samuel Ball Other [facility] Other 06-26-2022 16:30-0400 Systolic blood pressure 210 mm[Hg] Samuel Ball Other [facility] Other 03-21-2022 12:00-0500 Body height 179.07 cm Samuel Ball Other [facility] Other 03-21-2022 12:00-0500 Body mass index (BMI) [Ratio] 28.2 kg/m2 Samuel Ball Other [facility] Other 03-21-2022 12:00-0500 Body weight 90.45 kg Samuel Ball Other [facility] Other 03-21-2022 12:00-0500 Diastolic blood pressure 90 mm[Hg] Samuel Ball Other [facility] Other 03-21-2022 12:00-0500 Respiratory rate 12 /min Samuel Ball Other [facility] Other 03-21-2022 12:00-0500 Systolic blood pressure 140 mm[Hg] Samuel Ball Other [facility] Other Encounters Encounter Date Encounter Type Care Provider Facility Start: 04-01-2023 End: 04-02-2023 ambulatory Diego Gordon MD Facility:[facility] Start: 03-27-2023 End: 03-27-2023 ambulatory Roseline Ghosh Other [facility] Other Start: 03-27-2023 Telephone encounter Roseline Ghosh [facility] Start: 03-26-2023 End: 03-26-2023 ambulatory Samuel Ball Other [facility] Other Start: 03-26-2023 Office outpatient ne w 45 minutes Roseline Ghosh [facility] Start: 03-26-2023 Telephone encounter Samuel Ball [facility] Start: 03-25-2023 End: 03-25-2023 ambulatory Samuel Ball Other [facility] Other Start: 03-25-2023 Telephone encounter Samuel Ball [facility] Start: 03-11-2023 End: 03-11-2023 ambulatory Samuel Ball Other [facility] Other Start: 03-11-2023 Office outpatient vi sit 15 minutes Samuel Ball [facility] Start: 03-05-2023 End: 03-05-2023 ambulatory Samuel Ball Other [facility] Other Start: 03-05-2023 Telephone encounter Samuel Ball [facility] Start: 02-26-2023 End: 02-26-2023 ambulatory Samuel Ball Other [facility] Other Start: 02-26-2023 Telephone encounter Samuel Ball [facility] Start: 02-19-2023 End: 02-19-2023 ambulatory Samuel Ball Other [facility] Other Start: 02-19-2023 Office outpatient vi sit 15 minutes Samuel Ball [facility] Start: 02-18-2023 End: 02-18-2023 ambulatory Samuel Ball Other [facility] Other Start: 02-18-2023 Telephone encounter Samuel Ball [facility] Start: 02-06-2023 End: 02-06-2023 ambulatory Samuel Ball Other [facility] Other Start: 02-06-2023 Office outpatient vi sit 15 minutes Samuel Ball [facility] Start: 02-05-2023 End: 02-05-2023 ambulatory Samuel Ball Other [facility] Other Start: 02-05-2023 Telephone encounter Samuel Ball [facility] Start: 01-31-2023 End: 01-31-2023 ambulatory Samuel Ball Other [facility] Other Start: 01-31-2023 Telephone encounter Samuel Ball [facility] Start: 01-29-2023 End: 01-29-2023 ambulatory Samuel Ball Other [facility] Other Start: 01-29-2023 Office outpatient vi sit 15 minutes Samuel Ball [facility] Start: 11-28-2022 End: 11-28-2022 ambulatory Samuel Ball Other [facility] Other Start: 11-28-2022 Encounter for genera l adult medical examination without abnormal findings Samuel Ball [facility] Start: 11-28-2022 Telephone encounter Samuel Ball [facility] Start: 11-27-2022 End: 11-27-2022 ambulatory Samuel Ball Other [facility] Other Start: 11-27-2022 Telephone encounter Samuel Ball [facility] Start: 11-22-2022 End: 11-22-2022 ambulatory Samuel Ball Other [facility] Other Start: 11-22-2022 Telephone encounter Samuel Ball [facility] Start: 11-19-2022 End: 11-19-2022 ambulatory Samuel Ball Other [facility] Other Start: 11-19-2022 Encounter for genera l adult medical examination without abnormal findings Samuel Zhao [facility] Start: 11-19-2022 Periodic preventive med est patient 40-64yrs Samuel Zhao [facility] Start: 08-03-2022 End: 08-03-2022 ambulatory Samuel Pavel Other [facility] Other Start: 08-03-2022 Telephone encounter Samuel Pavel [facility] Start: 07-18-2022 End: 07-19-[address] SAMUEL ZHAO Facility:[facility] Start: 06-28-2022 End: 06-28-2022 ambulatory Samuel Pavel Other [facility] Other Start: 06-28-2022 Telephone encounter Samuel Pavel [facility] Start: 06-27-2022 End: 06-28-[address] SAMUEL ZHAO Facility:[facility] Start: 06-26-2022 End: 06-26-2022 ambulatory Samuel Zhao Other [facility] Other Start: 06-26-2022 Office outpatient vi sit 25 minutes Samuel Zhao [facility] Start: 05-22-2022 End: 05-22-2022 ambulatory Samuel Pavel Other [facility] Other Start: 05-22-2022 Telephone encounter Samuel Zhao [facility] Start: 05-15-2022 End: 05-15-2022 ambulatory Samuel Pavel Other [facility] Other Start: 05-15-2022 Telephone encounter Samuel Ball [facility] Start: 04-12-2022 End: 04-12-2022 ambulatory Samuel Pavel Other [facility] Start: 04-12-2022 Telephone encounter Samuel Ball [facility] Start: 04-05-2022 End: 04-05-2022 ambulatory Samuel Ball Other [facility] Start: 04-05-2022 Telephone encounter [facility] Start: 04-04-2022 End: 04-04-2022 ambulatory Samuel Zhao Other [facility] [employer] Other Start: 04-04-2022 Telephone encounter Samuel MOORE [facility] Start: 03-21-2022 Office outpatient vi sit 25 minutes Samuel [facility] Start: 03-21-2022 End: 03-22-[address] HEALY [facility] [place] [employer] Other Start: 12-04-2021 Encounter for genera l adult medical examination without abnormal findings DR SAMUEL ZHAO [facility] Start: 12-01-2021 End: 12-02-2021 Encounter for general adult medical examination without abnormal findings DR SAMUEL ZHAO Facility:[facility] Start: 12-01-2021 End: 12-02-[address] SAMUEL ZHAO Facility:[facility] Start: 08-09-2021 End: 08-10-[address] SAMUEL ZHAO Facility:[facility] Procedures Date Procedure Procedure Detail Performing Clinician Start: 12-01-[address] MORGAN [place] Comment on above: Performed By: #### V ITB12, PSASC #### [facility] [address] [place] [address] Dr. Gerardo Larose Depression screening Clari Zhao Other Payers Date Payer Category Payer Private Health Insurance 1960 Unknown [id number] 2.16.84 [id number] 1960 Unknown [id number] 2.16.84 [id number] 1960 Unknown [id number] 2.16.84 [id number] 1960 Unknown [id number] 2.16.84 [id number] 1960 Unknown [id number] 2.16.84 [id number] 1960 Unknown [id number] 2.16.84 [id number] 1960 Unknown [id number] 2.16.84 [id number] 1960 Unknown [id number] 2.16. [id number] 1960 Private Health Insurance [id number] Social History Date Type Detail Facility Sex Assigned At [facility] Other Medical Equipment Procedure Code Equipment Code [...] 62 yo male who works for the [employer] and states since december he has been [...] to provide reprieve. This patient has tried [id number] and prescription medications for greater than a [...] Mar, Diabetic peripheral neuropathy (ICD-10 - E11.42) [facility] Other 01-22-2024 Evaluation note* Encounter Date Diagnosis Assessment Notes Treatment Notes Treatment Clinical Notes Mar, Acute left-sided low back pain with left-sided sciatica (ICD-10 - M54.42) [facility] 01-08-2024 Evaluation note* Encounter Date Diagnosis [...] Instructed to increase Losartan to 100mg qd [facility] 01-02-2024 Evaluation note* Encounter Date Diagnosis Assessment Notes Treatment Notes Treatment Clinical Notes Mar, Acute left-sided low back pain with left-sided sciatica (ICD-10 - M54.42) [facility] 12-26-2023 Evaluation note* Encounter Date Diagnosis Assessment Notes Treatment Notes Treatment Clinical Notes Feb, Acute left-sided low back pain with left-sided sciatica (ICD-10 - M54.42) [facility] 12-19-2023 Evaluation note* Encounter Date Diagnosis [...] Microalbumin, Dilated eye exam and Foot exam [facility] Other 2023 Evaluation note* Encounter Date Diagnosis Assessment Notes Treatment Notes Treatment Clinical Notes Feb, Acute left-sided low back pain with left-sided sciatica (ICD-10 - M54.42) [facility] 12-06-2023 Evaluation note* Encounter Date Diagnosis [...] as it will resolve once off steroids [facility] Other 12-05-2023 Evaluation note* Encounter Date Diagnosis Assessment Notes Treatment Notes Treatment Clinical Notes Feb, Acute left-sided low back pain with left-sided sciatica (ICD-10 - M54.42) [facility] 11-28-2023 Evaluation note* Encounter Date Diagnosis [...] BS values, which requires no dose adjustments [facility] Other 09-27-2023 Evaluation note* Encounter Date Diagnosis Assessment Notes Treatment Notes Treatment Clinical Notes Nov, Elevated transaminase level (ICD-10 - R74.01) Nov, Wellness examination (ICD-10 - Z00.00) Nov, Fatty liver (ICD-10 - K76.0) [facility] 09-21-2023 Evaluation note* Encounter Date Diagnosis Assessment Notes Treatment Notes Treatment Clinical Notes Nov, Cigarette nicotine dependence without complication (ICD-10 - F17.210) LDCT: no suspicious nodules 11/2021, [facility] 09-18-2023 Evaluation note* Encounter Date Diagnosis [...] (ICD-10 - Z12.5) Yearly PSA and [facility] Other 06-02-2023 Evaluation note* Encounter Date Diagnosis Assessment Notes Treatment Notes Treatment Clinical Notes Aug, Type 2 diabetes mellitus with hyperglycemia, without long-term current use of insulin (ICD-10 - E11.65) [facility] Other 04-27-2023 NotePROCEDURE: XR ANKLE RT 2V, XR FOOT RT 2V COMPARISON: None. HISTORY: Pain in right foot FINDINGS: BONES:No acute fracture or dislocation. Mild degenerative changes most significant at the first metatarsal phalangeal joint SOFT TISSUES:Negative. No visible soft tissue swelling. EFFUSION:None visible. OTHER: Negative. IMPRESSION: Mild degenerative changes Electronically authenticated by: VINNY EDGE Date: 2022-06-28 07:[facility]04-27-2023 NotePROCEDURE: XR ANKLE RT 2V, XR FOOT RT 2V COMPARISON: None. HISTORY: Pain in right foot FINDINGS: BONES:No acute fracture or dislocation. Mild degenerative changes most significant at the first metatarsal phalangeal joint SOFT TISSUES:Negative. No visible soft tissue swelling. EFFUSION:None visible. OTHER: Negative. IMPRESSION: Mild degenerative changes Electronically authenticated by: VINNY EDGE Date: 2022-06-28 07:[facility]04-25-2023 Evaluation note* Encounter Date Diagnosis Assessment Notes [...] No vesicles or bleeding. Nontender but pruritic [facility] 03-21-2023 Evaluation note* Encounter Date Diagnosis Assessment Notes Treatment Notes Treatment Clinical Notes May, Gastroesophageal ref lux disease with esophagitis without hemorrhage (ICD-10 - K21.00) [facility] 03-14-2023 Evaluation note* Encounter Date Diagnosis Assessment Notes Treatment Notes Treatment Clinical Notes May, Gastroesophageal ref lux disease with esophagitis without hemorrhage (ICD-10 - K21.00) May, Essential hypertensi on (ICD-10 - I10) May, Type 2 diabetes mellitus with diabetic polyneuropathy, without long-term current use of insulin (ICD-10 - E11.42) May, Elevated cholesterol (ICD-10 - E78.00) [facility] 02-09-2023 Evaluation note* Encounter Date Diagnosis Assessment Notes Treatment Notes Treatment Clinical Notes Apr, Type 2 diabetes mellitus with diabetic polyneuropathy, without long-term current use of insulin (ICD-10 - E11.42) [facility] 02-02-2023 Evaluation note* Encounter Date Diagnosis Assessment Notes Treatment Notes Treatment Clinical Notes Apr, Gastroesophageal ref lux disease with esophagitis without hemorrhage (ICD-10 - K21.00) [facility] 02-01-2023 Evaluation note* Encounter Date Diagnosis Assessment Notes Treatment Notes Treatment Clinical Notes Apr, Gastroesophageal ref lux disease with esophagitis without hemorrhage (ICD-10 - K21.00) [facility] 01-18-2023 Evaluation note* Encounter Date Diagnosis [...] Diet and exercise with continued statin therapy. [facility] Other [id number] NotePatient: VINNY BAEZ Age: 60 years Sex: Male : 1960 Associated Diagnoses: None Author: Mehreen Dodge MA Results Review Original Procedure Date 06/15/2020 Revised repeat colonoscopy interval 5 years Adenomatous polyp(s) present 1 or 2 tubular adenomas less than 10mm Adenocarcinoma present No Serrated lesion(s) present Sessile serrated polyp(s) less than 10mm with no dysplasia Hyperplastic polyp(s) present [facility]04-19-2021 Note [id number]:[address] [place] [address] Evaluation noteNo InformationNortEndless [facility] [employer] Other History general Narrative - Reported* Type [...] History COLONOSCOPY Hospitalization History see surgical hx [facility] Other History general Narrative - Reported* Type [...] years) 2020 Hospitalization History see surgical hx [facility] [employer] Other Reason for referral (narrative)* Reason Referral for ankle/f oot mass. Diagnosis 1 Mass of right ankle (R22.41) Referral Organization [facility] Nani dial Referring Provider First Name Samuel Referring Provider Last Name Pavel Referring Provider Specialty Internal Me darell Referred Organization [facility] Referred Provider Caprice Roberts Referred Address [address] [place], [place],[address] Referred Provider Specialty Podiatry - S urgical Chiropody Referral Priority Routine General Notes Patient c/o mass at the junction of his foot/ankle, which has developed over the past 2 months. He has a remote hx of ankle injury. It is not tender, erythematous or associated w/ bruising. Clinical Notes XR negative [facility] Other Summary Purpose Family History No Family History Records FoundNo Family History Records FoundNo Family History Records Found Advance Directives No Advanced Directives Records FoundNo Advanced Directives Records FoundNo Advanced Directives Records Found Reason for Referral Reason evaluate and tr eat Diagnosis 1 Spinal stenosis of l umbar region with neurogenic claudication (M48.062) Referral Organization [facility] Ne urosurgery Referring Provider First Name Roseline Referring Provider Last Name Davina Referring Provider Specialty Nurse Pract itioner Referred Organization [facility] Referred Provider Park Hallman Referred Address [address] [place] [place], [place],[address] Referred Provider Specialty Pain Medicin e Referral Priority Routine General Notes Kristin King 12:49:27 PM > received today, attached documents, waiting for note to be locked before sending Reason Mr. Baez is being r eferred for low back and left leg pain. Diagnosis 1 Acute left-sided low back pain with left-sided sciatica (M54.42) Referral Organization [facility] Pavel dial Referring Provider First Name Samuel Referring Provider Last Name Pavel Referring Provider Specialty Internal Me dicine Referred Organization [facility] Referred Provider Deric Vega Referred Address [address] [place], [place],[address] Referred Provider Specialty Neurological Surgery Referral Priority [...] content) DATE CREATED AUTHOR 02/26/2021 Zackary Payan [facility] DATE CREATED AUTHOR AUTHOR'S ORGANIZ ATION 07/19/2022 [facility] DATE CREATED AUTHOR AUTHOR'S ORGANIZ ATION 04/04/2023 [facility] REASON FOR VISIT (unrecogniz ed section [...] BE BASED ON THE PRIMARY CLINICAL RECORDS. [facility] [employer] [facility]. provides no warranty or guarantee of the accuracy or completeness of information in this document.
[2023-04-22] MEDS: 0.9 % SODIUM CHLORIDE 1,000 ML 1000 ML IV (08:29)
[2023-04-22 08:30] LABS: Basophils Absolute Auto 0.1 10^3/uL (0.0-0.1); Basophils Percent Auto 0.7 % (0.2-2.0); Eosinophils Percent Auto 0.1 % (0.9-7.0); Hemoglobin 12.9 g/dL (14.0-18.0); Immature Granulocytes Abs Auto 0.03 10^3/uL (0.00-0.03); Immature Granulocytes Pct Auto 0.3 % (0.0-0.5); Lymphocytes Absolute Auto 2.2 10^3/uL (1.2-3.8); Lymphocytes Percent Auto 21.7 % (20.5-60.0); Mean Corpuscular HGB Conc 33.9 g/dL (29.9-35.2); Mean Corpuscular Hemoglobin 32.7 pg (25.9-34.0); Mean Corpuscular Volume 96.4 fL (80.0-94.0); Mean Platelet Volume 10.7 fL (9.5-13.5); Monocytes Absolute Auto 0.6 10^3/uL (0.3-0.8); Monocytes Percent Auto 6.5 % (1.7-12.0); Neutrophils Percent Auto 70.7 % (43.0-75.0); Platelet Count 273 10^3/uL (150-450); Red Blood Count 3.94 10^6/uL (4.70-6.10); Red Cell Distribution Width 13.1 % (11.0-15.0); White Blood Count 9.9 10^3/uL (4.0-11.0)
[2023-04-22 08:39] LABS: Anion Gap 13.9; BUN Creatinine Ratio 22.8; Calcium 9.5 mg/dL (8.5-10.1); Carbon Dioxide 27.7 mmol/L (21.0-32.0); Chloride 97 mmol/L (98-107); Estimated GFR (African America >60 (>=60); Estimated GFR (Non-African Ame >60 (>=60); Glucose 448 mg/dL (74-106); Potassium 4.6 mmol/L (3.5-5.1); Sodium 134 mmol/L (136-145)
[2023-04-22 09:47] LABS: Glucometer 391 mg/dL (74-106)
[2023-04-22 09:53] VITALS: BP 149/84; PULSE 74; RESP 18; O2SAT 93
== END 2023-04-22 10:01 | disposition home or self-care (01) ==
PROVIDERS: Emergency Provider Emergency Medicine; PCP Internal Medicine
DX: E11.65 Type 2 diabetes mellitus with hyperglycemia (principal); N40.0 Benign prostatic hyperplasia without lower urinary tract symptoms; G62.9 Polyneuropathy, unspecified; F17.210 Nicotine dependence, cigarettes, uncomplicated; E78.00 Pure hypercholesterolemia, unspecified; I10 Essential (primary) hypertension; Z79.899 Other long term (current) drug therapy
CPT/HCPCS: 36415; 36416; 80048; 85025; 93005; 99284

== ENCOUNTER 2023-05-06 08:55 | Day surgery (SDC) | payer OTHER, SELFPAY ==
--- OUTSIDE RECORDS SUMMARY | 2023-05-06 08:58 | XMS_ITS | CCD ---
Author Name Unknown Address [address] [place] [address] Organization [facility] Care Team Providers Care Cash Room Clerk Name Role Phone Samuel Zhao Unavailable PAVEL, DR JEFFRIES Primary Care Unavailable REAL, CAPRICE Mendez Admitting Unavailable REAL, CAPRICE Mendez Attending Unavailable REAL, CAPRICE Mendez Consulting Unavailable MONE, CAPRICE Consulting Unavailable PAVEL, DR JEFFRIES Primary Care Unavailable PAVEL, DR JEFFRIES Admitting Unavailable PAVEL, [...] Care Unavailable PAVEL, DR JEFFRIES Admitting Unavailable PAVEL, DR JEFFRIES Attending Unavailable BALL, DR JEFFRIES Consulting Unavailable MINESH, DR VINNY Gonzalez Consulting Unavailable PAVEL, DR JEFFRIES Admitting Unavailable PAVEL, DR JEFFRIES Attending Unavailable BALL, DR JEFFRIES Consulting Unavailable PAEVL, DR JEFFRIES Primary Care Unavailable Roseline Ghosh Unavailable Heidi MARTINEZ, Diego Snyder Attending Unavailable Allergies Allergy Classification Reported Allergen(s) Allergy Type Date of Onset Reaction(s) Facility (20 sources) metFORMIN Drug Allergy diarrhea [facility] Other Medications Current Medications Medication Drug Class(es) Dates Sig (Normalized) Sig (Original) acetaminophen 325 mg / oxyCODONE hydrochloride 5 mg oral tablet (20 sources) Opioid Agonist Start: 04-22-2023 take 1 tablet by mouth every six hours Oxycodone-Acetami nophen Active 1 TAB PO Every 6 hours April 22, 2023 12:00am Start: 01-31-2023 take 1 tablet by alphonso th every six hours oxyCODONE-Acetaminophen 5-325 MG 1 table t as needed Orally every 6 hrs for 7 days p/u 03/11, start 03/12Mar, Active [id number] 200 actuat albuterol 0.09 mg/actuat metered dose inhaler (20 sources) beta2-Adrenergic Agonist Start: 04-22-2023 take 1 puff(s) by inhalation every four hours Albuterol Sulfate Active 2 PUFF INHALATION Every 4 hours April 22, 2023 12:00am take 2 puff(s) by in halation every [...] (20 sources) Dihydropyridine Calcium Channel Tony Start: 04-22-2023 take 5 mg by mouth once daily Amlodipine Active 5 MG PO Daily April 22, 2023 12:00am Start: 03-21-2022 take 1 tablet by alphonso th every twenty-four hours amLODIPine Besylate 5 MG 1 tablet Orally Once a day Mar, Active atorvastatin 10 mg oral tablet (20 sources) HMG-CoA Reductase Inhibitor Start: 04-22-2023 take 10 mg by mouth once daily Atorvastatin Active 10 MG PO Daily April 22, 2023 12:00am take 1 tablet by alphonso th every twenty-four hours Atorvastatin Calcium 10 MG 1 tablet Oral ly Once a day Active bisoprolol fumarate 5 mg / hydroCHLOROthiazide 6.25 mg oral tablet (20 sources) Thiazide Diuretic, beta-Adrenergic Tony Start: 04-22-2023 take 1 tablet by mouth once daily Bisoprolol-Hydrochlorothiazide Active 1 TAB PO Daily April 22, 2023 12:00am Start: 06-26-2022 take 1 tablet by alphonso every twenty-four hours Bisoprolol-hydroCHLOROthiazide 5-6.25 MG 1 tablet Orally Once a day for 30 days Jun, Active glimepiride 2 mg oral tablet (20 sources) Sulfonylurea Start: 04-22-2023 take 2 mg by mouth once Glimepiride Active 2 MG PO Once April 22, 2023 12:00am take 1 tablet by mouth once lakia y Glimepiride 2 mg 1 tablet Orally Once a day, taken 30 minutes prior to bkfsts Active losartan potassium 50 mg oral tablet (20 sources) Angiotensin 2 Receptor Tony Start: 04-22-2023 take 50 mg by mouth once daily Losartan Active 50 MG PO Daily April 22, 2023 12:00am [facility] Losartan Potassium 50 MG 1 tablet Orally Once a day Active nabumetone 750 mg oral tablet (8 sources) Nonsteroidal Anti-inflammatory Drug take 750 mg by mouth three times daily Nabumetone 750 MG as directed Orally three times a day Active omeprazole 20 mg delayed release oral capsule (20 sources) Proton Pump Inhibitor Start: take 20 mg by mouth once daily Omeprazole Active 20 MG PO Daily April 22, 2023 12:00am Start: 03-21-2022 take [address] [facility] once daily Omeprazole 20 MG 1 Capsule [...] tablet (20 sources) Dipeptidyl Peptidase 4 Inhibitor Start: 04-22-2023 take 50 mg by mouth once daily Sitagliptin Phosphate Active 50 MG PO Daily April 22, 2023 12:00am take 1 tablet by alphonso th every twenty-four hours Januvia 50 MG 1 tablet Orally Once a day Active tiZANidine 4 mg oral tablet (13 sources) Central alpha-2 Adrenergic Agonist Start: 04-22-2023 take 4 mg by mouth three times daily as needed for pain Tizanidine Active 4 MG PO Three times daily April 22, 2023 12:00am 1/2 - 1 Orally Three times a day as needed for back pain Start: 02-05-2023 tiZANidine HCl 4 MG 1/2 - 1 Orally Three times a day as needed for back pain Feb, Not-Taking/PRN triamcinolone acetonide 0.001 mg/mg topical ointment (20 sources) Corticosteroid Start: 04-22-2023 Triamcinolone Acetonide Active 1 APPLIC TOPICAL Twice daily April 22, 2023 12:00am Triamcinolone Ac etonide 0.1 % 1 application Externally Twice a day for 30 days Not-Taking/PRN 7 actuat umeclidinium 0.0625 mg/actuat / vilanterol 0.025 mg/actuat dry powder inhaler (20 sources) Anticholinergic, beta2-Adrenergic Agonist Start: 04-22-2023 Umeclidinium-Vilanterol Active 1 INH INHALATION Daily April 22, 2023 12:00am take 1 puff(s) by inhalation onc e [...] day Not-Taking/PRN take 1 tablet by alphonso once daily Benazepril-hydroCHLOROthiazide 5-6.25 MG 1 tablet [...] sources) Pure hypercholesterolemia; Translations: [Familial hypercholesterolemia] Chronic E Codes: Adverse effects of medical drugs (2 sources) Adverse effect of glucocorticoids and synthetic analogues, initial encounter; Translations: [Adrenal cortical steroids causing adverse effects in therapeutic use] 04-23-2023 Episodic Esophageal disorders (15 sources) Gastro-esophageal reflux disease [...] Test Name Value Interpretation Reference Range Facility Basophils Auto (Bld) [#/Vol] on 04-22-2023 Basophils (Bld) [#/Vol] 0.1 10 3/uL 0.0-0.1 [facility] Basophils/100 WBC Auto (Bld) on 04-22-2023 Basophils/100 WBC (Bld) 0.7 % 0.2-2.0 [facility] Eosinophils/100 WBC Auto (Bl d)on 04-22-2023 Eosinophils/100 WBC (Bld) 0.1 % 0.9-7.0 [facility] Erythrocyte distribution wid th Auto (RBC) [Ratio]on 04-22-2023 Erythrocyte distribution width (RBC) [Ratio] 13.1 % 11.0-15.0 [facility] Estimated glomerular filtrat ion rate (GFR) non- Americanon 04-22-2023 GFR/1.73 sq M.predicted among non-blacks MDRD (S/P/Bld) [Vol rate/Area] mL/min/{1.73_m2} >=60 [facility] Hematocrit Auto (Bld) [Volum e fraction]on 04-22-2023 Hematocrit (Bld) [Volume fraction] 38.0 % 42.0-54.0 [facility] Hemoglobin [Mass/volume] in Bloodon 04-22-2023 Hemoglobin (Bld) [Mass/Vol] 12.9 g/dL 14.0-18.0 [facility] Laboratory - Chemistry and C hemistry - challengeon 04-22-2023 Calcium [Mass/Vol] 9.5 mg/dL 8.5-10.1 [facility] Chloride [Moles/Vol] 97 mmol/L 98-107 [facility] CO2 [Moles/Vol] 27.7 mmol/L 21.0-32.0 [facility] Creatinine [Mass/Vol] 1.01 mg/dL 0.70-1.30 [facility] GFR/1.73 sq M.predicted MDRD (S/P/Bld) [Vol rate/Area] mL/min/{1.73_m2} >=60 [facility] Glucose [Mass/Vol] 448 mg/dL 74-106 [facility] Potassium [Moles/Vol] 4.6 mmol/L 3.5-5.1 [facility] Sodium [Moles/Vol] 134 mmol/L 136-145 [facility] Urea nitrogen [Mass/Vol] 23.0 mg/dL 7.0-18.0 [facility] Urea nitrogen/Creatinine [Mass ratio] 22.8 mg/mg [facility] Laboratory - Hematology and Cell countson 04-22-2023 Immature granulocytes/100 WBC (Bld) 0.3 % 0.0-0.5 [facility] Leukocytes [#/volume] correc ashvin for nucleated erythrocytes in Blood by Automated counon 04-22-2023 WBC corrected for nucl RBC Auto (Bld) [#/Vol] 9.9 10 3/uL 4.0-11.0 [facility] Lymphocytes Auto (Bld) [#/Vo l]on 04-22-2023 Lymphocytes (Bld) [#/Vol] 2.2 10 3/uL 1.2-3.8 [facility] Lymphocytes/100 WBC Auto (Bl d)on 04-22-2023 Lymphocytes/100 WBC (Bld) 21.7 % 20.5-60.0 [facility] MCH Auto (RBC) [Entitic mass ]on 04-22-2023 MCH (RBC) [Entitic mass] 32.7 pg 25.9-34.0 [facility] MCHC Auto (RBC) [Mass/Vol]on 04-22-2023 MCHC (RBC) [Mass/Vol] 33.9 g/dL 29.9-35.2 [facility] MCV Auto (RBC) [Entitic vol] on 04-22-2023 MCV (RBC) [Entitic vol] 96.4 fL 80.0-94.0 [facility] Monocytes Auto (Bld) [#/Vol] on 04-22-2023 Monocytes (Bld) [#/Vol] 0.6 10 3/uL 0.3-0.8 [facility] Monocytes/100 WBC Auto (Bld) on 04-22-2023 Monocytes/100 WBC (Bld) 6.5 % 1.7-12.0 [facility] Neutrophils Auto (Bld) [#/Vo l]on 04-22-2023 Neutrophils (Bld) [#/Vol] 7.0 10 3/uL 1.4-6.5 [facility] Neutrophils/100 WBC Auto (Bl d)on 04-22-2023 Neutrophils/100 WBC (Bld) 70.7 % 43.0-75.0 [facility] No Panel Informationon 04-22 Eosinophils # (Auto) 0.0 10 3/uL 0.0-0.7 [facility] Immature Granulocyte # (Auto) 0.03 10 3/uL 0.00-0.03 [facility] Platelet mean volume Auto (B ld) [Entitic vol]on 04-22-2023 Platelet mean volume (Bld) [Entitic vol] 10.7 fL 9.5-13.5 [facility] Platelets Auto (Bld) [#/Vol] on 04-22-2023 Platelets (Bld) [#/Vol] 273 10 3/uL 150-450 [facility] RBC Auto (Bld) [#/Vol]on RBC (Bld) [#/Vol] 3.94 10 6/uL 4.70-6.10 [facility] Serum or plasma anion gap de terminationon 04-22-2023 Anion gap [Moles/Vol] 13.9 mmol/L [facility] XR ANKLE RT MIN 3 VIEWSon XR [...] CAPRICE SHORE Date: 2022-07-18 18:48 Normal [facility] GLYCOHEMOGLOBIN A1Con 2022 ADA RECOMMENDATION SEE BELOW Normal [facility] Comment on above: Result Comment: ADA RECOMMENDED LIMIT 4.0 - 6.0 ADA THERAPEUTIC TARGET < 7.0 ACTION SUGGESTED > 7.0 Performed By: #### C MP, LIPID, TSH #### [facility] [address] [address] [address] Gerardo Larose Glucose [Mass/Vol] 143 mg/dL Normal [facility] Comment on above: Performed By: #### C MP, LIPID, TSH #### [facility] [address] [place], [place] [address] Dr. Gerardo Larose HbA1c (Bld) [Mass fraction] 6.6 % Critically high 4.5-6.2 [facility] Comment on above: Performed By: #### C MP, LIPID, TSH #### [facility] [address] [address] [address] Gerardo Larose MRI LSPINE WO CONon 03-21-19 MRI LSTIERRA AMARILLA WO CON EXAMINATION: MRI LSPINE WO CON [...] VINNY EDGE Date: 2022-03-21 16:49 Normal [facility] CT LUNG CANCER SCREENINGon 1 CT [...] VINNY EDGE Date: 2021-12-04 07:24 Normal [facility] CBC AUTO DIFFon 12-01-2021 BASO # 0.1 103/ul Normal 0.0-0.1 [facility] Comment on above: Performed By: #### C MP, LIPID, TSH #### [facility] [address] [place] [address] Dr. Gerardo Larose Basophils/100 WBC (Bld) 0.9 % Normal 0.2-2.0 [facility] Comment on above: Performed By: #### C MP, LIPID, TSH #### [facility] [address] [address] [address] Gerardo Larose EO # 0.2 103/ul Normal 0.0-0.7 [facility] Comment on above: Performed By: #### C MP, LIPID, TSH #### [facility] [address] [address] [address] Gerardo Larose Eosinophils/100 WBC (Bld) 2.5 % Normal 0.9-7.0 [facility] Comment on above: Performed By: #### C MP, LIPID, TSH #### [facility] [address] [address] [address] Gerardo Larose Erythrocyte distribution width (RBC) [Ratio] 13.7 % Normal 11.0-15.0 [facility] Comment on above: Performed By: #### C MP, LIPID, TSH #### [facility] [address] [address] [address] Gerardo Larose Hematocrit (Bld) [Volume fraction] 46.3 % Normal 42.0-54.0 [facility] Comment on above: Performed By: #### C MP, LIPID, TSH #### [facility] [address] [place] [address] Dr. Gerardo Larose Hemoglobin (Bld) [Mass/Vol] 15.7 g/dL Normal 14.0-18.0 [facility] Comment on above: Performed By: #### C MP, LIPID, TSH #### [facility] [address] [place] [address] Dr. Gerardo Larose IG # 0.03 10e3/ul Normal 0.00-0.03 [facility] Comment on above: Performed By: #### C MP, LIPID, TSH #### [facility] [address] [place] [address] Dr. Gerardo Larose IG % 0.4 % Normal 0.0-0.5 [facility] Comment on above: Performed By: #### C MP, LIPID, TSH #### [facility] [address] [place] [address] Dr. Gerardo Larose LYMPH # 2.1 103/ul Normal 1.2-3.8 [facility] Comment on above: Performed By: #### C MP, LIPID, TSH #### [facility] [address] [place] [address] Dr. Gerardo Larose Lymphocytes/100 WBC (Bld) 31.2 % Normal 20.5-60.0 [facility] Comment on above: Performed By: #### C MP, LIPID, TSH #### [facility] [address] [place] [address] Dr. Gerardo Larose MANUAL DIFF REQ NO Normal [facility] Comment on above: Performed By: #### C MP, LIPID, TSH #### [facility] [address] [place] [address] Dr. Gerardo Larose MCH (RBC) [Entitic mass] 31.3 pg Normal 25.9-34.0 [facility] Comment on above: Performed By: #### C MP, LIPID, TSH #### [facility] [address] [place] [address] Dr. Gerardo Larose MCHC (RBC) [Mass/Vol] 33.9 g/dL Normal 29.9-35.2 [facility] Comment on above: Performed By: #### C MP, LIPID, TSH #### [facility] [address] [place] [address] Dr. Gerardo Larose MCV (RBC) [Entitic vol] 92.4 fL Normal 80.0-94.0 [facility] Comment on above: Performed By: #### C MP, LIPID, TSH #### [facility] [address] [place] [address] Dr. Gerardo Larose MONO # 0.5 103/ul Normal 0.3-0.8 [facility] Comment on above: Performed By: #### C MP, LIPID, TSH #### [facility] [address] [place] [address] Dr. Gerardo Larose Monocytes/100 WBC (Bld) 7.8 % Normal 1.7-12.0 [facility] Comment on above: Performed By: #### C MP, LIPID, TSH #### [facility] [address] [place] [address] Dr. Gerardo Larose NEUT # 3.8 103/ul Normal 1.4-6.5 [facility] Comment on above: Performed By: #### C MP, LIPID, TSH #### [facility] [address] [place] [address] Dr. Gerardo Larose Neutrophils/100 WBC (Bld) 57.2 % Normal 43.0-75.0 [facility] Comment on above: Performed By: #### C MP, LIPID, TSH #### [facility] [address] [place] [address] Dr. Gerardo Larose Platelet mean volume (Bld) [Entitic vol] 10.2 fL Normal 9.5-13.5 [facility] Comment on above: Performed By: #### C MP, LIPID, TSH #### [facility] [address] [place] [address] Dr. Gerardo Larose PLT 190 103/ul Normal 150-450 [facility] Comment on above: Performed By: #### C MP, LIPID, TSH #### [facility] [address] [address] [address] Gerardo Larose RBC 5.01 106/ul Normal 4.70-6.10 [facility] Comment on above: Performed By: #### C MP, LIPID, TSH #### [facility] [address] [address] [address] Gerardo Larose WBC 6.7 103/ul Normal 4.0-11.0 [facility] Comment on above: Performed By: #### C MP, LIPID, TSH #### [facility] [address] [address] [address] Gerardo Larose GLYCOHEMOGLOBIN A1Con 2021 ADA RECOMMENDATION SEE BELOW Normal [facility] Comment on above: Result Comment: ADA RECOMMENDED LIMIT 4.0 - 6.0 ADA THERAPEUTIC TARGET < 7.0 ACTION SUGGESTED > 7.0 Performed By: #### C MP, LIPID, TSH #### [facility] [address] [place] [address] Dr. Gerardo aLrose Glucose [Mass/Vol] 140 mg/dL Normal [facility] Comment on above: Performed By: #### C MP, LIPID, TSH #### [facility] [address] [place] [address] Dr. Gerardo Larose HbA1c (Bld) [Mass fraction] 6.5 % Critically high 4.5-6.2 [facility] Comment on above: Performed By: #### C MP, LIPID, TSH #### [facility] [address] [place] [address] Dr. Gerardo Larose LIPID PROFILEon 12-01-2021 CHOL-HDL RATIO NORM SEE BELOW Normal [facility] Comment on above: Result Comment: 3.3 - 4.4 LOW RISK 4.4 - 7.1 AVERAGE RISK 7.1 - 11.0 MODERATE RISK >11.0 HIGH RISK Performed By: #### C MP, LIPID, TSH #### [facility] [address] [place] [address] Dr. Gerardo Larose Cholesterol [Mass/Vol] 202 mg/dL Critically high <=200 [facility] Comment on above: Performed By: #### C MP, LIPID, TSH #### [facility] [address] [address] [address] Gerardo Larose Cholesterol in HDL [Mass/Vol] 58 mg/dL Normal 40-60 [facility] Comment on above: Performed By: #### C MP, LIPID, TSH #### [facility] [address] [address] [address] Gerardo Larose Cholesterol in LDL [Mass/Vol] 104.2 mg/dL Normal [facility] Comment on above: Performed By: #### C MP, LIPID, TSH #### [facility] [address] [address] [address] Gerardo Larose Cholesterol.total/Cho lesterol in HDL [Mass ratio] 3.5 {ratio} Normal [facility] Comment on above: Performed By: #### C MP, LIPID, TSH #### [facility] [address] [address] [address] Gerardo Larose HDL NORMAL > or = 60 mg/dl - LO W CARDIOVASCULAR RISK <40 mg/dl - HIGH CARDIOVASCULAR RISK Normal [facility] Comment on above: Performed By: #### C MP, LIPID, TSH #### [facility] [address] [address] [address] Gerardo Larose LDL CALC NORMAL SEE BELOW Normal [facility] Comment on above: Result Comment: <100 mg/dl OPTIMAL 100 - 129 mg/dl NEAR OR ABOVE OPTIMAL 130 - 159 mg/dl BORDERLINE HIGH 160 - 189 mg/dl HIGH >190 mg/dl VERY HIGH Performed By: #### C MP, LIPID, TSH #### [facility] [address] [address] [address] Gerardo Larose Triglyceride [Mass/Vol] 199 mg/dL Critically high <=150 [facility] Comment on above: Performed By: #### C MP, LIPID, TSH #### [facility] [address] [address] [address] Gerardo Larose VLDL CALC 39.8 mg/dL Normal [facility] Comment on above: Performed By: #### C MP, LIPID, TSH #### [facility] [address] [address] [address] Gerardo Larose MICROALBUMIN, RAND URon -3 mALB 28.7 mg/L Normal <=30.0 [facility] Comment on above: Performed By: #### C MP, LIPID, TSH #### [facility] [address] [address] [address] Gerardo Larose PROF 14(COMP METB)on 022 Albumin [Mass/Vol] 3.7 g/dL Normal 3.4-5.0 [facility] Comment on above: Performed By: #### C MP, LIPID, TSH #### [facility] [address] [address] [address] Gerardo Larose Albumin/Globulin [Mass ratio] 0.9 {ratio} Normal [facility] Comment on above: Performed By: #### C MP, LIPID, TSH #### [facility] [address] [address] [address] Gerardo Larose ALP [Catalytic activity/Vol] 84 U/L Normal 46-116 [facility] Comment on above: Performed By: #### C MP, LIPID, TSH #### [facility] [address] [address] [address] Gerardo Larose ALT [Catalytic activity/Vol] 45 U/L Normal 16-63 [facility] Comment on above: Performed By: #### C MP, LIPID, TSH #### [facility] [address] [address] [address] Gerardo Larose Anion gap [Moles/Vol] 10.8 mmol/L Normal [facility] Comment on above: Performed By: #### C MP, LIPID, TSH #### [facility] [address] [address] [address] Gerardo Larose AST [Catalytic activity/Vol] 26 U/L Normal 15-37 [facility] Comment on above: Performed By: #### C MP, LIPID, TSH #### [facility] [address] [address] [address] Gerardo Larose Bilirubin [Mass/Vol] 0.6 mg/dL Normal 0.2-1.0 [facility] Comment on above: Performed By: #### C MP, LIPID, TSH #### [facility] [address] [address] [address] Gerardo Larose Calcium [Mass/Vol] 9.4 mg/dL Normal 8.5-10.1 [facility] Comment on above: Performed By: #### C MP, LIPID, TSH #### [facility] [address] [address] [address] Gerardo Larose Chloride [Moles/Vol] 100 mmol/L Normal 98-107 [facility] Comment on above: Performed By: #### C MP, LIPID, TSH #### [facility] [address] [address] [address] Gerardo Larose CO2 [Moles/Vol] 28.9 mmol/L Normal 21.0-32.0 [facility] Comment on above: Performed By: #### C MP, LIPID, TSH #### [facility] [address] [address] [address] Gerardo Larose Creatinine [Mass/Vol] 0.95 mg/dL Normal 0.70-1.30 [facility] Comment on above: Performed By: #### C MP, LIPID, TSH #### [facility] [address] [place] [address] Dr. Gerardo Larose EGFR-AF ENGLISH >60 Normal >=60 [facility] Comment on above: Performed By: #### C MP, LIPID, TSH #### [facility] [address] [address] [address] Gerardo Larose EGFR-NON AF ENGLISH >60 Normal >=60 [facility] Comment on above: Performed By: #### C MP, LIPID, TSH #### [facility] [address] [address] [address] Gerardo Larose Globulin (S) [Mass/Vol] 3.9 g/dL Normal [facility] Comment on above: Performed By: #### C MP, LIPID, TSH #### [facility] [address] [address] [address] Gerardo Larose Glucose [Mass/Vol] 128 mg/dL Critically high 74-106 [facility] Comment on above: Performed By: #### C MP, LIPID, TSH #### [facility] [address] [place] [address] Dr. Gerardo Larose Potassium [Moles/Vol] 3.7 mmol/L Normal 3.5-5.1 [facility] Comment on above: Performed By: #### C MP, LIPID, TSH #### [facility] [address] [place] [address] Dr. Gerardo Larose Protein [Mass/Vol] 7.6 g/dL Normal 6.4-8.2 [facility] Comment on above: Performed By: #### C MP, LIPID, TSH #### [facility] [address] [place] [address] Dr. Gerardo Larose Sodium [Moles/Vol] 136 mmol/L Normal 136-145 [facility] Comment on above: Performed By: #### C MP, LIPID, TSH #### [facility] [address] [place] [address] Dr. Gerardo Larose Urea nitrogen [Mass/Vol] 15.0 mg/dL Normal 7.0-18.0 [facility] Comment on above: Performed By: #### C MP, LIPID, TSH #### [facility] [address] [place] [address] Dr. Gerardo Larose Urea nitrogen/Creatinine [Mass ratio] 15.8 mg/mg Normal [facility] Comment on above: Performed By: #### C MP, LIPID, TSH #### [facility] [address] [place] [address] Dr. Gerardo Larose TSHon 12-01-2021 TSH 1.388 uIU/mL Normal 0.358-3.740 [facility] Comment on above: Performed By: #### C MP, LIPID, TSH #### [facility] [address] [place] [address] Dr. Gerardo Larose VITAMIN B12on 12-01-2021 Cobalamin (Vitamin B12) [Mass/Vol] 382.0 pg/mL Normal 193.0-986.0 [facility] Comment on above: Performed By: #### V ITB12, PSASC #### [facility] [address] [address] [address] Gerardo Larose GLYCOHEMOGLOBIN A1Con 2021 ADA RECOMMENDATION SEE BELOW Normal [facility] Comment on above: Result Comment: ADA RECOMMENDED LIMIT 4.0 - 6.0 ADA THERAPEUTIC TARGET < 7.0 ACTION SUGGESTED > 7.0 Performed By: #### C MP, LIPID, TSH #### [facility] [address] [address] [address] Gerardo Larose Glucose [Mass/Vol] 192 mg/dL Normal [facility] Comment on above: Performed By: #### C MP, LIPID, TSH #### [facility] [address] [address] [address] Gerardo Larose HbA1c (Bld) [Mass fraction] 8.3 % Critically high 4.5-6.2 [facility] Comment on above: Performed By: #### C MP, LIPID, TSH #### [facility] [address] [address] [address] Gerardo Larose IntraOperative Documentson 0 06-24-2020 [employer] Documents [id number]#1.0 0CD:127 Normal [facility] Coding Summary.on 06-21-2020 Coding Summary. CD:[id number]:[id number] Gh 0bWw+PGhlYWQ+MH5UEKKuF 02teMCmnC6RR6jUHZ0YAXK JMFBJUH8XQC1saPG8YPdfI 2VybiAv QdmdcIXxGV67TZl4JAQ9nT qvLTjcoA3plTRvV9z8RzWu EL24jZ17RRadTGKyFoP5Lq ZpbjsgbWFy E6ycPkSwiUKsHwd+PHRhYm xlIHdpZHRoPScxMDAlJyBz eIojYQ2iEb4bHZHoEWIthP xhcHNlOiBj q4unESGpFYdtEJ9ugRwaC9 YaiVD9BYGax8p9Fr58wYV+ UGXmIKL9rMemVQhos091Jz Nmp2eiRBJ5 fYNxAScxWLC1L37ml2Y3AV IuLOJqPPA2uUP8qZ1xsQgg ndqyX2LmwMEyZuU8VXJ5xZ OfxS2jpEan wcnvcP3yTdm+G87CTM7XZP OZTE5ZGgm8H2VwXghnwFU+ XG85IBQvPJ30tEQlfMSop3 jisQc6QtMg FEDmQFR3dMqhTHdet4SxWT OxR95dqFXvm8V8WGIkvAum dVDmPuMeuZJ9cB9wHNfofs iga6bnqnsd Gsexh9olxh69tM64I04kIS vsDJJlOBJ8XRZzXZVfrPqv dl3ofT5cZd6+QRsjj3ihi2 aynKy0ZbQi UUWpykXuoCbmCQS8x6LpSi 40Y3HyiYtge4IrLdl6pa37 rFUja9A0tMD3KQfjQDAgyJ 6kWPpyUaE2 OSFoOaWgbU80vUTmNPzgSi 3llPjukYlhAO9wGJXfsnys HNWgbO0lKOAwrYKmrIlvKV 4wNTBpbjtm v021EcDySFU2SVEwuZPmY3 QizN6uOyNdKZKrDZUdN1La aLPdGFraM526GJutAmB6BJ IolpXoE9Cr DPHxqUwfPxE2y0Q7Cy7Qw6 KzseckBNB2HWpwHHS1XfXf HlSuRuA6C8WqCed9RAThkP rlQI8qP9Ur KOSscpvebntgqRE7HGXyTV BlzH55yTFvDNqsIb1ea8I1 r824SBCwPXBlpS82Mp2dxD ogMTBwdCBU yZ1wulmcw6mezhvhPePgAO CsRVc0HDb3GFOkgIxyVnBj NAT9IkB7GVF4gYOcgL0prY wokawywU3m Oyc+M16tzC2oWVS7TVT2aj iqQSMfxaFfDA27QD53W7Xa PjwvdGFibGU+PGRpdiBzdH juUQ1fOgNm q7hfp7CpAOcrV5IcBCZtOR ciXiu4UPDtGQP5rVS6rR5v LTFjTKdkz2E6dQO9U6Happ Errx0fy2pj ZVSdMAgmO77diOBns0F4RT BwkPL9IMTddWkqGuGzcO92 Oyc+GPLnqVypg4PrXpkay9 ifo7esiJu5 ZrUeUGLgipAkkNtvOQP5e7 EpXu36Z91wERapPUVxGMPb QKXpKTKrgFftfx2dxD3gKx 8+PGNvbCB3 zXE3dF3rGSQiExM1AUfbA8 43VcSxeUKwBzyfq4wyc1rl vRf3YgKlXBDjxzZsxPchXL L4c0BbKs50 P69xLPhjFRHzIXNdPOZiWV IbwEdsqm4maK8pJh2+PC9j p4xqxp07pT21eQU+PHRkIH X6mNcwLEya BSAkmQ6aRCnvLfO5XEVjQr OfuT71cIDaTFajWs2qpQdd uUecMR5sZUKfqoogn573Ds Fvu9piRTHd aCNbNPmrRYO5E58mg4Z9EG GvVMOiERW1uOG4iW1lyIyu bjogbGVmdDsgdmVydGljYW puARlkC885 IHRvcDsnPlBhdGllbnQgTm MnMRd9Y3BtJpq9ZGNqjDqu HG2ydPQaHIgcSb8fwMavbP nfNB1iAJBa ggabu568EcVnh6snPPMwiD FlCBaxGVW6O91ic4K9RLFo CMRsELP6yXV6zC3daWzpox ogbGVmdDsg yyUxtPmmOGpvWKpzN147YA RvcDsnPkJpcnRoIERhdGU6 EQ44EU93hGRdw5P7vNE6Y2 BhZGRpbmct nnxjxNM9CEOdXVSeeP73Oq 4diJqhRm0yHICvBEO2JSYd kMKsT6MgnR1kYtJjFSOlFS NkU4NxzDNu SHtjM594TCheIwD2GTDlgo ZfA7VwZLEmyTagJqW1t9N8 Gs7GJ6O3IX24HD68lQRwa6 H9jCC7H8Lh ECHmmpbyolmdaFV1LKHpQB WovX46Wo6dyYwyNa6iAXTx DVE5XFXhsEGgA2GggA6gHp AjMDAwMDAw C3SebNPaQIiuV120EDlnIx V2RFHrbeLjK8OpVLCauDug SnX8t9L5Ng4WLGd2WC98VB 61iKIbh1Y8 pSO9X7FyVAJenyywrejbmQ M0ODErIIHzwO24Vg1ntOiw Ji9qPYNxBGJ8ABWxbSWdD2 QxxJ3fNdFk NZYmDBBgA4FuhBTuIRzuH6 00VWukCxI3MJPhieXuD6Rw DGJkpRufIjY6t9H6Ep3NHI WeSP94VJW5 eNT4UY67AD01L9WhDmeuiP FibGU+PHRhYmxlIHdpZHRo MYtjOXFtJcNufIivGA2lZo 9yZGVyLWNv bMslhIPvElPvy9bwVTBpQM gaHU3okLhlF8QjdPT4NBMp e3l1Sx18Z46nG5JjqNV+PG DgvYH7yHH1 qI5wJgMnQgT7SBitW855Ot AkrREoZmpaj4enf0seoQi5 EdZ2UBZvpyTuaWkdQJG0q1 IuAo01M32o IHdpZHRoPSIxNSUiIHZhbG wkwy2ftF9aLn5+PGNvbCB3 mVQ1sA1xPcQhNiP0BVuhP3 49InRvcCIv Kmnhl7vur7xynQq0IuNeGQ AvymRpdKxtDQA6t0PdWm53 E5FuqItnj9IaPow0dd86pH Azn4Z5vMD0 V0IpCQPnrnvupHOdrWskIW 6hBURmtaqaKKHqxX4pPBYj H1i5BpTvJtQ1VWagR2Gswn P3YQIdjCHq LFnbEMO3L21pv1Y5BABwUA WnEXV3aAY8gQ5afZsoqkjw bGVmdDsgdmVydGljYWwtYW smG009PQHz gJgnHUAsbM5yVVVekDOsxL vqKE8vMYTrujfhTvfJJHAS HZWVZONJENLGJC96ZU21qF Stu1W6uDS1 A9AuEGPzvmojumrbaRL0TU XrIASqkQ37tGLiORnbSd9v v1B9w341ZQPzVAEqoK94Bi 9udDogMTBw qZIGiS0enqdum0sinpzeQp XmCCDdDPh6SPc4LJUfuGns WiZpMRO6IqZ4GIB9dSOohJ 1hbGlnbjog cV0eYyr+DFAqSMVyBZu4OV wvdGQ+EMNnTSC1cNhdEZbq WLOjtR8dCWRrA1j9QlFyMq C8QHfqC6Eh AVLhxwlwRj20vT0iVrLnAp X2HKwuK1GtzfD4YIOahTTu JUskLYV8A21ky0H4IXGdNG VgBYA7bQB2 mD0ycUptkqzztWCvwGbtfw IwzIaqWZotDXbuY151GXVz qOlsNcQpHRbuXKPjUO26CA 79sWOnc4H0 nMH0Q8BdBKNodyzasyewmS P7ZEDfYLDfiP22fXGvWVjj Ie5rt5W1b341YYMwJVMxkM 76Fl9pcHlt NEEmrSBRjF6tmqmmh9hhmw btEmWgGIXcDIt3HTk2GDIv yTvsGqInIGL1CiK5YPA3lQ WcoB1taLov qqxxhR6wOhn+TWFsZTwvdG Q+SNCtPRM1rAhmNVidBUXj nQ4xOJZwQ2r4TvQiEqL1BG zoG4RzUKNr hjyhDr51bX6bYjLfCtV9WY xbP2MeguS6HOMizFKiETsq QVW0H32gf7P9SOKkHKYpIH K4dGE2eV9h bGlnbjogbGVmdDsgdmVydG juXRnzRNspA436UZNdzEkr Hp50cZUnuImwlxB4R4MsLm wvdHI+PC90 GGZuYV39xUUleZKze3cteP l2GaRcNUPqENL2fZfdIUrb n0IbUCMbR07gmQSrp5Z8KG NvbGxhcHNl GoTsdDM3vO8rYUdlqdlog1 ddogcyFopbe6fakb79hY80 L04vWWrwYURjEZOfCSQuVT QpkFmxir2j uH9sRb0+AXPujIR2nPE8hY 1aLfSbFmX8YTyeG139JdNx wFQmPbyud6xre4ypxDe1Cj IwJSIgdmFs dVjfQQU1b6WtQk04U56nHR dpZHRoPSIyMCUiIHZhbGln tc4uaG6yVq7+OD1vd1icmi 16dI41iCX+ YVNjUBU2sNjpGRrnVRZqiR 7hRMytOvJ6CBGpBnJvwM78 cWKdVPqwQr8daKhstWeaHD 4wNTBpbjtm z788SzEkd4whDYFfpERqBD xlQGV8V55vg2E0FSVqROXf TED7uPY4pA8cxQzrzlhglH VmdDsgdmVy jHtsNIwjXVatL988WMTvdV qlSuYnpKSsP3wuouOYJC6r OjwvdGQ+YOHnTLK7wNkzHP ptAZZfsU6q GJLuS4g3TfNtPeH4QUgvE8 PtbdD7IABfaHIgGGAjrFCP dI1knlzjf0hqkwgpLyJoPZ MxRJe1EKa7 LLFlxVelQhNzKGP9IsL5RR P3uWYhcF0izEhhbcvlnC4c Oyc+RklOOjwvdGQ+PHRkIH M6vTezFYwq BEFxvO3gGJGiN2a7BuRcIq W0PTpbI7DucnV8TVPhwDSx SQGjhYDLeS2leyypk0kkbw ogIzAwMDAw OSv5LDc1GURccNavVrEjWA G9QeI8OGG9uQFxzQ1irWvj udptkU8wIbj+TVJOOjwvdG Q+PHRkIHN0 fXndVUwhAMInbJ8mEBRdL8 c9LdYlJnK9QOnoE2GgjnB9 KUBduLLlZQEzuCPWfN1wjp jbt8kytvig EbTwPBUuOEc4SGf4XEXzbX uiDsHpHKN2AeJ1KQM3xVFv vW2ooMthmeemgZ9eUyy+UG Y6KEQ2BF32 KY09W0VuWpqmsQVvbEQ+PH RhYmxlIHdpZHRoPScxMDAl PpQznOqoGX4iLp1vODNkXH NvbGxhcHNl OiBj (more content not included)... Normal [facility] Postoperative Documentson Postoperative Documents [id number]#1. 00CD:127 Normal [facility] Consenton 06-20-2020 Consent [id number]#1. 00CD:127 [facility] Discharge Instructionson Discharge Instructions [id number]#1. 00CD:127 Normal [facility] IntraOperative Documentson 0 06-20-2020 IntraOperative Documents [id number]#1. 00CD:127 Normal [facility] IntraOperative Documents [id number]#1. 00CD:127 Normal [facility] Main OR Intraoperative Recor don 06-20-2020 Main OR Intraoperative Record IntraOp Document Type FT Summary Primary Physician: Elen MCKINNON MD Finalized Date/Time: 06/20/20 13:22:09 Pt. Name: VINNY BAEZ Edgardo Light/Sex: 1960 Male Med Rec #: [id number] Physician: Elen MCKINNON MD Financial #: [id number] Pt. Type: O Room/Bed: / Admit/Disch: 06/15/20 [...] RN, Evelina De Leon Role Performed Anesthesiologist [employer] Technician - Primary Scrub - Primary Associate Technician Time In 06/15/20 14:13:00 06/15/20 14:13:00 06/15/20 14:13:00 Time Out 06/15/20 14:31:00 06/15/20 14:31:00 06/15/20 14:31:00 Procedure COLONOSCOPY(.) COLONOSCOPY(.) COLONOSCOPY(.) Comments supervising Last Modified By: Jeniffer QUIGLEY, Kriss Swift RN, Kriss Johnson RN 06/15/20 14:31:32 06/15/20 14:31:32 06/15/20 14:31:32 Entry 4 Entry 5 Case Attendee Clyde Eng MD, Maher Role Performed Staff - Other Surgeon - Primary Time In 06/15/20 14:13:00 06/15/20 14:13:00 Time Out 06/15/20 14:31:00 06/15/20 14:31:00 Procedure COLONOSCOPY(.) COLONOSCOPY(.) Comments help in room Last Modified By: Jeniffer QUIGLEY, Kriss Johnson RN 06/15/20 14:31:32 06/15/20 14:31:32 Perioperative Protocols FT [...] Time Out Lázaro Owusu CRNA, Given Participants Kriss Swift RN, SALAM MD, Maher, Miles, Kirstyn K, Sparks, Micala E Time Out [...] Procedure Yes Primary Surgeon Elen MCKINNON MD Start 06/15/20 14:17:00 Stop 06/15/20 14:27:00 Anesthesia [...] and tissue Entry 1 Skin Integrity Intact, [place], Warm, and Skin Abnormality No Dry Outcomes [...] Procedure COLONOSCOPY(.) (more content not included)... Normal [facility] Endoscopic Procedure Report - Otheron 06-15-2020 [...] Return to activities:: After 24 hours. Normal [facility] Comment on above: Result Comment: Elec tronically Signed By: PETAR MARTINEZ, Elen\.br\Date and Time Signed: 06/15/20 14:30 EDT Other Comment: Ramona bernabe Attachment - attachment storage system not supported [id number] Can be viewed in source systemMissing Attachment - attachment storage system not supported [id number] Can be viewed in source systemMissing Attachment - attachment storage system not supported [id number] Can be viewed in source systemMissing Attachment - attachment storage system not supported [id number] Can be viewed in source systemMissing Attachment - attachment storage system not supported [id number] Can be viewed in source system Inpatient Patient Summaryon 06-15-2020 Inpatient Patient Summary [place] [id number] [facility] Clinical Discharge Instructions PERSON INFORMATION Name: VINNY BAEZ PHYSICIANS Admitting Physician: Elen MCKINNON MD Attending Physician: Elen MCKINNON MD PCP: SAMUEL ZHAO DO Discharge Diagnosis: Colon polyp Comment: PATIENT EDUCATION INFORMATION Instructions: Medication Leaflets: Follow up: Type Location Start [facility] Follow Up [facility] 07/12/2020 1:15 PM 07/12/2020 1:30 PM Confirmed MEDICATION LIST Medications to Continue with No Changes Other Medications benazepril 5 Milligram By Mouth every day. bisoprolol-hydrochloro thiazide (bisoprolol-hydrochlor othiazide 5 mg-6.25 mg Tab) 1 Tablets By Mouth every day. omeprazole 20 Milligram By Mouth every day. Comment: Normal [facility] Main OR PACU I Recordon 06-02 Main OR PACU I Record PACU Phase I Docum ent Type FT Summary Primary Physician: Elen MCKINNON MD Finalized Date/Time: 06/15/20 16:40:52 Pt. Name: VINNY BAEZ /Sex: 1960 Male Med Rec #: [id number] Physician: Elen MCKINNON MD Financial #: [id number] Pt. Type: O Room/Bed: / Admit/Disch: 06/15/20 [...] Lucas RN 06/15/20 16:40:50 Finalized By: Radha Lcuas RN Document Signatures Signed By: Radha Lucas RN 06/15/20 16:40 Normal [facility] Main OR Preoperative Recordo n 06-15-2020 Main OR Preoperative Record Holding Area Document Type FT Summary Primary Physician: Elen MCKINNON MD Finalized Date/Time: 06/15/20 13:00:04 Pt. Name: VINNY BAEZ Mirella/Sex: 1960 Male Med Rec #: [id number] Physician: Elen MCKINNON MD Financial #: [id number] Pt. Type: O Room/Bed: / Admit/Disch: 06/15/20 [...] By: Yenny Milner RN 06/15/20 13:00 Normal [facility] Monitor Recordon 06-15-2020 Monitor Record [id number]#1. 00CD:127 Normal [facility] Outpatient Surgery Discharge Instructionon 06-15-2020 Outpatient Surgery Discharge Instruction [place] [id number] Patient Discharge Instructions PERSON INFORMATION Name: VINNY [...] Signature ___ Date Follow up: Type Location [facility] Follow Up [place] 07/12/2020 1:15 PM 07/12/2020 1:30 PM Confirmed Pharmacy Information: [facility] You may receive a survey from [employer] asking you to rate your care experience. Your feedback is important and will help us understand what we do well and how we can improve the quality of care we provide to you, your loved ones and our community. It?s an honor to serve you. Thank you for choosing [facility] HERE ARE THE MEDICATION CHANGES THAT OCCURRED DURING YOUR HOSPITAL STAY Medications to Continue with No Changes Other Medications benazepril 5 Milligram By Mouth every day. bisoprolol-hydrochloro thiazide (bisoprolol-hydrochlor othiazide 5 mg-6.25 mg Tab) 1 Tablets By Mouth every day. omeprazole 20 Milligram By Mouth every day. PATIENT EDUCATION INFORMATION Instructions: [facility] Patient Education - Texton 0 06-15-2020 Patient Education - Text [facility] Progress Note-Physicianon Progress Note-Physician Patient: VINNY BAEZ [...] noted. Plan Transfer/ Discharge: Condition stable. Normal [facility] Comment on above: Result Comment: Elec [...] mellitus type 1 Father Procedure history: Colonoscopy ([id number]). EGD (esophagogastroduodeno scopy) gastric outlet reduction ([id number]). Social History Social & Psychosocial Habits Tobacco 05/23/2020 Tobacco Use: 10 or more cigarettes (1/ . Physical Examination Respiratory: Lungs are clear to auscultation. Cardiovascular: Regular rhythm. Plan [employer] Anesthesiologists (ASA) physical status classification: Class III. Anesthetic Preoperative Plan Anesthesia: General. . Anesthetic plan, risks, benefits, and alternatives discussed with the patient and/or family. Patient verbalized understanding. Normal [facility] Comment on above: Result Comment: Elec tronically Signed By: Pierre Nazario Jr., DO.braulio\Date and Time Signed: 06/15/20 11:57 EDT Coding Summary.on 06-10-2020 Coding Summary. CODING DATE: 06/10/2020 FINAL [facility] STATUS: Home (Routine DC) PAYOR: Commercial Insurance [...] CphT Date Saved: 06/10/2020 08:48 am Normal [facility] COVID-19 (MC)on 06-09-2020 SARS-CoV-2 (COVID-19) RNA ROLANDO+probe Ql (Unsp spec) Not detected Normal Not Detected [facility] Comment on above: Result Comment: This test result should be correlated with clinical presentations and medical history by a healthcare provider to determine its clinical significance. This assay was performed by a reverse transcriptase real-time polymerase chain reaction (rt PCR) method on the [employer] system. This test has been authorized only [...] or revoked sooner. 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 NO [facility] Comment on above: Performed By: #### 2 [id number] ####[address] [address] ICU NO [facility] Comment on above: Performed By: #### 2 [id number] ####[address] [address] ? NO [facility] Comment on above: Performed By: #### 2 [id number] ####[address] [address] Resides in a Congregate Care Setting NO [facility] Comment on above: Performed By: #### 2 [id number] ####[facility] [id number] [place] [address] Symptomatic as defined by [facility] NO Normal [facility] Comment on above: Performed By: #### 2 [id number] ####[facility] [id number] [place] [address] Consent for Procedure/Surger yon 05-24-2020 Consent for Procedure/Surgery [id number]#1.0 0CD:127 Normal [facility] Gastroenterology Office/Clin ic Noteon 05-24-2020 Gastroenterology Office/Clinic Note CD:[id number] XF22dNqekrZmi3hisx9kIX 5rSnDzwoJaIEueUo4mv0ap CI41do2eVdVyHx8+CjwhRE 9DVFlQRSBo jW2pLZHMZnlFBgAmHX3mEv MIQp6AREHyBBxBKBczSF3r MTB8xkxclQ4aMB5kQNVrvC YwOf3ly9s5 KivbVb0aAv3LJl95zLTdgQ EfSDGNQ9lszL1sNV8isNXx M4XlHKMjZq5IZRs6qYzmaH 8pzuU8Eet0 wPY6Jx71t7rhctQkg2BuUe F5OKvbnTi4lVsfIQdmoW0d EpDyGJUJmD8jmQlxTN7aaA 1lbnRhdGlv biI+LdlpASGhGwn9kVQwHB 24K8ZyzUehKbg7xIW5EDRo fZKtSVAtkCu3WYVXXLEFYY NvbXBhdGli iNSxWMEjugJzhrI1UuiWAW AxJbHsGon3Z0dsNAY+Cjxi e8X3Usv5XDr7MFK0aJjoTE Yao103VNAg sRejqOztrNEho40nMUAdaZ PzPsGko775PKZhxhQ2WFuu lLfjAwk1mDLswOCcq8fhwN v2TxNeQIZb WuhHBQLvgYigw7IqNsmFFI pda3fsdnTolHqpPYN7r7Qy QPkyFIMxASP8OwKmNU8+Cg kJPGNvbCB2 LSteL843KvVqtQXeo7legQ h3NfE0IZDeAr0YHYiyT95p V1FlrKJ+Gtj3tIGkJBg+Cg kJPHRyPgoJ PAg1sNRlr7S5ePI0OcHxna Jnf2r2LYubSGO5LlE8NTI9 oRAikI4mvDwvtbdxhB2jVw I+CgkJCTxk wIZfN1qrw5F4PzBqt2HmlA iwrwQuIOByXvUgj0rtVpek MFIegE7lWDO2UrOfYETpkR AtGWGuLA7z ozTelWSgBWBcHwVxD0Ztk7 6pe5RaAYPAQ9iIDvEmFJG9 QR7tCsXoXU9gXfhsDVTyN5 PpHWP2YXXt YKztLl7yCZGqXMP9LpXkYZ QhAEI1HVKhs1G6iSM6AoXi BKUcfgn2ZLHowZqnVpwomX FuIGNsYXNz JDLdAEQaC6Rwj46pjPQcmL H1Px13p4AedbQwtRxrSI3r Ba8oeZ88QYbwpNN2ROJiaV O7IJFqwDUh SEBlw8JctYzgsyyroG9sUL OqjW1yRoN+L7xjFCPvT71a cZideR34WL2isEJrIthqq3 Qxwi3YKAzJ TBXdelOkpENlnw6yBIKdsX Cwx444EJ98IpSsXOhqk539 MP70iPkfFX4iUATDN9RGWX 9NRUFTIiBk XXnyKBXmobMvB9X4mMlkLA MFQ9H5VwV2RW4UHlMfOGFX N8QcGzWkKn1MA9GZEKpQMo N4EpQvMCzk PSJfZTlmOWVkYzMtYzZmZi 77VoA8VKhoDBEuMCI5Zbg1 TTC3GAvvBx1MGIgUJKVsgx LrxSNbii3c OENaeLUcl472QR98zSNmbD CtCMBlvJ76CUScAZHrZJC8 H46jeSEtiGI4kIF8KaMMUU NBUkVfTUVB RmTfAXC3MT24oYY4oJA1Wc Q9Kpn3VkMvEkTcSZdiQOJo FxDqFPR3HCRdMSXiNF63NY HhASq1XgGf GqBuVfS3KNtaTSkoXkK3dO axllmhLA8uFSyyVI7qG3Tj Z9ApOF46SDUwe39oSkI4jw Iem5drvdMs BMBknBl2F7Xemd0UMDtKRP 9kaXY+LkrFIQtfFMw7EpwS TBbDNSDiniRohWLlkt5sEF KzUEV8xY0j IGRkcmVmcmVzaGFibGUgZG EdymOhkfCyviQepFO4rNUn TDFlzB38GNYyRKZwJAA7i0 VjdGlvbmNv HPO5FdrAZV8IFNVcWWP0MU VkSGxlIGObVNBiGRO2MIOo IbBcWj14PIH0XPm7IzYfIm VqB7G5Ndt7 YnZuLcTmeGmbSL6nkTDdID rlTisvDVT2RhM+THEjJP1m R9ymd1O5UfTdi0QbnUeddr Umt0TcMYfx VwmpeHRjDKT6tIqsPFVpp1 28WEzphZqiqGgsLy1eLUoa hOD7dZ0iKJSzdcZ0gF2eTa E9uyDlgcdi qcP7We0ZFRthA0VsKxT0W7 NwYW4+DG3fgEVmRodBWRwB UJDhjlJeaFUzxo9zGYOflN Ctf066AL29 MaZqMDyhq475LP75qSnbMG 3wMPQKS6VFBU4GBJSTBsNh SHlyIJZigwNaY3C8vQesFG JBODVEREFE FB87NebjXCRBORVwXEJCQz 51LQERXlI2QrcJEZMmFKms PSJfMWEyYjQyNTQtNzcwZS 80LDhjNGJ6 MzgtMGMyMGJhMmZmNzJmIj 0FMZvPBKBusdHisWFeqv3f EGZynFYck237WW62sEUjiI LqHCOftB19 YETjBUZcCKB2YjYxUkhqDV GvbffauZipXF5piI8mEPVx Z8s5ZnZhICjyp365LH42lM hmMM9vNNLK J9PQOF3KVBDVJsNqZTngty MybChlKL3fQkLrXD4kE6H3 QZR3XEUpUHbcLpFhYPt0FO 04ZGQyLTMy OzQfBYNkHUyuQFEfpG0jma L9RYM3FmA2nrAkxWTZg9Z1 vMCqiLY2dP1hOr95K7Tqwj 4KCgkJCTxk aBFnB7ihh4D9NeMcFU2tX0 2gsXTvoAz2DQ4wWVUyAJ6b kiKukLWkHFHnBzJ3isDqj1 D0eN8lx4N8 tTP8RnUojK9dfWpiaVYmKO M2Q23cxXPjtSE5nCS5RpGW GIWIMvMjLREYAfZbPID3HZ 24gTV6sRP5 GvYiiEA4Es80PCZxGwSjHq 88HcYqXFCfBWUoUNcbPk3y GMMqTPW7IrNaZgzsMTybaK 5zOmRkPSJE vG0hyYsyZR6zlY4mpjGupC lvbiI+CY4toGO+CgoJCQk8 CTw0UIUtWSKwLWOgNSLefk NvbnRlbnRp aCRiQCWlftCqo3TsAtxnFn QiOJovmP2duV1hvVihF6E1 oPjyFAK7y5FlmljueHBvVM RkOmNvbnRl dxQ8tGOkZLOHCYRTFVYDA5 6PQUAlZZUiUmCijVc7aAmj HGFfIMgcTWPoNri4DuVzNe RsJ7UiOF71 VITsCSodT1OdAEY8CBb8Fr QhReJkZlD0pTuacdosXK9k UPudMM2kP8PaF8WqEZ67ME Gyb19nMfuL DPk6QRj6KYI2kUqmHBZxAQ JjzT94VDVllUNfoV35RNXo DIBoyxq6KAGtrWgvJw3sTI VyOiAwcHQg ilvgTSKbNPTpIOHsVvL7DE w6RWWhjBpfRrKtSRS1RlKc z0tbzupcgojvSXLjHVKnAW KsUcF6REv8 LWluZGVudDogMGluOyBmb2 92WFH6lKxiGlSgz9DtQFq2 AFVlqeNyy8OdQ6w8EpTyq7 OtRMy0NKDx jODxGYBpg4OmoRbfdurign 7qTPtjJrcIUDo9KDe3KohV CLn3NAh0AyDyvKLjxUSaXV S0XPT7ZDPr VC9jUXThDYlvBWfkfyDuyk ViTC74wxD1s8SaqPPzz1Jw VUE4FPhdPKTpE91iv91yni VjYWxsLjwv QNl8IllTWOq3Z7Jndi4XIH qDKA5oxOX+CgkJCTwvZGl2 PgoKCQkJPGRpdiBjbGFzcz 0iZGRlbXJj p755YB26hWPaaNOjZZGcpH 62XGXpQNOgOIV7FlUfQlfk ZTDugjedkLyfAI9usT4fTA ElS6r0AuTd VAmcn845QE83xLdpHR9zLU TTT7DLYJ1LIOVBFbMsQLhc ncXrhOzuHI1tQlNhUV3hJg YxMjcyYjRk ZOA8SUgaARW7IT63KqFiRR E6OsWdBTHzWXD2JXOvgN2i brF3FFI4DpS5smQhkTDCz0 V9qPDegXM1 fD3nHd86B4Hyyj1SXhcOOT dknTScY7rol7M7GnWgAJ1i U85kaNSjeBa8ER4bAFKvTU 1vdmFibGUi USLqVkH4vhQiq4V6fZ5ra7 O0qUB5ZeSxlZ0soUccsJYh OUO2A97bjWYthFE0iRK2Yp BBVENBUkVf WLBJTbXjFID9SW62rQU9xC X3DgRchHH2Ov40KDViFzFs HR9iToGzMTVmNIMyRfC2Bo 5vXAF4QDIx QDVhLHIbKVvonB4zAeVpSL HGkX5oeFooJW6ohH9hizRu dGlvbiI+UV5bgTZ+CgoJCQ q5SYn6IYNf YXNzPSJkZGVtcmNvbnRlbn KrtKAcEWUxdeCdl4OjIbzd PjCaBChbnK4plB7drIyxJ6 N6gOtgRHO8 q9OfwulotWGoRWVlNtDsqu OxwlV6cJIvEPYHQWJSQWDQ I34WEIYeBHRhEwWdrQj1rR lkPSIiIGlk QSOdSKRdWTMfI0KqGEDbPX 23KNEzLKGxRJSaTdjsEzs5 KWL7Gep2UeO8fApystdpBU 2fORyiRT3r F6UdQ4PvZQ29OIUfl67uRa zpKIg2PovOFBeQIGHhxxOb eLKpzm4fPFSvvQWnv505WX 50aXRlbSBk NVYlpX63WJLcOFXrSPH7Gd NzYfzcHMIjbnfhgDtbHP2p zN4jQTGwP8o4YjCgAOpxe1 09VW07xDhf NT5jUOTAJ8FRQJ3MHMBSRq HdQWrywaWzgNsxZY5vChPa ET7pDmQmKIqxYLtsEJY9Lu YzVIi8KB3l FlMlFAi8GrJcYwDsUCSzSF DsxR8cziZ5GOS9FrJ2emSy sICOf7F1kNVgjCH9bM3nGs 14D2Bjui8I YjvVUBouaGUvH8nif8O1Zr AcJV6lK90adUOzrMf7DF6j BPOnNR4imhDjjERpFMIaKd D9inVdk9H5 sW4gd2U8yLB0FrBaiT7icK prwTFfWMZ9W60mtGDmuZF3 aUH1ZgCFCXXNJbCmELLHIo IhMWE9UP82 sME9vFP7IqGzdCY8Xa3dGK i6XILzDp4bTrA6FPQbJqZc YSTgIw7hOeCiXxP3QAD5Dp JiOKgooI7e O (more content not included)... [facility] Comment on above: Result Comment: Elec tronically Signed By: Elen MCKINNON MD\.br\Date and Time Signed: 05/24/20 12:53 EDT\.br\Electronically Co-Signed By: Alysa Ashley\.br\Date and Time Co-Signed: 05/23/20 16:37 EDT\.br\Electronically Co-Signed By: Elen MCKINNON MD\.br\Date and Time Co-Signed: 07/08/20 10:25 EDT\.br\Electronically Co-Signed By: Mami Leonard Physician Orderon 05-24-2020 Physician Order [id number] 0CD:127 [facility] Physician Order [id number] CD:127 Normal [facility] Ambulatory Clinical Summaryo n 05-23-2020 Ambulatory Clinical Summary {[id number]}CD:[id number] Normal [facility] Patient Educationon 05-24-19 Patient Education Oncology Colon [...] 11/14/2004 Document Revised: 06/05/2018 Document Reviewed: 06/05/2018 Elsevier Patient Education ? 2019 [employer]. [facility] Historical Records Officeon 05-20-2020 Historical Records Office [id number] 0CD:127 [facility] Patient Letter FTMCon 2020 Patient Letter [facility] April 05, 2020 V[address]Z [address] [place] [address] VINNY BAEZ 1960 Dear Vinny, This is a reminder that you are due for an appointment with Dr. Mckinnon or Dr. Molina. Please call [facility] at [phone] to schedule an appointment at your earliest convenience. Thank you, [facility] Vital Signs Date Time Vital Sign Value Performing Clinician Facility 04-23-2023 08:45-0500 Body height 179.07 cm [facility] 04-23-2023 08:45-0500 Body mass index (BMI) [Ratio] 27.5 kg/m2 [facility] 04-23-2023 08:45-0500 Body weight 88.22 kg [facility] 04-23-2023 08:45-0500 Diastolic blood pressure 86 mm[Hg] [facility] 04-23-2023 08:45-0500 Heart rate 92 /min [facility] 04-23-2023 08:45-0500 Respiratory rate 12 /min [facility] 04-23-2023 08:45-0500 Systolic blood pressure 138 mm[Hg] [facility] 03-26-2023 11:00-0500 Body height 179.07 cm [employer] Other [facility] 03-26-2023 11:00-0500 Body mass index (BMI) [Ratio] 27.3 kg/m2 [facility] [employer] Other 03-26-2023 11:00-0500 Body weight 87.54 kg [facility] Other [facility] 03-11-2023 11:00-0500 Body height 179.07 cm Samuel Ball Other [facility] 03-11-2023 11:00-0500 Body mass index (BMI) [Ratio] 27.86 kg/m2 Samuel Ball Other [facility] [employer] Other 03-11-2023 11:00-0500 Body weight 89.36 kg Samuel Ball Other [facility] [employer] Other 03-11-2023 11:00-0500 Body weight 89.35 kg [facility] 03-11-2023 11:00-0500 Diastolic blood pressure 88 mm[Hg] Samuel Ball Other [facility] 03-11-2023 11:00-0500 Respiratory rate 12 /min Samuel Ball Other [facility] [employer] Other 03-11-2023 11:00-0500 Systolic blood pressure 169 mm[Hg] Samuel Ball Other [facility] 02-19-2023 09:30-0500 Body height 179.07 cm Samuel Ball Other [facility] 02-19-2023 09:30-0500 Body mass index (BMI) [Ratio] 27.84 kg/m2 Samuel Ball Other [facility] [employer] Other 02-19-2023 09:30-0500 Body weight 89.27 kg Samuel Ball Other [facility] [employer] Other 02-19-2023 09:30-0500 Body weight 89.26 kg [facility] 02-19-2023 09:30-0500 Diastolic blood pressure 82 mm[Hg] Samuel Ball Other [facility] 02-19-2023 09:30-0500 Respiratory rate 12 /min Samuel Ball Other [facility] [employer] Other 02-19-2023 09:30-0500 Systolic blood pressure 176 mm[Hg] Samuel Ball Other [facility] 02-06-2023 11:15-0500 Body height 179.07 cm Samuel Ball Other [facility] 02-06-2023 11:15-0500 Body mass index (BMI) [Ratio] 23.22 kg/m2 [facility] [facility] [employer] Other 02-06-2023 11:15-0500 Body weight 74.48 kg Samuel Ball Other [facility] [employer] Other 02-06-2023 11:15-0500 Body weight 74.47 kg [facility] 02-06-2023 11:15-0500 Diastolic blood pressure 67 mm[Hg] Samuel Ball Other [facility] 02-06-2023 11:15-0500 Respiratory rate 12 /min Samuel Ball Other [facility] [employer] Other 02-06-2023 11:15-0500 Systolic blood pressure 145 mm[Hg] Samuel Ball Other [facility] 01-29-2023 08:45-0500 Body height 179.07 cm Samuel Ball Other [facility] 01-29-2023 08:45-0500 Body mass index (BMI) [Ratio] 27.27 kg/m2 Samuel Ball Other [facility] [employer] Other 01-29-2023 08:45-0500 Body weight 87.45 kg Samuel Ball Other [facility] 01-29-2023 08:45-0500 Diastolic blood pressure 79 mm[Hg] Samuel Ball Other [facility] 01-29-2023 08:45-0500 Respiratory rate 12 /min Samuel Ball Other [employer] Other 01-29-2023 08:45-0500 Systolic blood pressure 120 mm[Hg] Samuel Ball Other [facility] 11-19-2022 09:30-0400 Body height 179.07 cm Samuel Ball Other [employer] Other 11-19-2022 09:30-0400 Body mass index (BMI) [Ratio] 27.58 kg/m2 Samuel Ball Other [employer] Other 11-19-2022 09:30-0400 Body weight 88.45 kg Samuel Ball Other [employer] Other 11-19-2022 09:30-0400 Diastolic blood pressure 88 mm[Hg] Samuel Ball Other [employer] Other 11-19-2022 09:30-0400 Respiratory rate 12 /min Samuel Ball Other [employer] Other 11-19-2022 09:30-0400 Systolic blood pressure 139 mm[Hg] Samuel Ball Other [employer] Other 06-26-2022 16:30-0400 Body height 179.07 cm Samuel Ball Other [employer] Other 06-26-2022 16:30-0400 Body mass index (BMI) [Ratio] 28.12 kg/m2 Samuel Ball Other [employer] Other 06-26-2022 16:30-0400 Body weight 90.18 kg Samuel Ball Other [employer] Other 06-26-2022 16:30-0400 Diastolic blood pressure 126 mm[Hg] Samuel Ball Other [employer] Other 06-26-2022 16:30-0400 Respiratory rate 12 /min Samuel Ball Other [employer] Other 06-26-2022 16:30-0400 Systolic blood pressure 210 mm[Hg] Samuel Ball Other [employer] Other 03-21-2022 12:00-0500 Body height 179.07 cm Samuel Ball Other [employer] Other 03-21-2022 12:00-0500 Body mass index (BMI) [Ratio] 28.2 kg/m2 Samuel Ball Other [employer] Other 03-21-2022 12:00-0500 Body weight 90.45 kg Samuel Ball Other [employer] Other 03-21-2022 12:00-0500 Diastolic blood pressure 90 mm[Hg] Samuel Ball Other [employer] Other 03-21-2022 12:00-0500 Respiratory rate 12 /min Samuel Ball Other [employer] Other 03-21-2022 12:00-0500 Systolic blood pressure 140 mm[Hg] Samuel Ball Other [employer] Other Encounters Encounter Date Encounter Type Care Provider Facility Start: 04-23-2023 End: 04-23-2023 ambulatory [facility] Work Phone: Start: 04-23-2023 End: 04-23-2023 Patient encounter procedure [facility] Work Phone: Start: 04-22-2023 Non-patient / Non-visit [facility] Work Phone: Start: 04-01-2023 End: 04-02-2023 ambulatory Diego Gordon MD Facility: [facility] Start: 03-27-2023 End: 03-27-2023 ambulatory Roseline Ghosh Other [employer] Other Start: 03-27-2023 Telephone encounter Roseline Ghosh [facility] [employer] Start: 03-26-2023 End: 03-26-2023 ambulatory Samuel Ball Other [employer] Other Start: 03-26-2023 Office outpatient ne w 45 minutes Roseline Ghosh [facility] Start: 03-26-2023 Telephone encounter Samuel Ball [facility] Start: 03-26-2023 End: 03-26-2023 Patient encounter procedure [facility]- Start: 03-25-2023 End: 03-25-2023 ambulatory Samuel Ball Other [employer] Other Start: 03-25-2023 Telephone encounter Samuel Ball [facility] Start: 03-11-2023 End: 03-11-2023 ambulatory Samuel Ball Other [employer] Other Start: 03-11-2023 Office outpatient vi sit 15 minutes Samuel Ball [facility] Start: 03-11-2023 End: 03-11-2023 Patient encounter procedure [facility] Work Phone: Start: 03-05-2023 End: 03-05-2023 ambulatory Samuel Ball Other [employer] Other Start: 03-05-2023 Telephone encounter Samuel Ball [facility] Start: 02-26-2023 End: 02-26-2023 ambulatory Samuel Ball Other [employer] Other Start: 02-26-2023 Telephone encounter Samuel Ball [facility] Start: 02-19-2023 End: 02-19-2023 ambulatory Samuel Ball Other [employer] Other Start: 02-19-2023 Office outpatient vi sit 15 minutes Samuel Ball [facility] Start: 02-19-2023 End: 02-19-2023 Patient encounter procedure [facility] Work Phone: Start: 02-18-2023 End: 02-18-2023 ambulatory Samuel Ball Other [employer] Other Start: 02-18-2023 Telephone encounter Samuel Ball [facility] Start: 02-06-2023 End: 02-06-2023 ambulatory Samuel Ball Other [employer] Other Start: 02-06-2023 Office outpatient vi sit 15 minutes Samuel Ball [facility] Start: 02-06-2023 End: 02-06-2023 Patient encounter procedure [facility] Work Phone: Start: 02-05-2023 End: 02-05-2023 ambulatory Samuel Ball Other [employer] Other Start: 02-05-2023 Telephone encounter Samuel Ball [facility] Start: 01-31-2023 End: 01-31-2023 ambulatory Samuel Ball Other [employer] Other Start: 01-31-2023 Telephone encounter Samuel Ball [facility] Start: 01-29-2023 End: 01-29-2023 ambulatory Samuel Ball Other [employer] Other Start: 01-29-2023 Office outpatient vi sit 15 minutes Samuel Ball [facility] Start: 01-29-2023 End: 01-29-2023 Patient encounter procedure [facility] Work Phone: Start: 11-28-2022 End: 11-28-2022 ambulatory Samuel Ball Other [employer] Other Start: 11-28-2022 Encounter for genera l adult medical examination without abnormal findings Samuel Ball [facility] Start: 11-28-2022 Telephone encounter Samuel Ball [facility] Start: 11-27-2022 End: 11-27-2022 ambulatory Samuel Ball Other [employer] Other Start: 11-27-2022 Telephone encounter Samuel Ball [facility] Start: 11-22-2022 End: 11-22-2022 ambulatory Samuel Ball Other [employer] Other Start: 11-22-2022 Telephone encounter Samuel Ball [facility] Start: 11-19-2022 End: 11-19-2022 ambulatory Samuel Pavel Other [employer] Other Start: 11-19-2022 Encounter for genera l adult medical examination without abnormal findings Samuel Zhao [facility] Start: 11-19-2022 Periodic preventive med est patient 40-64yrs Samuel Ball [facility] Start: 08-03-2022 End: 08-03-2022 ambulatory Samuel Pavel Other [employer] Other Start: 08-03-2022 Telephone encounter Samuel Zhao [facility] Start: 07-18-2022 End: 07-19-[address] SAMUEL ZHAO Facility:[facility] Start: 06-28-2022 End: 06-28-2022 ambulatory Samuel Zhao Other [employer] Other Start: 06-28-2022 Telephone encounter Samuel Zhao [facility] Start: 06-27-2022 End: 06-28-[address] SAMUEL ZHAO Facility:[facility] Start: 06-26-2022 End: 06-26-2022 ambulatory Samuel Zhao Other [employer] Other Start: 06-26-2022 Office outpatient vi sit 25 minutes Samuel Zhao [facility] Start: 05-22-2022 End: 05-22-2022 ambulatory Samuel Zhao Other [employer] Other Start: 05-22-2022 Telephone encounter Samuel Pavel [facility] Start: 05-15-2022 End: 05-15-2022 ambulatory Samuel Zhao Other [employer] Other Start: 05-15-2022 Telephone encounter Samuel Zhao [facility] Start: 04-12-2022 End: 04-12-2022 ambulatory Samuel Zhao Other [employer] Other Start: 04-12-2022 Telephone encounter Samuel Zhao [facility] Start: 04-05-2022 End: 04-05-2022 ambulatory Samuel Zhao Other [employer] Other Start: 04-05-2022 Telephone encounter Samuel Pavel [facility] Start: 04-04-2022 End: 04-04-2022 ambulatory Samuel Zhao Other [employer] Other Start: 04-04-2022 Telephone encounter Samuel Zhao [facility] Start: 03-21-2022 Office outpatient vi sit 25 minutes Samuel Zhao [facility] Start: 03-21-2022 End: 03-22-[address] [facility] [employer] Other Start: 12-04-2021 Encounter for genera l adult medical examination without abnormal findings DR SAMUEL ZHAO [facility] Start: 12-01-2021 End: 12-02-2021 Encounter for general adult medical examination without abnormal findings DR SAMUEL ZHAO Facility:[facility] Start: 12-01-2021 End: 12-02-[address] SAMUEL ZHAO Facility:[facility] Start: 08-09-2021 End: 08-10-[address] SAMUEL ZHAO Facility:[facility] Procedures Date Procedure Procedure Detail Performing Clinician Start: 12-01-[address] CATHY ZHAO Comment on above: Performed By: #### V ITB12, PSASC #### [facility] [address] [address] [address] Gerardo Larose Depression screening Clari Zhao Other Payers Date Payer Category Payer Private Health Insurance 1960 Unknown [id number] 2.16.84 [id number] 1960 Unknown [id number] 2.16.84 [id number] 1960 Unknown [id number] 2.16.84 [id number] 1960 Unknown [id number] 2.16.84 [id number] 1960 Unknown [id number] 2.16.84 [id number] 1960 Unknown [id number] 2.16.84 [id number] 1960 Unknown [id number] 2.16.84 [id number] 1960 Unknown [id number] 2.16. [id number] 1960 Private Health Insurance [id number] Social History Date Type Detail Facility Sex Assigned At [employer] Other Start: 04-22-2023 [facility] Start: 1960 Sex Assigned At Male [facility] Medical Equipment Procedure Code Equipment Code Equipment [...] 62 yo male who works for the [employer] and states since december he has been [...] to provide reprieve. This patient has tried tbox-mvw-fuiylmu and prescription medications for greater than a [...] Mar, Diabetic peripheral neuropathy (ICD-10 - E11.42) [employer] Other 01-22-2024 Evaluation note* Encounter Date Diagnosis Assessment Notes Treatment Notes Treatment Clinical Notes Mar, Acute left-sided low back pain with left-sided sciatica (ICD-10 - M54.42) [employer] Other 01-08-2024 Evaluation note* Encounter Date Diagnosis [...] Instructed to increase Losartan to 100mg qd [employer] Other 01-02-2024 Evaluation note* Encounter Date Diagnosis Assessment Notes Treatment Notes Treatment Clinical Notes Mar, Acute left-sided low back pain with left-sided sciatica (ICD-10 - M54.42) [employer] Other 12-26-2023 Evaluation note* Encounter Date Diagnosis Assessment Notes Treatment Notes Treatment Clinical Notes Feb, Acute left-sided low back pain with left-sided sciatica (ICD-10 - M54.42) [employer] Other 12-19-2023 Evaluation note* Encounter Date Diagnosis [...] Microalbumin, Dilated eye exam and Foot exam [employer] Other 2023 Evaluation note* Encounter Date Diagnosis Assessment Notes Treatment Notes Treatment Clinical Notes Feb, Acute left-sided low back pain with left-sided sciatica (ICD-10 - M54.42) [employer] Other 12-06-2023 Evaluation note* Encounter Date Diagnosis [...] as it will resolve once off steroids [employer] Other 12-05-2023 Evaluation note* Encounter Date Diagnosis Assessment Notes Treatment Notes Treatment Clinical Notes Feb, Acute left-sided low back pain with left-sided sciatica (ICD-10 - M54.42) [employer] Other 11-28-2023 Evaluation note* Encounter Date Diagnosis [...] BS values, which requires no dose adjustments [employer] Other 09-27-2023 Evaluation note* Encounter Date Diagnosis Assessment Notes Treatment Notes Treatment Clinical Notes Nov, Elevated transaminase level (ICD-10 - R74.01) Nov, Wellness examination (ICD-10 - Z00.00) Nov, Fatty liver (ICD-10 - K76.0) [employer] Other 09-21-2023 Evaluation note* Encounter Date Diagnosis Assessment Notes Treatment Notes Treatment Clinical Notes Nov, Cigarette nicotine dependence without complication (ICD-10 - F17.210) LDCT: no suspicious nodules 11/2021, [employer] Other 09-18-2023 Evaluation note* Encounter Date Diagnosis [...] (ICD-10 - Z12.5) Yearly PSA and ARCHANA [employer] Other 06-02-2023 Evaluation note* Encounter Date Diagnosis Assessment Notes Treatment Notes Treatment Clinical Notes Aug, Type 2 diabetes mellitus with hyperglycemia, without long-term current use of insulin (ICD-10 - E11.65) [employer] Other 04-27-2023 NotePROCEDURE: XR ANKLE RT 2V, XR FOOT RT 2V COMPARISON: None. HISTORY: Pain in right foot FINDINGS: BONES:No acute fracture or dislocation. Mild degenerative changes most significant at the first metatarsal phalangeal joint SOFT TISSUES:Negative. No visible soft tissue swelling. EFFUSION:None visible. OTHER: Negative. IMPRESSION: Mild degenerative changes Electronically authenticated by: VINNY EDGE Date: 2022-06-28 07:26[facility]04-27-2023 NotePROCEDURE: XR ANKLE RT 2V, XR FOOT RT 2V COMPARISON: None. HISTORY: Pain in right foot FINDINGS: BONES:No acute fracture or dislocation. Mild degenerative changes most significant at the first metatarsal phalangeal joint SOFT TISSUES:Negative. No visible soft tissue swelling. EFFUSION:None visible. OTHER: Negative. IMPRESSION: Mild degenerative changes Electronically authenticated by: VINNY EDEG Date: 2022-06-28 07:26[facility]04-25-2023 Evaluation note* Encounter Date Diagnosis Assessment [...] No vesicles or bleeding. Nontender but pruritic [employer] Other 03-21-2023 Evaluation note* Encounter Date Diagnosis Assessment Notes Treatment Notes Treatment Clinical Notes May, Gastroesophageal ref lux disease with esophagitis without hemorrhage (ICD-10 - K21.00) [employer] Other 03-14-2023 Evaluation note* Encounter Date Diagnosis Assessment Notes Treatment Notes Treatment Clinical Notes May, Gastroesophageal ref lux disease with esophagitis without hemorrhage (ICD-10 - K21.00) May, Essential hypertensi on (ICD-10 - I10) May, Type 2 diabetes mellitus with diabetic polyneuropathy, without long-term current use of insulin (ICD-10 - E11.42) May, Elevated cholesterol (ICD-10 - E78.00) [employer] Other 02-09-2023 Evaluation note* Encounter Date Diagnosis Assessment Notes Treatment Notes Treatment Clinical Notes Apr, Type 2 diabetes mellitus with diabetic polyneuropathy, without long-term current use of insulin (ICD-10 - E11.42) [employer] Other 02-02-2023 Evaluation note* Encounter Date Diagnosis Assessment Notes Treatment Notes Treatment Clinical Notes Apr, Gastroesophageal ref lux disease with esophagitis without hemorrhage (ICD-10 - K21.00) [employer] Other 02-01-2023 Evaluation note* Encounter Date Diagnosis Assessment Notes Treatment Notes Treatment Clinical Notes Apr, Gastroesophageal ref lux disease with esophagitis without hemorrhage (ICD-10 - K21.00) [employer] Other 01-18-2023 Evaluation note* Encounter Date Diagnosis [...] Diet and exercise with continued statin therapy. [employer] Other 12-22-2021 NotePatient: VINNY BAEZ Age: 60 years Sex: Male : 1960 Associated Diagnoses: None Author: Mehreen Dodge MA Results Review Original Procedure Date 06/15/2020 Revised repeat colonoscopy interval 5 years Adenomatous polyp(s) present 1 or 2 tubular adenomas less than 10mm Adenocarcinoma present No Serrated lesion(s) present Sessile serrated polyp(s) less than 10mm with no dysplasia Hyperplastic polyp(s) present [facility]04-19-2021 Note [id number]:127[facility] Evaluation noteNo InformationNortFoundations [facility] [employer] Other Evaluation note* Diagnosis Onset Date Resolution Status Lumbar spondylosis acute Primary hypertension acute [id number] acute [id number] acute Adverse effect of prednisone noneactive [facility] Work Phone: History general Narrative - Reported* Type Description [...] History COLONOSCOPY Hospitalization History see surgical hx [place] [employer] Other Hiss[facility]i general Narrative - Reported* Type Description Date [...] years) 2020 Hospitalization History see surgical hx [facility] [employer] Other Reason for referral (narrative)* Reason Referral for ankle/f oot mass. Diagnosis 1 Mass of right ankle (R22.41) Referral Organization [facility] Referring Provider First Name Samuel Referring Provider Last Name Pavel Referring Provider Specialty Internal Me dicine Referred Organization [facility] Referred Provider Caprice Roberts Referred Address [address], [place],[address] Referred Provider Specialty Podiatry - S urgical Chiropody Referral Priority Routine General Notes Patient c/o mass at the junction of his foot/ankle, which has developed over the past 2 months. He has a remote hx of ankle injury. It is not tender, erythematous or associated w/ bruising. Clinical Notes XR negative [facility] [employer] Other Summary Purpose Family History Relationship Condition Age at Onset Recorded Date/T nahid father Hypertension Unknown Heart disease Unknown High blood cholesterol Unknown family member Unknown Not Specified Unknown Advance Directives Advance Directive Response Recorded Date/ Time Advance Directives No April 8:32am Reason for Referral Reason evaluate and tr eat Diagnosis 1 Spinal stenosis of l umbar region with neurogenic claudication (M48.062) Referral Organization [facility] Ne urosurgery Referring Provider First Name Roseline Referring Provider Last Name Davina Referring Provider Specialty Nurse Pract itlos Referred Organization [facility] Referred Provider Park Hallman Referred Address [address], [place],[address] Referred Provider Specialty Pain Medicin e Referral Priority Routine General Notes Kristin King 12:49:27 PM > received today, attached documents, waiting for note to be locked before sending Reason Mr. Baez is being r eferred for low back and left leg pain. Diagnosis 1 Acute left-sided low back pain with left-sided sciatica (M54.42) Referral Organization [facility] Referring Provider First Name Samuel Referring Provider Last Name Pavel Referring Provider Specialty Internal Me dicine Referred Organization [facility] Referred Provider Deric Vega Referred Address [address] [place],[address] Referred Provider Specialty Neurological Surgery Referral Priority [...] Neurosurgical evaluation. Clinical Notes Include MRI spine Chief Complaint and Reason for Visit Chief Complaint Sciatic Nerve Pain Extended Work Release Back Pain Back Pain Referred By Dr. Zhao Low Back And Left L tbh - high blood Reason for Visit Lumbar spondylosis Primary hypertension [id number] Adverse effect of prednisone Additional Source Comments (unrecognized sect ion and content) No Status Records FoundNo Status Records FoundNo Status Records Found INFORMATION SOURCE (unrecogn ized section and content) DATE CREATED AUTHOR 02/26/2021 Raymundo Morton [facility] DATE CREATED AUTHOR AUTHOR'S ORGANIZ ATION 07/19/2022 [facility] DATE CREATED AUTHOR AUTHOR'S ORGANIZ ATION 04/04/2023 [facility] REASON FOR VISIT (unrecogniz ed section and content) 4 MONTH FOLLOW UPOmeprazoleR efill needs sent to Med ShoppeRefillrefillsprescription refillRIGHT ANKLE PROBLEMSXray resultsRefillWELLNESSNo InformationNo InformationLab ResultsSciatic Nerve PainTBH RefillsBack Painextended work releaseRefillback painrefillrefillback painrefillneurosurgery updatereferred by Dr. Zhao low back and left leg painNeurosurgery office note Care Teams (unrecognized sec tion and content) Team Status: Active Member Role Status Dates Samuel Zhao DO Primary Care Provider Active Team Status: Inactive Member Role Status Dates Samuel Zhao DO Attending Provider Active Sta rt: January 29, 2023 End: January 29, 2023 Team Status: Inactive Member Role Status Dates Samuel Zhao DO Attending Provider Active Sta rt: February 06, 2023 End: February 06, 2023 Team Status: Inactive Member Role Status Dates Samuel Zhao DO Attending Provider Active Sta rt: February 19, 2023 End: February 19, 2023 Team Status: Inactive Member Role Status Dates Samuel Zhao DO Attending Provider Active Sta rt: March 11, 2023 End: March 11, 2023 Team Status: Inactive Member Role Status Dates MAXIMINO Lucas Attending Provider Active Start: March 26, 2023 End: March 26, 2023 Team Status: Active Member Role Status Dates Samuel Pavel , DO Primary Care Provide r, Attending Provider Active Start: April 22, 2023 Team Status: Inactive Member Role Status Dates Samuel Zhao , DO Primary Care Provide r, Attending Provider Active Start: April 23, 2023 End: April 23, 2023 Goals (unrecognized section and content) Goals may be documented in a n alternate section FOR RECORDS PERTAINING TO PATIENTS WHO ARE [...] BE BASED ON THE PRIMARY CLINICAL RECORDS. [employer] provides no warranty or guarantee of the accuracy or completeness of information in this document.
[2023-05-06 09:39] VITALS: BP 145/79; PULSE 77; RESP 16; TEMP 36.8; O2SAT 96
[2023-05-06 09:46] LABS: Glucometer 231 mg/dL (74-106)
[2023-05-06] MEDS: LIDOCAINE HCL 2% PF 100 MG/5 ML VIAL 3 ML INJ (10:12)
[2023-05-06] MEDS: TRIAMCINOLONE ACETONIDE 40 MG/ML VIAL INJ (10:12)
[2023-05-06 10:18] VITALS: PULSE 67; PULSE 68; RESP 20; O2SAT 96; O2SAT 97
[2023-05-06] MEDS: IOHEXOL 240 MG/ML - 10 ML VIAL INJ (10:18)
[2023-05-06] MEDS: BUPIVACAINE HCL 0.25% PF 25 MG/10 ML VIAL 2 ML INJ (10:18)
[2023-05-06 10:20] VITALS: BP 136/74; BP 138/88
--- NOTE | 2023-05-06 10:20 | W.PM.PROCNOT ---
Date of procedure: 05/06/23 Pre-op diagnosis: Sacroiliitis, left Post-op diagnosis: same as pre-op Procedure: Procedure: Left nerve block of nerve innervating the sacroiliac joint Medications: Bupivacaine 0.25% 3cc, kenalog 40mg After informed consent was obtained, the patient was brought to the medical procedure unit and placed in the prone position, when a timeout was completed verifying correct patient, procedure, site, positioning, implant, and/or special equipment.? The skin overlying the area was prepped and draped in standard sterile fashion using alcohol.? A 25-gauge needle was inserted towards the left nerve innervating the sacroiliac joint under direct fluoroscopic imaging.? Needle tip was advanced until the nerve was encountered.? We instilled a total of 3 mL of solution.? Postoperatively needles were removed.? The patient tolerated the procedure well without complication.? The patient reported reduction in pain symptoms postoperatively. Anesthesia: Local Surgeon: Diego Gordon Pathology: none sent Condition: stable Disposition: no change
== END 2023-05-06 10:24 | disposition home or self-care (01) ==
LOC: SURGOUT 08:55
PROVIDERS: PCP Internal Medicine; Visit Provider Anesthesiology
DX: M46.1 Sacroiliitis, not elsewhere classified (principal); Z79.84 Long term (current) use of oral hypoglycemic drugs
CPT/HCPCS: 36415; 64451; 82948; Q9966

== ENCOUNTER 2023-05-16 08:57 | Outpatient (OUT) | payer OTHER, SELFPAY ==
--- OUTSIDE RECORDS SUMMARY | 2023-05-16 09:02 | XMS_ITS | CCD ---
Author Name Unknown Address [address] [facility] [facility] [address] [place] [address] Organization [facility] Care Team Providers Care Geospatial Intelligence Analyst Name Role Phone Samuel Zhao Unavailable PAVEL, [...] DR JEFFRIES Primary Care Unavailable BALL, DR JEFFIRES Primary Care Unavailable PAVEL, DR JEFFRIES Admitting Unavailable PAVEL, DR JEFFRIES Attending Unavailable BALL, DR JEFFRIES Consulting Unavailable WEST, DR VINNY Gonzalez Consulting Unavailable PAVEL, DR JEFFRIES Admitting Unavailable BALL, DR JEFFRIES Attending Unavailable BALL, DR JEFFRIES Consulting Unavailable PAVEL, DR JEFFRIES Primary Care Unavailable Roseline Ghosh Unavailable Heidi MARTINEZ, Diego Snyder Attending Unavailable Heidi MARTINEZ, Diego Snyder Attending Unavailable Heidi MARTINEZ, Diego Snyder Attending Unavailable Allergies Allergy Classification Reported Allergen(s) Allergy Type Date of Onset Reaction(s) Facility (20 sources) [facility] Drug Allergy diarrhea [email or web address] Other Medications Current Medications Medication Drug Class(es) [...] 7 days p/u 03/11, start 03/12Mar, Active [id number] 200 actuat albuterol 0.09 mg/actuat metered dose [...] 2023 12:00am take 1 tablet by alphonso every twenty-four hours Losartan Potassium 50 MG [...] Start: 03-21-2022 take 1 capsule by mo [facility] once daily Omeprazole 20 MG 1 Capsule [...] Basophils (Bld) [#/Vol] 0.1 10 3/uL 0.0-0.1 [facility] Basophils/100 WBC Auto (Bld) on 04-22-2023 Basophils/100 WBC (Bld) 0.7 % 0.2-2.0 [facility] Eosinophils/100 WBC Auto (Bl d)on 04-22-2023 Eosinophils/100 WBC (Bld) 0.1 % 0.9-7.0 [facility] Erythrocyte distribution wid th Auto (RBC) [Ratio]on 04-22-2023 Erythrocyte distribution width (RBC) [Ratio] 13.1 % 11.0-15.0 [facility] Estimated glomerular filtrat ion rate (GFR) non- Americanon 04-22-2023 GFR/1.73 sq M.predicted among non-blacks MDRD (S/P/Bld) [Vol rate/Area] mL/min/{1.73_m2} >=60 [facility] Hematocrit Auto (Bld) [Volum e fraction]on 04-22-2023 Hematocrit (Bld) [Volume fraction] 38.0 % 42.0-54.0 [facility] Hemoglobin [Mass/volume] in Bloodon 04-22-2023 Hemoglobin (Bld) [Mass/Vol] 12.9 g/dL 14.0-18.0 [facility] Laboratory - Chemistry and C hemistry - challengeon 04-22-2023 Calcium [Mass/Vol] 9.5 mg/dL 8.5-10.1 [facility] Chloride [Moles/Vol] 97 mmol/L 98-107 [facility] CO2 [Moles/Vol] 27.7 mmol/L 21.0-32.0 [facility] Creatinine [Mass/Vol] 1.01 mg/dL 0.70-1.30 [facility] GFR/1.73 sq M.predicted MDRD (S/P/Bld) [Vol rate/Area] mL/min/{1.73_m2} >=60 [facility] Glucose [Mass/Vol] 448 mg/dL 74-106 [facility] Potassium [Moles/Vol] 4.6 mmol/L 3.5-5.1 [facility] Sodium [Moles/Vol] 134 mmol/L 136-145 [facility] Urea nitrogen [Mass/Vol] 23.0 mg/dL 7.0-18.0 [facility] Urea nitrogen/Creatinine [Mass ratio] 22.8 mg/mg [facility] Laboratory - Hematology and Cell countson 04-22-2023 Immature granulocytes/100 WBC (Bld) 0.3 % 0.0-0.5 [facility] Leukocytes [#/volume] correc ashvin for nucleated erythrocytes in Blood by Automated counon 04-22-2023 WBC corrected for nucl RBC Auto (Bld) [#/Vol] 9.9 10 3/uL 4.0-11.0 [facility] Lymphocytes Auto (Bld) [#/Vo l]on 04-22-2023 Lymphocytes (Bld) [#/Vol] 2.2 10 3/uL 1.2-3.8 [facility] Lymphocytes/100 WBC Auto (Bl d)on 04-22-2023 Lymphocytes/100 WBC (Bld) 21.7 % 20.5-60.0 [facility] MCH Auto (RBC) [Entitic mass ]on 04-22-2023 MCH (RBC) [Entitic mass] 32.7 pg 25.9-34.0 [facility] MCHC Auto (RBC) [Mass/Vol]on 04-22-2023 MCHC (RBC) [Mass/Vol] 33.9 g/dL 29.9-35.2 [facility] MCV Auto (RBC) [Entitic vol] on 04-22-2023 MCV (RBC) [Entitic vol] 96.4 fL 80.0-94.0 [facility] Monocytes Auto (Bld) [#/Vol] on 04-22-2023 Monocytes (Bld) [#/Vol] 0.6 10 3/uL 0.3-0.8 [facility] Monocytes/100 WBC Auto (Bld) on 04-22-2023 Monocytes/100 WBC (Bld) 6.5 % 1.7-12.0 [facility] Neutrophils Auto (Bld) [#/Vo l]on 04-22-2023 Neutrophils (Bld) [#/Vol] 7.0 10 3/uL 1.4-6.5 [facility] Neutrophils/100 WBC Auto (Bl d)on 04-22-2023 Neutrophils/100 WBC (Bld) 70.7 % 43.0-75.0 [facility] No Panel Informationon 04-22 Eosinophils # (Auto) 0.0 10 3/uL 0.0-0.7 [facility] Immature Granulocyte # (Auto) 0.03 10 3/uL 0.00-0.03 [facility] Platelet mean volume Auto (B ld) [Entitic vol]on 04-22-2023 Platelet mean volume (Bld) [Entitic vol] 10.7 fL 9.5-13.5 [facility] Platelets Auto (Bld) [#/Vol] on 04-22-2023 Platelets (Bld) [#/Vol] 273 10 3/uL 150-450 [facility] RBC Auto (Bld) [#/Vol]on RBC (Bld) [#/Vol] 3.94 10 6/uL 4.70-6.10 [facility] Serum or plasma anion gap de terminationon 04-22-2023 Anion gap [Moles/Vol] 13.9 mmol/L [facility] XR ANKLE RT MIN 3 [...] by: CAPRICE SHORE Date: 2022-07-18 18:48 Normal [facility] GLYCOHEMOGLOBIN A1Con 2022 ADA RECOMMENDATION SEE BELOW Normal [facility] Comment on above: Result Comment: ADA RECOMMENDED LIMIT 4.0 - 6.0 ADA THERAPEUTIC TARGET < 7.0 ACTION SUGGESTED > 7.0 Performed By: #### C MP, LIPID, TSH #### [facility] [address] [place], [place] [address] Dr. Gerardo Larose Glucose [Mass/Vol] 143 mg/dL Normal [facility] Comment on above: Performed By: #### C MP, LIPID, TSH #### [facility] [address] [place], [place] [address] Dr. Gerardo Larose HbA1c (Bld) [Mass fraction] 6.6 % Critically high 4.5-6.2 [facility] Comment on above: Performed By: #### C MP, LIPID, TSH #### [facility] [address] [place] [address] Dr. Gerardo Larose MRI LSPINE WO CONon [...] VINNY EDGE Date: 2022-03-21 16:49 Normal [facility] CT LUNG CANCER SCREENINGon 1 CT [...] VINNY EDGE Date: 2021-12-04 07:24 Normal [facility] CBC AUTO DIFFon 12-01-2021 BASO # 0.1 103/ul Normal 0.0-0.1 [facility] Comment on above: Performed By: #### C MP, LIPID, TSH #### [facility] [address] [place] [address] Dr. Gerardo Larose Basophils/100 WBC (Bld) 0.9 % Normal 0.2-2.0 [facility] Comment on above: Performed By: #### C MP, LIPID, TSH #### [facility] [address] [place] [address] Dr. Gerardo Larose EO # 0.2 103/ul Normal 0.0-0.7 [facility] Comment on above: Performed By: #### C MP, LIPID, TSH #### [facility] [address] [place] [address] Dr. Gerardo Larose Eosinophils/100 WBC (Bld) 2.5 % Normal 0.9-7.0 [facility] Comment on above: Performed By: #### C MP, LIPID, TSH #### [facility] [address] [place] [address] Dr. Gerardo Larose Erythrocyte distribution width (RBC) [Ratio] 13.7 % Normal 11.0-15.0 [facility] Comment on above: Performed By: #### C MP, LIPID, TSH #### [facility] [address] [place] [address] Dr. Gerardo Larose Hematocrit (Bld) [Volume fraction] 46.3 % Normal 42.0-54.0 [facility] Comment on above: Performed By: #### C MP, LIPID, TSH #### [facility] [address] [place] [address] Dr. Gerardo Larose Hemoglobin (Bld) [Mass/Vol] 15.7 g/dL Normal 14.0-18.0 [facility] Comment on above: Performed By: #### C MP, LIPID, TSH #### [facility] [address] [place] [address] Dr. Gerardo Larose IG # 0.03 10e3/ul Normal 0.00-0.03 [facility] Comment on above: Performed By: #### C MP, LIPID, TSH #### [facility] [address] [place] [address] Dr. Gerardo Larose IG % 0.4 % Normal 0.0-0.5 [facility] Comment on above: Performed By: #### C MP, LIPID, TSH #### [facility] [address] [place] [address] Dr. Gerardo Larose LYMPH # 2.1 103/ul Normal 1.2-3.8 [facility] Comment on above: Performed By: #### C MP, LIPID, TSH #### [facility] [address] [place] [address] Dr. Gerardo Larose Lymphocytes/100 WBC (Bld) 31.2 % Normal 20.5-60.0 [facility] Comment on above: Performed By: #### C MP, LIPID, TSH #### [facility] [address] [place] [address] Dr. Gerardo Larose MANUAL DIFF REQ NO Normal [facility] Comment on above: Performed By: #### C MP, LIPID, TSH #### [facility] [address] [place] [address] Dr. Gerardo Larose MCH (RBC) [Entitic mass] 31.3 pg Normal 25.9-34.0 [facility] Comment on above: Performed By: #### C MP, LIPID, TSH #### [facility] [address] [place] [address] [address] Gerardo Larose MCHC (RBC) [Mass/Vol] 33.9 g/dL Normal 29.9-35.2 [facility] Comment on above: Performed By: #### C MP, LIPID, TSH #### [facility] [address] [place] [address] Dr. Gerardo Larose MCV (RBC) [Entitic vol] 92.4 fL Normal 80.0-94.0 [facility] Comment on above: Performed By: #### C MP, LIPID, TSH #### [facility] [address] [place] [address] Dr. Gerardo Larose MONO # 0.5 103/ul Normal 0.3-0.8 [facility] Comment on above: Performed By: #### C MP, LIPID, TSH #### [facility] [address] [place] [address] Dr. Gerardo Larose Monocytes/100 WBC (Bld) 7.8 % Normal 1.7-12.0 [facility] Comment on above: Performed By: #### C MP, LIPID, TSH #### [facility] [address] [place] [address] Dr. Gerardo Larose NEUT # 3.8 103/ul Normal 1.4-6.5 [facility] Comment on above: Performed By: #### C MP, LIPID, TSH #### [facility] [address] [place] [address] Dr. Gerardo Larose Neutrophils/100 WBC (Bld) 57.2 % Normal 43.0-75.0 [facility] Comment on above: Performed By: #### C MP, LIPID, TSH #### [facility] [address] [place] [address] Dr. Gerardo Larose Platelet mean volume (Bld) [Entitic vol] 10.2 fL Normal 9.5-13.5 [facility] Comment on above: Performed By: #### C MP, LIPID, TSH #### [facility] [address] [place] [address] Dr. Gerardo Larose PLT 190 103/ul Normal 150-450 [facility] Comment on above: Performed By: #### C MP, LIPID, TSH #### [facility] [address] [place] [address] [address] Gerardo Larose RBC 5.01 106/ul Normal 4.70-6.10 [facility] Comment on above: Performed By: #### C MP, LIPID, TSH #### [facility] [address] [address] [address] Gerardo Larose WBC 6.7 103/ul Normal 4.0-11.0 [facility] Comment on above: Performed By: #### C MP, LIPID, TSH #### [facility] [address] [address] [address] Gerardo Larose GLYCOHEMOGLOBIN A1Con 2021 ADA RECOMMENDATION SEE BELOW Normal [facility] Comment on above: Result Comment: ADA RECOMMENDED LIMIT 4.0 - 6.0 ADA THERAPEUTIC TARGET < 7.0 ACTION SUGGESTED > 7.0 Performed By: #### C MP, LIPID, TSH #### [facility] [address] [address] [address] Gerardo Larose Glucose [Mass/Vol] 140 mg/dL Normal [facility] Comment on above: Performed By: #### C MP, LIPID, TSH #### [facility] [address] [address] [address] Gerardo Larose HbA1c (Bld) [Mass fraction] 6.5 % Critically high 4.5-6.2 [facility] Comment on above: Performed By: #### C MP, LIPID, TSH #### [facility] [address] [place] [address] [address] Gerardo Larose LIPID PROFILEon 12-01-2021 CHOL-HDL RATIO NORM SEE BELOW Normal [facility] Comment on above: Result Comment: 3.3 - 4.4 LOW RISK 4.4 - 7.1 AVERAGE RISK 7.1 - 11.0 MODERATE RISK >11.0 HIGH RISK Performed By: #### C MP, LIPID, TSH #### [facility] [address] [address] [address] Gerardo Larose Cholesterol [Mass/Vol] 202 mg/dL Critically high <=200 [facility] Comment on above: Performed By: #### C MP, LIPID, TSH #### [facility] [address] [address] [address] Gerardo Larose Cholesterol in HDL [Mass/Vol] 58 mg/dL Normal 40-60 [facility] Comment on above: Performed By: #### C MP, LIPID, TSH #### [facility] [address] [place] [address] [address] Gerardo Larose Cholesterol in LDL [Mass/Vol] 104.2 mg/dL Normal [facility] Comment on above: Performed By: #### C MP, LIPID, TSH #### [facility] [address] [place] [address] [address] Gerardo Larose Cholesterol.total/Cho lesterol in HDL [Mass ratio] 3.5 {ratio} Normal [facility] Comment on above: Performed By: #### C MP, LIPID, TSH #### [facility] [address] [place] [address] [address] Gerardo Larose HDL NORMAL > or = 60 mg/dl - LO W CARDIOVASCULAR RISK <40 mg/dl - HIGH CARDIOVASCULAR RISK Normal [facility] Comment on above: Performed By: #### C MP, LIPID, TSH #### [facility] [address] [address] [address] Gerardo Larose LDL CALC NORMAL SEE BELOW Normal [facility] Comment on above: Result Comment: <100 mg/dl OPTIMAL 100 - 129 mg/dl NEAR OR ABOVE OPTIMAL 130 - 159 mg/dl BORDERLINE HIGH 160 - 189 mg/dl HIGH >190 mg/dl VERY HIGH Performed By: #### C MP, LIPID, TSH #### [facility] [address] [place] [address] [address] Gerardo Larose Triglyceride [Mass/Vol] 199 mg/dL Critically high <=150 [facility] Comment on above: Performed By: #### C MP, LIPID, TSH #### [facility] [address] [place] [address] [address] Gerardo Larose VLDL CALC 39.8 mg/dL Normal [facility] Comment on above: Performed By: #### C MP, LIPID, TSH #### [facility] [address] [place] [address] Dr. Gerardo Larose MICROALBUMIN, RAND URon 11-04 mALB 28.7 mg/L Normal <=30.0 [facility] Comment on above: Performed By: #### C MP, LIPID, TSH #### [facility] [address] [place] [address] Dr. Gerardo Larose PROF 14(COMP METB)on 022 Albumin [Mass/Vol] 3.7 g/dL Normal 3.4-5.0 [facility] Comment on above: Performed By: #### C MP, LIPID, TSH #### [facility] [address] [place] [address] Dr. Gerardo Larose Albumin/Globulin [Mass ratio] 0.9 {ratio} Normal [facility] Comment on above: Performed By: #### C MP, LIPID, TSH #### [facility] [address] [place] [address] Dr. Gerardo Larose ALP [Catalytic activity/Vol] 84 U/L Normal 46-116 [facility] Comment on above: Performed By: #### C MP, LIPID, TSH #### [facility] [address] [place] [address] Dr. Gerardo Larose ALT [Catalytic activity/Vol] 45 U/L Normal 16-63 [facility] Comment on above: Performed By: #### C MP, LIPID, TSH #### [facility] [address] [place] [address] Dr. Gerardo Larose Anion gap [Moles/Vol] 10.8 mmol/L Normal [facility] Comment on above: Performed By: #### C MP, LIPID, TSH #### [facility] [address] [place] [address] Dr. Gerardo Larose AST [Catalytic activity/Vol] 26 U/L Normal 15-37 [facility] Comment on above: Performed By: #### C MP, LIPID, TSH #### [facility] [address] [place] [address] Dr. Gerardo Larose Bilirubin [Mass/Vol] 0.6 mg/dL Normal 0.2-1.0 [facility] Comment on above: Performed By: #### C MP, LIPID, TSH #### [facility] [address] [place] [address] Dr. Gerardo Larose Calcium [Mass/Vol] 9.4 mg/dL Normal 8.5-10.1 [facility] Comment on above: Performed By: #### C MP, LIPID, TSH #### [facility] [address] [place] [address] Dr. Gerardo Larose Chloride [Moles/Vol] 100 mmol/L Normal 98-107 [facility] Comment on above: Performed By: #### C MP, LIPID, TSH #### [facility] [address] [place] [address] Dr. Gerardo Larose CO2 [Moles/Vol] 28.9 mmol/L Normal 21.0-32.0 [facility] Comment on above: Performed By: #### C MP, LIPID, TSH #### [facility] [address] [place] [address] Dr. Gerardo Larose Creatinine [Mass/Vol] 0.95 mg/dL Normal 0.70-1.30 [facility] Comment on above: Performed By: #### C MP, LIPID, TSH #### [facility] [address] [place] [address] Dr. Gerardo Larose EGFR-AF FRENCH >60 Normal >=60 [facility] Comment on above: Performed By: #### C MP, LIPID, TSH #### [facility] [address] [place] [address] Dr. Gerardo Larose EGFR-NON AF FRENCH >60 Normal >=60 [facility] Comment on above: Performed By: #### C MP, LIPID, TSH #### [facility] [address] [place] [address] Dr. Gerardo Larose Globulin (S) [Mass/Vol] 3.9 g/dL Normal [facility] Comment on above: Performed By: #### C MP, LIPID, TSH #### [facility] [address] [place] [address] Dr. Gerardo Larose Glucose [Mass/Vol] 128 mg/dL Critically high 74-106 [facility] Comment on above: Performed By: #### C MP, LIPID, TSH #### [facility] [address] [place] [address] [address] Gerardo Larose Potassium [Moles/Vol] 3.7 mmol/L Normal 3.5-5.1 [facility] Comment on above: Performed By: #### C MP, LIPID, TSH #### [facility] [address] [address] [address] Gerardo Larose Protein [Mass/Vol] 7.6 g/dL Normal 6.4-8.2 [facility] Comment on above: Performed By: #### C MP, LIPID, TSH #### [facility] [address] [place] [address] [address] Gerardo Larose Sodium [Moles/Vol] 136 mmol/L Normal 136-145 [facility] Comment on above: Performed By: #### C MP, LIPID, TSH #### [facility] [address] [place] [address] [address] Gerardo Larose Urea nitrogen [Mass/Vol] 15.0 mg/dL Normal 7.0-18.0 [facility] Comment on above: Performed By: #### C MP, LIPID, TSH #### [facility] [address] [place] [address] Dr. Gerardo Larose Urea nitrogen/Creatinine [Mass ratio] 15.8 mg/mg Normal [facility] Comment on above: Performed By: #### C MP, LIPID, TSH #### [facility] [address] [place] [address] [address] Gerardo Larose TSHon 12-01-2021 TSH 1.388 uIU/mL Normal 0.358-3.740 [facility] Comment on above: Performed By: #### C MP, LIPID, TSH #### [facility] [address] [place] [address] [address] Gerardo Larose VITAMIN B12on 12-01-2021 Cobalamin (Vitamin B12) [Mass/Vol] 382.0 pg/mL Normal 193.0-986.0 [facility] Comment on above: Performed By: #### V ITB12, PSASC #### [facility] [address] [place] [address] [address] Gerardo Larose GLYCOHEMOGLOBIN A1Con 2021 ADA RECOMMENDATION SEE BELOW Normal [facility] Comment on above: Result Comment: ADA RECOMMENDED LIMIT 4.0 - 6.0 ADA THERAPEUTIC TARGET < 7.0 ACTION SUGGESTED > 7.0 Performed By: #### C MP, LIPID, TSH #### [facility] [address] [address] [address] Gerardo Larose Glucose [Mass/Vol] 192 mg/dL Normal [facility] Comment on above: Performed By: #### C MP, LIPID, TSH #### [facility] [address] [address] [address] Gerardo Larose HbA1c (Bld) [Mass fraction] 8.3 % Critically high 4.5-6.2 [facility] Comment on above: Performed By: #### C MP, LIPID, TSH #### [facility] [address] [address] [address] Gerardo Larose IntraOperative Documentson 0 06-24-2020 [employer] Documents [id number]#1.0 0CD:127 Normal [facility] Coding Summary.on 06-21-2020 Coding Summary. CD:[id number] Gh 0bWw+PGhlYWQ+PM8AXKCcD 71bzFBxgI5PB1oIFP7WHBL ZTWHTVZ6CVP9inSM4YRguG 2VybiAv PdbmfHVvOX42YDa9EMP0dB rdEChgeU3bcARiV7n0TqYd RX24uB04TAjpWALrLmZ5Pw ZpbjsgbWFy C4tdRqXsfZRtAty+PHRhYm xlIHdpZHRoPScxMDAlJyBz kEwiFI3cId6cPNLkZIOsyB xhcHNlOiBj d6qvVCOhAExrXL3hmQmkR9 XjjEP5EQXjj6q7Os00gGU+ UFIhHKK2aFcsYRbim899Kx Cly7ooKLV1 wZZlTUigSUJ3L63fu5J6ZO VpYBYoALT4uBC0gI5enRuj sfspE9PawIShIpK9YND1kQ FsaO6kcKfb spfonM8cDri+X83JPV2YWC LWSX6DKos6P7KcQvdthIR+ KE87ZMBeMT79jHKzwYMtz6 uzqFt9IzQm MCFyZZD4bTruLHiql1EfSZ GaV90rrKKwy8F1KMIfbVwe tRIqFbVcjTX7gJ6gTFbjxd lcq7frtdeu Chopa9scsp15pE26U87nDO hvCKCoJBD8ROPcRVZhgZkn ui6zfF2kYm5+RKvhe6nlv1 qrwQf3DqTi GJXgtiEruAffWMW7k8XaWp 59I3GgkXmqt0LcHzu7dd35 uLKhv8Z8dKH9NVqrWLSdmT 2ySRxnCgU1 CKRlYkRfiS13iVVyIUkzZh 4wzCxrsGzcCD3qVRAbjdga VCVaeG0eWWWyjGAufMexOI 4wNTBpbjtm f718YbBxMJR7HFQsaAGnC5 WakV5dKxFmJYGjHLFiH1Am aUPbQBbvM547LUgoRqM7QM VftxCrW6Rp YHPnoVshWoH3v6Y4Cx8Kd7 ExveosGLA8ALfiLWE2KlSp VsQpOeS7O1IgCoi7VINjkL dvIE9nO9Nf BLRbgruzlamdtGM8MCQyJS TjmT88iTHmIQbhQb2ht4C1 j830LDMqTBHolM07Ym3gzU ogMTBwdCBU xK1cmwqnl4bnnhmwKcQvMZ SzMPr8SRo7MICkvUieIgCn OON2VbR0LBT4jZTgnS5miB jafsegpR8p Oyc+E20lzR8aREN6TZG1jv dpAPPzokGnDA13HU62V9Xw PjwvdGFibGU+PGRpdiBzdH fdZW3pSrHj c3onr4HfODxcL6EeUXYvYK gpFht4WXKnPDM4cTE6hG4f ZWYgKSkui8R1cGU3H9Mjeo Ktwr1ev2lj TAQnKOjuL80ytWDot8J2NV SfpPM0PRMwdPvfTaUaoW43 Oyc+NULpaMobw1KzXbzlx4 zpi6tzvEz7 PeViLKSpwtCthIopIBO1h8 BfPh75T98nBNehBWSpIHRs BVZiOKBluOzijt5bbT2gGt 8+PGNvbCB3 dRK1vS8xZCDuTyN7TUkaY3 03YuIenVHoOqxmf0kmk8ml gWn1PfQcHTOpabTonGloVC D7m8DhZm06 V52dJDdrDBDzYLAxQXZmNM CugCujck3eyU7cNg9+PC9j d3nwqg34qO10vOW+PHRkIH P7jLkkSGnb CAPijV4lEZoxLoN8MNPpTa IlzJ16xNFlZBtsMa2ciGyb sBqjTR5dLDFyxiuza735Wz Wmd3gyUWHs wYTpPDnqXBU1N14yu6P4OV KrCGRhRYR2cPC2wF3yxCeo bjogbGVmdDsgdmVydGljYW bnLBgmH724 IHRvcDsnPlBhdGllbnQgTm EgQSd8A6ExPdf5DTPphBgl IU4azSVjMYflIk0kcJbrpT dxAZ2yHABg tkwnf576IuHvf3glEIBnsM OtJVkvGWL8U77ui5X1NSHi FMNwOWM5sIM9gS8itAbgyk ogbGVmdDsg ryFaaZmmMWixLCrjN518ZN RvcDsnPkJpcnRoIERhdGU6 UK64FA69dARye5L9pHA9E7 BhZGRpbmct piomtYC0VVDdSRKolD59Yc 0xhWwzEp2hAFRqGQB7ILGv jVGmT3AmjR4fJnUpCOXyOH GcN2GjaKFa NBwzL746EGofLfU6BWSluz OuV2RySGIucDioWoT1l1B3 Ra2SA7Z5XL31MD50tBEqj7 U2qBK5P9Gr CSQuojsppizjoYD2FTQsDA GgyO54Lt4rcFwtTr0vVETz BUJ5PZWyyJSeM8RpqT2hSm AjMDAwMDAw Z2KdaOQgTIbwN526YHlrFp W0UUDflyTzY8ZjDLJskUxj JwR5p7X6Kx5KHFd6VK47VH 95bCFbc5H0 rQF8Y7KeYEUkeywmmgwfsL S6BQJuGNAuoQ62Vj1niRip Ea6wTRPtPLL3PTDufOXxU2 RnrA1pQiPh OUKvKBZpJ1VsaTSdZNomT5 03HBjsUoU9YCBrtiQvJ0Vi CVIfzIgrZaH5y1T3Qu3JLD AeBZ81QWX2 cUR0VP16IG00W5MxXekygW FibGU+PHRhYmxlIHdpZHRo ASngUXBbPaHgdFsaAX9sOz 9yZGVyLWNv mLhizCVsZyUhy5nyBWIpVW jtVQ2siJqaU5SjjFJ0GLSj m4b3Em16U37rD0YsnMP+PG PajTF2cVU9 xF2fCzAtFyN9XMvqW260Tu EhgKNxZkobc1etg1shvWj4 EdL5ZZYzwePreAigNIV5q5 MjJw95A05f IHdpZHRoPSIxNSUiIHZhbG mldj6amR9mRh1+PGNvbCB3 nPO5hF6vBsQrEjS3RAjmD3 49InRvcCIv Mzydt9juv1kuzQg7XlNgVP JajjKdiVmaZKJ3i7XuRy74 P7EcmYafz2ElTbg5ur69zO Fwt1V5gTR3 J8OfZWKjiinhyPXloSqiYD 8tNUAznmhvMTTzdW0mZTDl R5c2VcLlGoA3JOddI5Uduc N4SCOwhTIt YUcqKPR5O36pn4J1WCLfIA PxDJI3gHX5oY7nnTckdyro bGVmdDsgdmVydGljYWwtYW bvX818SIOl tQpkXMAegG4bJELlpGDlgY btTG7uYZDrqmfrGqbKKJBO IIYMMEOAYFXZMI21SO38dQ Onx5S8kMY9 W4LiZKVphxneijnlpXM2AX SfZVOwoR56eMZdYQtoFe8l f4U1e354SPHxXOUleJ60Zc 9udDogMTBw xULLyQ1qmbewh2drwpzwPm PuOCLhNOh7DQa5TARsaLql ZaQnTFP1DqA7JHV3xKYatD 1hbGlnbjog aX3oWbs+CZQbLMKyZSr7FN wvdGQ+ZBLkIPI0dUvzTQto XXNipN4uZCUhL0f9DuReTa K6LVtqU7Kv NRWlwxqxXf33rR5iGiZbXs P3ARwnP6IojuV8VPHprGAz WIbmDDU4E97hs0E2JBEfJB UyGET0aRA7 pX0brEqxyyqblVLzqIzfob UdaXfuWOzlXCcyS938QSKi pAwuIuKqJGatXAKnUB02GZ 90nKSna9J9 qBK1H0XgPOBedvowshmxbF D3POMhQUUcjR21eDSdBObc On2ya1U0v921HHCfQUVzvD 89Kp6yeQmt DWAhuLWFlJ6yrtjmt5xiwb dlPiFyCMUaZAl3LZa4CYHm nTamRvAwQOO0YsP9EJQ7iM JuyY5xxFkr clsapZ4dFuj+TWFsZTwvdG Q+WZGjKYX4nSxtWUuyMWSr wC0xYSEhB6r1AwZgReQ2QN xjK1MlYIHg vkgqPd97tT7xXmRkLsA6AZ vqS1FancH6HEPguPKgUWbp WQQ6B87dd1Y4SRViFEUmSQ G1gUG9iC9h bGlnbjogbGVmdDsgdmVydG azEUhjHUphZ738ZQWxbSpw Et80kDHycBmpswY8T6PhFo wvdHI+PC90 OIHiYU66nWBplWEhd7cqgL a0BgLeYZWwOUX2uMtlWKrq u2NcFJWaX29rbUDqs5O8GY NvbGxhcHNl HqXizEZ8pY9bOMssasidj1 ypzozfLtcwy9bdbf51qC36 Q12oQYrlMQTlEOVdBPIbXE FhzFuftc5b yK1wOs9+YAFumUD3vPM2kN 4vScCsBiN6VMauC576JgIi zMTvIkxlj6sdf1egdKs3Mo IwJSIgdmFs uEnbBVI6r9CgXg89T27kRW dpZHRoPSIyMCUiIHZhbGln ow5daW0lNo8+GF0sz0nham 75mV39zTV+ KAXyJSU9mFgbDPdbHWYrwX 4aMTnvHoB5TAYaTbXonS30 yMVlVHgiMw4wjEyicEowFE 4wNTBpbjtm l943VeWiy2giPXKqzSXdUI jcEBN3I08tf6E8LPRpMWHq QLZ2dVA3qF8upCcwozrufZ VmdDsgdmVy gWbrWQnmEWjmW860LWLgcW nnYzMayTAlB1nwipJYKH3m OjwvdGQ+GCVzYEL3oMfxZC egQYNvxC1y EKYqB4x1FdZfKvC0SEmjF9 HcqgF9NZSjnINgGKAaaTDG rP0qoqsdv9edxkzhZjPyKZ CjYHj8AWe1 EHYxoLgdKoYzWWI1KnR7BS K2nKXytU7kkZwqoydwhF9m Oyc+RklOOjwvdGQ+PHRkIH I1aPneKAkx CMEekR0cSTFtP5g1GdOzMo M5LGvaL8EvzbR3PDOdbPJs NNZiwGFFpQ2varisg6lhap ogIzAwMDAw XUm2BZt5DSUuwTmdQpLoFK F9CeT1GEB4rWFhiN8ksRtl pwmfjH0eZar+TVJOOjwvdG Q+PHRkIHN0 cTwdYUfdMIUcuE7dOMGcS6 z8DyUtBdI5IMjiZ2YvssB6 QMFdmPJnTVOrnYJApE8pkf dcc8wxvwzn QoQpGYLiUJl5UEh5MYEbdK mxCyKbHLT1WgG8BYB1iXCp mV5ywMviaklvbO5nCgn+UG F0BKH6DF41 DB61U6PnNujuwTDkhYY+PH RhYmxlIHdpZHRoPScxMDAl XgXesPmnLQ5jQm9rKSVbNM NvbGxhcHNl OiBj (more content not included)... Normal [facility] Postoperative Documentson Postoperative Documents [id number]#1. 00CD:127 [facility] Consenton 06-20-2020 Consent [id number]#1. 00CD:127 [facility] Discharge Instructionson Discharge Instructions [id number]#1. 00CD:127 Normal [facility] IntraOperative Documentson 0 06-20-2020 IntraOperative Documents [id number]. 00CD:127 Normal [facility] IntraOperative Documents [id number]#1. 00CD:127 Normal [facility] Main OR Intraoperative Recor don 06-20-2020 Main OR Intraoperative Record IntraOp Document Type FT Summary Primary Physician: Elen MCKINNON MD Finalized Date/Time: 06/20/20 13:22:09 Pt. Name: VINNY BAEZ Edgardo JhaB./Sex: 1960 Male Med Rec #: [id number] Physician: Elen MCKINNON MD Financial #: [id number] Pt. Type: O Room/Bed: / Admit/Disch: 06/15/20 [...] 1 Entry 2 Entry 3 Case Attendee Umer PHILLIP, Lázaro Swift RN, Evelina De Leon Role Performed Anesthesiologist Assembler Wire Mesh Gate - Primary Scrub - Primary Neon Sign Maker Time In 06/15/20 14:13:00 06/15/20 14:13:00 06/15/20 [...] Given Participants Jeniffer QUIGLEY, PETAR Monterroso MD, Maher, Miles, Kirstyn K, Clyde Eng Time Out Complete [...] and tissue Entry 1 Skin Integrity Intact, [place], Warm, and Skin Abnormality No Dry Outcomes [...] Procedure COLONOSCOPY(.) (more content not included)... Normal [facility] Endoscopic Procedure Report - Otheron 06-15-2020 [...] Return to activities:: After 24 hours. Normal [facility] Comment on above: Result Comment: Elec tronically Signed By: PETAR MARTINEZ, Elen\.br\Date and Time Signed: 06/15/20 14:30 EDT Other Comment: Ramona bernabe Attachment - attachment storage system not supported [id number] Can be viewed in source systemMissing Attachment - attachment storage system not supported [id number] Can be viewed in source systemMissing Attachment - attachment storage system not supported [id number] Can be viewed in source systemMissing Attachment - attachment storage system not supported [id number] Can be viewed in source systemMissing Attachment - attachment storage system not supported [id number] Can be viewed in source system Inpatient Patient Summaryon 06-15-2020 Inpatient Patient Summary [place] [id number] [facility] Clinical Discharge Instructions PERSON INFORMATION Name: VINNY BAEZ PHYSICIANS Admitting Physician: Elen MCKINNON MD Attending Physician: Elen MCKINNON MD PCP: SAMUEL ZHAO DO Discharge Diagnosis: Colon polyp Comment: PATIENT EDUCATION INFORMATION Instructions: Medication Leaflets: Follow up: Type Location Start [facility] Follow Up [facility] 07/12/2020 1:15 PM 07/12/2020 1:30 PM Confirmed MEDICATION LIST Medications to Continue with No Changes Other Medications benazepril 5 Milligram By Mouth every day. bisoprolol-hydrochloro thiazide (bisoprolol-hydrochlor othiazide 5 mg-6.25 mg Tab) 1 Tablets By Mouth every day. omeprazole 20 Milligram By Mouth every day. Comment: Normal [facility] Main OR PACU I Recordon 06-02 Main OR PACU I Record PACU Phase I Docum ent Type FT Summary Primary Physician: Elen MCKINNON MD Finalized Date/Time: 06/15/20 16:40:52 Pt. Name: VINNY BAEZ Edgardo Light/Sex: 1960 Male Med Rec #: [id number] Physician: Elen MCKINNON MD Financial #: [id number] Pt. Type: O Room/Bed: / Admit/Disch: 06/15/20 [...] By: Radha Lucas RN 06/15/20 16:40 Normal [facility] Main OR Preoperative Recordo n 06-15-2020 Main OR Preoperative Record Holding Area Document Type FT Summary Primary Physician: Elen MCKINNON MD Finalized Date/Time: 06/15/20 13:00:04 Pt. Name: VINNY BAEZ /Sex: 1960 Male Med Rec #: [id number] Physician: Elen MCKINNON MD Financial #: [id number] Pt. Type: O Room/Bed: / Admit/Disch: 06/15/20 [...] By: Yenny Milner RN 06/15/20 13:00 Normal [facility] Monitor Recordon 06-15-2020 Monitor Record [id number]#1. 00CD:127 Normal [facility] Outpatient Surgery Discharge Instructionon 06-15-2020 Outpatient Surgery Discharge Instruction [place] [id number] Patient Discharge Instructions PERSON INFORMATION Name: VINNY BAEZ Date of : 1960 Current Date: 06/15/2020 14:31:41 PHYSICIANS Admitting Physician: PETAR MARTINEZ, Myrick Discharge Diagnosis: Colon polyp VINNY BAEZ [...] THE NEAREST EMERGENCY ROOM OR CALL 911 I, VINNY BAEZ, have received the attached patient education materials/instructions and have verbalized understanding: May we do a follow up call? Yes No I was present when discharge instructions were given Patient Signature Date Clinican/Nurse Signature ___ Date Follow up: Type Location [facility] Follow Up [facility] 07/12/2020 1:15 PM 07/12/2020 1:30 PM Confirmed Pharmacy Information: [facility] You may receive a survey from [employer] asking you to rate your care experience. Your feedback is important and will help us understand what we do well and how we can improve the quality of care we provide to you, your loved ones and our community. It?s an honor to serve you. Thank you for choosing [facility] HERE ARE THE MEDICATION CHANGES THAT OCCURRED DURING YOUR HOSPITAL STAY Medications to Continue with No Changes Other Medications benazepril 5 Milligram By Mouth every day. bisoprolol-hydrochloro thiazide (bisoprolol-hydrochlor othiazide 5 mg-6.25 mg Tab) 1 Tablets By Mouth every day. omeprazole 20 Milligram By Mouth every day. PATIENT EDUCATION INFORMATION Instructions: Normal [facility] Patient Education - Texton 0 06-15-2020 Patient Education - Text [facility] Progress Note-Physicianon Progress Note-Physician Patient: VINNY BAEZ [...] noted. Plan Transfer/ Discharge: Condition stable. Normal [facility] Comment on above: Result Comment: Elec [...] mellitus type 1 Father Procedure history: Colonoscopy ([id number]). EGD (esophagogastroduodeno scopy) gastric outlet reduction ([id number]). Social History Social & Psychosocial Habits Tobacco 05/23/2020 Tobacco Use: 10 or more cigarettes (1/ . Physical Examination Respiratory: Lungs are clear to auscultation. Cardiovascular: Regular rhythm. Plan [place] [employer] Anesthesiologists (ASA) physical status classification: Class III. Anesthetic Preoperative Plan Anesthesia: General. . Anesthetic plan, risks, benefits, and alternatives discussed with the patient and/or family. Patient verbalized understanding. Normal [facility] Comment on above: Result Comment: Elec tronically Signed By: Pierre Nazario Jr., DO\.braulio\Date and Time Signed: 06/15/20 11:57 EDT Coding Summary.on 06-10-2020 Coding Summary. CODING DATE: 06/10/2020 FINAL [facility] STATUS: Home (Routine DC) PAYOR: Commercial [...] CphT Date Saved: 06/10/2020 08:48 am Normal [facility] COVID-19 ([facility])on 06-09-2020 SARS-CoV-2 (COVID-19) RNA ROLANDO+probe Ql (Unsp spec) Not detected Normal Not Detected [facility] Comment on above: Result Comment: This test result should be correlated with clinical presentations and medical history by a healthcare provider to determine its clinical significance. This assay was performed by a reverse transcriptase real-time polymerase chain reaction (rt PCR) method on the [employer] system. This test has been authorized only [...] or revoked sooner. 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 NO Normal [facility] Comment on above: Performed By: #### 2 [id number] ####[address] [address] ICU NO [facility] Comment on above: Performed By: #### 2 [id number] ####[address] [address] ? NO Normal [facility] Comment on above: Performed By: #### 2 [id number] ####[place] [id number] Resides in a Congregate Care Setting NO Normal [facility] Comment on above: Performed By: #### 2 [id number] ####[facility] [address] [place] [address] Symptomatic as defined by [facility] NO [facility] Comment on above: Performed By: #### 2 [id number] ####[place] [id number] [place] [address] Consent for Procedure/Surger yon 05-24-2020 Consent for Procedure/Surgery [id number]#1.0 0CD:127 Normal [facility] Gastroenterology Office/Clin ic Noteon 05-24-2020 Gastroenterology Office/Clinic Note CD:[id number] EP65aXndeiIzh2hqac8tJB 2hPoGogkBiITflUn0ew4ev EI77mg8gXqEeOv3+CjwhRE 9DVFlQRSBo sW3vGFWISwqSUzLoLO8zAt YNYz4OXNAyNJhLTZdsUI4i IZN0dilsxA8fWT2dWZRxrD YvXt0cz8p5 AsckJh0vNy5YMa82qGMisN GeIVYES3efuD4tIG8cvXJr Z2JoYAPpBo1LHMk3tApbrG 2xihR4Uxu1 vOE1Mv13u7fgbyVpb6JcYe C5WBzyaJa9yMwkLGzbeT7v BaZwZOFGqW4aqGjnBI8saZ 1lbnRhdGlv biI+DztaZHFnIyf5mZSyZV 83V9VucBauOvp8gST2AEJf rHVyFRYkmZr9BXBIVSAYNM NvbXBhdGli uBDuPSQktlPluuR1HzmFEZ EzIxVbLie8Y4nxIGY+Cjxi y7S0Qxw3BRs5TIZ7sNiyQH Djr226AKHb tTudyCedoUAgv91yQTZypI BeXsItf146KIHaioA9VDgy aJuhHxw4xYHleTGos8jagO j7FhXoTRWo AbaZFHQlaKohy3RzGmtJZX pyb6myxlRozGhzKDH4k3Ip IXusYSMfJZH2LsUpVF1+Cg kJPGNvbCB2 SSwcO474EnFqwBXtu9aebX z4JkF9RTMcFp9IEHfmY75y R2GylRH+Crs8tGWqEWa+Cg kJPHRyPgoJ SEf3nXQri1Y4tNV5IiYpkw Akj1z9XFzpKVV9WmN0NHO7 eMJqwD1eoQkdvgcbtR1oJy I+CgkJCTxk eBCjT7oxl9E6UnJst0EddH izmqGpQRNrYwIed4gmDtny IZGwgQ3qHYJ2YcDyOMJngX GdFAFrBH2u mhYulDRpAQCwRdXcR5Unf9 5ib6IeXLDYJ0bUKtBaHBE5 IM8rFbTwXH3pBbjcSYJdW4 ZaUVW1XTZs GVqfTa5xUTReKRI4ZdEvLE YpSVW5GJRil1S4jJV7OeAh GAEwzlm9OPXlyIozQomwkD FuIGNsYXNz WPTlXTOeU7Uxz48uzOTvbH W4Vm18p4BtfnCekPcoJA7w Jo9faN60VBxxfCO3XINmbI T7NQBwaOZr WINag0OmgTymbnobjO6dRQ AouZ8dXsM+T6coPAMsW83m jSqkhZ73RT8ipRElEiqtk3 Mwgo7GPDcH YPHluhAooDQdct5vXEIujQ Yjv563LU29KbSfTAqmb845 ET98jOvzLQ8iKNHIW5XEWH 9NRUFTIiBk TUyeMCZeriIwA8B5uHtjXG SBT1C2LkH2EI3INqWxJXPT V1GnDjIqVe5EB3WWHYaGMw O8FpKsIFub PSJfZTlmOWVkYzMtYzZmZi 39QfG6GDinSNNnNAM0Gam4 LQE6RKcaXk9EJVvVSKLenf ZymNBfem0h DRDcnNPex397XV53jLWliK YzYCYkiR04PXSfOVXvJTX8 A85odIRdeAK2cTI4WuSZIN NBUkVfTUVB HwKwTZA7TR69aYZ0xCI8Lo B9Ivz7OpFeOpTwBImdWULf PhAcXEX9BTDiXDCsLE24XF CdEIa0CuZn JvPcYuE9KJvpJJcxMpC4eC xblvieTZ9cPUgsIA1sD6Zd J7EzGG77ODOsn97sWiP8vx Xay5btloGe ADRuuBl7W8Kxsa7JMLkZXF 9kaXY+KljSCSmbWAk9RxsK LHeOWQTxecAepZMgbg2hEH ShINO8yX7t IGRkcmVmcmVzaGFibGUgZG XryiSzbtSrkyDekQE2mZVx SPZmpG84YQHsXIYnGFY3p6 VjdGlvbmNv HVI4IfeVYV2ZLLNxLFS3ZU VhLWlyKYRdTYHlJYI6EWAd MdFiTa25ZGS2BGv3RyFzKd LrL8T6Bmq9 SdNqXhOptQpeYK0ptAXtZO cmQhkiJBC4YzQ+OSAsMX8i O9fiu7C5ZgHlq6UhzQnteb Mnh8GgPPvs GmzbmOBuVEK2hCnpYJRph5 17PDcpjKvacGhgSt2eUWmi eIF4dY4mFVYdilM0pB0lFz O7rgScwyxy ffV4Kn1ZMEqfD3GsDbG2G2 NwYW4+LB1hvWDvQjwQZXtJ GCPffvIetTUqay4eDCYraK Dgp607OQ42 EjYeTMnid826PK13mShdUU 5aQQXWR9XLVY6PBJMMKaLa LCwrYAAuypQkN0U7pUhtML JBODVEREFE LN25SswxHIYNECGeGTWFVk 99IDDUJxM8ZhqQHPLtISbt PSJfMWEyYjQyNTQtNzcwZS 29GOuyFNJ8 MzgtMGMyMGJhMmZmNzJmIj 2RFEkYOMQadqVtvIQjcu6p BHBhgZDsy036QV67nFIraT UoEZFhaT02 TBZlEVCuRYB2FlPyQoipAT ZnpjkvdPhtQA3dmI3jRGEy P8s3LjRsBAwdd829TD34xJ dhBI5pYKUE O3SPOB9UPTWYLnFmRDdsuf QouKjtZO2dApTaGM8iF6Z0 WAM1ISIkISvrDmQrJBo6HG 04ZGQyLTMy LeAaXUNgKDudLHGarK9oyt W9FHO7QhZ6xyDufYWTc8G6 lAVzwIJ3fZ1qSi01J0Mrue 4KCgkJCTxk zDAtE9jjj5B0IwHyOC0dY3 7snCUuuFy8GR9ySRMnTN0t ubQohLKwXVLnRwP5iaOez9 C1rT7by2U8 vUW6ZlDmbH1ocOtgpVCzED S2F56jzUEymCO7aSK3KeHC WJRLRkYgUTXNAbFxXHH0RS 13mBB4uKZ4 YvPihBM3Bn65EPWsCoYjCp 58GtCeSFNbOGFyREjbRn7d LMWjBOD8OlUoVzokGXokpH 5zOmRkPSJE mO5jfLddTM1voE4joqVtpG lvbiI+UH3znWV+CgoJCQk8 ZZk9MGUoFNMrZZTaXICxcf NvbnRlbnRp bDIfJZQkpvCgu3ReBzzoWt LhVLyxdC0mpD8vsDdfA6V3 xYyrZAC9i9BpatjlbZEzOK RkOmNvbnRl ghD5cKEzSRFSFKVHSBFXL1 9NYNWzLFPaDoCfmOx5bYuk ANCaGSdjVACxTpc8WtIvLg ZuZ5XlMP08 ZJGkLQekA6FrRPF6VJq1Em KtQfGeDdU1sUmnauxpIB0z FYwhTH3aR4JsU7IhAA35BV Ynl43qZraA FBa2TCs2DMF4vEdlCZIjYC KlmR70RBXgkTNbhP07WEXy POKvxnc5FFAzzDidHu2rGD VyOiAwcHQg kiznLWYwIUMpWJXlWuE2TC c3ZPWxuRgyKqGcPKI6MpAh u3mtcdylbtgsUBSuJZApNI WzXgO9LMl4 LWluZGVudDogMGluOyBmb2 98ZXE3zLsdDjMmr5JgEYv1 TQYohmJji4CpX8n4JuIwi2 OoAJa8ZXOr nNUzNIVlq3KoxEgmdasbex 8wDAhoJftWNRb4YXp8VigH IIt4EJb7NxCteKScnFPiIK V5PBN5KBBm PH8sLXWkFIllJPthmlDora IvVN92huB3y4DkoLXfn7Kq TUG6CBaqLEYyB17tv38yiz VjYWxsLjwv OTx5WgzPGRg4N6Ikvh9POO kUMZ2pkPQ+CgkJCTwvZGl2 PgoKCQkJPGRpdiBjbGFzcz 0iZGRlbXJj q576SE44rSVboTPaNNJmqE 65GUGyVIHzUVN9QfJnTblf FCGryvsdbMsuRL1ghN8vGO EjY8y5NyYm CZtlw116CO11nXkvTH6bIH NBK1SKMJ2SJUUZUrKbEIbc hwLsjMywZY0uAvThVX4mUq YxMjcyYjRk OYB7SLfyJWP7VD69RmRaPH G0CfVmBSVkOUE4SFNfxM9s xjH4INV2KnO6ccFquFBKm3 D1rGJctVA2 zW1xHa72N8Yzpv9LZgqXQW xylELaA6hok2U2SjZkTW5r M61uoBSquBq9DD5mXBXiHY 1vdmFibGUi MUXvBcW4eeNcz3U3aX0ew0 E5sEV5XcZzrI1zoDaotONi FXA2V92zfMKqlSM5zLN0Rm BBVENBUkVf JFZZBdKsILP1DD22xMX5iV Z1HaEwtJX1Iy30LWXbDyRw EP8xIkUtRCXgYCNbQcW1Xj 0zQHB6KGAv DEDdXMOiIJdlsK4oXdHaXV TVkH7tlTmhTV1ymY9phkKg dGlvbiI+VN5mtGQ+CgoJCQ v2QAn8SZYz YXNzPSJkZGVtcmNvbnRlbn MhhFMaFQXblyYug0PbWcpe YsOjMDrvkR0ffE9hkAzaF6 O6uYcoCXT3 z6BevkfrfGOvFVYgBqThdj IxqxV7yTEkCONCQWUZMBAD D46YDZRcRZSwLrOyhTq1yU lkPSIiIGlk YTGwBRImQVUdX6YtDZPaNY 35KMJeLQEwNMGuVektYub8 EER8Amu8FlI3fYvrpixlNV 4yNMqvUF8n D8YaN9OrMA19MCXwe19pOl wzBCj1NqdTBMlRLAGldmCp rJSdby7uEPPxxVTij846BW 50aXRlbSBk TKIpiZ61ADBpYMWmHVX5Ya XjGsgzAXVvndxxxKplUT1y dU8uNGPsO3u2TyBsFXjrd1 13QB62sUon LP0zWPTWK5DXTT4PQOYOQi LrYXpuxcQzwQmdQI2bQsRt MS1cBwBeSXalOHtsEMP4Vc KaCTq0XA4y BtOrTOx4RiFrWgNzDBGoQY RofN8mksF5JHU2GiG7vuLz qALRi4W6wEIiqGO7hY9gGy 33J9Cohb1I TyrUXRgfsTDuQ6sdo3F1Bx NbOZ8yG65nsOBogDv6DA3c AHUmOT0cxiWrsWBjECJpDb I7yjPif0B3 zT7eq4F7hIC2CzAmyO8qyW xkuCTlMMI2A51osYDdjWG5 iAF3GiFZJTKSSpOdEJGODj FuENS6YY86 eYR2gCB1IpIgeJU8Xx6cNJ z1HMVmIa7iEyJ4CLMlGpXt ABGvTi5vIhZhXjH8DSE8Uf CgIYkisR8k O (more content not included)... Normal [facility] Comment on above: Result Comment: Elec tronically Signed By: Elen MCKINNON MD\.br\Date and Time Signed: 05/24/20 12:53 EDT\.br\Electronically Co-Signed By: Alysa Ashley\.br\Date and Time Co-Signed: 05/23/20 16:37 EDT\.br\Electronically Co-Signed By: Elen MCKINNON MD\.br\Date and Time Co-Signed: 07/08/20 10:25 EDT\.br\Electronically Co-Signed By: Mami Leonard Physician Orderon 05-24-2020 Physician Order [id number] 0CD:127 Normal [facility] Physician Order [id number]#[id number] CD:127 Normal [facility] Ambulatory Clinical Summaryo n 05-23-2020 Ambulatory Clinical Summary {[id number]}CD:[id number] Normal [facility] Patient Educationon 05-24-19 Patient Education Oncology [...] Reviewed: 06/05/2018 Elsevier Patient Education ? 2019 [employer]. [facility] Historical Records Officeon 05-20-2020 Historical Records Office [id number] 0CD:127 [facility] Patient Letter FTMCon 2020 Patient Letter [facility] April 05, 2020 VINNY BAEZ [address] [place] [address] VINNY BAEZ 1960 Dear Vinny, This is a reminder that you are due for an appointment with Dr. Mckinnon or Dr. Molina. Please call [facility] at [phone] to schedule an appointment at your earliest convenience. Thank you, [facility] Vital Signs Date Time Vital Sign Value Performing Clinician Facility 04-23-2023 08:45-0500 Body height 179.07 cm [facility] 04-23-2023 08:45-0500 Body mass index (BMI) [Ratio] 27.5 kg/m2 [facility] 04-23-2023 08:45-0500 Body weight 88.22 kg [facility] 04-23-2023 08:45-0500 Diastolic blood pressure 86 mm[Hg] [facility] 04-23-2023 08:45-0500 Heart rate 92 /min [facility] 04-23-2023 08:45-0500 Respiratory rate 12 /min [facility] 04-23-2023 08:45-0500 Systolic blood pressure 138 mm[Hg] [facility] 03-26-2023 11:00-0500 Body height 179.07 cm Roseline Ghosh Other [facility] 03-26-2023 11:00-0500 Body mass index (BMI) [Ratio] 27.3 kg/m2 Roseline Ghosh Other [email or web address] Other 03-26-2023 11:00-0500 Body weight 87.54 kg Roseline Ghosh Other [facility] 03-11-2023 11:00-0500 Body height 179.07 cm Samuel Ball Other [facility] 03-11-2023 11:00-0500 Body mass index (BMI) [Ratio] 27.86 kg/m2 Samuel Ball Other [facility] Other 03-11-2023 11:00-0500 Body weight 89.36 kg Samuel Ball Other [facility] Other 03-11-2023 11:00-0500 Body weight 89.35 kg [facility] 03-11-2023 11:00-0500 Diastolic blood pressure 88 mm[Hg] Samuel Ball Other [facility] 03-11-2023 11:00-0500 Respiratory rate 12 /min Samuel Ball Other [facility] Other 03-11-2023 11:00-0500 Systolic blood pressure 169 mm[Hg] Samuel Ball Other [facility] 02-19-2023 09:30-0500 Body height 179.07 cm Samuel Ball Other [facility] 02-19-2023 09:30-0500 Body mass index (BMI) [Ratio] 27.84 kg/m2 Samuel Ball Other [facility] Other 02-19-2023 09:30-0500 Body weight 89.27 kg Samuel Ball Other [facility] Other 02-19-2023 09:30-0500 Body weight 89.26 kg [facility] 02-19-2023 09:30-0500 Diastolic blood pressure 82 mm[Hg] Samuel Ball Other [facility] 02-19-2023 09:30-0500 Respiratory rate 12 /min Samuel Ball Other [facility] Other 02-19-2023 09:30-0500 Systolic blood pressure 176 mm[Hg] Samuel Ball Other [facility] 02-06-2023 11:15-0500 Body height 179.07 cm Samuel Ball Other [facility] 02-06-2023 11:15-0500 Body mass index (BMI) [Ratio] 23.22 kg/m2 Samuel Ball Other [facility] Other 02-06-2023 11:15-0500 Body weight 74.48 kg Samuel Ball Other [facility] Other 02-06-2023 11:15-0500 Body weight 74.47 kg [facility] 02-06-2023 11:15-0500 Diastolic blood pressure 67 mm[Hg] Samuel Ball Other [facility] 02-06-2023 11:15-0500 Respiratory rate 12 /min Samuel Ball Other [facility] Other 02-06-2023 11:15-0500 Systolic blood pressure 145 mm[Hg] Samuel Ball Other [facility] 01-29-2023 08:45-0500 Body height 179.07 cm Samuel Ball Other [facility] 01-29-2023 08:45-0500 Body mass index (BMI) [Ratio] 27.27 kg/m2 Samuel Ball Other [facility] Other 01-29-2023 08:45-0500 Body weight 87.45 kg Samuel Ball Other [facility] 01-29-2023 08:45-0500 Diastolic blood pressure 79 mm[Hg] Samuel Ball Other [facility] 01-29-2023 08:45-0500 Respiratory rate 12 /min Samuel Ball Other [employer] Other 01-29-2023 08:45-0500 Systolic blood pressure 120 mm[Hg] Samuel Ball Other [facility] 11-19-2022 09:30-0400 Body height 179.07 cm Samuel Ball Other [employer] Other 11-19-2022 09:30-0400 Body mass index (BMI) [Ratio] 27.58 kg/m2 Samuel Ball Other [email or web address] Other 11-19-2022 09:30-0400 Body weight 88.45 kg Samuel Ball Other [email or web address] Other 11-19-2022 09:30-0400 Diastolic blood pressure 88 mm[Hg] Samuel Ball Other [email or web address] Other 11-19-2022 09:30-0400 Respiratory rate 12 /min Samuel Ball Other [email or web address] Other 11-19-2022 09:30-0400 Systolic blood pressure 139 mm[Hg] Samuel Ball Other [email or web address] Other 06-26-2022 16:30-0400 Body height 179.07 cm Samuel Ball Other [email or web address] Other 06-26-2022 16:30-0400 Body mass index (BMI) [Ratio] 28.12 kg/m2 Samuel Ball Other [email or web address] Other 06-26-2022 16:30-0400 Body weight 90.18 kg Samuel Ball Other [email or web address] Other 06-26-2022 16:30-0400 Diastolic blood pressure 126 mm[Hg] Samuel Ball Other [email or web address] Other 06-26-2022 16:30-0400 Respiratory rate 12 /min Samuel Ball Other [email or web address] Other 06-26-2022 16:30-0400 Systolic blood pressure 210 mm[Hg] Samuel Ball Other [email or web address] Other 03-21-2022 12:00-0500 Body height 179.07 cm Samuel Ball Other [email or web address] Other 03-21-2022 12:00-0500 Body mass index (BMI) [Ratio] 28.2 kg/m2 Samuel Ball Other [email or web address] Other 03-21-2022 12:00-0500 Body weight 90.45 kg Samuel Ball Other [email or web address] Other 03-21-2022 12:00-0500 Diastolic blood pressure 90 mm[Hg] Samuel Ball Other [email or web address] Other 03-21-2022 12:00-0500 Respiratory rate 12 /min Samuel Ball Other [email or web address] Other 03-21-2022 12:00-0500 Systolic blood pressure 140 mm[Hg] Samuel Ball Other [email or web address] Other Encounters Encounter Date Encounter Type Care Provider Facility Start: 05-06-2023 End: 05-07-2023 ambulatory Diego Gordon MD Facility:[facility] Start: 04-23-2023 End: 04-23-2023 ambulatory [facility] Work Phone: Start: 04-23-2023 End: 04-23-2023 Patient encounter procedure [facility] Work Phone: Start: 04-22-2023 Non-patient / Non-visit [facility] [employer] Work Phone: Start: 04-08-2023 End: 04-09-2023 ambulatory Diego Gordon MD Facility:[facility] Start: 04-01-2023 End: 04-02-2023 ambulatory Diego Gordon MD Facility:[facility] Start: 03-27-2023 End: 03-27-2023 ambulatory Roseline Ghosh Other [email or web address] Other Start: 03-27-2023 Telephone encounter Roseline Ghosh [employer] Start: 03-26-2023 End: 03-26-2023 ambulatory Samuel Zhao Other [email or web address] Other Start: 03-26-2023 Office outpatient ne w 45 minutes Roseline Ghosh [facility] Start: 03-26-2023 Telephone encounter Samuel Zhao [facility] Start: 03-26-2023 End: 03-26-2023 Patient encounter procedure [facility]- Start: 03-25-2023 End: 03-25-2023 ambulatory Samuel Zhao Other [email or web address] Other Start: 03-25-2023 Telephone encounter Samuel Zhao [facility] Start: 03-11-2023 End: 03-11-2023 ambulatory Samuel Ball Other [email or web address] Other Start: 03-11-2023 Office outpatient vi sit 15 minutes Samuel Zhao [facility] Start: 03-11-2023 End: 03-11-2023 Patient encounter procedure [facility] Work Phone: Start: 03-05-2023 End: 03-05-2023 ambulatory Samuel Ball Other [email or web address] Other Start: 03-05-2023 Telephone encounter Samuel Ball [facility] Start: 02-26-2023 End: 02-26-2023 ambulatory Samuel Ball Other [email or web address] Other Start: 02-26-2023 Telephone encounter Samuel Ball [facility] Start: 02-19-2023 End: 02-19-2023 ambulatory Samuel Ball Other [email or web address] Other Start: 02-19-2023 Office outpatient vi sit 15 minutes Samuel Ball [facility] Start: 02-19-2023 End: 02-19-2023 Patient encounter procedure [facility] Work Phone: Start: 02-18-2023 End: 02-18-2023 ambulatory Samuel Ball Other [email or web address] Other Start: 02-18-2023 Telephone encounter Samuel Ball [facility] Start: 02-06-2023 End: 02-06-2023 ambulatory Samuel Ball Other [email or web address] Other Start: 02-06-2023 Office outpatient vi sit 15 minutes Samuel Ball [facility] Start: 02-06-2023 End: 02-06-2023 Patient encounter procedure [facility] Work Phone: Start: 02-05-2023 End: 02-05-2023 ambulatory Samuel Ball Other [email or web address] Other Start: 02-05-2023 Telephone encounter Samuel Ball [facility] Start: 01-31-2023 End: 01-31-2023 ambulatory Samuel Ball Other [email or web address] Other Start: 01-31-2023 Telephone encounter Samuel Ball [facility] Start: 01-29-2023 End: 01-29-2023 ambulatory Samuel Ball Other [email or web address] Other Start: 01-29-2023 Office outpatient vi sit 15 minutes Samuel Zhao [facility] Start: 01-29-2023 End: 01-29-2023 Patient encounter procedure [facility] Work Phone: Start: 11-28-2022 End: 11-28-2022 ambulatory Samuel Zhao Other [email or web address] Other Start: 11-28-2022 Encounter for genera l adult medical examination without abnormal findings Samuel Pavel [facility] Start: 11-28-2022 Telephone encounter Samuel MOORE [facility] Start: 11-27-2022 End: 11-27-2022 ambulatory Samuel Zhao Other [email or web address] Other Start: 11-27-2022 Telephone encounter Samuel MOORE [facility] Start: 11-22-2022 End: 11-22-2022 ambulatory Samuel Zhao Other [email or web address] Other Start: 11-22-2022 Telephone encounter Samuel MOORE [facility] Start: 11-19-2022 End: 11-19-2022 ambulatory Samuel Zhao Other [email or web address] Other Start: 11-19-2022 Encounter for genera l adult medical examination without abnormal findings Samuel Zhao [facility] Start: 11-19-2022 Periodic preventive med est patient 40-64yrs Samuel Zhao [facility] Start: 08-03-2022 End: 08-03-2022 ambulatory Samuel Zhao Other [email or web address] Other Start: 08-03-2022 Telephone encounter Samuel MOORE [facility] Start: 07-18-2022 End: 07-19-[address] SAMUEL ZHAO Facility: Start: 06-28-2022 End: 06-28-2022 ambulatory Samuel Zhao Other [email or web address] Other Start: 06-28-2022 Telephone encounter Samuel Zhao [facility] Start: 06-27-2022 End: 06-28-[address] SAMUEL ZHAO Facility: Start: 06-26-2022 End: 06-26-2022 ambulatory Samuel Zhao Other [email or web address] Other Start: 06-26-2022 Office outpatient vi sit 25 minutes Samuel Zhao [facility] Start: 05-22-2022 End: 05-22-2022 ambulatory Samuel Zhao Other [email or web address] Other Start: 05-22-2022 Telephone encounter Samuel Zhao [facility] Start: 05-15-2022 End: 05-15-2022 ambulatory Samuel Zhao Other [email or web address] Other Start: 05-15-2022 Telephone encounter Samuel Zhao [facility] Start: 04-12-2022 End: 04-12-2022 ambulatory Samuel Zhao Other [email or web address] Other Start: 04-12-2022 Telephone encounter Saumel Zhao [facility] Start: 04-05-2022 End: 04-05-2022 ambulatory Samuel Zhao Other [email or web address] Other Start: 04-05-2022 Telephone encounter Samuel Zhao [facility] Start: 04-04-2022 End: 04-04-2022 ambulatory Samuel Zhao Other [email or web address] Other Start: 04-04-2022 Telephone encounter Samuel Zhao [facility] Start: 03-21-2022 Office outpatient vi sit 25 minutes Samuel Zhao [facility] Start: 03-21-2022 End: 03-22-[address] [facility] [email or web address] Other Start: 12-04-2021 Encounter for genera l adult medical examination without abnormal findings DR SAMUEL ZHAO [facility] Start: 12-01-2021 End: 12-02-2021 Encounter for general adult medical examination without abnormal findings DR SAMUEL ZHAO Facility:[facility] Start: 12-01-2021 End: 12-02-[address] SAMUEL ZHAO Facility:[facility] Start: 08-09-2021 End: 08-10-[address] SAMUEL ZHAO Facility:[facility] Procedures Date Procedure Procedure Detail Performing Clinician Start: 12-01-[address] CATHY ZHAO Comment on above: Performed By: #### V ITB12, PSASC #### [facility] [address] [place] [address] Dr. Gerardo Larose Depression screening Clari Zhao Other Payers Date Payer Category Payer Private Health Insurance 1960 Unknown [id number] 2.16.84 [id number] 1960 Unknown [id number] 2.16.84 [id number] 1960 Unknown [id number] 2.16.84 [id number] 1960 Unknown [id number] 2.16.84 [id number] 1960 Unknown [id number] 2.16.84 [id number] 1960 Unknown [id number] 2.16.84 [id number] 1960 Unknown [id number] 2.16.84 [id number] 1960 Unknown [id number] 2.16. [id number] 1960 Unknown [id number] 2.16. [id number] 1960 Unknown [id number] 2.16. [id number] 1960 Private Health Insurance [id number] Social History Date Type Detail Facility Sex Assigned At [email or web address] Other Start: 04-22-2023 [facility] Start: 1960 Sex Assigned At Male F [facility] Medical Equipment Procedure Code Equipment Code [...] 62 yo male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
--- NOTE | 2023-05-16 09:40 | PM.CN ---
Consult Note: HPI Data of Consult Patient: new to practice Consult date: 04/01/23 Requesting Physician: Nanette Navarro NP Primary Care Provider: Samuel Zhao DO Consult Narrative Reason for consult: Low back, left leg pain Narrative: 62yom who presents for evaluation. Worsening left low back and radiating left leg pain for past 3 months. Has undergone physical therapy and chiropractic therapy, as well as >6 weeks of provider directed home exercises, in past 3 months, with limited benefit. Imaging reviewed, which shows multilevel facet arthropathy, as well as stenosis at various levels, worst at L4-5 and L5-S1. Has trialed medrol dosepak, with good transient benefit. Recently underwent left L4-5 L5-S1 TFESI and left SIJ injection injections arent worth a shit and didn't help at all . Pain today 2/10 intermittent in low back and left leg, reports numbness tingling and weakness of left leg. Hx of bilateral lower leg neuropathy. cc:: CC: Nanette Navarro NP Review of Systems ROS Status of ROS 10 or more systems reviewed and unremarkable except as noted in history and below Musculoskeletal Reports: back pain and extremity [facility] Medical History (Updated 04/22/23 @ 09:51 by Abe Cruz MD) BPH (benign prostatic hyperplasia) ?N40.0 - Benign prostatic hyperplasia without lower urinary tract symptoms (ICD-10) Neuropathy ?G62.9 - Polyneuropathy, unspecified (ICD-10) Low back pain ?M54.50 - Low back pain, unspecified (ICD-10) Diabetes ?E11.9 - Type 2 diabetes mellitus without complications (ICD-10) Smoker ?F17.200 - Nicotine dependence, unspecified, uncomplicated (ICD-10) High cholesterol ?E78.00 - Pure hypercholesterolemia, unspecified (ICD-10) Hypertension ?I10 - Essential (primary) hypertension (ICD-10) Social History Smoking status: Never smoker Meds Home Medications and Allergies Home Medications Medication Instructions Recorded Confirmed Type albuterol sulfate 90 mcg/actuation 1 puff inhalation QDAY 01/28/23 05/06/23 History aerosol inhaler amlodipine 5 mg tablet 5 mg PO QDAY 01/28/23 05/06/23 History atorvastatin 10 mg tablet 10 mg PO QDAY 01/28/23 05/06/23 History bisoprolol 5 1 tab PO QDAY 01/28/23 01/28/23 History mg-hydrochlorothiazide 6.25 mg tablet glimepiride 2 mg tablet 2 mg PO QDAY 01/28/23 05/06/23 History losartan 50 mg tablet 50 mg PO QDAY 01/28/23 05/06/23 History omeprazole 20 mg capsule,delayed 20 mg PO QDAY 01/28/23 05/06/23 History release sitagliptin phosphate 50 mg tablet 50 mg PO QDAY 01/28/23 05/06/23 History (Dianna) Allergies Allergy/AdvReac Type Severity Reaction Status Date / Time metformin AdvReac Mild Diarrhea Verified 05/06/23 09:40 Exam Narrative Exam Narrative: patient reports activity improves his pain Constitutional Documenting provider has reviewed patient's vital signs: yes Common normals: no apparent distress, oriented x3, healthy appearing, alert and well nourished Other: agitated HENMT Common normals: normocephalic, hearing grossly normal bilaterally and moist oral mucous membranes Head and scalp: normocephalic Eye Common normals: PERRL Pupil: PERRL Neck & C-Spine Common normals: full ROM General: normal visual inspection Chest Common normals: inspection of chest normal Respiratory Common normals: normal respiratory effort, no retractions and no use of accessory muscles Back & Pelvis Lumbar spine/lower back: pain with ROM, paraspinal muscle tenderness, straight leg raise positive right and straight leg raise positive left (mildly positive ) Sacroiliac joints: SI joints normal Other: negative fabir fader thigh thrust decreased sensation in left L4/5 decreased sensation below bilateral knees as a result of chronic neuropathy weakness to LLE noted on exam 4/5 Neuro Common normals: oriented x3, CN's II-XII intact bilaterally, moves all extremities, no focal motor deficits, no sensory deficits noted and deep tendon reflexes 2+ bilaterally Sensorium/orientation: alert Motor exam: strength 5/5 throughout and no movement abnormalities noted Psych Common normals: mental status grossly normal, thought process normal, cooperative, affect normal, speech normal and activity/motor behavior normal Speech: normal speech Thought process: normal thought process Assessment and Plan Assessment and Plan (1) Lumbar stenosis with neurogenic claudication: (2) Sacroiliac joint dysfunction of left side: (3) Diabetes: (4) Neuropathy: Plan Patient found no benefit to left L4-5 L5-S1 TFESI and left SIJ injection. as a result of steroids his blood sugars had been greater than 500 and he was seen in the ER. At this time I would advise against additional injections with steroids. Patient should f/u with NS as previously planned. defer medication management. we will request notes from NS could consider steroid rotation in the future, although based on patients agitated behavior today we will not be following with him
== END 2023-05-16 08:58 | disposition home or self-care (01) ==
LOC: PM 08:57
PROVIDERS: PCP Internal Medicine; Visit Provider Nurse Practitioner
DX: M48.062 Spinal stenosis, lumbar region with neurogenic claudication (principal); M53.3 Sacrococcygeal disorders, not elsewhere classified; E11.9 Type 2 diabetes mellitus without complications; G62.9 Polyneuropathy, unspecified
CPT/HCPCS: G0463

== ENCOUNTER 2023-08-19 14:44 | Outpatient (OUT) | payer OTHER, SELFPAY ==
[2023-08-19 15:40] LABS: Estimated Average Glucose 229 mg/dL; Glycohemoglobin A1C 9.6 % (4.5-6.2)
== END 2023-08-19 14:45 | disposition home or self-care (01) ==
LOC: LAB 14:44
PROVIDERS: PCP Internal Medicine; Visit Provider Internal Medicine
DX: E11.42 Type 2 diabetes mellitus with diabetic polyneuropathy (principal); E11.65 Type 2 diabetes mellitus with hyperglycemia
CPT/HCPCS: 36415; 83036

== ENCOUNTER 2024-03-26 10:44 | Outpatient (OUT) | payer OTHER, SELFPAY ==
[2024-03-26 11:28] LABS: Basophils Absolute Auto 0.1 10^3/uL (0.0-0.1); Basophils Percent Auto 0.6 % (0.2-2.0); Eosinophils Percent Auto 0.1 % (0.9-7.0); Hematocrit 41.1 % (42.0-54.0); Hemoglobin 14.4 g/dL (14.0-18.0); Immature Granulocytes Abs Auto 0.02 10^3/uL (0.00-0.03); Immature Granulocytes Pct Auto 0.3 % (0.0-0.5); Lymphocytes Absolute Auto 1.9 10^3/uL (1.2-3.8); Lymphocytes Percent Auto 24.8 % (20.5-60.0); Mean Corpuscular Hemoglobin 31.8 pg (25.9-34.0); Mean Corpuscular Volume 90.7 fL (80.0-94.0); Mean Platelet Volume 10.1 fL (9.5-13.5); Monocytes Absolute Auto 0.4 10^3/uL (0.3-0.8); Monocytes Percent Auto 5.6 % (1.7-12.0); Neutrophils Absolute Auto 5.4 10^3/uL (1.4-6.5); Neutrophils Percent Auto 68.6 % (43.0-75.0); Platelet Count 241 10^3/uL (150-450); Red Blood Count 4.53 10^6/uL (4.70-6.10); Red Cell Distribution Width 13.2 % (11.0-15.0); White Blood Count 7.8 10^3/uL (4.0-11.0)
[2024-03-26 11:41] LABS: Microalbumin Urine Random 18.2 mg/dL (<=30.0)
[2024-03-26 11:42] LABS: Estimated Average Glucose 154 mg/dL
[2024-03-26 11:45] LABS: Alanine Aminotransferase 47 U/L (16-63); Albumin Globulin Ratio 0.9; Albumin Level 3.5 g/dL (3.4-5.0); Alkaline Phosphatase 101 U/L (46-116); Anion Gap 16.6; Aspartate Amino Transferase 23 U/L (15-37); BUN Creatinine Ratio 11.3; Bilirubin Total 0.4 mg/dL (0.2-1.0); Calcium 9.4 mg/dL (8.5-10.1); Carbon Dioxide 27.9 mmol/L (21.0-32.0); Chloride 101 mmol/L (98-107); Chol HDL Ratio 3.7; Cholesterol 180 mg/dL (<=200); Estimated GFR (African America >60 (>=60 mL/min/1.73m^2); Estimated GFR (Non-African Ame >60 (>=60 mL/min/1.73m^2); Globulin 3.9 g/dL; Glucose 147 mg/dL (74-106); HDL Cholesterol 49 mg/dL (40-60); Potassium 3.5 mmol/L (3.5-5.1); Sodium 142 mmol/L (136-145); Total Protein 7.4 g/dL (6.4-8.2); Triglycerides 349 mg/dL (<=150); VLDL CHOLESTEROL 69.8 mg/dL
[2024-03-26 11:55] LABS: Prostate Specific Antigen Scrn 0.57 ng/mL (<=4.00)
== END 2024-03-26 10:45 | disposition home or self-care (01) ==
LOC: LAB 10:45
PROVIDERS: PCP Internal Medicine; Visit Provider Internal Medicine
DX: Z00.00 Encounter for general adult medical examination without abnormal findings (principal)
CPT/HCPCS: 36415; 80053; 80061; 82043; 83036; 85025; G0103

== ENCOUNTER 2024-11-25 09:04 | Outpatient (OUT) | payer OTHER, SELFPAY ==
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
--- OUTSIDE RECORDS SUMMARY | 2024-11-25 09:14 | XMS_ITS | CCD ---
Author Organization [facility] Care Team Providers Care Mba Intern Name Role Phone Samuel Zhao Unavailable PAVEL, DR JEFFRIES Primary Care Unavailable REAL, CAPRICE Mendez Admitting Unavailable HIGHLANDER, CAPRICE Mendez Attending Unavailable HIGHLANDER, CAPRICE Mendez Consulting Unavailable NEFCY, CAPRICE Consulting Unavailable BALL, DR JEFFRIES Primary Care [...] Unavailable BALL, DR JEFFRIES Primary Care Unavailable Roseline Ghosh Unavailable Heidi MARTINEZ, Deigo Snyder Attending Unavailable Heidi MARTINEZ, Diego Snyder Attending Unavailable Heidi MARTINEZ, Diego Snyder Attending Unavailable Ball Samuel SMITH Primary Care Provider Samuel Zhao DO Attending Provider Allergies Allergy Classification Reported Allergen(s) Allergy Type Date of Onset Reaction(s) Facility (20 sources) metFORMIN Drug Allergy diarrhea [employer] Other Medications Current Medications Medication Drug Class(es) Dates Sig (Normalized) Sig (Original) [id number] 200 actuat albuterol 0.09 mg/actuat metered dose inhaler (20 sources) beta2-Adrenergic Agonist Start: 04-22-2023 take 1 puff(s) by inhalation every four hours as needed Albuterol Sulfate 90 mcg/actuation HFA aerosol inhaler Active 2 PUFF INHALATION Every 4 hours as needed April 22, 2023 1:00am Complies with drug therapy take 2 puff(s) by in halation every [...] (20 sources) Dihydropyridine Calcium Channel Tony Start: 03-27-2024 take 1 tablet by mouth once daily Amlodipine 5 mg tablet Active 5 MG PO Daily March 27, 2024 10:06am Complies with drug therapy Start: 06-18-2023 End: 03-27-2024 Amlodipine 5 mg tablet Disco ntinued 0 .ROUTE .COMPLEX June 18, 2023 3:53pm March 27, 2024 10:08am TAKE 1 TABLET DAILY Start: 06-18-2023 End: 03-27-2024 Amlodipine 5 mg tablet Disco ntinued 0 .ROUTE .COMPLEX June 18, 2023 3:53pm March 27, 2024 10:08am TAKE 1 TABLET DAILY Start: 06-18-2023 Amlodipine 5 m g tablet Active 0 .ROUTE .COMPLEX June 18, 2023 2:53pm TAKE 1 TABLET DAILY Start: 06-18-2023 Amlodipine Act lisa 0 .ROUTE .COMPLEX June 18, 2023 3:53pm TAKE 1 TABLET DAILY Start: 04-22-2023 End: 06-18-2023 take 1 tablet by mouth once daily Amlodipine 5 mg tablet Discontinued 5 MG PO Daily April 22, 2023 1:00am June 18, 2023 3:53pm Start: 03-21-2022 take 1 tablet by alphonso th every twenty-four hours amLODIPine Besylate 5 MG 1 tablet Orally Once a day Mar, Active atorvastatin 10 mg oral tablet (20 sources) HMG-CoA Reductase Inhibitor Start: 03-27-2024 take 1 tablet by mouth once daily at bedtime Atorvastatin 10 mg tablet Active 10 MG PO Daily at bedtime March 27, 2024 10:07am Complies with drug therapy Start: 07-11-2023 End: 03-27-2024 Atorvastatin 10 mg tablet Discontinued 0 .ROUTE .COMPLEX July 11, 2023 3:28pm March 27, 2024 10:08am TAKE 1 TABLET DAILY Start: 04-22-2023 End: 07-11-2023 take 1 tablet by mouth once daily Atorvastatin 10 mg tablet Discontinued 10 MG PO Daily April 22, 2023 1:00am July 11, 2023 3:29pm take 1 tablet by alphonso th every twenty-four hours Atorvastatin Calcium 10 MG 1 tablet Orally Once a day Active bisoprolol fumarate 5 mg / hydroCHLOROthiazide 6.25 mg oral tablet (20 sources) Thiazide Diuretic, beta-Adrenergic Tony Start: 03-27-2024 take 1 tablet by mouth once daily Bisoprolol-Hydrochlorothiazide 5-6.25 mg tablet Active 1 TAB PO Daily March 27, 2024 10:07am Complies with drug therapy Start: 08-02-2023 End: 03-27-2024 Bisoprolol-Hydrochlorothiazi de 5-6.25 mg tablet Discontinued 0 .ROUTE .COMPLEX August 02, 2023 7:22am March 27, 2024 10:08am TAKE 1 TABLET DAILY Start: 08-02-2023 End: 03-27-2024 Bisoprolol-Hydrochlorothiazi de 5-6.25 mg tablet Discontinued 0 .ROUTE .COMPLEX August 02, 2023 7:22am March 27, 2024 10:08am TAKE 1 TABLET DAILY Start: 08-02-2023 Bisoprolol-Hyd rochlorothiazide 5-6.25 mg tablet Active 0 .ROUTE .COMPLEX August 02, 2023 6:22am TAKE 1 TABLET DAILY Start: 08-02-2023 Bisoprolol-Hyd rochlorothiazide Active 0 .ROUTE .COMPLEX August 02, 2023 7:22am TAKE 1 TABLET DAILY Start: 04-22-2023 End: 08-02-2023 take 1 tablet by mouth once daily Bisoprolol-Hydrochlorothiazide 5-6.25 mg tablet Discontinued 1 TAB PO Daily April 22, 2023 1:00am August 02, 2023 7:22am Start: 06-26-2022 take 1 tablet by alphonso th every twenty-four hours Bisoprolol-hydroCHLOROthiazide 5-6.25 MG 1 tablet Orally Once a day for 30 days Jun, Active empagliflozin 10 mg oral tablet (8 sources) Sodium-Glucose Cotransporter 2 Inhibitor Start: 08-19-2023 End: 08-20-2023 take 1 tablet by mouth once daily in the morning Empagliflozin (Jardiance) 10 mg tablet Active 10 MG PO Every morning August 20, 2023 4:26pm Complies with drug therapy glimepiride 2 mg oral tablet (20 sources) Sulfonylurea Start: 04-03-2024 take 1 tablet by mouth twice daily Glimepiride 2 mg tablet Active 2 MG PO Twice daily 180 April 03, 2024 12:11pm Complies with drug therapy Start: 05-24-2023 End: 04-03-2024 take 1 tablet by mouth once daily Glimepiride 2 mg tablet Discontinued 2 MG PO Daily 90 April 03, 2024 10:58am April 03, 2024 12:12pm Start: 04-23-2023 End: 05-24-2023 take 3 mg by mouth once Glimepiride 2 mg tablet Disc ontinued 3 MG PO Once 135 May 02, 2023 8:10pm May 03, 2023 7:06pm Start: 04-23-2023 End: 05-24-2023 take 3 mg by mouth once Glimepiride Discontinued 3 M G PO Once 135 May 02, 2023 8:10pm May 03, 2023 7:06pm Start: 04-22-2023 End: 04-23-2023 take 1 tablet by mouth once Glimepiride 2 mg tablet Di scontinued 2 MG PO Once April 22, 2023 1:00am April 23, 2023 10:37am take 1 tablet by alphonso once daily Glimepiride 2 mg 1 tablet Orally Once a day, taken 30 minutes prior to bkfsts Active nabumetone 750 mg oral tablet (8 sources) Nonsteroidal Anti-inflammatory Drug take 750 mg by mouth three times daily Nabumetone 750 MG as directed Orally three times a day Active omeprazole 20 mg delayed release oral capsule (20 sources) Proton Pump Inhibitor Start: 05-29-19 End: 04-10-19 take 1 capsule by mouth once daily at breakfast Omeprazole 20 mg capsule,delayed release(DR/EC) Active 0 .ROUTE .COMPLEX April 10, 2024 5:14pm TAKE 1 CAPSULE BY MOUTH DAILY, ON AN EMPTY STOMACH 30 MINUTES PRIOR TO BREAKFAST Complies with drug therapy Start: 05-29-2023 Omeprazole Act lisa 0 .ROUTE .COMPLEX May 29, 2023 10:15am TAKE 1 CAPSULE DAILY, ON AN EMPTY STOMACH 30 MINUTES PRIOR TO BREAKFAST Start: 04-22-2023 End: 05-29-2023 take 1 capsule by mouth once daily Omeprazole 20 mg capsule,delayed release(DR/EC) Discontinued 20 MG PO Daily April 22, 2023 1:00am May 29, 2023 10:15am Start: 03-21-2022 take 1 capsule by mo [facility] once daily Omeprazole 20 MG 1 Capsule [...] for 3 days for 9 days Not-Taking/PRN Semaglutide (4 sources) Start: 05-28-2023 take 7 mg by mouth once daily Semaglutide Active 14 MG PO Daily May 28, 2023 10:41pm Start after completion of 7mg prescription Start: 05-28-2023 End: 05-28-2023 take 3 mg by mouth once daily Semaglutide Discontinued 7 MG PO Daily May 28, 2023 10:40pm May 28, 2023 10:42pm Start after completion of 3mg prescription semaglutide 14 mg oral table t (7 sources) Start: 06-07-2024 Semaglutide (R antelsus) 14 mg tablet Active 0 .ROUTE .COMPLEX June 07, 2024 2:57pm TAKE 1 TABLET DAILY, START AFTER COMPLETION OF 7 MG PRESCRIPTION Complies with drug therapy Start: 05-28-2023 End: 06-07-2024 take 7 mg by mouth once daily Semaglutide 14 mg tablet Discontinued 14 MG PO Daily April 08, 2024 5:59pm June 07, 2024 2:57pm Start after completion of 7mg prescription Start: 05-28-2023 End: 05-28-2023 take 3 mg by mouth once daily Semaglutide 7 mg tablet Discontinued 7 MG PO Daily May 28, 2023 10:40pm May 28, 2023 10:42pm Start after completion of 3mg prescription Start: 05-24-2023 End: 05-28-2023 take 1 tablet by mouth once daily Semaglutide (Rybelsus) 3 mg tablet Discontinued 3 MG PO Daily May 28, 2023 10:39pm May 28, 2023 10:41pm Semaglutide (Rybelsus) 14 mg tablet (1 source) Start: 06-07-2024 Semaglutide (Rybelsus) 14 mg tablet Active 0 .ROUTE .COMPLEX June 07, 2024 2:57pm TAKE 1 TABLET DAILY, START AFTER COMPLETION OF 7 MG PRESCRIPTION tiZANidine 4 mg oral tablet (19 sources) Central alpha-2 Adrenergic Agonist Start: 04-22-2023 take 1 tablet by mouth three times daily as needed for pain Tizanidine 4 mg tablet Active 4 MG PO Three times daily as needed April 22, 2023 1:00am 1/2 - 1 Orally Three times a day as needed for back pain Complies with drug therapy Start: 02-05-2023 tiZANidine HCl 4 MG 1/2 - 1 Orally Three times a day as needed for back pain Feb, Not-Taking/PRN 7 actuat umeclidinium 0.0625 mg/actuat / vilanterol 0.025 mg/actuat dry powder inhaler (20 sources) Anticholinergic, beta2-Adrenergic Agonist Start: 03-26-2024 End: 03-27-2024 Umeclidinium-Vilanterol (Anoro Ellipta) 62.5-25 mcg/actuation blister with device Active 1 INH INHALATION Daily 90 90 March 27, 2024 10:09am Complies with drug therapy Start: 08-18-2023 End: 03-26-2024 Umeclidinium-Vilanterol (Ano ro Ellipta) 62.5-25 mcg/actuation blister with device Discontinued 1 INH INHALATION Daily 180 90 August 18, 2023 6:23pm March 26, 2024 11:34pm Start: 08-18-2023 Umeclidinium-V ilanterol (Anoro Ellipta) 62.5-25 mcg/actuation blister with device Active 1 INH INHALATION Daily 180 90 August 18, 2023 5:23pm Start: 08-18-2023 Umeclidinium-V ilanterol (Anoro Ellipta) 62.5-25 mcg/actuation blister with device Active 1 INH INHALATION Daily 180 90 August 18, 2023 6:23pm Start: 04-22-2023 End: 08-18-2023 Umeclidinium-Vilanterol 62.5 -25 mcg/actuation blister with device Discontinued 1 INH INHALATION Daily April 22, 2023 1:00am August 18, 2023 6:23pm take 1 puff(s) by inhalation once daily Anoro Ellipta 62.5-25 MCG/ACT 1 puff Inhalation Once a day Active take 1 puff(s) by inhalation once daily Anoro Ellipta 62.5-25 MCG/ACT 1 puff Inhalation Once a day Active Completed/Discontinued Medications Medication Drug Class(es) Dates Sig (Normalized) Sig (Original) acetaminophen 325 mg / oxyCODONE hydrochloride 5 mg oral tablet (20 sources) Opioid Agonist Start: 04-22-2023 End: 03-26-2024 take 1 tablet by mouth every six hours Oxycodone-Acetamino phen 5-325 mg tablet Discontinued 1 TAB PO Every 6 hours April 22, 2023 1:00am March 26, 2024 11:27am Start: 01-31-2023 take 1 tablet by alphonso th every six hours oxyCODONE-Acetaminophen 5-325 MG 1 table t as needed Orally every 6 hrs for 7 days p/u 03/11, start 03/12Mar, Active amoxicillin 875 mg oral tablet (20 sources) Penicillin-class Antibacterial Start: 07-15-2014 take 1 tablet by mouth every twelve hours Amoxicillin 875 MG 1 tablet Orally Twice a day July, Not-Taking/PRN benazepril hydrochloride 5 mg / hydroCHLOROthiazide 6.25 mg oral tablet (20 sources) Thiazide Diuretic, Angiotensin Converting Enzyme Inhibitor take 1 tablet by mouth every twenty-fou r hours Benazepril-hydroCH LOROthiazide 5-6.25 MG 1 tablet Orally Once a day Not-Taking/PRN take 1 tablet by alphonso th once daily Benazepril-hydroCHLOROthiazide 5-6.25 MG 1 tablet Orally Once a day Not-Taking cefdinir 300 mg oral capsule (1 source) Cephalosporin Antibacterial Start: 10-02-2024 End: 11-10-2024 take 1 capsule by mouth twice daily Cefdinir 300 mg capsule Discontinued 300 MG PO Twice daily 14 October 02, 2024 12:00am November 10, 2024 9:06am celecoxib 200 mg oral capsule (6 sources) Nonsteroidal Anti-inflammatory Drug Start: 05-24-2023 End: 11-10-2024 take 1 capsule by mouth once daily Celecoxib 200 mg capsule Discontinued 200 MG PO Daily 90 90 May 24, 2023 12:00am November 10, 2024 9:06am doxycycline hyclate 100 mg oral capsule (8 sources) Tetracycline-class Drug Start: 08-19-2023 End: 03-26-2024 take 1 capsule by mouth twice daily Doxycycline Hyclate 100 mg capsule Discontinued 100 MG PO Twice daily 10 5 February 19, 2024 4:16pm March 26, 2024 11:27am hydrocortisone 10 mg/ml / neomycin 3.5 mg/ml / polymyxin b [id number] unt/ml otic suspension (7 sources) Aminoglycoside Antibacterial, Polymyxin-class Antibacterial, Corticosteroid Start: 11-08-2023 End: 11-10-2024 Neomycin-Polymyxi n-Hc 3.5-10,000-1 mg/mL-unit/mL-% drops,suspension Discontinued 4 DROPS OTIC .QD as needed for itching 12 31March 26, 2024 11:31am November 10, 2024 9:06am losartan potassium 50 mg oral tablet (20 sources) Angiotensin 2 Receptor Tony Start: 05-02-2023 End: 04-02-2024 take 1 tablet by mouth twice daily Losartan 50 mg tablet Discontinued 50 MG PO Twice daily 180 May 02, 2023 8:10pm April 02, 2024 10:27pm Start: 04-22-2023 End: 05-02-2023 take 1 tablet by mouth once daily Losartan 50 mg tablet Discontinued 50 MG PO Daily April 22, 2023 1:00am May 02, 2023 3:17pm take 1 tablet by alphonso th every twenty-four hours Losartan Potassium 50 MG 1 tablet Orally Once a day Active Omeprazole 20 mg capsule,del ayed release(DR/EC) (2 sources) Start: 05-29-2023 End: 04-10-2024 Omeprazole 20 mg capsule,delayed release(DR/EC) Discontinued 0 .ROUTE .COMPLEX May 29, 2023 10:15am April 10, 2024 5:15pm TAKE 1 CAPSULE DAILY, ON AN EMPTY STOMACH 30 MINUTES PRIOR TO BREAKFAST Start: 05-29-2023 Omeprazole 20 mg capsule,delayed release(DR/EC) Active 0 .ROUTE .COMPLEX May 29, 2023 9:15am TAKE 1 CAPSULE DAILY, ON AN EMPTY STOMACH 30 MINUTES PRIOR TO BREAKFAST Semaglutide (Rybelsus) 3 mg tablet (9 sources) Start: 05-28-2023 End: 05-28-2023 take 1 tablet by mouth once daily Semaglutide (Rybelsus) 3 mg tablet Discontinued 3 MG PO Daily May 28, 2023 9:39pm May 28, 2023 9:41pm Start: 05-28-2023 End: 05-28-2023 take 1 tablet by mouth once daily Semaglutide (Rybelsus) 3 mg tablet Discontinued 3 MG PO Daily May 28, 2023 10:39pm May 28, 2023 10:41pm Start: 05-24-2023 End: 05-28-2023 take 1 tablet by mouth once daily Semaglutide (Rybelsus) 3 mg tablet Discontinued 3 MG PO Daily May 23, 2023 11:00pm May 28, 2023 9:40pm Start: 05-24-2023 End: 05-28-2023 take 1 tablet by mouth once daily Semaglutide (Rybelsus) 3 mg tablet Discontinued 3 MG PO Daily May 24, 2023 12:00am May 28, 2023 10:40pm Start: 05-24-2023 take 1 tablet by alphonso th once daily Semaglutide (Rybelsus) 3 mg tablet Active 3 MG PO Daily May 24, 2023 12:00am Semaglutide 14 mg tablet (4 sources) Start: 04-08-2024 End: 06-07-2024 take 7 mg by mouth once daily Semaglutide 14 mg tablet Discontinued 14 MG PO Daily April 08, 2024 5:59pm June 07, 2024 2:57pm Start after completion of 7mg prescription Start: 03-27-2024 End: 04-08-2024 take 7 mg by mouth once daily Semaglutide 14 mg tablet Discontinued 14 MG PO Daily March 27, 2024 10:08am April 08, 2024 6:00pm Start after completion of 7mg prescription Start: 05-28-2023 End: 03-27-2024 take 7 mg by mouth once daily Semaglutide 14 mg tablet Discontinued 14 MG PO Daily May 28, 2023 10:41pm March 27, 2024 10:08am Start after completion of 7mg prescription Start: 05-28-2023 take 7 mg by mouth once daily Semaglutide 14 mg tablet Active 14 MG PO Daily May 28, 2023 9:41pm Start after completion of 7mg prescription Semaglutide 7 mg tablet (2 sources) Start: 05-28-2023 End: 05-28-2023 take 3 mg by mouth once daily Semaglutide 7 mg tablet Discontinued 7 MG PO Daily May 28, 2023 10:40pm May 28, 2023 10:42pm Start after completion of 3mg prescription Start: 05-28-2023 End: 05-28-2023 take 3 mg by mouth once daily Semaglutide 7 mg tablet Discontinued 7 MG PO Daily May 28, 2023 9:40pm May 28, 2023 9:42pm Start after completion of 3mg prescription SITagliptin 50 mg oral tablet (20 sources) Dipeptidyl Peptidase 4 Inhibitor Start: 05-02-2023 End: 05-24-2023 take 1 tablet by mouth twice daily Sitagliptin Phosphate (Januvia) 50 mg tablet Discontinued 50 MG PO Twice daily 180 May 02, 2023 8:10pm May 24, 2023 10:59am Start: 04-23-2023 End: 05-02-2023 take 2 tablets by mouth once daily Sitagliptin Phosphate 50 mg tablet Discontinued 100 MG PO Daily April 23, 2023 10:37am May 02, 2023 3:16pm Start: 04-23-2023 End: 05-02-2023 take 100 mg by mouth once daily Sitagliptin Phosphate Discontinued 100 MG PO Daily April 23, 2023 10:37am May 02, 2023 3:16pm Start: 04-22-2023 End: 04-23-2023 take 1 tablet by mouth once daily Sitagliptin Phosphate 50 mg tablet Discontinued 50 MG PO Daily April 22, 2023 1:00am April 23, 2023 10:37am take 1 tablet by alphonso th every twenty-four hours Januvia 50 MG 1 tablet Orally Once a day Active triamcinolone acetonide 0.001 mg/mg topical ointment (20 sources) Corticosteroid Start: 04-22-2023 End: 11-10-2024 Triamcinolone Acetonide 0.1 % ointment Discontinued 1 APPLIC TOPICAL Twice daily April 22, 2023 1:00am November 10, 2024 9:06am Triamcinolone Ac etonide 0.1 % 1 application [...] E Codes: Adverse effects of medical drugs (5 sources) Adverse effect of glucocorticoids and synthetic [...] malignant neoplasm of prostate] Onset: 12-04-2021 Episodic Comment on above: PSA: 0.57 - 03/2024 Other skin disorders (8 sources) Mass of neck; Translations: [Localized swelling, mass and lump, neck] Episodic Other skin disorders (1 source) Localized swelling, mass and lump, right lower limb Episodic Other skin disorders (1 source) Dyshidrosis [pompholyx] Episodic Other skin disorders (1 source) Sebaceous cyst; Translations: [Sebaceous cyst] 08-19-2023 Episodic Residual codes; unclassified (8 sources) Immunization [...] Test Name Value Interpretation Reference Range Facility Glucose mean value [Mass/vol ume] in Blood Estimated from glycated hemoglobinon 08-19-2023 Average glucose Estimated from glycated hemoglobin (Bld) [Mass/Vol] 229 mg/dL [facility] - Hematology and Cell countson 08-19-2023 HbA1c (Bld) [Mass fraction] 9.6 % High 4.5-6.2 [facility] Comment on above: ADA RECOMMENDED LIMI T 4.0 - 6.0ADA THERAPEUTIC TARGET < 7.0ACTION SUGGESTED> 7.0 Basophils Auto (Bld) [#/Vol] on 04-22-2023 Basophils (Bld) [#/Vol] 0.1 10 3/uL 0.0-0.1 [facility] Basophils/100 WBC Auto (Bld) on 04-22-2023 Basophils/100 WBC (Bld) 0.7 % 0.2-2.0 [facility] Eosinophils/100 WBC Auto (Bl d)on 04-22-2023 Eosinophils/100 WBC (Bld) 0.1 % 0.9-7.0 [facility] Erythrocyte distribution wid th Auto (RBC) [Ratio]on 04-22-2023 Erythrocyte distribution width (RBC) [Ratio] 13.1 % 11.0-15.0 [facility] Estimated glomerular filtrat ion rate (GFR) non- Americanon 02-19-2024 GFR/1.73 sq M.predicted among non-blacks MDRD (S/P/Bld) [Vol rate/Area] mL/min/{1.73_m2} >=60 [facility] Hematocrit Auto (Bld) [Volum e fraction]on 04-22-2023 Hematocrit (Bld) [Volume fraction] 38.0 % 42.0-54.0 [facility] Hemoglobin [Mass/volume] in Bloodon 04-22-2023 Hemoglobin (Bld) [Mass/Vol] 12.9 g/dL 14.0-18.0 [facility] Laboratory - Chemistry and C hemistry - challengeon 04-22-2023 Calcium [Mass/Vol] 9.5 mg/dL 8.5-10.1 [facility] Chloride [Moles/Vol] 97 mmol/L 98-[address] [facility] CO2 [Moles/Vol] 27.7 mmol/L 21.0-32.0 [facility] Creatinine [Mass/Vol] 1.01 mg/dL 0.70-1.30 [facility] GFR/1.73 sq M.predicted MDRD (S/P/Bld) [Vol rate/Area] mL/min/{1.73_m2} >=60 [facility] Glucose [Mass/Vol] 448 mg/dL 74-106 [facility] Potassium [Moles/Vol] 4.6 mmol/L 3.5-5.1 [facility] Sodium [Moles/Vol] 134 mmol/L 136-145 [facility] Urea nitrogen [Mass/Vol] 23.0 mg/dL 7.0-18.0 [facility] Urea nitrogen/Creatinine [Mass ratio] 22.8 mg/mg [facility] - Hematology and Cell countson 04-22-2023 Immature granulocytes/100 WBC (Bld) 0.3 % 0.0-0.5 [facility] Leukocytes [#/volume] correc ashvin for nucleated erythrocytes in Blood by Automated counon 04-22-2023 WBC corrected for nucl RBC Auto (Bld) [#/Vol] 9.9 10 3/uL 4.0-11.0 [facility] Lymphocytes Auto (Bld) [#/Vo l]on 04-22-2023 Lymphocytes (Bld) [#/Vol] 2.2 10 3/uL 1.2-3.8 [facility] Lymphocytes/100 WBC Auto (Bl d)on 04-22-2023 Lymphocytes/100 WBC (Bld) 21.7 % 20.5-60.0 [facility] MCH Auto (RBC) [Entitic mass ]on 04-22-2023 MCH (RBC) [Entitic mass] 32.7 pg 25.9-34.0 [facility] MCHC Auto (RBC) [Mass/Vol]on 04-22-2023 MCHC (RBC) [Mass/Vol] 33.9 g/dL 29.9-35.2 [facility] MCV Auto (RBC) [Entitic vol] on 04-22-2023 MCV (RBC) [Entitic vol] 96.4 fL 80.0-94.0 [facility] Monocytes Auto (Bld) [#/Vol] on 04-22-2023 Monocytes (Bld) [#/Vol] 0.6 10 3/uL 0.3-0.8 [facility] Monocytes/100 WBC Auto (Bld) on 04-22-2023 Monocytes/100 WBC (Bld) 6.5 % 1.7-12.0 [facility] Neutrophils Auto (Bld) [#/Vo l]on 04-22-2023 Neutrophils (Bld) [#/Vol] 7.0 10 3/uL 1.4-6.5 [facility] Neutrophils/100 WBC Auto (Bl d)on 04-22-2023 Neutrophils/100 WBC (Bld) 70.7 % 43.0-75.0 [facility] No Panel Informationon 04-22 Eosinophils # (Auto) 0.0 10 3/uL 0.0-0.7 [facility] Immature Granulocyte # (Auto) 0.03 10 3/uL 0.00-0.03 [facility] Platelet mean volume Auto (B ld) [Entitic vol]on 04-22-2023 Platelet mean volume (Bld) [Entitic vol] 10.7 fL 9.5-13.5 [facility] Platelets Auto (Bld) [#/Vol] on 04-22-2023 Platelets (Bld) [#/Vol] 273 10 3/uL 150-450 [facility] RBC Auto (Bld) [#/Vol]on RBC (Bld) [#/Vol] 3.94 10 6/uL 4.70-6.10 [facility] Serum or plasma anion gap de terminationon 04-22-2023 Anion gap [Moles/Vol] 13.9 mmol/L [facility] XR ANKLE RT MIN 3 VIEWSon XR [...] CAPRICE SHORE Date: 2022-07-18 18:48 Normal The [facility] GLYCOHEMOGLOBIN A1Con 2022 ADA RECOMMENDATION SEE BELOW Normal [facility] Comment on above: Result Comment: ADA RECOMMENDED LIMIT 4.0 - 6.0 ADA THERAPEUTIC TARGET < 7.0 ACTION SUGGESTED > 7.0 Performed By: #### C MP, LIPID, TSH #### [facility] [address] [address] [address] Gerardo Larose Glucose [Mass/Vol] 143 mg/dL Normal [facility] Comment on above: Performed By: #### C MP, LIPID, TSH #### [facility] [address] [address] [address] Gerardo Larose HbA1c (d) [Mass fraction] 6.6 % Critically high 4.5-6.2 [facility] Comment on above: Performed By: #### C MP, LIPID, TSH #### [facility] [id number] Gerardo Larose MRI LSPINE WO CONon 03-21-19 MRI LSSIDNAW WO CON EXAMINATION: MRI LSPINE WO CON [...] VINNY EDGE Date: 2022-03-21 16:49 Normal The [facility] CT LUNG CANCER SCREENINGon 1 CT LUNG [...] VINNY EDGE Date: 2021-12-04 07:24 Normal The [facility] CBC AUTO DIFFon 12-01-2021 BASO # 0.1 103/ul Normal 0.0-0.1 [facility] Comment on above: Performed By: #### C MP, LIPID, TSH #### [facility] [address] [place] [address] Dr. Gerardo Larose Basophils/100 WBC (Bld) 0.9 % Normal 0.2-2.0 [facility] Comment on above: Performed By: #### C MP, LIPID, TSH #### [facility] [address] [place] [address] Dr. Gerardo Larose EO # 0.2 103/ul Normal 0.0-0.7 [facility] Comment on above: Performed By: #### C MP, LIPID, TSH #### [facility] [address] [place] [address] Dr. Gerardo Larose Eosinophils/100 WBC (Bld) 2.5 % Normal 0.9-7.0 [facility] Comment on above: Performed By: #### C MP, LIPID, TSH #### [facility] [address] [place] [address] Dr. Gerardo Larose Erythrocyte distribution width (RBC) [Ratio] 13.7 % Normal 11.0-15.0 [facility] Comment on above: Performed By: #### C MP, LIPID, TSH #### [facility] Laboratory [address] [place] [address] Dr. Gerardo Larose Hematocrit (Bld) [Volume fraction] 46.3 % Normal 42.0-54.0 [facility] Comment on above: Performed By: #### C MP, LIPID, TSH #### [facility] Laboratory [address] [address] [address] Gerardo Larose Hemoglobin (Bld) [Mass/Vol] 15.7 g/dL Normal 14.0-18.0 [facility] Comment on above: Performed By: #### C MP, LIPID, TSH #### [facility] Laboratory [address] [address] [address] Gerardo Larose IG # 0.03 10e3/ul Normal 0.00-0.03 [facility] Comment on above: Performed By: #### C MP, LIPID, TSH #### [facility] [address] [place] [address] Dr. Gerardo Larose IG % 0.4 % Normal 0.0-0.5 [facility] Comment on above: Performed By: #### C MP, LIPID, TSH #### [facility] [address] [place] [address] Dr. Gerardo Larose LYMPH # 2.1 103/ul Normal 1.2-3.8 [facility] Comment on above: Performed By: #### C MP, LIPID, TSH #### [facility] Laboratory [address] [place] [address] Dr. Gerardo Larose Lymphocytes/100 WBC (Bld) 31.2 % Normal 20.5-60.0 [facility] Comment on above: Performed By: #### C MP, LIPID, TSH #### [facility] [address] [place] [address] Dr. Gerardo Larose MANUAL DIFF REQ NO Normal [facility] Comment on above: Performed By: #### C MP, LIPID, TSH #### [facility] Laboratory [address] [address] [address] Gerardo Larose MCH (RBC) [Entitic mass] 31.3 pg Normal 25.9-34.0 [facility] Comment on above: Performed By: #### C MP, LIPID, TSH #### [facility] Laboratory [address] [place] [address] Dr. Gerardo Larose MCHC (RBC) [Mass/Vol] 33.9 g/dL Normal 29.9-35.2 [facility] Comment on above: Performed By: #### C MP, LIPID, TSH #### [facility] Laboratory [address] [place] [address] Dr. Gerardo Larose MCV (RBC) [Entitic vol] 92.4 fL Normal 80.0-94.0 [facility] Comment on above: Performed By: #### C MP, LIPID, TSH #### [facility] [address] [place] [address] Dr. Gerardo Larose MONO # 0.5 103/ul Normal 0.3-0.8 [facility] Comment on above: Performed By: #### C MP, LIPID, TSH #### [facility] Laboratory [address] [place] [address] Dr. Gerardo Larose Monocytes/100 WBC (Bld) 7.8 % Normal 1.7-12.0 [facility] Comment on above: Performed By: #### C MP, LIPID, TSH #### [facility] [address] [place] [address] Dr. Gerardo Larose NEUT # 3.8 103/ul Normal 1.4-6.5 The [facility] Comment on above: Performed By: #### C MP, LIPID, TSH #### [facility] [address] [place] [address] Dr. Gerardo Larose Neutrophils/100 WBC (Bld) 57.2 % Normal 43.0-75.0 The [facility] Comment on above: Performed By: #### C MP, LIPID, TSH #### [facility] [address] [place] [address] Dr. Gerardo Larose Platelet mean volume (Bld) [Entitic vol] 10.2 fL Normal 9.5-13.5 The [facility] Comment on above: Performed By: #### C MP, LIPID, TSH #### [facility] [address] [place] [address] Dr. Gerardo Larose PLT 190 103/ul Normal 150-450 [facility] Comment on above: Performed By: #### C MP, LIPID, TSH #### [facility] [address] [place] [address] Dr. Gerardo Larose RBC 5.01 106/ul Normal 4.70-6.10 [facility] Comment on above: Performed By: #### C MP, LIPID, TSH #### [facility] [address] [address] [address] Gerardo Larose WBC 6.7 103/ul Normal 4.0-11.0 [facility] Comment on above: Performed By: #### C MP, LIPID, TSH #### [facility] [address] [address] [address] Gerardo Larose GLYCOHEMOGLOBIN A1Con 2021 ADA RECOMMENDATION SEE BELOW Normal [facility] Comment on above: Result Comment: ADA RECOMMENDED LIMIT 4.0 - 6.0 ADA THERAPEUTIC TARGET < 7.0 ACTION SUGGESTED > 7.0 Performed By: #### C MP, LIPID, TSH #### [facility] [address] [place] [address] Dr. Gerardo Larose Glucose [Mass/Vol] 140 mg/dL Normal [facility] Comment on above: Performed By: #### C MP, LIPID, TSH #### [facility] [address] [place] [address] Dr. Gerardo Larose HbA1c (Bld) [Mass fraction] 6.5 % Critically high 4.5-6.2 [facility] Comment on above: Performed By: #### C MP, LIPID, TSH #### [facility] [address] [place] [address] Dr. Gerardo Larose LIPID PROFILEon 12-01-2021 CHOL-HDL RATIO NORM SEE BELOW Normal [facility] Comment on above: Result Comment: 3.3 - 4.4 LOW RISK 4.4 - 7.1 AVERAGE RISK 7.1 - 11.0 MODERATE RISK >11.0 HIGH RISK Performed By: #### C MP, LIPID, TSH #### [facility] [address] [place] [address] Dr. Gerardo Larose Cholesterol [Mass/Vol] 202 mg/dL Critically high <=200 [facility] Comment on above: Performed By: #### C MP, LIPID, TSH #### [facility] [address] [place] [address] Dr. Gerardo Larose Cholesterol in HDL [Mass/Vol] 58 mg/dL Normal 40-60 [facility] Comment on above: Performed By: #### C MP, LIPID, TSH #### [facility] [address] [address] [address] Gerardo Larose Cholesterol in LDL [Mass/Vol] 104.2 mg/dL Normal [facility] Comment on above: Performed By: #### C MP, LIPID, TSH #### [facility] [address] [address] [address] Gerardo Larose Cholesterol.total/Cho lesterol in HDL [Mass ratio] 3.5 {ratio} Normal [facility] Comment on above: Performed By: #### C MP, LIPID, TSH #### [facility] [address] [address] [address] Gerardo Larose HDL NORMAL > or = 60 mg/dl - LO W CARDIOVASCULAR RISK <40 mg/dl - HIGH CARDIOVASCULAR RISK Normal [facility] Comment on above: Performed By: #### C MP, LIPID, TSH #### [facility] [address] [address] [address] Gerardo Larose LDL CALC NORMAL SEE BELOW Normal [facility] Comment on above: Result Comment: <100 mg/dl OPTIMAL 100 - 129 mg/dl NEAR OR ABOVE OPTIMAL 130 - 159 mg/dl BORDERLINE HIGH 160 - 189 mg/dl HIGH >190 mg/dl VERY HIGH Performed By: #### C MP, LIPID, TSH #### [facility] [address] [address] [address] Gerardo Larose Triglyceride [Mass/Vol] 199 mg/dL Critically high <=150 [facility] Comment on above: Performed By: #### C MP, LIPID, TSH #### [facility] [address] [address] [address] Gerardo Larose VLDL CALC 39.8 mg/dL Normal [facility] Comment on above: Performed By: #### C MP, LIPID, TSH #### [facility] [address] [address] [address] Gerardo Larose MICROALBUMIN, RAND URon 09-3 mALB 28.7 mg/L Normal <=30.0 [facility] Comment on above: Performed By: #### C MP, LIPID, TSH #### [facility] [address] [address] [address] Gerardo Larose PROF 14(COMP METB)on 022 Albumin [Mass/Vol] 3.7 g/dL Normal 3.4-5.0 [facility] Comment on above: Performed By: #### C MP, LIPID, TSH #### [facility] [address] [place] [address] Dr. Gerardo Larose Albumin/Globulin [Mass ratio] 0.9 {ratio} Normal [facility] Comment on above: Performed By: #### C MP, LIPID, TSH #### [facility] [address] [place] [address] Dr. Gerardo Larose ALP [Catalytic activity/Vol] 84 U/L Normal 46-116 [facility] Comment on above: Performed By: #### C MP, LIPID, TSH #### [facility] [address] [place] [address] Dr. Gerardo Larose ALT [Catalytic activity/Vol] 45 U/L Normal 16-63 [facility] Comment on above: Performed By: #### C MP, LIPID, TSH #### [facility] [address] [place] [address] Dr. Gerardo Larose Anion gap [Moles/Vol] 10.8 mmol/L Normal [facility] Comment on above: Performed By: #### C MP, LIPID, TSH #### [facility] [address] [place] [address] Dr. Gerardo Larose AST [Catalytic activity/Vol] 26 U/L Normal 15-37 [facility] Comment on above: Performed By: #### C MP, LIPID, TSH #### [facility] [address] [place] [address] Dr. Gerardo Larose Bilirubin [Mass/Vol] 0.6 mg/dL Normal 0.2-1.0 [facility] Comment on above: Performed By: #### C MP, LIPID, TSH #### [facility] [address] [address] [address] Gerardo Larose Calcium [Mass/Vol] 9.4 mg/dL Normal 8.5-10.1 [facility] Comment on above: Performed By: #### C MP, LIPID, TSH #### [facility] [address] [address] [address] Gerardo Larose Chloride [Moles/Vol] 100 mmol/L Normal 98-107 [facility] Comment on above: Performed By: #### C MP, LIPID, TSH #### [facility] [address] [address] [address] Gerardo Larose CO2 [Moles/Vol] 28.9 mmol/L Normal 21.0-32.0 [facility] Comment on above: Performed By: #### C MP, LIPID, TSH #### [facility] [address] [place] [address] Dr. Gerardo Larose Creatinine [Mass/Vol] 0.95 mg/dL Normal 0.70-1.30 [facility] Comment on above: Performed By: #### C MP, LIPID, TSH #### [facility] [address] [place] [address] Dr. Gerardo Larose EGFR-AF GAMBIAN >60 Normal >=60 [facility] Comment on above: Performed By: #### C MP, LIPID, TSH #### [facility] [address] [place] [address] Dr. Gerardo Larose EGFR-NON AF GAMBIAN >60 Normal >=60 [facility] Comment on above: Performed By: #### C MP, LIPID, TSH #### [facility] [address] [place] [address] Dr. Gerardo Larsoe Globulin (S) [Mass/Vol] 3.9 g/dL Normal [facility] Comment on above: Performed By: #### C MP, LIPID, TSH #### [facility] [address] [place] [address] Dr. Gerardo Larose Glucose [Mass/Vol] 128 mg/dL Critically high 74-106 [facility] Comment on above: Performed By: #### C MP, LIPID, TSH #### [facility] [address] [address] [address] Gerardo Larose Potassium [Moles/Vol] 3.7 mmol/L Normal 3.5-5.1 [facility] Comment on above: Performed By: #### C MP, LIPID, TSH #### [facility] [address] [address] [address] Gerardo Larose Protein [Mass/Vol] 7.6 g/dL Normal 6.4-8.2 [facility] Comment on above: Performed By: #### C MP, LIPID, TSH #### [facility] [address] [place] [address] Dr. Gerardo Larose Sodium [Moles/Vol] 136 mmol/L Normal 136-145 [facility] Comment on above: Performed By: #### C MP, LIPID, TSH #### [facility] [address] [place] [address] Dr. Gerardo Larose Urea nitrogen [Mass/Vol] 15.0 mg/dL Normal 7.0-18.0 [facility] Comment on above: Performed By: #### C MP, LIPID, TSH #### [facility] [address] [place] [address] Dr. Gerardo Larose Urea nitrogen/Creatinine [Mass ratio] 15.8 mg/mg Normal [facility] Comment on above: Performed By: #### C MP, LIPID, TSH #### [facility] [address] [place] [address] Dr. Gerardo Larose TSHon 12-01-2021 TSH 1.388 uIU/mL Normal 0.358-3.740 [facility] Comment on above: Performed By: #### C MP, LIPID, TSH #### [facility] [address] [place] [address] Dr. Gerardo Larose VITAMIN B12on 12-01-2021 Cobalamin (Vitamin B12) [Mass/Vol] 382.0 pg/mL Normal 193.0-986.0 [facility] Comment on above: Performed By: #### V ITB12, PSASC #### [facility] [address] [place] [address] Dr. Gerardo Larose GLYCOHEMOGLOBIN A1Con 2021 ADA RECOMMENDATION SEE BELOW Normal [facility] Comment on above: Result Comment: ADA RECOMMENDED LIMIT 4.0 - 6.0 ADA THERAPEUTIC TARGET < 7.0 ACTION SUGGESTED > 7.0 Performed By: #### C MP, LIPID, TSH #### [facility] [address] [address] [address] Gerardo Larose Glucose [Mass/Vol] 192 mg/dL Normal [facility] Comment on above: Performed By: #### C MP, LIPID, TSH #### [facility] [address] [address] [address] Gerardo Larose HbA1c (Bld) [Mass fraction] 8.3 % Critically high 4.5-6.2 [facility] Comment on above: Performed By: #### C MP, LIPID, TSH #### [facility] [address] [address] [address] Gerardo Larose IntraOperative Documentson 0 06-24-2020 IntraOperative Documents [id number] 0CD:127 Normal [facility] Coding Summary.on 06-21-2020 Coding Summary. CD:[id number] Gh 0bWw+PGhlYWQ+FF0ILSIdL 36czVGowC2BL9tOHB3ODMJ OPSUJZH8BRP0ivRD7PAmnX 2VybiAv RdvqfLWyCX90VRw3GPL6wI hsIFjvjU1htDVgF4a9GgBt GB12bN56ICbsDBMjNeR1Dw ZpbjsgbWFy Y9kvBfLmnNFpJea+PHRhYm xlIHdpZHRoPScxMDAlJyBz iAdrUR5eFw5oGJTrPZPihO xhcHNlOiBj g9bdIUKuJMyyPB4jsIgqP3 UonMB0CCUsy2u5Gn58mFX+ VOYzGSD2iAzjJVbbn101Yd Gcg5ihDIN0 uWRsBPkaXQU3X84mx8Y2WP NzVKQbEBZ2dXI6rF7qxHss cimzL0LqbTRrFcB0SBD2kR MbfX7qqTdu hnyamJ6dGlx+N10RUO8ZLY EXDX0QRai6G4PzKswtjZM+ WF90TFEaWY31pJWsvICll2 kvdTf0SaNy FNMqQAP8pDfqMPqhc1OdCC XiZ47keQTwq9A1EITlbQvs oGCsNhMvxHZ5tW2jAFvcvj zkz4uwdkus Calvf2uukd18xS67M01nDK wgJBQzBLZ4FRJdYNDqdUjn hg2ovK2yOu4+WDfkp6ruw4 cpcZl8HrXy NMKeweRjbWvsQGM0a7DsCp 19O3TdqLvqu4GnWfm9rs70 hWRdh1N6aFM5MTejQHVqhQ 7jGAxoIoV3 WRMtBmLoiX61kVNwVOzjFx 4qqJejbIslBL2eJGCeqdqe PVMjrN5oCJNelLZxyZkzFO 4wNTBpbjtm m051UmSoKQH2EXIjrBMeX8 ShyV5wUrPsQHSaEXLbZ2Vs fZKjDRkfB787DWrxXdH7EC BoewNzP8Ii NWLqdSedInT1f5D6Ai5Jn1 TkaudtTUF5ICecCUM5VkEj PsMpHxS9L3UeMfk2RSTrlO ktLM7rF6Mg UKWbnkzqoipayTX2MREhCP NklH54iGKuITgfOd3xi2L6 z755MLAqHWJyfG75Yg6eqU ogMTBwdCBU vN4iugosr3pffbysAdXmUJ NqYUu6ZQb1FEFfwBbhYtTd RSD8TfK0SWX5sIAnfX9mmZ uiaqtteX3j Oyc+D26hwW3iZWP9CCB2sh xlSIShyfGbCF48DY41Q4Yj PjwvdGFibGU+PGRpdiBzdH azGZ8xHwOe b0ngj8LcHJrwW0IsGDCzDE omGxj7XPDtQDL9bYC8uN5k MCQpGNqdr3W2fWL6Z5Hcgj Eluq6bx1nm TGQxFBkmK39okZGez4N4GO UeoQC9CLZdlGexEqOsyZ93 Oyc+MAVxuRkvt2DvMghmf3 dvx4jcgPt7 DaIeNZGxhlQttOnxZHH1e8 JaHw49S86sGZxbUVGzQYJi EHWfLJJriTtugq6zoH4zQt 8+PGNvbCB3 iYA3rM2jGNUpNyD5FSooL1 90YvEruNTnQzmnx4vcs0my eXk5RqCjVOPosiSjyOqrWG Y6z1TnOw16 L16jRSluCIVnAESqEAWbCO ZioDorvi9xjI8kAe2+PC9j g8drsc11gZ08tOD+PHRkIH M6xVhjIQgc DQZngX3eFYwlNmR0ZCLlWc YriG30eGRfVOsfOj7dkShn tSdvKH6cJQIptknkm729Bw Tom3vzKSTq fEMkEBldBDY5L77mj0C2GZ SbRVAxHKJ9iYG9zT6kvSyh bjogbGVmdDsgdmVydGljYW rhMYqvP686 IHRvcDsnPlBhdGllbnQgTm OaGRl7C1BsBpl0JOBnfPpp QU8mcWQwVJhwEg2koZwioE woZS6vVRKx yzers697PnReo8elVXLsxE EdPYbbZOS8G14dp4L5ASFd JPPiDBZ9nIP5cR6thOiied ogbGVmdDsg ovPvhSnrDPceXHugK515KP RvcDsnPkJpcnRoIERhdGU6 IX85LJ17fAIhq3C8zDY2X1 BhZGRpbmct ulmvkDZ1TSLiBGGylO44Rf 5waAsoXa3yDJPgUTJ2FIHa aISnI3PbuU8cZbLuNNPdOA VcC8DfsJSv IRrcB386MQecLkL4NNHxxp KlB3BgAPWdwEysMsD2l9U3 Xv5WF0U5CA35HI20dRTjh8 O3eHI2P7Zh VUPpbzwpvdlemTF9WJIhXD FxyG63Zl5zoPurZu1lKZZa QVH9CDVkxEVcV4UklX8lFv AjMDAwMDAw P8TxlWBhXQgcW135ZNpfMw Q6DTGjhgVeP3ZqUUYvdHgy KkM1a4S5Rh3YRSp4AG81CU 59hMQbl5O4 xER6L0EdNRGwdmosuaqyfS F7JDYlXXZexL67Dt4gkOgn Aq1lAVJoBPN7EQAurUXoO8 FdlO6yJqPd JTCfNQYcZ1VspZBlFNtaB9 77OByhKjO1CUXfpaFaI1Fx CGSupTacEmL8g2C7Gf3DNT KpLG86BGB0 iZV9FN50VR93T3HqFdkedM FibGU+PHRhYmxlIHdpZHRo YAfpQVXhQkUniDxaUQ6pWg 9yZGVyLWNv hRrsuZZdRcPbl1kvQAKpGD riET9bjKwpP1NykHJ4FYRh v3f2Ct88J92qE6WdxPO+PG WorLZ2lQW1 wF8zWfNkWeU3LSjsX944Hx XxfIGfYypzm8dun5olpUt3 OeX4BZXbnvQkhTjfXTS6c8 ZySe60H97e IHdpZHRoPSIxNSUiIHZhbG trkj8xkT6wEq2+PGNvbCB3 nPL9gV0mPbGgNmT9QAovD1 49InRvcCIv Bnlnp1bec1fqqGb1ZiNlUO CxonDuhRjmTUZ7y3IhFo42 W0SfsCkjw5LpEio9er80gQ Lyg6N6sKL0 P8UlHCSjyccdlPNliTkxLD 5wNOSdkkfxWFWvoO7hEVQw W4y6LpAfAzL7FSvaI7Qhxy N3NXTbeVWm UPbwYJM3Q23mk5C9PUHwOT XnRAM2rYA4fV0ffSelanfw bGVmdDsgdmVydGljYWwtYW wgG223MOHg uHgbYPFteY4gUSAyfOBcpD oxJN6xNAKxffnkOpmRMPPM MZEJRJDMKGMVZF94OO98uS Kbv2O4nKE2 I7EyKSXmyfpyquocjSU9XF ScANWoyI43hNNxKRopTa9q j9V6x137QRTwDZHqdT87Cw 9udDogMTBw hYQAyY1nsxrkp3jtzebyLt ShEDCbSLn3CDy8ASWsyQzo MjVqOUW9BlC5MKH7qVXrjR 1hbGlnbjog gH1tTpk+FXFaCVFcDZs0AG wvdGQ+BOIgPGH8kCnkHClf QYVpnZ8jFROaQ2j3AlKyAu Z3ZYrrH7Mw XYKaqxjkRk29kF4iYoTlRp U0HAldZ7EesqD5FXUajCMc WIymVVJ9K26tz6S6BDRvFQ BwBFG2pJL8 pE6cuYowijgphMYwnKkwja SveHvxMCgnAFzdD505HBYd yTmeYwKiZXfxLNBrFR79VZ 90oFQks9S1 bXV5L1NyXJBvgzbnpgrweC W2JJWsUJEhhQ39kACmEEnl Np3ed3O9d500ULPdTTAtuP 91Io9inLcz MDXitBRLiX6kmumnq8azam npJkCmLUYsQJk9ZBc0NNUj kLjxHqRbCLF7KaG6IDC2pO ZaqT5xqGuw utnilX3fHjk+TWFsZTwvdG Q+KCZzLTX5tHapTUvlQPRt xK0sMNRyB7r5WmWyXsW4GD leL4VvPBTm cpheFn37tU5lWvQtCjW5AA cgM8ClijA2WIDfoTNkYBqo CCC2P54ma7U8OSDmALKlQB C2sPS7yJ1j bGlnbjogbGVmdDsgdmVydG qlMAbvFYzdB941XKGlwPwc Vd12rNIynEdreuW9Y7TkKf wvdHI+PC90 NFIeKI86bWScgHMpt1zozG p7VrCyCTTzVEH2fLdkPFdb h1ApNIYyH66bcKGqg2G0JF NvbGxhcHNl GeFmpTL7nO5aOQgizhmfe0 hznkxeOhoxv4qeeq70wC28 N03hBIodAZMlRWJmKRTgRE CbqByfwz3v lJ3wSb8+WCSwvKL6tQE6iP 3qIuFrHuP6UOtsX730UwQz uAAfPtnum3nlt3efdJw2Ef IwJSIgdmFs yZkcSPU8h4KaBh43F06lSF dpZHRoPSIyMCUiIHZhbGln uu3mgS8zVz0+ST5gm0enpu 81jH48vYN+ TTMwTPI3aBgtBWhwYMVsxD 0wBHxjJiA6KUBdOgMhcP35 bVOaRHlkWc6huWvhnSslRG 4wNTBpbjtm k859UyWyj6xnQFHljJJtWE poFMT9O87cd1B7JGMoWZPe VZU0sFZ0hS2nuZthuaaidV VmdDsgdmVy tMybKTmhJGvzX670LJCioB fnBjDppVLcI6oxhxATUR3y OjwvdGQ+OXCrDYP7kMyvRW hcKVNutA1e OPOmQ3t7PfXhRrN5YXoaX1 PtiqY3IAChpIZnNXZabNGV mJ2lpoawb7ialklfOeAhQX MgXTe3QAn1 JRKgwWsiPwJcTMZ3BtD7KJ E9pKTjiE3imRtbmvielZ5n Oyc+RklOOjwvdGQ+PHRkIH G1wCaxMJwg UKHdzN9zXSHkN1l1YcEoJw A2MKeaW4VqsxD6CYPclJYq VKYkqPREmQ7ewegrz3kmoz ogIzAwMDAw WRz0NBv8JCKkiSxeVqWbVX X9PlB5PRP0fXMsvL6rxMqr wwnugX6gKry+TVJOOjwvdG Q+PHRkIHN0 zDnaRCfqYLCkoK1hEJXjG3 a0VkCsStS5VEthA5JbjkV2 YGDdvQDhZOEjlUZMlD0eiq acc7wewrjp SdSlCBIiPTa3TXh6OTFnjQ vzNkQsALT8TfZ6JHF3dKZd bP0eiQhbvrtuzK7eTcv+UG G8MMX9JD04 GQ39J5TtYnritEDgpAZ+PH RhYmxlIHdpZHRoPScxMDAl WrIjlTvbZD1tIg2hJTAeMI NvbGxhcHNl OiBj (more content not included)... Normal [facility] Postoperative Documentson Postoperative Documents [id number]. 00CD:127 Normal [facility] Consenton 06-20-2020 Consent [id number]#1. 00CD:127 Normal [facility] Discharge Instructionson Discharge Instructions [id number]. 00CD:127 Normal [facility] IntraOperative Documentson 0 4-19-2021 IntraOperative Documents [id number]. 00CD:127 Normal [facility] IntraOperative Documents [id number]. 00CD:127 Normal [facility] Main OR Intraoperative Recor don 06-20-2020 Main OR Intraoperative Record IntraOp Document Type FT Summary Primary Physician: Elen MCKINNON MD Finalized Date/Time: 06/20/20 13:22:09 Pt. Name: VINNY BAEZ /Sex: 1960 Male Med Rec #: [id number] Physician: Elen MCKINNON MD Financial #: [id number] Pt. 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 Mechanic Time In 06/15/20 14:13:00 06/15/20 14:13:00 06/15/20 14:13:00 Time Out 06/15/20 14:31:00 06/15/20 14:31:00 06/15/20 14:31:00 Procedure COLONOSCOPY(.) COLONOSCOPY(.) COLONOSCOPY(.) Comments supervising Last Modified By: Jeniffer RN, Kriss Swift RN, Kriss Johnson RN 06/15/20 14:31:32 06/15/20 14:31:32 06/15/20 14:31:32 Entry 4 Entry 5 Case Attendee Clyde Eng MD, Maher Role Performed Staff - Other Surgeon - Primary Time In 06/15/20 14:13:00 06/15/20 14:13:00 Time Out 06/15/20 14:31:00 06/15/20 14:31:00 Procedure COLONOSCOPY(.) COLONOSCOPY(.) Comments help in room Last Modified By: Kriss Swift RN, RN, Angela 06/15/20 14:31:32 06/15/20 14:31:32 Perioperative Protocols FT [...] and tissue Entry 1 Skin Integrity Intact, [place], Warm, and Skin Abnormality No Dry Outcomes [...] Procedure COLONOSCOPY(.) (more content not included)... Normal [facility] Endoscopic Procedure Report - [...] Return to activities:: After 24 hours. Normal [facility] Comment on above: Result Comment: Elec tromyraally Signed By: PETAR MARTINEZ, Elen\.br\Date and Time Signed: 06/15/20 14:30 EDT Other Comment: Ramona bernabe Attachment - attachment storage system not supported [id number] Can be viewed in source systemMissing Attachment - attachment storage system not supported [id number] Can be viewed in source systemMissing Attachment - attachment storage system not supported [id number] Can be viewed in source systemMissing Attachment - attachment storage system not supported [id number] Can be viewed in source systemMissing Attachment - attachment storage system not supported [id number] Can be viewed in source system Inpatient Patient Summaryon 06-15-2020 Inpatient Patient Summary [place] [id number] [facility] Clinical Discharge Instructions PERSON INFORMATION Name: VINNY BAEZ PHYSICIANS Admitting Physician: Elen MCKINNON MD Attending Physician: Elen MCKINNON MD PCP: SAMUEL ZHAO DO Discharge Diagnosis: Colon polyp Comment: PATIENT EDUCATION INFORMATION Instructions: Medication Leaflets: Follow up: Type Location Start Finish [facility] Follow Up [facility] 07/12/2020 1:15 PM 07/12/2020 1:30 PM Confirmed MEDICATION LIST Medications to Continue with No Changes Other Medications benazepril 5 Milligram By Mouth every day. bisoprolol-hydrochloro thiazide (bisoprolol-hydrochlor othiazide 5 mg-6.25 mg Tab) 1 Tablets By Mouth every day. omeprazole 20 Milligram By Mouth every day. Comment: Normal [facility] Main OR PACU I Recordon 06-02 Main OR PACU I Record PACU Phase I Docum ent Type FT Summary Primary Physician: Elen MCKINNON MD Finalized Date/Time: 06/15/20 16:40:52 Pt. Name: VINNY BAEZ Edgardo Vu/Sex: 1960 Male Med Rec #: [id number] Physician: Elen MCKINNON MD Financial #: [id number] Pt. Type: O Room/Bed: / Admit/Disch: 06/15/20 [...] By: Radha Lucas RN 06/15/20 16:40 Normal [facility] Main OR Preoperative Recordo n 06-15-2020 Main OR Preoperative Record Holding Area Document Type FT Summary Primary Physician: Elen MCKINNON MD Finalized Date/Time: 06/15/20 13:00:04 Pt. Name: VINNY BAEZ/Sex: 1960 Male Med Rec #: [id number] Physician: Elen MCKINNON MD Financial #: [id number] Pt. Type: O Room/Bed: / Admit/Disch: 06/15/20 [...] By: Yenny Milner RN 06/15/20 13:00 Normal [facility] Monitor Recordon 06-15-2020 Monitor Record [id number] Normal [facility] Outpatient Surgery Discharge Instructionon 06-15-2020 Outpatient Surgery Discharge Instruction [address] [address] Patient Discharge Instructions PERSON INFORMATION Name: VINNY [...] THE NEAREST EMERGENCY ROOM OR CALL 911 JIE Rodriguez DAVID L, have received the attached patient education materials/instructions and have verbalized understanding: May we do a follow up call? Yes No I was present when discharge instructions were given Patient Signature Date Clinican/Nurse Signature ___ Date Follow up: Type Location Start [facility] Follow Up [facility] 07/12/2020 1:15 PM 07/12/2020 1:30 PM Confirmed Pharmacy Information: Satnam Davis You may receive a survey from [employer] asking you to rate your care experience. Your feedback is important and will help us understand what we do well and how we can improve the quality of care we provide to you, your loved ones and our community. It?s an honor to serve you. Thank you for choosing [facility] HERE ARE THE MEDICATION CHANGES THAT OCCURRED DURING YOUR HOSPITAL STAY Medications to Continue with No Changes Other Medications benazepril 5 Milligram By Mouth every day. bisoprolol-hydrochloro thiazide (bisoprolol-hydrochlor othiazide 5 mg-6.25 mg Tab) 1 Tablets By Mouth every day. omeprazole 20 Milligram By Mouth every day. PATIENT EDUCATION INFORMATION Instructions: Normal [facility] Patient Education - Texton 0 06-15-2020 Patient Education - Text [facility] Progress Note-Physicianon Progress Note-Physician Patient: VINNY [...] noted. Plan Transfer/ Discharge: Condition stable. Normal [facility] Comment on [...] mellitus type 1 Father Procedure history: Colonoscopy ([id number]). EGD (esophagogastroduodeno scopy) gastric outlet reduction ([id number]). Social History Social & Psychosocial Habits Tobacco 05/23/2020 Tobacco Use: 10 or more cigarettes (1/ . Physical Examination Respiratory: Lungs are clear to auscultation. Cardiovascular: Regular rhythm. Plan [place] [employer]hesi[employer] (ASA) physical status classification: Class III. Anesthetic Preoperative Plan Anesthesia: General. . Anesthetic plan, risks, benefits, and alternatives discussed with the patient and/or family. Patient verbalized understanding. Normal [facility] Comment on above: Result Comment: Elec tronically Signed By: Pierre Nazario Jr., DO.braulio\Date and Time Signed: 06/15/20 11:57 EDT Coding Summary.on 06-10-2020 Coding Summary. CODING DATE: 06/10/2020 FINAL [facility] STATUS: Home (Routine DC) PAYOR: Commercial [...] CphT Date Saved: 06/10/2020 08:48 am Normal [facility] COVID-19 (MC)on 06-09-2020 SARS-CoV-2 (COVID-19) RNA ROLANDO+probe Ql (Unsp spec) Not detected Normal Not Detected [facility] Comment on above: Result Comment: This test result should be correlated with clinical presentations and medical history by a healthcare provider to determine its clinical significance. This assay was performed by a reverse transcriptase real-time polymerase chain reaction (rt PCR) method on the [employer] system. This test has been authorized only [...] or revoked sooner. Performed By: #### 2 [id number] ####[id number] [place] [address] SARS-CoV-2 (COVID-19) RNA ROLANDO+probe Ql (Unsp spec) Pass Normal Pass [facility] Comment on above: Performed By: #### 2 [id number] ####[place] [address] Specimen source Nom (Unsp spec) Nasal Normal [facility] Comment on above: Performed By: #### 2 [id number] ####[address] [address] COVID-19 ([facility])on 06-07-2020 Employed in Healthcare Unknown Normal [facility] Comment on above: Performed By: #### 2 [id number] ####[address] [address] First Test Unknown Normal [facility] Comment on above: Performed By: #### 2 [id number] ####[address] [address] Hospitalized? NO Normal [facility] Comment on above: Performed By: #### 2 [id number] ####[address] [facility] Comment on above: Performed By: #### 2 [id number] ####[address] [address] ? NO Normal [facility] Comment on above: Performed By: #### 2 [id number] ####[address] [address] Resides in a Congregate Care Setting NO Normal [facility] Comment on above: Performed By: #### 2 [id number] ####[address] [address] Symptomatic as defined by [facility]NOTE 2] NO Normal [facility] Comment on above: Performed By: #### 2 [id number] ####[facility] [address] [place] [address] Consent for Procedure/Surger yon 05-24-2020 Consent for Procedure/Surgery [id number] 0CD:127 Normal [facility] Gastroenterology Office/Clin ic Noteon 05-24-2020 Gastroenterology Office/Clinic Note CD:[id number] KO76rSukqjAdg9oxyt7fSJ 9wXuKczeKiTKcuHs9xn3dk WN57xp0oIyQkZz5+CjwhRE 9DVFlQRSBo gQ9xRFPGLzuDSpFmKN7lVo URSe3SNZTxNOtZRVgtER8x TWZ1rofxfH8tMZ6pOTBmoF GrRz6kk7s9 CofwTl0jGh2QFu35vIRiqH FcQPGKH1vwlF6fKL7zyWYv N9ToVWBxSs7YPWl2wDxblS 7raoI3Xex9 bOY3Sw40f7qpumSlh1EaZo O2MYatuCr2cOavKEwpuW0y GcBfXSMYyF5weMddTU1grA 1lbnRhdGlv biI+MurqFRKsUxx6jZLlNF 24J1CluFsfRkk8qZZ7NNAw fLKcWNVbvBv3EAJNMOINKJ NvbXBhdGli oUWsFZLchaRipyP0HbcBBG FkOzGeZqj6H3vmINS+Cjxi y0T7Qio6TVr5FIA6nPznID Wuu116SBWt zOahqXzgdMCpr60aXXHweY NkEpHoa323QFJgkqT2QXcm rRabCbr0mOAznFZfq3yyiY f3TdBbUDJa GoeZYPMznDxtp1PkIayZRM zap5ezuqXiaBnqVZI6z2Gv XVilZUDqPJM3AaNbLL5+Cg kJPGNvbCB2 LHnrG566GeImwEFhu3azlS m3AqK6WVMzYw3VDZjrU73h W0AstOI+Mcs3tPHwQKo+Cg kJPHRyPgoJ BYg8pVCpo1K6vMT5KpAyco Vgy4f4MPghGQJ2KgM8CRQ0 sCTcvE6nmOrrfnifbC6hNg I+CgkJCTxk dQAwT3crg8V6SpQwp1MalD nbuoDkPYYbMbEqo3azUtdr OISekP1jNCG4LuLkQWBarZ GpXWBbYB0i ueByqBIbVNRtNyStW3Eud6 2gw4JpCPOFW0mJJjYiMJE1 OL9pVvXnBB9pUqzfEFRjL8 LlWFD8ETCt MQetDr9gPADzPEO7HmFzXL HdXYN7POMwz2L0zQT5GgQz GECwdqk0PAKknTrdEukxcA FuIGNsYXNz RKUuDGXwU8Bgg17hbCTbvQ A2Ex77a4DadrNelHtcLS9m Xx5gdK36EPcmrBF9TOJfzV B7ZDRmbBCy NOBpt2XrcDszhgmasE5bIW EvdZ2gZkQ+B3udKVGkY79h rQtgtJ88OH8ckUIhQpyyc1 Dloe6APWeJ LVQwjgTklVGnzm1rRMYnwB Wra594QR76JcAwLRtxz531 YK43fDptJQ3qHQKJP2GAWE 9NRUFTIiBk SAkdIQUmnmDmQ1M0uVzsUZ QCA0M9GjW5IR7SQeOnVDAB V2NjBnVgFb5UY6GAMDhYHz Y2KvIeMRid PSJfZTlmOWVkYzMtYzZmZi 54LbO3DYyoFWAaMTT4Koc6 TYE0UIyvPt8PFGaYSLPwtk FyqDVarx5c GJSueXGhq352FZ83tOXikV KaLDApdU91LDKtIDPjXZS8 B15ocTOjcSK0jSP3CyYHCD NBUkVfTUVB XxPjHGP5HU57oOP5oJY2At N0Tun6HeSuKqNgUCdbAKUe KfRdBLL1IHFoOHTcDH73LR KbXKq2MdZp VpZpAbA4AQavNKgrYtL0fM hjzbkxZZ3kYZzqSI0vI4Xl O8GcYL41IWSsw42jJxK8ex Dki0ippnYl JIPxdQn8F9Oysa3IBCrTUO 9kaXY+DsrTRSzpKXe3FjsA OLsJKTIhlmPvaMAszx6aGI QzONW9vH8w IGRkcmVmcmVzaGFibGUgZG NccwFizeFgbsTwuSG8mPVn JZPshJ89XOMxUYShYAL3x2 VjdGlvbmNv CKE2KerFAJ3ZOHAqQRT9CH StLBvoEIOiGSKbPSH8IQDw IvByLe08UKO1QMm8PuUgUt EhC7F1Xae3 DwPrMyRzdGibEH3dpAZtAU xcYpovGEM1ArY+JKHvSY8q P7alb0U3GeRze9RoaXywzm Sla8HbSQyt OikuwBGxLSD3pHziXREhw4 98CRyifOtofIlaRm4bCGnb lJQ4lL0gQSFhyuV1bP3rLt B5byJsvruk niJ4Qq5CSRjbR8EdHhC2L0 NwYW4+CX8khIRlSuwJYJuD PLQdiaYkcZVpaf3yQRQiiO Mhl752BU52 HcAaLGeqp159FH86rYfqLZ 0xJJFUP3GWUG9CIAUKWnCs LLnaQCWchfKvV6R5sWpuZQ JBODVEREFE SN63DguhZVBJJHLcOGGFCd 89YHOPDeU9OgbVHHSzQKaz PSJfMWEyYjQyNTQtNzcwZS 38AFfjEDL7 MzgtMGMyMGJhMmZmNzJmIj 0BKRsRPYKzoqMpcBSlax5n YURrwYHys365RZ99pKOhaB GzRMKlxA83 JLPfAOMtBIS3WkRmOlmrLI WrztkjuVwuSN9oqA2kRHYj Z3q8YxVwJBtsn836NC66oH ofDU3dNDLL T7MDWC5JYCDGPeQjENhvpq FesIumFO1jLzPbUK2wM8P5 THF0VBLoTLvvEqYuMTv6CK 04ZGQyLTMy IbGbELJcNVocIWWmjP1cei M3AWT7NmM2lyUspWYUe0V3 hGUypJD7kL9eZp42E1Omsc 4KCgkJCTxk mMBcW2ort8L8QnKaLW9cF7 4rqKKnyXt4KO7wGJWrTV8n psFazROuOHPfUmB8heTtt6 B7gV6gx1H2 iXL5IfSjuM7aeNzqtFXgIY T8I18ycXZhkVP0wTP7BnPL OHJKWjKxTWOMYaCyQJD8GN 78fQW7lLI9 SxXekDD6Od07XLMdJxAtZq 16FkVqXIGpPKPfKFqiNy4u QNTpIZO9QiOfQzumIRnlyL 5zOmRkPSJE yO2kxEesUN6toW5pumElgB lvbiI+BS1bpKF+CgoJCQk8 GCi2NALaWBCeYLQbEOSqok NvbnRlbnRp iHFiAAWqkjCfk4AsExvpQo SmZOvsrC1edC8tkSxhT0K4 eQltMAG8h4KkfepuuMJkTD RkOmNvbnRl xiL6dAAlUJQSYHFDZTNLQ5 1UYWSlTLFfFzWazWq9dWlw UEPgGDcvUBBeByo7VvFuOe VmW9LiOL17 CQNbDDcrL6FyYIL2ODb4Rb VoFwTiUuK6pTxzhzgjWJ9r SYwqIU8dD5IuM5TnLS78YD Wzb69mGznQ DPg4SXu4LID5vAgkGNAjWN DioX87DDUzyMYajG15XHPk FIFmiap8SWJvmEnuMl9bJX VyOiAwcHQg iegmNFEaFEUqYJRdMtW6XX t6COOfcXdhVrLgUZI4NvWm d7kelzmjhgdnNOJoRBGiYQ PxEiD0YGy1 LWluZGVudDogMGluOyBmb2 04LLQ1lVfqJoQtt2CcUPw0 ANNlbnAhc6HfS0x1WzNyc6 EeRBu4SLHk cSBqDWPwi2NntQoquxbxdj 5kDOqxJjuRVUl1OPy1JhyI BYi4RCp1BsZhsPLxjAAdIA Q6JWW6TTWd ZB4fVOVkXIccVQwjpuZtxt GdSQ11bbX2a8DcmIVhm9Kz PAQ6BDbiJEHpR93lm49ydx VjYWxsLjwv VSx7GleJLUl1Q6Yrjh2EAY eGQC7fwWP+CgkJCTwvZGl2 PgoKCQkJPGRpdiBjbGFzcz 0iZGRlbXJj i508CT97xYYhoBJeUAVoiP 97TKHaUPWaICN2BrFjMvsc OUTsqcxxpAfsHS2ulF8jFG QiU5r9PbRg HBwse567CS53iYmgJL8kDM XHI7XJAY7IPXLTZgXiFYrm kfIsvMymCZ8eVnQkKB9kHn YxMjcyYjRk FGR2OTcvGWI5NQ38BxLlTN I6KkSgRXAzPHS2RYDxsZ0k fkS1PIG2EsH0kkXncUSWk5 A2qTZhnNY8 lZ9fKd33V0Fgmh7HIdqESV wkzDTqC1elc3B5UbYeKF2v Y07qrTLbbQl1RM2wRNGyGS 1vdmFibGUi UVDhKzF8wbBgi9Z3tX9wh1 D7uFV9HmZxvC8sxUrbvZYi VUF8T83yaWJlySM6dLY3Sn BBVENBUkVf YKALFbJdUOO3QD45zSU2cD T0FsHjbNI8Mm43NWXhKlUb DM4cYlFrOUFtDYNsMhQ0Ht 3uHRL4JBKj TRGlOTSaBPpdwK3fBlZpFM QQpZ8apLmyQV8duW8lkqRv dGlvbiI+MJ8tmKV+CgoJCQ h3QIc1VRAs YXNzPSJkZGVtcmNvbnRlbn CgkSJiIOElxyQio2OqLsoq OvEcEVpjyQ1hbD0krJffA0 R3oOfqGOF9 i8WxbtfdrHLaDSPmXkEkta YpheZ0yEXxQUOLNGYPYTQT T18NJEBsRYYoKzDemNa8yV lkPSIiIGlk EWQjIYRpADLjY5XaJJKpFA 67EVJoVCHcMQKvUbzfXri6 AGY8Bcj6CdG2wKoefvabTS 5dEXpfCV0f E8MnG1EpRO37KHMpp07eUg wkOQb1WczWXZoGXGUlhxHj nJTney0aNYMwqGTkb246TB 50aXRlbSBk RJMubC73DAFbHRKfYNW5Tc SfNfbkRBAmexqsrWmlBO2k eH2zXMRgZ6v0CbBpKMyfi4 39HV68xNsx CO3hOVNYJ0CMVP2UMYRCGu ZlIBglyoFqqFxpTO7lCgJn XG3nIbWpLMszKAmwIRF1Gv ZxXNn5QK1w LmWqKPd5VePvKfLfJXCmBW ZbrF4gsoV9OEO7TmM0hmLz iXPOk0V7vIUxhBH4cY3jHf 05L5Edji5N YciIMBjalKJiT3yjl9W8Yr SxMG6tN53jsTIwqTq3AZ4z IREbBB1oiqIqkCIiSEKxPh S9abGsv5F1 eO2xq2F8eIN7MaBitC4rsA wffABnHIP7M37xgTRxzPY3 oBT2KmAWXRIEZfZvASLWFz LeLMJ7BF02 fEB3sGO1VcYmbHR9Us1tNN a0IEWtCn6kOjH9JBAoGbJf NPDeXg2mPpZpTxN0OWB8Ty NhUUvowH7n O (more content not included)... Normal [facility] Comment on above: Result Comment: Elec tronically Signed By: Elen MCKINNON MD\.br\Date and Time Signed: 05/24/20 12:53 EDT\.br\Electronically Co-Signed By: Alysa Ashley\.br\Date and Time Co-Signed: 05/23/20 16:37 EDT\.br\Electronically Co-Signed By: Elen MCKINNON MD\.br\Date and Time Co-Signed: 07/08/20 10:25 EDT\.br\Electronically Co-Signed By: Mami Leonard Physician Orderon 05-24-2020 Physician Order [id number] 0CD:127 Normal [facility] Physician Order [id number] CD:127 Normal [facility] Ambulatory Clinical Summaryo n 05-23-2020 Ambulatory Clinical Summary {[id number] Normal [facility] Patient Educationon 05-24-19 21 Patient Education Oncology [...] 11/14/2004 Document Revised: 06/05/2018 Document Reviewed: 06/05/2018 [employer] Patient Education ? [address] [facility] Historical Records Officeon 05-20-2020 Historical Records Office [id number] 0CD:127 [facility] Patient Letter FTMCon 2020 Patient Letter [facility] April 05, 2020 VINNY BAEZ [address] [place] [address] VINNY BAEZ 1960 Dear Vinny, This is a reminder that you are due for an appointment with Dr. Mckinnon or Dr. Molina. Please call [facility] at [phone] to schedule an appointment at your earliest convenience. Thank you, [facility] Vital Signs Date Time Vital Sign Value Performing Clinician Facility 11-10-2024 09:10-0400 Body height 179.07 cm Samuel Ball DO Work Phone: [facility] 11-10-2024 09:10-0400 Body mass index (BMI) [Ratio] 25.4 kg/m2 Samuel Ball DO Work Phone: [facility] 11-10-2024 09:10-0400 Body weight 81.7 kg Samuel Ball DO Work Phone: [facility] 11-10-2024 09:10-0400 Diastolic blood pressure 80 mm[Hg] Samuel Ball DO Work Phone: [facility] 11-10-2024 09:10-0400 Heart rate 87 /min Samuel Ball DO Work Phone: [facility] 11-10-2024 09:10-0400 Respiratory rate 12 /min Samuel Ball DO Work Phone: [facility] 11-10-2024 09:10-0400 Systolic blood pressure 150 mm[Hg] Samuel Ball DO Work Phone: [facility] 08-04-2024 11:39-0400 Body height 179.07 cm [facility] 08-04-2024 11:39-0400 Body mass index (BMI) [Ratio] 26 kg/m2 [facility] 08-04-2024 11:39-0400 Body weight 83.46 kg [facility] 08-04-2024 11:39-0400 Diastolic blood pressure 80 mm[Hg] [facility] 08-04-2024 11:39-0400 Heart rate 91 /min [facility] 08-04-2024 11:39-0400 Respiratory rate 12 /min [facility] 08-04-2024 11:39-0400 Systolic blood pressure 140 mm[Hg] [facility] 03-26-2024 10:14-0500 Body height 179.07 cm [facility] 03-26-2024 10:14-0500 Body mass index (BMI) [Ratio] 27.7 kg/m2 [facility] 03-26-2024 10:14-0500 Body weight 88.9 kg [facility] 03-26-2024 10:14-0500 Diastolic blood pressure 89 mm[Hg] [facility] 03-26-2024 10:14-0500 Heart rate 97 /min [facility] 03-26-2024 10:14-0500 Respiratory rate 12 /min [facility] 03-26-2024 10:14-0500 Systolic blood pressure 139 mm[Hg] [facility] 11-08-2023 11:10-0400 Body height 179.07 cm [facility] 11-08-2023 11:10-0400 Body mass index (BMI) [Ratio] 27 kg/m2 [facility] 11-08-2023 11:10-0400 Body weight 86.74 kg [facility] 11-08-2023 11:10-0400 Diastolic blood pressure 78 mm[Hg] [facility] 11-08-2023 11:10-0400 Heart rate 98 /min [facility] 11-08-2023 11:10-0400 Respiratory rate 12 /min [facility] 11-08-2023 11:10-0400 Systolic blood pressure 153 mm[Hg] [facility] 08-19-2023 13:44-0400 Body height 179.07 cm [facility] 08-19-2023 13:44-0400 Body mass index (BMI) [Ratio] 27.1 kg/m2 [facility] 08-19-2023 13:44-0400 Body weight 86.8 kg [facility] 08-19-2023 13:44-0400 Diastolic blood pressure 74 mm[Hg] [facility] 08-19-2023 13:44-0400 Heart rate 95 /min [facility] 08-19-2023 13:44-0400 Respiratory rate 12 /min [facility] 08-19-2023 13:44-0400 Systolic blood pressure 131 mm[Hg] [facility] 05-24-2023 10:26-0400 Body height 179.07 cm [facility] 05-24-2023 10:26-0400 Body mass index (BMI) [Ratio] 27.4 kg/m2 [facility] 05-24-2023 10:26-0400 Body weight 87.99 kg [facility] 05-24-2023 10:26-0400 Diastolic blood pressure 80 mm[Hg] [facility] 05-24-2023 10:26-0400 Heart rate 80 /min [facility] 05-24-2023 10:26-0400 Respiratory rate 16 /min [facility] 05-24-2023 10:26-0400 Systolic blood pressure 165 mm[Hg] [facility] 04-23-2023 08:45-0500 Body height 179.07 cm [facility] 04-23-2023 08:45-0500 Body mass index (BMI) [Ratio] 27.5 kg/m2 [facility] 04-23-2023 08:45-0500 Body weight 88.22 kg [facility] 04-23-2023 08:45-0500 Diastolic blood pressure 86 mm[Hg] [facility] 04-23-2023 08:45-0500 Heart rate 92 /min [facility] 04-23-2023 08:45-0500 Respiratory rate 12 /min [facility] 04-23-2023 08:45-0500 Systolic blood pressure 138 mm[Hg] [facility] 03-26-2023 11:00-0500 Body height 179.07 cm Roseline Ghosh Other [facility] 03-26-2023 11:00-0500 Body mass index (BMI) [Ratio] 27.3 kg/m2 Roseline Ghosh Other [facility] [employer] Other 03-26-2023 11:00-0500 Body weight 87.54 kg Roseline Ghosh Other [facility] 03-11-2023 11:00-0500 Body height 179.07 cm Samuel Ball Other [facility] 03-11-2023 11:00-0500 Body mass index (BMI) [Ratio] 27.86 kg/m2 Samuel Ball Other [facility] [employer] Other 03-11-2023 11:00-0500 Body weight 89.36 kg Samuel Ball Other [facility] [employer] Other 03-11-2023 11:00-0500 Body weight 89.35 kg [facility] 03-11-2023 11:00-0500 Diastolic blood pressure 88 mm[Hg] Samuel Ball Other [facility] 03-11-2023 11:00-0500 Respiratory rate 12 /min Samuel Ball Other [facility] [employer] Other 03-11-2023 11:00-0500 Systolic blood pressure 169 mm[Hg] Samuel Ball Other [facility] 02-19-2023 09:30-0500 Body height 179.07 cm Samuel Ball Other [facility] 02-19-2023 09:30-0500 Body mass index (BMI) [Ratio] 27.84 kg/m2 Samuel Ball Other [facility] [employer] Other 02-19-2023 09:30-0500 Body weight 89.27 kg Samuel Ball Other [facility] [employer] Other 02-19-2023 09:30-0500 Body weight 89.26 kg [facility] 02-19-2023 09:30-0500 Diastolic blood pressure 82 mm[Hg] Samuel Ball Other [facility] 02-19-2023 09:30-0500 Respiratory rate 12 /min Samuel Ball Other [facility] [employer] Other 02-19-2023 09:30-0500 Systolic blood pressure 176 mm[Hg] Samuel Ball Other [facility] 02-06-2023 11:15-0500 Body height 179.07 cm Samuel Ball Other [facility] 02-06-2023 11:15-0500 Body mass index (BMI) [Ratio] 23.22 kg/m2 Samuel Ball Other [facility] [employer] Other 02-06-2023 11:15-0500 Body weight 74.48 kg Asmuel Ball Other [facility] [employer] Other 02-06-2023 11:15-0500 Body weight 74.47 kg [facility] 02-06-2023 11:15-0500 Diastolic blood pressure 67 mm[Hg] Samuel Ball Other [facility] 02-06-2023 11:15-0500 Respiratory rate 12 /min Samuel Ball Other [facility] [employer] Other 02-06-2023 11:15-0500 Systolic blood pressure 145 mm[Hg] Samuel Ball Other [facility] 01-29-2023 08:45-0500 Body height 179.07 cm Samuel Ball Other [facility] 01-29-2023 08:45-0500 Body mass index (BMI) [Ratio] 27.27 kg/m2 Samuel Ball Other [employer] Other 01-29-2023 08:45-0500 Body weight 87.45 kg Samuel Ball Other [facility] 01-29-2023 08:45-0500 Diastolic blood pressure 79 mm[Hg] Samuel Ball Other [facility] 01-29-2023 08:45-0500 Respiratory rate 12 /min Samuel Ball Other [employer] Other 01-29-2023 08:45-0500 Systolic blood pressure 120 mm[Hg] Samuel Ball Other [facility] 11-19-2022 09:30-0400 Body height 179.07 cm Samuel Ball Other [employer] Other 11-19-2022 09:30-0400 Body mass index (BMI) [Ratio] 27.58 kg/m2 Samuel Ball Other [employer] Other 11-19-2022 09:30-0400 Body weight 88.45 kg Samuel Ball Other [employer] Other 11-19-2022 09:30-0400 Diastolic blood pressure 88 mm[Hg] Samuel Ball Other [employer] Other 11-19-2022 09:30-0400 Respiratory rate 12 /min Samuel Ball Other [employer] Other 11-19-2022 09:30-0400 Systolic blood pressure 139 mm[Hg] Samuel Ball Other [employer] Other 06-26-2022 16:30-0400 Body height 179.07 cm Samuel Ball Other [employer] Other 06-26-2022 16:30-0400 Body mass index (BMI) [Ratio] 28.12 kg/m2 Samuel Ball Other [employer] Other 06-26-2022 16:30-0400 Body weight 90.18 kg Samuel Ball Other [employer] Other 06-26-2022 16:30-0400 Diastolic blood pressure 126 mm[Hg] Samuel Ball Other [employer] Other 06-26-2022 16:30-0400 Respiratory rate 12 /min Samuel Ball Other [employer] Other 06-26-2022 16:30-0400 Systolic blood pressure 210 mm[Hg] Samuel Ball Other [employer] Other 03-21-2022 12:00-0500 Body height 179.07 cm Samuel Ball Other [employer] Other 03-21-2022 12:00-0500 Body mass index (BMI) [Ratio] 28.2 kg/m2 Samuel Ball Other [employer] Other 03-21-2022 12:00-0500 Body weight 90.45 kg Samuel Ball Other [employer] Other 03-21-2022 12:00-0500 Diastolic blood pressure 90 mm[Hg] Samuel Ball Other [employer] Other 03-21-2022 12:00-0500 Respiratory rate 12 /min Samuel Ball Other [employer] Other 03-21-2022 12:00-0500 Systolic blood pressure 140 mm[Hg] Samuel Ball Other [facility] [employer] Other Encounters Encounter Date Encounter Type Care Provider Facility Start: 11-10-2024 End: 11-10-2024 ambulatory Samuel Zhao DO Work Phone: [facility] Work Phone: Start: 11-10-2024 End: 11-10-2024 Patient encounter procedure Samuel Zhao DO -[facility] Work Phone: Start: 11-10-2024 End: 11-10-2024 Patient encounter status Samuel Zhao DO [facility] Start: 08-04-2024 End: 08-04-2024 ambulatory [facility] Work Phone: Start: 08-04-2024 End: 08-04-2024 Patient encounter procedure [facility] Work Phone: Start: 03-26-2024 End: 03-26-2024 ambulatory [facility] Work Phone: Start: 03-26-2024 End: 03-26-2024 Patient encounter procedure [facility] Work Phone: Start: 11-08-2023 End: 11-08-2023 ambulatory [facility] Work Phone: Start: 11-08-2023 End: 11-08-2023 Encounter for general adult medical examination without abnormal findings [facility] Start: 11-08-2023 End: 11-08-2023 Patient encounter procedure [facility] Work Phone: Start: 11-05-2023 Patient encounter status [facility] Start: 08-19-2023 End: 08-19-2023 ambulatory [facility] Work Phone: Start: 08-19-2023 End: 08-19-2023 Patient encounter procedure [facility] Work Phone: Start: 05-24-2023 End: 05-24-2023 ambulatory [facility] Work Phone: Start: 05-24-2023 End: 05-24-2023 Patient encounter procedure [facility] Work Phone: Start: 05-06-2023 End: 05-07-2023 ambulatory Diego Gordon MD Facility: [facility] Start: 05-02-2023 Non-patient / Non-visit [facility] Work Phone: Start: 04-23-2023 End: 04-23-2023 ambulatory [facility] Work Phone: Start: 04-23-2023 End: 04-23-2023 Patient encounter procedure [facility] Work Phone: Start: 04-22-2023 Non-patient / Non-visit [facility] Work Phone: Start: 04-08-2023 End: 04-09-2023 ambulatory Diego Gordon MD Facility: [facility] Start: 04-01-2023 End: 04-02-2023 ambulatory Diego Gordon MD Facility: [facility] Start: 03-27-2023 End: 03-27-2023 ambulatory Roseline Ghosh Other [facility] [employer] Other Start: 03-27-2023 Telephone encounter Ros[facility] FRAZIER [employer] Start: 03-26-2023 End: 03-26-2023 ambulatory Samuel Zhao Other [facility] [employer] Other Start: 03-26-2023 Office outpatient ne w 45 [address] [facility] Start: 03-26-2023 Telephone encounter Samuel Zhao [facility] Start: 03-26-2023 End: 03-26-2023 Patient encounter procedure [facility]- Start: 03-25-2023 End: 03-25-2023 ambulatory Samuel Ball Other [employer] Other Start: 03-25-2023 Telephone encounter Samuel Ball [facility] Start: 03-11-2023 End: 03-11-2023 ambulatory Samuel Ball Other [employer] Other Start: 03-11-2023 Office outpatient vi sit 15 minutes Samuel Ball [facility] Start: 03-11-2023 End: 03-11-2023 Patient encounter procedure [facility] Work Phone: Start: 03-05-2023 End: 03-05-2023 ambulatory Samuel Ball Other [employer] Other Start: 03-05-2023 Telephone encounter Samuel Ball [facility] Start: 02-26-2023 End: 02-26-2023 ambulatory Samuel Ball Other [employer] Other Start: 02-26-2023 Telephone encounter Samuel Ball [facility] Start: 02-19-2023 End: 02-19-2023 ambulatory Samuel Ball Other [employer] Other Start: 02-19-2023 Office outpatient vi sit 15 minutes Samuel Ball [facility] Start: 02-19-2023 End: 02-19-2023 Patient encounter procedure [facility] Work Phone: Start: 02-18-2023 End: 02-18-2023 ambulatory Samuel Ball Other [employer] Other Start: 02-18-2023 Telephone encounter Samuel Ball [facility] Start: 02-06-2023 End: 02-06-2023 ambulatory Samuel Ball Other [employer] Other Start: 02-06-2023 Office outpatient vi sit 15 minutes Samuel Ball [facility] Start: 02-06-2023 End: 02-06-2023 Patient encounter procedure [facility] Work Phone: Start: 02-05-2023 End: 02-05-2023 ambulatory Samuel Pavel Other [employer] Other Start: 02-05-2023 Telephone encounter Samuel Ball [facility] Start: 01-31-2023 End: 01-31-2023 ambulatory Samuel Ball Other [employer] Other Start: 01-31-2023 Telephone encounter Samuel Ball [facility] Start: 01-29-2023 End: 01-29-2023 ambulatory Samuel Ball Other [employer] Other Start: 01-29-2023 Office outpatient vi sit 15 minutes Samuel Ball [facility] Start: 01-29-2023 End: 01-29-2023 Patient encounter procedure [facility] Work Phone: Start: 11-28-2022 End: 11-28-2022 ambulatory Samuel Ball Other [employer] Other Start: 11-28-2022 Encounter for genera l adult medical examination without abnormal findings Samuel Pavel [facility] Start: 11-28-2022 Telephone encounter Samuel Ball [facility] Start: 11-27-2022 End: 11-27-2022 ambulatory Samuel Ball Other [employer] Other Start: 11-27-2022 Telephone encounter Samuel Ball [facility] Start: 11-22-2022 End: 11-22-2022 ambulatory Samuel Ball Other [employer] Other Start: 11-22-2022 Telephone encounter Samuel Ball [facility] Start: 11-19-2022 End: 11-19-2022 ambulatory Samuel Ball Other [employer] Other Start: 11-19-2022 Encounter for genera l adult medical examination without abnormal findings Samuel Zhao [facility] Start: 11-19-2022 Periodic preventive med est patient 40-64yrs Samuel Zhao [facility] Start: 08-03-2022 End: 08-03-2022 ambulatory Samuel Zhao Other [employer] Other Start: 08-03-2022 Telephone encounter Samuel Zhao [facility] Start: 07-18-2022 End: 07-19-[address] SAMUEL ZHAO Facility:[facility]1 Start: 06-28-2022 End: 06-28-2022 ambulatory Samuel Pavel Other [employer] Other Start: 06-28-2022 Telephone encounter Samuel Zhao [facility] Start: 06-27-2022 End: 06-28-[address] SAMUEL ZHAO Facility:[facility] Start: 06-26-2022 End: 06-26-2022 ambulatory Samuel aPvel Other [employer] Other Start: 06-26-2022 Office outpatient vi sit 25 minutes Samuel Zhao [facility] Start: 05-22-2022 End: 05-22-2022 ambulatory Samuel Zhao Other [employer] Other Start: 05-22-2022 Telephone encounter Samuel Zhao [facility] Start: 05-15-2022 End: 05-15-2022 ambulatory Samuel Zhao Other [employer] Other Start: 05-15-2022 Telephone encounter Samuel Zhao [facility] Start: 04-12-2022 End: 04-12-2022 ambulatory Samuel Zhao Other [employer] Other Start: 04-12-2022 Telephone encounter Samuel Zhao [facility] Start: 04-05-2022 End: 04-05-2022 ambulatory Samuel Pavel Other [employer] Other Start: 04-05-2022 Telephone encounter Samuel Zhao [facility] Start: 04-04-2022 End: 04-04-2022 amb[address] Zhao [address] [facility] [employer] Other Start: 04-04-2022 Telephone encounter Samuel Zhao [facility] Start: 03-21-2022 Office outpatient vi sit 25 minutes Samuel Zhao [facility] Start: 03-21-2022 End: 03-22-[address] HEALY [facility] [employer] Other Start: 12-04-2021 Encounter for genera l adult medical examination without abnormal findings DR SAMUEL ZHAO [facility] Start: 12-01-2021 End: 12-02-2021 Encounter for general adult medical examination without abnormal findings DR SAMUEL ZHAO Facility:[facility] Start: 12-01-2021 End: 12-02-[address] SAMUEL ZHAO Facility:[facility] Start: 08-09-2021 End: 08-10-[address] SAMUEL ZHAO Facility:[facility] Procedures Date Procedure Procedure Detail Performing Clinician Start: 12-01-[address] [place]ORGAN IN [place] Comment on above: Performed By: #### V ITB12, PSASC #### [facility] [address] [place] [address] Dr. Gerardo Larose Depression screening Clari Zhao Other Plan of Treatment Date Care Activity Detail Author Comprehensive metabo lic 1999 panel - Serum or Plasma [facility] enter Comprehensive metabo lic 1999 panel - Serum or Plasma [facility] enter Microalbumin [Mass/volume] in Urine [facility] Payers Date Payer Category Payer Private Health Insurance 1960 Unknown [id number] 2.16.84 [id number] 1960 Unknown [id number] 2.16.84 [id number] 1960 Unknown [id number] 2.16.84 [id number] 1959 Unknown [id number] 2.16.84 [id number] 1959 Unknown [id number] 2.16.84 [id number] 1959 Unknown [id number] 2.16.84 [id number] 1959 Unknown [id number] 2.16.84 [id number] 1959 Unknown [id number] 2.16. [id number] 1959 Unknown [id number] 2.16. [id number] 1960 Unknown [id number] 2.16. [id number] 1960 Private Health Insurance [id number] Social History Date Type Detail Facility Sex Assigned At [employer] Other Start: 04-22-2023 End: 04-22-2023 [facility] Start: 1960 Sex Assigned At Male [facility] Start: 03-26-2024 End: 08-04-2024 Sex Male (finding) [facility] Start: 04-22-2023 [facility] Medical Equipment Procedure Code Equipment Code Equipment [...] 62 yo male who works for the [employer] since december he has been having back [...] to provide reprieve. This patient has tried [id number] and prescription medications for greater than a [...] Mar, Diabetic peripheral neuropathy (ICD-10 - E11.42) [employer] Other 01-22-2024 Evaluation note* Encounter Date Diagnosis Assessment Notes Treatment Notes Treatment Clinical Notes Mar, Acute left-sided low back pain with left-sided sciatica (ICD-10 - M54.42) [employer] Other 01-08-2024 Evaluation note* Encounter Date Diagnosis [...] Instructed to increase Losartan to 100mg qd [employer] Other 01-02-2024 Evaluation note* Encounter Date Diagnosis Assessment Notes Treatment Notes Treatment Clinical Notes Mar, Acute left-sided low back pain with left-sided sciatica (ICD-10 - M54.42) [employer] Other 12-26-2023 Evaluation note* Encounter Date Diagnosis Assessment Notes Treatment Notes Treatment Clinical Notes Feb, Acute left-sided low back pain with left-sided sciatica (ICD-10 - M54.42) [employer] Other 12-19-2023 Evaluation note* Encounter Date Diagnosis [...] Microalbumin, Dilated eye exam and Foot exam [employer] Other 2023 Evaluation note* Encounter Date Diagnosis Assessment Notes Treatment Notes Treatment Clinical Notes Feb, Acute left-sided low back pain with left-sided sciatica (ICD-10 - M54.42) [employer] Other 12-06-2023 Evaluation note* Encounter Date Diagnosis [...] as it will resolve once off steroids [employer] Other 12-05-2023 Evaluation note* Encounter Date Diagnosis Assessment Notes Treatment Notes Treatment Clinical Notes Feb, Acute left-sided low back pain with left-sided sciatica (ICD-10 - M54.42) [employer] Other 11-28-2023 Evaluation note* Encounter Date Diagnosis [...] BS values, which requires no dose adjustments [employer] Other 09-27-2023 Evaluation note* Encounter Date Diagnosis Assessment Notes Treatment Notes Treatment Clinical Notes Nov, Elevated transaminase level (ICD-10 - R74.01) Nov, Wellness examination (ICD-10 - Z00.00) Nov, Fatty liver (ICD-10 - K76.0) [employer] Other 09-21-2023 Evaluation note* Encounter Date Diagnosis Assessment Notes Treatment Notes Treatment Clinical Notes Nov, Cigarette nicotine dependence without complication (ICD-10 - F17.210) LDCT: no suspicious nodules 11/2021, [employer] Other 09-18-2023 Evaluation note* Encounter Date Diagnosis [...] (ICD-10 - Z12.5) Yearly PSA and ARCHANA [employer] Other 06-02-2023 Evaluation note* Encounter Date Diagnosis Assessment Notes Treatment Notes Treatment Clinical Notes Aug, Type 2 diabetes mellitus with hyperglycemia, without long-term current use of insulin (ICD-10 - E11.65) [employer] Other 04-27-2023 NotePROCEDURE: XR ANKLE RT 2V, XR FOOT RT 2V COMPARISON: None. HISTORY: Pain in right foot FINDINGS: BONES:No acute fracture or dislocation. Mild degenerative changes most significant at the first metatarsal phalangeal joint SOFT TISSUES:Negative. No visible soft tissue swelling. EFFUSION:None visible. OTHER: Negative. IMPRESSION: Mild degenerative changes Electronically authenticated by: VINNY EDGE Date: 2022-06-28 07:26[facility]04-27-2023 NotePROCEDURE: XR ANKLE RT 2V, XR FOOT RT 2V COMPARISON: None. HISTORY: Pain in right foot FINDINGS: BONES:No acute fracture or dislocation. Mild degenerative changes most significant at the first metatarsal phalangeal joint SOFT TISSUES:Negative. No visible soft tissue swelling. EFFUSION:None visible. OTHER: Negative. IMPRESSION: Mild degenerative changes Electronically authenticated by: VINNY EDGE Date: 2022-06-28 07:26[facility]04-25-2023 Evaluation note* Encounter Date Diagnosis Assessment Notes [...] No vesicles or bleeding. Nontender but pruritic [employer] Other 03-21-2023 Evaluation note* Encounter Date Diagnosis Assessment Notes Treatment Notes Treatment Clinical Notes May, Gastroesophageal ref lux disease with esophagitis without hemorrhage (ICD-10 - K21.00) [employer] Other 03-14-2023 Evaluation note* Encounter Date Diagnosis Assessment Notes Treatment Notes Treatment Clinical Notes May, Gastroesophageal ref lux disease with esophagitis without hemorrhage (ICD-10 - K21.00) May, Essential hypertensi on (ICD-10 - I10) May, Type 2 diabetes mellitus with diabetic polyneuropathy, without long-term current use of insulin (ICD-10 - E11.42) May, Elevated cholesterol (ICD-10 - E78.00) [employer] Other 02-09-2023 Evaluation note* Encounter Date Diagnosis Assessment Notes Treatment Notes Treatment Clinical Notes Apr, Type 2 diabetes mellitus with diabetic polyneuropathy, without long-term current use of insulin (ICD-10 - E11.42) [employer] Other 02-02-2023 Evaluation note* Encounter Date Diagnosis Assessment Notes Treatment Notes Treatment Clinical Notes Apr, Gastroesophageal ref lux disease with esophagitis without hemorrhage (ICD-10 - K21.00) [employer] Other 02-01-2023 Evaluation note* Encounter Date Diagnosis Assessment Notes Treatment Notes Treatment Clinical Notes Apr, Gastroesophageal ref lux disease with esophagitis without hemorrhage (ICD-10 - K21.00) [employer] Other 01-18-2023 Evaluation note* Encounter Date Diagnosis [...] Diet and exercise with continued statin therapy. [employer] Other [id number] NotePatient: VINNY BAEZ Age: 60 years Sex: Male : 1960 Associated Diagnoses: None Author: Mehreen Dodge MA Results Review Original Procedure Date 06/15/2020 Revised repeat colonoscopy interval 5 years Adenomatous polyp(s) present 1 or 2 tubular adenomas less than 10mm Adenocarcinoma present No Serrated lesion(s) present Sessile serrated polyp(s) less than 10mm with no dysplasia Hyperplastic polyp(s) present [facility]04-19-2021 Note [id number]:127[facility] Evaluation [facility]No [facility] [employer] Other Evaluation note* Diagnosis Onset Date Resolution Status Lumbar spondylosis acute Primary hypertension acute [id number] acute [id number] acute Adverse effect of prednisone noneactive [facility] Work Phone: Evaluation note* Diagnosis Onset Date Resolution Status Lumbar spondylosis acute [id number] acute [id number] acute Adverse effect of prednisone noneactive Lumbar spondylosis acute [id number] acute [id number] acute Adverse effect of prednisone noneactive [facility] Work Phone: Evaluation note* Diagnosis Onset Date Resolution Status Lumbar spondylosis acute [id number] acute [id number] acute Adverse effect of prednisone noneactive Lumbar spondylosis acute Primary hypertension acute [id number] acute [id number] acute [facility] Work Phone: Evaluation note* Diagnosis Onset Date Resolution Status Lumbar spondylosis acute Nicotine dependence, cigarettes, uncomplicated acute Primary hypertension acute [id number] acute [id number] acute Infected sebaceous cyst of skin noneactive Lumbar spondylosis acute Nicotine dependence, cigarettes, uncomplicated acute Primary hypertension acute Screening PSA (prostate specific antigen) acute [id number] acute [id number] acute Wellness examination acute [facility] Work Phone: Evaluation note* Diagnosis Onset Date Resolution Status Admit Date Chronic bronchitis acute r y 2024 9:55am Lumbar spondylosis acute Maruar y 2024 9:55am Nicotine dependence, cigarettes, uncomplicated acute Januar y 2024 9:55am Primary hypertension acute 2024 9:55am Type 2 diabetes mellitus wit h diabetic polyneuropathy, without long-term cu acute March 9:55am Type 2 diabetes mellitus wit h hyperglycemia, without long-term current use acute March 262024 9:55am [facility] Work Phone: Evaluation note* Diagnosis Onset Date Resolution Status Admit Date Chronic bronchitis acute August 042024 11:33am Lumbar spondylosis acute August 042024 11:33am Nicotine dependence, cigaret zachariah, uncomplicated acute August 04, 2024 1 1:33am Primary hypertension acute August 04, 2024 11:33am Type 2 diabetes mellitus wit h diabetic polyneuropathy acute August 11:33am Type 2 diabetes mellitus wit h diabetic polyneuropathy, without long-term cu acute August 04, 2024 1 1:33am Type 2 diabetes mellitus wit h hyperglycemia acute August 04, 2024 1 1:33am Type 2 diabetes mellitus wit h hyperglycemia, without long-term current use acute August 04, 2024 1 1:33am [facility] Work Phone: Evaluation note* Diagnosis Onset Date Resolution Status Admit Date Chronic bronchitis acute 2024 8:59am Lumbar spondylosis acute 2024 8:59am Nicotine dependence, cigarettes, uncomplicated acute 2024 8:59am Primary hypertension acute Nov 8:59am Screening PSA (prostate specific antigen) acute November 10, 2024 8:59am Type 2 diabetes mellitus wit h diabetic polyneuropathy acute 2024 8:59am Type 2 diabetes mellitus wit h hyperglycemia acute November 10, 2 025 8:59am Wellness examination acute Nov 8:59am [facility] Work Phone: History general Narrative [...] History COLONOSCOPY Hospitalization History see surgical hx [employer] Other History general Narrative - Reported* Type [...] years) 2020 Hospitalization History see surgical hx [employer] Other Reason for referral (narrative)* Reason Referral for ankle/f oot mass. Diagnosis 1 Mass of right ankle (R22.41) Referral Organization [facility] yojana Referring Provider First Name Samuel Referring Provider Last Name Pavel Referring Provider Specialty Internal Sc dicine Referred Organization [facility] Referred Provider Caprice Roberts Referred Address [address] [place], [place],[address] Referred Provider Specialty Podiatry - S urgical Chiropody Referral Priority Routine General Notes Patient c/o mass at the junction of his foot/ankle, which has developed over the past 2 months. He has a remote hx of ankle injury. It is not tender, erythematous or associated w/ bruising. Clinical Notes XR negative [employer] Other Reason for referral (narrative)No reason for referral information availableProm[facility] Work Phone: Summary Purpose Family History Relationship Condition Age at Onset Recorded Date/T nahid father Hypertension Unknown Heart disease Unknown High blood cholesterol Unknown family member Unknown Not Specified Unknown Relationship Condition Age at Onset Recorded Date/T nahid father Hypertension Unknown Heart disease Unknown High blood cholesterol Unknown family member Unknown mother Unknown Advance Directives Advance Directive Response Recorded Date/ Time Advance Directives No April 8:32am Advance Directive Response Recorded Date/ Time Advance Directives No April 9:32am Reason for Referral Reason evaluate and tr eat Diagnosis 1 Spinal stenosis of l umbar region with neurogenic claudication (M48.062) Referral Organization [facility] urosurgery Referring Provider First Name Roseline Referring Provider Last Name Davina Referring Provider Specialty Nurse Pract itioneleo Referred Organization [facility] Referred Provider Park Hallman Referred Address [address], [place],[address] Referred Provider Specialty Pain Medicin e Referral Priority Routine General Notes Kristin King 12:49:27 PM > received today, attached documents, waiting for note to be locked before sending Reason Mr. Baez is being r eferred for low back and left leg pain. Diagnosis 1 Acute left-sided low back pain with left-sided sciatica (M54.42) Referral Organization [facility] Pavel dial Referring Provider First Name Samuel Referring Provider Last Name Pavel Referring Provider Specialty Internal Me dicine Referred Organization [facility] Referred Provider Deric Vega Referred Address [address] [place], [place],[address] Referred Provider Specialty Neurological Surgery Referral Priority [...] Reason for Visit Lumbar spondylosis Primary hypertension [id number] Adverse effect of prednisone Chief Complaint Back Pain Referred By Dr. Zhao Low Back And Left L tbh - high blood Amb Documentation 1 month follow up Reason for Visit Lumbar spondylosis [id number] Adverse effect of prednisone Lumbar spondylosis [id number] Adverse effect of prednisone Chief Complaint 1 month follow up red swollen lump on neck Reason for Visit Lumbar spondylosis [id number] Adverse effect of prednisone Lumbar spondylosis Primary hypertension [id number] Chief Complaint red swollen lump on neck wellness Reason for Visit Lumbar spondylosis Nicotine dependence, cigarettes, uncomplicated Primary hypertension [id number] Infected sebaceous cyst of skin Lumbar spondylosis Nicotine dependence, cigarettes, uncomplicated Primary hypertension Screening PSA (prostate specific antigen) [id number] Wellness examination Chief Complaint Admit Date 4 month f/u March 26, 2024 9 :55am Reason for Visit Admit Date Chronic bronchitis March 26, 2024 9 :55am Lumbar spondylosis March 26, 2024 9 :55am Nicotine dependence, cigarettes, uncompl icated March 26, 2024 9:55am Primary hypertension March 26, 2024 9:55am Type 2 diabetes mellitus wit h diabetic polyneuropathy, without long-term cu March 26, 2024 9:55am Type 2 diabetes mellitus wit h hyperglycemia, without long-term current use March 26, 2024 9:55am Chief Complaint Admit Date 4 month f/u August 04, 2024 11:33 am Reason for Visit Admit Date Chronic bronchitis August 04, 2024 11:33 am Lumbar spondylosis August 04, 2024 11:33 am Nicotine dependence, cigarettes, uncompl icated August 04, 2024 11:33am Primary hypertension August 04, 2024 11:3 3am Type 2 diabetes mellitus with diabetic p olyneuropathy August 04, 2024 11:33am Type 2 diabetes mellitus wit h diabetic polyneuropathy, without long-term cu August 04, 2024 11:33am Type 2 diabetes mellitus with hyperglyce jimmy August 04, 2024 11:33am Type 2 diabetes mellitus wit h hyperglycemia, without long-term current use August 04, 2024 11:33am Chief Complaint Admit Date Wellness November 10, 2024 8:59am Reason for Visit Admit Date Chronic bronchitis November 10, 2024 8:59am Lumbar spondylosis November 10, 2024 8:59am Nicotine dependence, cigarettes, uncompl icated November 10, 2024 8:59am Primary hypertension November 10, 2024 8:59am Screening PSA (prostate specific antigen ) November 10, 2024 8:59am Type 2 diabetes mellitus with diabetic p olyneuropathy November 10, 2024 8:59am Type 2 diabetes mellitus with hyperglyce jimmy November 10, 2024 8:59am Wellness examination November 10, 2024 8:59am Additional Source Comments (unrecognized sect ion and content) No Status Records FoundNo Status Records FoundNo Status Records Found INFORMATION SOURCE (unrecogn ized section and content) DATE CREATED AUTHOR 02/26/2021 Zackary Mejiaus [facility] DATE CREATED AUTHOR AUTHOR'S ORGANIZ ATION [facility]/19/2022 [facility] DATE CREATED AUTHOR AUTHOR'S ORGANIZ ATION 05/10/2023 [facility] REASON FOR VISIT (unrecogniz ed section [...] Status: Inactive Member Role Status Dates MAXIMINO Lcuas Attending Provider Active Start: March 26, 2023 End: March 26, 2023 Team Status: Active Member Role Status Dates Samuel Zhao , DO Primary Care Provide r, Attending Provider Active Start: April 22, 2023 Team Status: Inactive Member Role Status Dates Samuel Zhao , DO Primary Care Provide r, Attending Provider Active Start: April 23, 2023 End: April 23, 2023 Team Status: Active Member Role Status Dates Samuel Zhao , DO Primary Care Provider Active Start: May 02, 2023 AUGUST Cates Attending Provider Active Start : May 02, 2023 Team Status: Inactive Member Role Status Dates Samuel Zhao , DO Primary Care Provide r, Attending Provider Active Start: May 24, 2023 End: May 24, 2023 Team Status: Inactive Member Role Status Dates Samuel Zhao , DO Primary Care Provide r, Attending Provider Active Start: August 19, 2023 End: August 19, 2023 Team Status: Inactive Member Role Status Dates Samuel Zhao , DO Primary Care Provide r, Attending Provider Active Start: November 08, 2023 End: November 08, 2023 Team Status: Inactive Member Role Status Dates Samuel Zhao , DO Primary Care Provide r, Attending Provider Active Start: March 26, 2024 End: March 26, 2024 Team Status: Inactive Member Role Status Dates Samuel Zhao , DO Primary Care Provide r, Attending Provider Active Start: August 04, 2024 End: August 04, 2024 Team Status: Inactive Member Role Status Dates Samuel Pavel , DO Primary Care Provider Active Start: November 10, 2024 End: November 10, 2024 Samuel Zhao , DO Attending Provider Active Sta rt: November 10, 2024 End: November 10, 2024 Goals (unrecognized section and content) Goals may [...] BE BASED ON THE PRIMARY CLINICAL RECORDS. [employer] [facility]. provides no warranty or guarantee of the accuracy or completeness of information in this document.
[2024-11-25 09:36] LABS: Hematocrit 40.9 % (42.0-54.0); Hemoglobin 14.3 g/dL (14.0-18.0); Immature Granulocytes Abs Auto 0.01 10^3/uL (0.00-0.03); Immature Granulocytes Pct Auto 0.2 % (0.0-0.5); Lymphocytes Absolute Auto 2.4 10^3/uL (1.2-3.8); Mean Corpuscular HGB Conc 35.0 g/dL (29.9-35.2); Mean Corpuscular Hemoglobin 32.4 pg (25.9-34.0); Mean Corpuscular Volume 92.7 fL (80.0-94.0); Platelet Count 236 10^3/uL (150-450); Red Blood Count 4.41 10^6/uL (4.70-6.10); White Blood Count 6.5 10^3/uL (4.0-11.0)
[2024-11-25 09:56] LABS: Alanine Aminotransferase 36 U/L (16-63); Albumin Globulin Ratio 0.8; Albumin Level 3.2 g/dL (3.4-5.0); Alkaline Phosphatase 80 U/L (46-116); Anion Gap 12.8; Aspartate Amino Transferase 24 U/L (15-37); Blood Urea Nitrogen 13.0 mg/dL (7.0-18.0); Calcium 8.7 mg/dL (8.5-10.1); Carbon Dioxide 26.5 mmol/L (21.0-32.0); Chloride 106 mmol/L (98-107); Cholesterol 157 mg/dL (<=200); Estimated GFR (African America >60 (>=60 mL/min/1.73m^2); Estimated GFR (Non-African Ame >60 (>=60 mL/min/1.73m^2); Globulin 3.8 g/dL; Glucose 123 mg/dL (74-106); HDL Cholesterol 54 mg/dL (40-60); Potassium 3.3 mmol/L (3.5-5.1); Sodium 142 mmol/L (136-145); Total Protein 7.0 g/dL (6.4-8.2); Triglycerides 266 mg/dL (<=150); VLDL CHOLESTEROL 53.2 mg/dL
[2024-11-25 10:01] LABS: Microalbum Creatinine Ratio Ur 37.2 mg/g (0.0-29.9)
== END 2024-11-25 09:05 | disposition home or self-care (01) ==
LOC: LAB 09:08
PROVIDERS: PCP Internal Medicine; Visit Provider Internal Medicine
DX: Z00.00 Encounter for general adult medical examination without abnormal findings (principal); E11.65 Type 2 diabetes mellitus with hyperglycemia; I10 Essential (primary) hypertension; D64.9 Anemia, unspecified; Z12.5 Encounter for screening for malignant neoplasm of prostate; E78.00 Pure hypercholesterolemia, unspecified
CPT/HCPCS: 36415; 80053; 80061; 82043; 82570; 83036; 85025; G0103